=== PATIENT | male | born 1945 | race Caucasian/White ===

== ENCOUNTER 2016-11-20 18:37 | Observation (INO) | payer MEDICARE ==
[2016-11-20 20:06] LABS: Basophils % (A) 1 %; CH 29.6; CHCM 34.7; Eosinophils # (A) 0.1 k/uL (0-0.7); Eosinophils % (A) 1 %; HCT 47.7 % (39.0-53.0); HDW 2.73; HGB 15.9 gm/dL (13.0-17.5); Luc # (Auto) 0.11; Luc % (Auto) 2; Lymphocytes % (A) 22 %; MCH 28.5 pg (25.0-35.0); MCHC 33.3 g/dL (31.0-37.0); MCV 85.7 fL (80.0-100.0); Mean Platelet Volume 8.5; Monocytes # (A) 0.4 k/uL (0-1.0); Monocytes % (A) 9 %; Neutrophils # (A) 2.9 k/uL (1.3-7.7); Neutrophils % (A) 65 %; RBC 5.57 m/uL (4.30-5.90); RDW 14.9 % (11.5-15.5); WBC 4.5 k/uL (3.8-10.6)
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
[2016-11-20 20:34] LABS: Anion Gap 9 mmol/L; Blood Urea Nitrogen 27 mg/dL (9-20); Calcium 9.7 mg/dL (8.4-10.2); Carbon Dioxide 20 mmol/L (22-30); Chloride 110 mmol/L (98-107); Glucose 144 mg/dL (74-99); Non-African American GFR(MDRD) 55 (>60 ml/min/1.73 sqM); Sodium 139 mmol/L (137-145)
[2016-11-20 20:49] LABS: INR 1.6 (<1.2); Partial Thromboplastin Time 25.4 sec (22.0-30.0); Prothrombin Time 15.9 sec (9.0-12.0)
[2016-11-20 20:58] LABS: Creatine Kinase 68 U/L (55-170)
[2016-11-20 21:09] LABS: Creatine Kinase MB 0.9 ng/mL (0.0-2.4); Troponin I <0.012 ng/mL (0.000-0.034)
[2016-11-20 21:51] LABS: Appearance,Urine Clear (Clear); Bilirubin,Urine Negative (Negative); Glucose,Urine (UA) 2+ (Negative); Ketones,Urine Negative (Negative); Leukocyte Esterase,Urine Negative (Negative); Nitrite,Urine Negative (Negative); PH, Urine 5.5 (5.0-8.0); Protein,Urine Trace (Negative); Specific Gravity,Urine 1.018 (1.001-1.035); UA Billing (MACRO vs. MICRO) CHEM
[2016-11-20] MEDS ORDERED: NALOXONE 0.4 MG/ML 1 ML VIAL IV PRN (22:53)
--- NOTE | 2016-11-20 23:31 | XR ---
EXAM: XR Chest, 2 Views CLINICAL HISTORY: Reason: Pain TECHNIQUE: Frontal and lateral views of the chest. COMPARISON: Chest x-ray 09/07/14 FINDINGS: Lungs: Unremarkable. No consolidation. Pleural space: No pleural effusion. No pneumothorax. Heart: Stable mild cardiomegaly. Mediastinum: Unremarkable. Bones/joints: Median sternotomy wires. Vasculature: Atherosclerotic calcifications of the aortic arch. Tubes, lines and devices: Left chest wall cardiac pacer with right ventricular lead. IMPRESSION: Stable mild cardiomegaly. No consolidation or pulmonary edema.
[2016-11-21 03:16] VITALS: BMI 39.6
[2016-11-21] MEDS ORDERED: PANTOPRAZOLE 40 MG TABLET PO SCH (07:30)
[2016-11-21 07:57] LABS: Hemoglobin A1C 7.5 % (4.2-6.1)
[2016-11-21 08:50] LABS: Basophils % (A) 1 %; CH 28.3; CHCM 32.8; Eosinophils # (A) 0.1 k/uL (0-0.7); Eosinophils % (A) 2 %; HCT 47.5 % (39.0-53.0); HDW 2.71; HGB 15.6 gm/dL (13.0-17.5); Luc # (Auto) 0.16; Luc % (Auto) 4; Lymphocytes # (A) 1.1 k/uL (1.0-4.8); Lymphocytes % (A) 29 %; MCH 28.5 pg (25.0-35.0); MCHC 32.9 g/dL (31.0-37.0); MCV 86.7 fL (80.0-100.0); Mean Platelet Volume 7.8; Monocytes # (A) 0.4 k/uL (0-1.0); Monocytes % (A) 9 %; Neutrophils # (A) 2.2 k/uL (1.3-7.7); Neutrophils % (A) 56 %; RBC 5.47 m/uL (4.30-5.90); RDW 13.6 % (11.5-15.5); WBC 3.9 k/uL (3.8-10.6); WBC (Perox) 3.96
[2016-11-21] MEDS ORDERED: ARIPiprazole 5 MG TAB PO SCH (09:00)
[2016-11-21] MEDS ORDERED: AMIODARONE 200 MG TAB PO SCH (09:00)
[2016-11-21] MEDS ORDERED: FUROSEMIDE 20 MG TAB PO SCH (09:00)
[2016-11-21 09:01] LABS: ALT 79 U/L (21-72); AST 56 U/L (17-59); Alkaline Phosphatase 96 U/L (38-126); Anion Gap 9 mmol/L; Blood Urea Nitrogen 24 mg/dL (9-20); Calcium 9.5 mg/dL (8.4-10.2); Carbon Dioxide 24 mmol/L (22-30); Chloride 107 mmol/L (98-107); Glucose 125 mg/dL (74-99); Non-African American GFR(MDRD) >60 (>60 ml/min/1.73 sqM); Potassium 4.7 mmol/L (3.5-5.1); Sodium 140 mmol/L (137-145); Total Protein 6.5 g/dL (6.3-8.2)
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
[2016-11-21] MEDS ORDERED: VERAPAMIL SR 120 MG TABLET.ER PO SCH (11:15)
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
[2016-11-21 11:41] VITALS: BP 121/71; PULSE 81; RESP 16; TEMP 97.4
[2016-11-21 11:54] LABS: INR 1.5 (<1.2); Prothrombin Time 14.6 sec (9.0-12.0)
[2016-11-21 12:22] LABS: Glucose,Whole Blood 122 mg/dL (75-99)
[2016-11-21] MEDS ORDERED: INSULIN LISPRO (humaLOG) 300 UNIT/3 ML VIAL SQ SCH (12:30)
[2016-11-21] MEDS ORDERED: HEPARIN SODIUM,PORCINE 5,000 UNIT/ML 1 ML VIAL SQ SCH (13:00)
[2016-11-21 13:10] LABS: Hemoglobin A1C 7.5 % (4.2-6.1)
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
[2016-11-21 17:26] LABS: Glucose,Whole Blood 146 mg/dL (75-99)
[2016-11-21] MEDS ORDERED: WARFARIN 2 MG TAB PO SCH (18:00)
[2016-11-21] MEDS ORDERED: WARFARIN 5 MG TAB PO SCH (18:00)
[2016-11-21] MEDS ORDERED: ATORVASTATIN 20 MG TAB PO SCH (21:00)
--- NOTE | 2016-11-21 21:47 | ECHOF ---
Referral Reason:chest pain MEASUREMENTS -------- HEIGHT: 154.9 cm WEIGHT: 95.3 kg BP: 102/60 RVIDd: 3.3 cm (< 3.3) IVSd: 1.2 cm (0.6 - 1.1) LVIDd: 4.1 cm (3.9 - 5.3) LVPWd: 1.2 cm (0.6 - 1.1) IVSs: 1.6 cm LVIDs: 3.1 cm LVPWs: 1.5 cm LA Diam: 3.5 cm (2.7 - 3.8) LAESV Index (A-L): 29.42 ml/m Ao Diam: 3.4 cm (2.0 - 3.7) AV Cusp: 2.1 cm (1.5 - 2.6) MV EXCURSION: 12.364 mm (> 18.000) MV EF SLOPE: 80 mm/s (70 - 150) EPSS: 1.0 cm RAP: 5.00 mmHg RVSP: 24.33 mmHg FINDINGS -------- Atrial fibrillation. This was a technically good study. The left ventricular size is normal. There is borderline concentric left ventricular hypertrophy. Overall left ventricular systolic function is mildly impaired with, an EF between 45 - 50 %. The right ventricle is mildly enlarged. LA is midly dilated 29-33ml/m2. The right atrium is normal in size. Aortic valve is trileaflet and is mildly thickened. Mild mitral annular calcification present. There is trace to mild mitral regurgitation. Mild tricuspid regurgitation present. Right ventricular systolic pressure is normal at < 35 mmHg. Trace/mild (physiologic) pulmonic regurgitation. The aortic root size is normal. IVC Not well visulized. There is no pericardial effusion. CONCLUSIONS -------- 1. Atrial fibrillation. 2. Mild mitral annular calcification present. 3. There is trace to mild mitral regurgitation. 4. Mild tricuspid regurgitation present. 5. Right ventricular systolic pressure is normal at < 35 mmHg. 6. Trace/mild (physiologic) pulmonic regurgitation. 7. The aortic root size is normal. 8. IVC Not well visulized. 9. There is no pericardial effusion. 10. This was a technically good study. 11. The left ventricular size is normal. 12. There is borderline concentric left ventricular hypertrophy. 13. Overall left ventricular systolic function is mildly impaired with, an EF between 45 - 50 %. 14. The right ventricle is mildly enlarged. 15. LA is midly dilated 29-33ml/m2. 16. The right atrium is normal in size. 17. Aortic valve is trileaflet and is mildly thickened. UPHOLSTERER INSIDE: Denia Hatch RDCS
== END 2016-11-21 18:39 ==
LOC: EC 18:37 → 3OBS 11-21 02:19
PROVIDERS: ADMIT Internal Medicine; ATTEND Internal Medicine
DX: R45.851 Suicidal ideations (principal); R45.850 Homicidal ideations; I48.2 Chronic atrial fibrillation; I48.92 Unspecified atrial flutter; F32.9 Major depressive disorder, single episode, unspecified; N17.9 Acute kidney failure, unspecified; E86.0 Dehydration; E05.90 Thyrotoxicosis, unspecified without thyrotoxic crisis or storm; E03.9 Hypothyroidism, unspecified; I25.2 Old myocardial infarction; I25.10 Atherosclerotic heart disease of native coronary artery without angina pectoris; E11.9 Type 2 diabetes mellitus without complications; F41.9 Anxiety disorder, unspecified; G47.33 Obstructive sleep apnea (adult) (pediatric); H54.8 Legal blindness, as defined in USA; I10 Essential (primary) hypertension; K21.9 Gastro-esophageal reflux disease without esophagitis; Z79.01 Long term (current) use of anticoagulants; Z79.899 Other long term (current) drug therapy; Z86.718 Personal history of other venous thrombosis and embolism; Z95.0 Presence of cardiac pacemaker; Z95.5 Presence of coronary angioplasty implant and graft; R44.3 Hallucinations, unspecified; R07.89 Other chest pain; R06.02 Shortness of breath; Z88.5 Allergy status to narcotic agent; Z88.2 Allergy status to sulfonamides; Z88.8 Allergy status to other drugs, medicaments and biological substances; Z87.820 Personal history of traumatic brain injury; Z86.14 Personal history of Methicillin resistant Staphylococcus aureus infection; Z95.828 Presence of other vascular implants and grafts; Z63.0 Problems in relationship with spouse or partner; R74.8 Abnormal levels of other serum enzymes; E66.9 Obesity, unspecified; Z68.39 Body mass index [BMI] 39.0-39.9, adult; R79.89 Other specified abnormal findings of blood chemistry; Z91.14 Patient's other noncompliance with medication regimen
CPT/HCPCS: 36415; 71020; 80048; 80053; 80306; 81003; 82075; 82550; 82553; 83036; 84439; 84443; 84484; 85025; 85610; 85730; 93005; 93306; 96372; 99285

== ENCOUNTER 2016-11-21 16:57 | Inpatient (IN) | payer MEDICAID, MEDICARE ==
[2016-11-21] MEDS ORDERED: MAGNESIUM HYDROXIDE 2,400 MG/10 ML CUP PO PRN (18:24)
[2016-11-21] MEDS ORDERED: ACETAMINOPHEN TAB 325 MG TAB PO PRN (18:24)
[2016-11-21] MEDS ORDERED: MAG HYDROX/AL HYDROX/SIMETH 30 ML CUP PO PRN (18:24)
[2016-11-21] MEDS: ATORVASTATIN 20 MG TAB PO SCH (20:36)
[2016-11-21] MEDS: INSULIN LISPRO (humaLOG) 300 UNIT/3 ML VIAL SQ SCH (20:37)
[2016-11-21 20:38] LABS: Glucose,Whole Blood 180 mg/dL (75-99)
[2016-11-22] MEDS ORDERED: LEVOTHYROXINE 112 MCG TAB PO SCH (06:30)
[2016-11-22 06:45] LABS: Glucose,Whole Blood 163 mg/dL (75-99)
[2016-11-22] MEDS: INSULIN LISPRO (humaLOG) 300 UNIT/3 ML VIAL SQ SCH ×4 (08:27→20:47)
[2016-11-22] MEDS: glipiZIDE 5 MG TAB PO SCH ×2 (08:28→17:57)
[2016-11-22] MEDS: VERAPAMIL SR 120 MG TABLET.ER PO SCH (08:49)
[2016-11-22] MEDS: ARIPiprazole 5 MG TAB PO SCH (08:49)
[2016-11-22] MEDS: FUROSEMIDE 20 MG TAB PO SCH (08:49)
[2016-11-22] MEDS: PANTOPRAZOLE 40 MG TABLET PO SCH (08:50)
[2016-11-22 09:48] LABS: Basophils % (A) 0 %; CH 29.3; CHCM 33.7; Eosinophils # (A) 0.1 k/uL (0-0.7); Eosinophils % (A) 2 %; HCT 49.9 % (39.0-53.0); HDW 2.64; HGB 16.1 gm/dL (13.0-17.5); Luc # (Auto) 0.13; Luc % (Auto) 3; Lymphocytes # (A) 1.4 k/uL (1.0-4.8); Lymphocytes % (A) 28 %; MCH 28.1 pg (25.0-35.0); MCHC 32.2 g/dL (31.0-37.0); MCV 87.3 fL (80.0-100.0); Mean Platelet Volume 8.2; Monocytes # (A) 0.4 k/uL (0-1.0); Monocytes % (A) 7 %; Neutrophils % (A) 60 %; RBC 5.71 m/uL (4.30-5.90); RDW 14.7 % (11.5-15.5)
[2016-11-22 10:26] LABS: ALT 84 U/L (21-72); AST 54 U/L (17-59); Alkaline Phosphatase 101 U/L (38-126); Anion Gap 11 mmol/L; Blood Urea Nitrogen 25 mg/dL (9-20); Calcium 9.6 mg/dL (8.4-10.2); Carbon Dioxide 22 mmol/L (22-30); Chloride 104 mmol/L (98-107); Glucose 222 mg/dL (74-99); Non-African American GFR(MDRD) 56 (>60 ml/min/1.73 sqM); Potassium 4.7 mmol/L (3.5-5.1); Sodium 137 mmol/L (137-145); Total Bilirubin 0.8 mg/dL (0.2-1.3)
[2016-11-22 11:23] LABS: Hemoglobin A1C 7.5 % (4.2-6.1)
[2016-11-22 12:30] LABS: Glucose,Whole Blood 167 mg/dL (75-99)
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
[2016-11-22 15:40] LABS: INR 1.3 (<1.2); Prothrombin Time 13.1 sec (9.0-12.0)
[2016-11-22] MEDS: CEPHALEXIN 500 MG CAP PO SCH ×2 (16:18→21:13)
[2016-11-22 17:38] LABS: Glucose,Whole Blood 88 mg/dL (75-99)
[2016-11-22] MEDS ORDERED: WARFARIN 7.5 MG TAB PO ONE (18:00)
[2016-11-22] MEDS ORDERED: WARFARIN 5 MG TAB PO SCH (18:00)
[2016-11-22 20:15] LABS: Glucose,Whole Blood 162 mg/dL (75-99)
[2016-11-22] MEDS: ATORVASTATIN 20 MG TAB PO SCH (20:46)
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
[2016-11-23] MEDS: LEVOTHYROXINE 100 MCG TAB PO SCH (06:16)
[2016-11-23 06:21] LABS: Glucose,Whole Blood 106 mg/dL (75-99)
[2016-11-23] MEDS: INSULIN LISPRO (humaLOG) 300 UNIT/3 ML VIAL SQ SCH ×4 (07:54→20:47)
[2016-11-23] MEDS: CEPHALEXIN 500 MG CAP PO SCH ×3 (08:52→21:21)
[2016-11-23] MEDS: VERAPAMIL SR 120 MG TABLET.ER PO SCH (08:52)
[2016-11-23] MEDS: glipiZIDE 5 MG TAB PO SCH ×2 (08:53→17:51)
[2016-11-23] MEDS: FUROSEMIDE 20 MG TAB PO SCH (08:53)
[2016-11-23] MEDS: PANTOPRAZOLE 40 MG TABLET PO SCH (08:55)
[2016-11-23] MEDS: ARIPiprazole 5 MG TAB PO SCH (08:55)
[2016-11-23 10:22] LABS: INR 1.4 (<1.2); Prothrombin Time 13.9 sec (9.0-12.0)
[2016-11-23 12:51] LABS: Glucose,Whole Blood 176 mg/dL (75-99)
[2016-11-23 17:28] LABS: Glucose,Whole Blood 143 mg/dL (75-99)
[2016-11-23] MEDS ORDERED: WARFARIN 5 MG TAB PO SCH (18:00)
[2016-11-23] MEDS ORDERED: WARFARIN 7.5 MG TAB PO ONE (18:00)
[2016-11-23 20:11] LABS: Glucose,Whole Blood 176 mg/dL (75-99)
[2016-11-23] MEDS: ATORVASTATIN 20 MG TAB PO SCH (20:47)
--- NOTE | 2016-11-24 00:44 | P.PN ---
Progress Note - Text Vital Signs Temp 98.1 F 11/23/16 06:43 Pulse 93 11/23/16 08:57 Resp 18 11/23/16 08:57 BP 127/92 11/23/16 08:57 Pulse Ox Intake & Output 11/23/16 11/23/16 11/24/16 06:59 18:59 06:59 Weight 95 kg Patient interviewed privately. He reports adjusting well his first day on the unit . Tolerating Wellbutrin XL with no adverse or side effects.. He has been attending most groups, and had a good visit with family over the weekend. Plan: -continue hospitalization -continue current regimen -patient could likely discharge tomorrow or the next day
[2016-11-24] MEDS: LEVOTHYROXINE 100 MCG TAB PO SCH (06:08)
[2016-11-24 06:17] LABS: Glucose,Whole Blood 87 mg/dL (75-99)
[2016-11-24] MEDS: FUROSEMIDE 20 MG TAB PO SCH (08:44)
[2016-11-24] MEDS: INSULIN LISPRO (humaLOG) 300 UNIT/3 ML VIAL SQ SCH ×4 (08:44→20:14)
[2016-11-24] MEDS: glipiZIDE 5 MG TAB PO SCH ×2 (08:44→16:28)
[2016-11-24] MEDS: ARIPiprazole 5 MG TAB PO SCH (08:45)
[2016-11-24] MEDS: PANTOPRAZOLE 40 MG TABLET PO SCH (08:45)
[2016-11-24] MEDS: VERAPAMIL SR 120 MG TABLET.ER PO SCH (08:45)
[2016-11-24] MEDS: CEPHALEXIN 500 MG CAP PO SCH ×3 (08:45→20:14)
[2016-11-24 10:23] LABS: INR 2.3 (<1.2); Prothrombin Time 21.8 sec (9.0-12.0)
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
[2016-11-24 12:38] LABS: Glucose,Whole Blood 114 mg/dL (75-99)
[2016-11-24 17:46] LABS: Glucose,Whole Blood 151 mg/dL (75-99)
[2016-11-24] MEDS: WARFARIN 2 MG TAB PO SCH (17:52)
[2016-11-24 20:06] LABS: Glucose,Whole Blood 153 mg/dL (75-99)
[2016-11-24] MEDS: ATORVASTATIN 20 MG TAB PO SCH (20:14)
[2016-11-25] MEDS: LEVOTHYROXINE 100 MCG TAB PO SCH (06:14)
[2016-11-25 06:22] LABS: Glucose,Whole Blood 97 mg/dL (75-99)
[2016-11-25] MEDS: INSULIN LISPRO (humaLOG) 300 UNIT/3 ML VIAL SQ SCH ×4 (08:09→19:59)
[2016-11-25] MEDS: FUROSEMIDE 20 MG TAB PO SCH (08:35)
[2016-11-25] MEDS: glipiZIDE 5 MG TAB PO SCH ×2 (08:35→17:46)
[2016-11-25] MEDS: CEPHALEXIN 500 MG CAP PO SCH ×3 (08:36→19:59)
[2016-11-25] MEDS: VERAPAMIL SR 120 MG TABLET.ER PO SCH (08:36)
[2016-11-25] MEDS: ARIPiprazole 5 MG TAB PO SCH (08:36)
[2016-11-25] MEDS: PANTOPRAZOLE 40 MG TABLET PO SCH (08:36)
[2016-11-25] MEDS ORDERED: FLUoxetine HCL 10 MG CAP PO STA (10:25)
[2016-11-25 11:01] LABS: INR 3.1 (<1.2); Prothrombin Time 30.1 sec (9.0-12.0)
[2016-11-25 12:52] LABS: Glucose,Whole Blood 87 mg/dL (75-99)
--- NOTE | 2016-11-25 15:02 | P.PN ---
Progress Note - Text Interval History: Patient is a 70-year-old male who was seen today and states that he slept okay and is eating okay. Patient states that the family meeting went fairly well yesterday. I discussed with the patient that his and brought up that he was doing well on Prozac and then it was changed to a medication that he could not afford and the patient agreed that this was so and the Abilify is the medication that he could not afford. Patient states that he is much less irritable than when he was on admission and states that he is not having any suicidal thoughts. Patient did complain that he has lower legs were itchy where he has stasis ulcers. Mental Status: Appearance/Attitude: Patient is appropriately dressed, makes good eye contact, and is cooperative. Patient is not wearing hearing aids and I need to speak in a loud voice of that he can hear. Patient is also legally blind. Behavior: Patient does not display any psychomotor agitation or retardation. Speech/Language: Patient's speech is spontaneous and of normal volume and rhythm and he is coherent. Thought Process: Patient is goal-directed there is no evidence of loose associations or flight of ideas. Thought Content: Patient denies any auditory or visual hallucinations, no paranoid or delusional ideation is elicited. Patient states that he is feeling less irritable and at the family meeting with his went well yesterday. He states that they are going to continue in marriage counseling after his discharge. Patient states he is sleeping and eating well. Suicidal/Homicidal Ideation: Patient denies any current suicidal or homicidal ideation. Sensorium/Cognition: Patient is alert and oriented to person, place, time and his memory is grossly intact. Mood/Affect: Patient's mood is pleasant and his affect is appropriate. Insight/Judgement: Patient's insight and judgment are fair. Assessment: Patient and I discussed his response to Prozac and he did confirm that he been on it for 18 years at 20 mg a day and was doing well and cannot tell me why it was changed to Abilify. He was unable to tell me that the Abilify is the medication that he could not afford. Patient had not been started on Wellbutrin. Patient complained that his stasis ulcers or itching. Patient reported that the family meeting went well and he is feeling much less irritable area Plan: Will discontinue the patient's Abilify as the patient is not able to afford it. Patient was never started on Wellbutrin and so I will change him to Prozac 10 mg today and Prozac 20 mg tomorrow. Should patient have no difficulty tolerating the medication and consider discharge later this week. Patient states that he and his are going to continue in marriage counseling once he is discharged. Will also reconsult medicine to evaluate patient's stasis ulcers and the need for any further treatment.
[2016-11-25 16:59] LABS: Glucose,Whole Blood 197 mg/dL (75-99)
[2016-11-25] MEDS: WARFARIN 2 MG TAB PO SCH (17:46)
[2016-11-25] MEDS: NEOMYCIN-BACITRACIN-POLY OINT 14 GM TUBE TOPICAL SCH (18:51)
[2016-11-25 19:51] LABS: Glucose,Whole Blood 98 mg/dL (75-99)
[2016-11-25] MEDS: ATORVASTATIN 20 MG TAB PO SCH (19:59)
[2016-11-26] MEDS: LEVOTHYROXINE 100 MCG TAB PO SCH (05:58)
[2016-11-26 06:03] LABS: Glucose,Whole Blood 87 mg/dL (75-99)
[2016-11-26 06:38] VITALS: TEMP 97.5
[2016-11-26] MEDS: INSULIN LISPRO (humaLOG) 300 UNIT/3 ML VIAL SQ SCH ×2 (08:01→12:27)
[2016-11-26] MEDS: glipiZIDE 5 MG TAB PO SCH (08:02)
[2016-11-26] MEDS: CEPHALEXIN 500 MG CAP PO SCH (08:02)
[2016-11-26] MEDS: PANTOPRAZOLE 40 MG TABLET PO SCH (08:03)
[2016-11-26] MEDS: VERAPAMIL SR 120 MG TABLET.ER PO SCH (08:03)
[2016-11-26] MEDS: FUROSEMIDE 20 MG TAB PO SCH (08:03)
[2016-11-26] MEDS: NEOMYCIN-BACITRACIN-POLY OINT 14 GM TUBE TOPICAL SCH (08:04)
[2016-11-26 08:07] VITALS: BP 130/59; PULSE 80; RESP 18
[2016-11-26] MEDS ORDERED: FLUoxetine HCL 20 MG CAP PO SCH (09:00)
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
[2016-11-26 11:54] LABS: INR 3.7 (<1.2); Prothrombin Time 35.7 sec (9.0-12.0)
[2016-11-26 12:49] LABS: Glucose,Whole Blood 113 mg/dL (75-99)
== END 2016-11-26 13:49 | disposition home or self-care (01) | DRG 885 ==
LOC: 3MHU 18:40
PROVIDERS: ADMIT Psychiatry & Neurology Psychiatry; ATTEND Psychiatry & Neurology Psychiatry
DX: F33.1 Major depressive disorder, recurrent, moderate (principal); I48.91 Unspecified atrial fibrillation; L03.115 Cellulitis of right lower limb; L03.116 Cellulitis of left lower limb; R45.850 Homicidal ideations; R45.851 Suicidal ideations; E11.9 Type 2 diabetes mellitus without complications; E03.9 Hypothyroidism, unspecified; F41.9 Anxiety disorder, unspecified; G47.33 Obstructive sleep apnea (adult) (pediatric); H54.8 Legal blindness, as defined in USA; I25.10 Atherosclerotic heart disease of native coronary artery without angina pectoris; I25.2 Old myocardial infarction; K21.9 Gastro-esophageal reflux disease without esophagitis; Z63.0 Problems in relationship with spouse or partner; Z79.01 Long term (current) use of anticoagulants; Z79.84 Long term (current) use of oral hypoglycemic drugs; Z79.899 Other long term (current) drug therapy; Z86.718 Personal history of other venous thrombosis and embolism; Z88.2 Allergy status to sulfonamides; Z96.653 Presence of artificial knee joint, bilateral; Z86.14 Personal history of Methicillin resistant Staphylococcus aureus infection; Z88.5 Allergy status to narcotic agent; Z88.8 Allergy status to other drugs, medicaments and biological substances; Z95.5 Presence of coronary angioplasty implant and graft
CPT/HCPCS: 80053; 83036; 84443; 85025; 85610

== ENCOUNTER 2017-08-22 18:34 | Emergency (ER) | payer MEDICARE ==
[2017-08-22 19:06] VITALS: BP 144/64; PULSE 81; RESP 16; TEMP 98.1
--- NOTE | 2017-08-22 20:19 | XR ---
EXAMINATION TYPE: XR finger RT DATE OF EXAM: 08/22/2017 COMPARISON: NONE HISTORY: 71-year-old male with pain, laceration from table saw TECHNIQUE: 3 views coned down second digit FINDINGS: There is a saw blade injury oriented sagittally involving the tip of the index finger. Fracture runs vertically along the ulnar margin of the tuft and distal shaft. No additional acute fracture or dislocation. IMPRESSION: Penetrating table saw injury involving the soft tissues of the distal index finger with vertically or iented fracture running along the ulnar margin of the tuft and distal shaft of the distal phalanx.
[2017-08-22] MEDS ORDERED: ceFAZolin 1,000 MG VIAL IM STA (20:36)
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
== END 2017-08-22 21:23 | disposition home or self-care (01) ==
LOC: EC 18:34
DX: S62.630B Displaced fracture of distal phalanx of right index finger, initial encounter for open fracture (principal); S61.210A Laceration without foreign body of right index finger without damage to nail, initial encounter; K21.9 Gastro-esophageal reflux disease without esophagitis; I10 Essential (primary) hypertension; G47.30 Sleep apnea, unspecified; H54.8 Legal blindness, as defined in USA; Z86.14 Personal history of Methicillin resistant Staphylococcus aureus infection; Z99.89 Dependence on other enabling machines and devices; Z86.718 Personal history of other venous thrombosis and embolism; Z98.890 Other specified postprocedural states; Z96.653 Presence of artificial knee joint, bilateral; Z79.899 Other long term (current) drug therapy; Z88.2 Allergy status to sulfonamides; Z88.5 Allergy status to narcotic agent; Z88.8 Allergy status to other drugs, medicaments and biological substances; W31.2XXA Contact with powered woodworking and forming machines, initial encounter; Y92.009 Unspecified place in unspecified non-institutional (private) residence as the place of occurrence of the external cause; Y93.89 Activity, other specified
CPT/HCPCS: 73140; 99283; 12001; 96372; J0690

== ENCOUNTER → 2018-07-12 | Outpatient (CLI) | payer MEDICARE ==
[2018-07-12 12:24] LABS: HCT 45.9 % (39.0-53.0); HGB 14.9 gm/dL (13.0-17.5); MCHC 32.5 g/dL (31.0-37.0); MCV 86.1 fL (80.0-100.0); Platelet Count 164 k/uL (150-450); RBC 5.33 m/uL (4.30-5.90); RDW 13.9 % (11.5-15.5)
== END | disposition home or self-care (01) ==
LOC: LABPAT 11:29
PROVIDERS: ATTEND Internal Medicine Cardiovascular Disease
DX: Z01.812 Encounter for preprocedural laboratory examination (principal); I48.2 Chronic atrial fibrillation
CPT/HCPCS: 36415; 80051; 82565; 84520; 85027

== ENCOUNTER 2018-07-15 06:30 | Day surgery (SDC) | payer MEDICARE ==
[~2018-07-15 06:30] MED LIST: ALPRAZolam 0.25 MG TAB PO PRN; ALPRAZolam 0.5 MG TAB PO PRN; NITROGLYCERIN SL TABS 0.4 MG TAB SUBLINGUAL PRN; SODIUM CHLORIDE 0.9% 1,000 ML in EMPTY BAG 1 BAG IV ONE
[2018-07-15] MEDS ORDERED: ASPIRIN 81 MG ONE (06:47)
[2018-07-15] MEDS ORDERED: ATENOLOL 25 MG TAB PO STA (06:59)
[2018-07-15] MEDS ORDERED: ASPIRIN 325 MG TAB PO ONE (07:00)
[2018-07-15] MEDS ORDERED: ATORVASTATIN 80 MG TAB PO ONE (07:00)
[2018-07-15 07:05] LABS: Glucose,Whole Blood 145 mg/dL (75-99)
[2018-07-15 07:16] LABS: INR 1.5 (<1.2)
[2018-07-15] MEDS ORDERED: VERAPAMIL 2.5 MG/ML 2 ML AMP ONE (07:17)
[2018-07-15] MEDS ORDERED: HEPARIN SODIUM 1,000 UN/ML (10ML VL) ONE (07:17)
[2018-07-15] MEDS ORDERED: LIDOCAINE 1% INJ 10MG/ML (20 ML MDV) ONE (07:21)
[2018-07-15] MEDS ORDERED: MIDAZOLAM (PF) 2 MG/2 ML VIAL IV ONE (07:45)
[2018-07-15] MEDS ORDERED: LIDOCAINE 1% INJ 10MG/ML (20 ML MDV) SQ ONE (07:50)
[2018-07-15] MEDS ORDERED: VERAPAMIL SYRINGE (5 MG/10 ML) INTRAARTER ONE (07:54)
[2018-07-15] MEDS ORDERED: IOPAMIDOL-370 125ML BTL INJ ONE (08:26)
[2018-07-15] MEDS ORDERED: RX INFO: IV CONTRAST WAS GIVEN 1 EACH MISC MISCELLANE PRN (08:34)
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
[2018-07-15] MEDS ORDERED: ISOSORBIDE MONONITRATE ER 30 MG TAB.ER.24H PO SCH (09:09)
[2018-07-15 09:17] VITALS: BMI 40.3
[2018-07-15] MEDS: ATENOLOL 25 MG TAB PO SCH ×2 (09:47→20:52)
[2018-07-15] MEDS: SODIUM CHLORIDE 0.9% 1,000 ML IV SCH ×2 (09:48→22:41)
[2018-07-15] MEDS: ASPIRIN 81 MG PO SCH (09:49)
[2018-07-15] MEDS: LINAGLIPTIN 5 MG TABLET PO SCH (09:50)
[2018-07-15] MEDS: LOSARTAN 50 MG TAB PO SCH (09:51)
[2018-07-15] MEDS: FLUoxetine HCL 20 MG CAP PO SCH (09:53)
[2018-07-15] MEDS: FUROSEMIDE 20 MG TAB PO SCH (09:53)
[2018-07-15] MEDS: CHOLECALCIFEROL 1,000 UNIT TAB PO SCH (09:53)
[2018-07-15] MEDS: LEVOTHYROXINE 100 MCG TAB PO SCH (09:54)
[2018-07-15 11:18] LABS: Glucose,Whole Blood 146 mg/dL (75-99)
[2018-07-15] MEDS ORDERED: HEPARIN SODIUM,PORCINE 5,000 UNIT/ML 1 ML VIAL IV PRN (12:00)
[2018-07-15] MEDS: HEPARIN SOD,PORK IN 0.45% NACL 25,000 UNIT in 0.45% NACL 1 250ML.BAG IV SCH (12:39)
[2018-07-15 12:43] LABS: Basophils # (A) 0.1 k/uL (0-0.2); Basophils % (A) 1 %; Eosinophils # (A) 0.1 k/uL (0-0.7); Eosinophils % (A) 2 %; HCT 42.7 % (39.0-53.0); HGB 14.1 gm/dL (13.0-17.5); Lymphocytes # (A) 1.5 k/uL (1.0-4.8); Lymphocytes % (A) 26 %; MCH 28.4 pg (25.0-35.0); MCHC 33.2 g/dL (31.0-37.0); MCV 85.7 fL (80.0-100.0); Mean Platelet Volume 7.5; Monocytes # (A) 0.4 k/uL (0-1.0); Monocytes % (A) 7 %; Neutrophils # (A) 3.5 k/uL (1.3-7.7); Neutrophils % (A) 62 %; Platelet Count 126 k/uL (150-450); RBC 4.98 m/uL (4.30-5.90); RDW 14.6 % (11.5-15.5); WBC 5.6 k/uL (3.8-10.6)
[2018-07-15 13:01] LABS: Albumin 3.7 g/dL (3.5-5.0); Calcium 9.2 mg/dL (8.4-10.2); Magnesium 1.9 mg/dL (1.6-2.3); Potassium 4.5 mmol/L (3.5-5.1); Total Bilirubin 0.8 mg/dL (0.2-1.3); Total Protein 6.5 g/dL (6.3-8.2)
--- NOTE | 2018-07-15 13:25 | US ---
EXAMINATION TYPE: US carotid duplex BILAT DATE OF EXAM: 07/15/2018 COMPARISON: NONE CLINICAL HISTORY: 72-year-old male Pre-Op Cardiac Surgery. TECHNIQUE: Carotid duplex ultrasound examination. Indirect Doppler criteria is utilized. FINDINGS: EXAM MEASUREMENTS: RIGHT: Peak Systolic Velocity (PSV) cm/sec ----- Right CCA: 70.6 ----- Right ICA: 95.6 ----- Right ECA: 80.1 ICA/CCA ratio: 1.4 RIGHT: End Diastole cm/sec ----- Right CCA: 22.6 ----- Right ICA: 42.6 ----- Right ECA: 0.0 LEFT: Peak Systolic Velocity (PSV) cm/sec ----- Left CCA: 67.1 ----- Left ICA: 71.3 ----- Left ECA: 122.6 ICA/CCA ratio: 1.1 LEFT: End Diastole cm/sec ----- Left CCA: 14.7 ----- Left ICA: 19.7 ----- Left ECA: 0.0 VERTEBRALS (direction of flow): Right Vertebral: Antegrade Left Vertebral: Antegrade Rhythm: Arrhythmia No significant stenosis seen IMPRESSION: No hemodynamically significant stenosis appreciated in either internal carotid artery. Criteria for Assigning % of Stenosis / Diameter reduction (Estimation based on the indirect measurements of the internal carotid artery velocities (ICA PSV). 1. Normal (no stenosis)=ICA PSV < 125 cm/s: ratio < 2.0: ICA EDV<40 cm/s. 2. Less than 50% stenosis=ICA PSV < 125 cm/s: ratio < 2.0: ICA EDV<40 cm/s. 3. 50 to 69% stenosis=ICA PSV of 125 to 230 cm/s: ration 2.0 ? 4.0: ICA EDV 40-100 cm/s. 4. Greater than 70% stenosis to near occlusion= ICA PSV > 230 cm/s: ratio > 4.0: ICA EDV > 100 cm/s. 5. Near occlusion= ICA PSV velocities may be low or undetectable: variable ratio and ICA EDV. 6. Total occlusion=unable to detect flow.
[2018-07-15 15:20] LABS: Appearance,Urine Clear (Clear); Bilirubin,Urine Negative (Negative); Blood,Urine Negative (Negative); Color,Urine Light Yellow; Glucose,Urine (UA) Negative (Negative); Ketones,Urine Negative (Negative); Leukocyte Esterase,Urine Negative (Negative); Nitrite,Urine Negative (Negative); PH, Urine 5.5 (5.0-8.0); Protein,Urine Negative (Negative); Specific Gravity,Urine 1.035 (1.001-1.035); Urobilinogen,Urine <2.0 mg/dL (<2.0)
--- NOTE | 2018-07-15 15:53 | XR ---
EXAMINATION TYPE: XR chest 2V DATE OF EXAM: 07/15/2018 COMPARISON: Prior chest x-ray 11/20/2016 HISTORY: Preop TECHNIQUE: Frontal and lateral views of the chest are obtained. FINDINGS: Patient is post median sternotomy. Pacemaker generator is present in the left pectoral reg ion, there is a lead in the right ventricle. Heart is enlarged and stable. No evident airspace diseas e, pneumothorax, or pleural effusion. Osseous structures are stable. Aorta is dense. IMPRESSION: Stable cardiomegaly. Postop changes.
[2018-07-15 16:26] LABS: Glucose,Whole Blood 144 mg/dL (75-99)
[2018-07-15] MEDS ORDERED: WARFARIN 2 MG TAB PO SCH (18:00)
[2018-07-15 19:12] LABS: Hemoglobin A1C 8.5 % (4.0-6.0)
[2018-07-15 19:35] LABS: Hepatitis A Antibody IgM Non-Reactive (Non-Reactive); Hepatitis B Core IgM Non-Reactive (Non-Reactive)
[2018-07-15 20:40] LABS: Glucose,Whole Blood 135 mg/dL (75-99)
[2018-07-15] MEDS: PANTOPRAZOLE 40 MG TABLET PO SCH (20:51)
[2018-07-15] MEDS ORDERED: ATORVASTATIN 20 MG TAB PO SCH (21:00)
[2018-07-15 21:54] LABS: Glucose,Whole Blood 166 mg/dL (75-99)
[2018-07-15] MEDS: INSULIN ASPART (NovoLOG) 100 UNIT/ML VIAL SQ SCH (22:07)
[2018-07-15] MEDS: MUPIROCIN 2% OINT 22 GM TUBE NASAL SCH (22:07)
[2018-07-16 06:01] LABS: Glucose,Whole Blood 131 mg/dL (75-99)
[2018-07-16] MEDS: LEVOTHYROXINE 100 MCG TAB PO SCH (06:29)
[2018-07-16] MEDS: INSULIN ASPART (NovoLOG) 100 UNIT/ML VIAL SQ SCH ×4 (06:30→23:32)
[2018-07-16 08:27] LABS: Basophils % (A) 1 %; Eosinophils # (A) 0.1 k/uL (0-0.7); Eosinophils % (A) 2 %; HCT 42.9 % (39.0-53.0); HGB 13.9 gm/dL (13.0-17.5); Lymphocytes # (A) 1.7 k/uL (1.0-4.8); Lymphocytes % (A) 32 %; MCH 27.6 pg (25.0-35.0); MCHC 32.4 g/dL (31.0-37.0); MCV 84.9 fL (80.0-100.0); Mean Platelet Volume 7.7; Monocytes # (A) 0.4 k/uL (0-1.0); Monocytes % (A) 7 %; Neutrophils # (A) 2.9 k/uL (1.3-7.7); Neutrophils % (A) 55 %; Platelet Count 124 k/uL (150-450); RBC 5.05 m/uL (4.30-5.90); RDW 14.1 % (11.5-15.5); WBC 5.3 k/uL (3.8-10.6)
[2018-07-16] MEDS: ASPIRIN 81 MG PO SCH (09:01)
[2018-07-16] MEDS: SODIUM CHLORIDE 0.9% 1,000 ML IV SCH ×2 (09:01→23:33)
[2018-07-16] MEDS: ATENOLOL 25 MG TAB PO SCH ×2 (09:01→23:32)
[2018-07-16] MEDS: CHOLECALCIFEROL 1,000 UNIT TAB PO SCH (09:01)
[2018-07-16] MEDS: LOSARTAN 50 MG TAB PO SCH (09:02)
[2018-07-16] MEDS: ISOSORBIDE MONONITRATE ER 60 MG TAB.ER.24H PO SCH (09:02)
[2018-07-16] MEDS: FUROSEMIDE 20 MG TAB PO SCH (09:02)
[2018-07-16] MEDS: LINAGLIPTIN 5 MG TABLET PO SCH (09:02)
[2018-07-16] MEDS: MUPIROCIN 2% OINT 22 GM TUBE NASAL SCH ×2 (09:04→23:32)
[2018-07-16] MEDS: FLUoxetine HCL 20 MG CAP PO SCH (09:08)
[2018-07-16 09:15] LABS: Calcium 9.2 mg/dL (8.4-10.2)
--- NOTE | 2018-07-16 09:23 | PN ---
PROGRESS NOTE Mr. Linares is a 72-year-old male who has been followed by Dr. Corado, underwent cardiac catheterization yesterday and was found to have significant disease involving the left circumflex, mid LAD as well as progression of disease in the left main. He has been evaluated for possible surgical intervention. He had minimal discomfort in the chest yesterday. He is pain free this morning. His breathing has been stable. He denies any dizziness or palpitation. He denies any nausea. He continues to be at this point on IV heparin, atenolol 25 mg twice a day, aspirin 81 mg daily, Lipitor 20 mg daily, furosemide 20 mg daily, isosorbide mononitrate 30 mg daily, Cozaar 50 mg daily, Protonix, Tradjenta. PHYSICAL EXAMINATION: Blood pressure running in the one teens to 120s. Heart rate in the 70s. LUNGS: Clear. HEART: Regular rate and rhythm. S1, S2. No S3 with a systolic murmur. No diastolic murmur. ABDOMEN: Soft, nontender. Positive bowel sounds. No organomegaly. Right radial pulse intact. EXTREMITIES: No edema. LAB DATA: Lab data revealed a hemoglobin of 13.9, platelet count of 124. IMPRESSION: 1. Multivessel coronary artery disease with angina pectoris. 2. Hypertension. 3. Hyperlipidemia. 4. Diabetes mellitus. RECOMMENDATION: I will continue present therapy. Adjust his medical regimen. We will await the input of the surgeon for surgical intervention. In view of his multivessel disease, the left main disease as well as his diabetes, surgical intervention may be a better option. MMODL / IJN: [id number] /
--- NOTE | 2018-07-16 11:35 | ECHOF ---
Referral Reason:Assess LV function preoperative cardiac surgery MEASUREMENTS -------- HEIGHT: 152.4 cm WEIGHT: 95.7 kg BP: 147/70 RVIDd: 3.9 cm (< 3.3) IVSd: 1.0 cm (0.6 - 1.1) LVIDd: 5.4 cm (3.9 - 5.3) LVPWd: 1.3 cm (0.6 - 1.1) IVSs: 1.0 cm LVIDs: 4.3 cm LVPWs: 1.5 cm LAESV Index (A-L): 27.05 ml/m Ao Diam: 3.0 cm (2.0 - 3.7) AV Cusp: 1.8 cm (1.5 - 2.6) LA Diam: 5.4 cm (2.7 - 3.8) MV EXCURSION: 15.857 mm (> 18.000) MV EF SLOPE: 126 mm/s (70 - 150) EPSS: 1.3 cm MV E Jorden: 1.17 m/s MV DecT: 234 ms MV A Jorden: 0.32 m/s MV E/A Ratio: 3.61 RAP: 5.00 mmHg RVSP: 39.01 mmHg FINDINGS -------- Sinus rhythm with extra systolic beats. This was a technically adequate study. The left ventricular size is normal. There is mild concentric left ventricular hypertrophy. Overa ll left ventricular systolic function is mildly impaired with, an EF between 45 - 50 %. The right ventricle is mildly enlarged. The left atrium is mildly dilated. The right atrium is normal in size. Interatrial and interventricular septum intact. Aortic valve is trileaflet and is mildly thickened. The mitral valve leaflets are mildly thickened. Mild mitral annular calcification present. Mild-t o-moderate mitral regurgitation is present. Mild tricuspid regurgitation present. There is mild pulmonary hypertension. The right ventricular systolic pressure, as measured by Doppler, is 39.01mmHg. Trace/mild (physiologic) pulmonic regurgitation. The aortic root size is normal. IVC Not well visulized. There is no pericardial effusion. CONCLUSIONS -------- 1. Sinus rhythm with extra systolic beats. 2. This was a technically adequate study. 3. The left ventricular size is normal. 4. There is mild concentric left ventricular hypertrophy. 5. Overall left ventricular systolic function is mildly impaired with, an EF between 45 - 50 %. 6. The right ventricle is mildly enlarged. 7. The left atrium is mildly dilated. 8. The right atrium is normal in size. 9. Interatrial and interventricular septum intact. 10. Aortic valve is trileaflet and is mildly thickened. 11. The mitral valve leaflets are mildly thickened. 12. Mild mitral annular calcification present. 13. Agpx-ro-eojmfhlq mitral regurgitation is present. 14. Mild tricuspid regurgitation present. 15. The right ventricular systolic pressure, as measured by Doppler, is 39.01mmHg. 16. Trace/mild (physiologic) pulmonic regurgitation. 17. The aortic root size is normal. 18. IVC Not well visulized. 19. There is no pericardial effusion. PROGRAM DIRECTOR SUBSTANCE ABUSE: Jess Novak RDCS
[2018-07-16 11:41] LABS: Glucose,Whole Blood 144 mg/dL (75-99)
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
[2018-07-16] MEDS: HEPARIN SOD,PORK IN 0.45% NACL 25,000 UNIT in 0.45% NACL 1 250ML.BAG IV SCH (13:07)
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
--- NOTE | 2018-07-16 15:28 | CT ---
EXAMINATION TYPE: CT neck chest without con DATE OF EXAM: 07/16/2018 COMPARISON: Prior ultrasound dated 07/15/2018 HISTORY: Shortness of breath, history of tracheal stenosis. Preop cardiac surgery. CT DLP: 1109.3 mGycm Automated exposure control for dose reduction was used. TECHNIQUE: Standard unenhanced CT of the neck and chest were performed without contrast. FINDINGS: There is subglottic narrowing of the trachea with caliber change of approximately 50% focally at the level of the sternal notch in a short segment with elongated anterior posterior dimension. No filling defect is seen in the trachea or major acute bronchial tree. There are punctate nodules at the lung bases measuring 2 mm on image 45 on the left and 2 mm on image 55 on the right. No suspicious pulmonary mass, focal consolidation, pleural effusion. Dual lead left -sided cardiac device is present. There is moderate to severe bilateral slightly asymmetric gynecomas tia is retroareolar, right greater than left. Post CABG changes of the chest are noted. Focal fat her niation is seen near the suprahepatic inferior vena cava. Gallbladder surgically absent. Nonobstructi ng right renal calculi measure 3 mm and 2 mm. Right hemidiaphragm elevation is noted. Moderate multil evel degenerative change of the spine are seen. Thyroid gland is unremarkable. No pathologic adenopathy in the neck. Atherosclerosis the carotid bulb s is seen however degree of stenosis is limited without contrast. Probable bilateral intraparotid lym ph nodes are seen with parotid gland symmetric atrophy, likely age related. Punctate hyperdense foci are seen within the left globe. Correlation with ophthalmologic exam. Cerebral atrophy is noted in th e visualized portions of the brain. Airway appears patent. Diana bullosa are incidentally seen. Visu alized paranasal sinuses and mastoid air cells are well aerated. Peripherally calcified hepatic lesio n is seen on coronal image 44, likely benign. IMPRESSION: 1. 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 2. PUNCTATE BILATERAL PULMONARY NODULES MEASURE ONLY 2 MM AND ARE LIKELY BENIGN. SELECTIVE FOLLOW-UP CHEST CT IN 12 MONTHS COULD BE PERFORMED TO ESTABLISH DEBILITY. 3. ATHEROSCLEROSIS OF THE CAROTID VASCULATURE IS SUBOPTIMALLY GRADED SECONDARY TO LACK OF CONTRAST. R ECENT CAROTID ULTRASOUND DEMONSTRATES NO HEMODYNAMICALLY SIGNIFICANT STENOSIS ON 07/15/2018.
[2018-07-16 16:38] LABS: Glucose,Whole Blood 161 mg/dL (75-99)
[2018-07-16] MEDS ORDERED: WARFARIN 2 MG TAB PO SCH (18:00)
[2018-07-16 20:42] LABS: Glucose,Whole Blood 158 mg/dL (75-99)
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
[2018-07-16] MEDS: PANTOPRAZOLE 40 MG TABLET PO SCH (23:32)
[2018-07-16] MEDS: ATORVASTATIN 40 MG TAB PO SCH (23:32)
[2018-07-17 05:56] LABS: Glucose,Whole Blood 137 mg/dL (75-99)
[2018-07-17 06:29] LABS: Basophils % (A) 1 %; Eosinophils # (A) 0.1 k/uL (0-0.7); Eosinophils % (A) 3 %; HCT 43.2 % (39.0-53.0); HGB 14.1 gm/dL (13.0-17.5); Lymphocytes # (A) 1.3 k/uL (1.0-4.8); Lymphocytes % (A) 28 %; MCH 28.1 pg (25.0-35.0); MCHC 32.8 g/dL (31.0-37.0); MCV 85.9 fL (80.0-100.0); Monocytes # (A) 0.4 k/uL (0-1.0); Monocytes % (A) 8 %; Neutrophils # (A) 2.8 k/uL (1.3-7.7); Neutrophils % (A) 58 %; Platelet Count 131 k/uL (150-450); RBC 5.03 m/uL (4.30-5.90); RDW 13.9 % (11.5-15.5); WBC 4.7 k/uL (3.8-10.6)
[2018-07-17 06:49] LABS: Albumin 3.5 g/dL (3.5-5.0); Calcium 9.5 mg/dL (8.4-10.2); Potassium 4.7 mmol/L (3.5-5.1); Total Bilirubin 0.8 mg/dL (0.2-1.3); Total Protein 6.5 g/dL (6.3-8.2)
[2018-07-17] MEDS: LEVOTHYROXINE 100 MCG TAB PO SCH (06:54)
[2018-07-17] MEDS: INSULIN ASPART (NovoLOG) 100 UNIT/ML VIAL SQ SCH ×4 (06:54→23:51)
[2018-07-17] MEDS: FLUoxetine HCL 20 MG CAP PO SCH (08:41)
[2018-07-17] MEDS: ATENOLOL 25 MG TAB PO SCH ×2 (08:41→23:51)
[2018-07-17] MEDS: FUROSEMIDE 20 MG TAB PO SCH (08:41)
[2018-07-17] MEDS: CHOLECALCIFEROL 1,000 UNIT TAB PO SCH (08:41)
[2018-07-17] MEDS: ISOSORBIDE MONONITRATE ER 60 MG TAB.ER.24H PO SCH (08:41)
[2018-07-17] MEDS: ASPIRIN 81 MG PO SCH (08:41)
[2018-07-17] MEDS: LOSARTAN 50 MG TAB PO SCH (08:41)
[2018-07-17] MEDS: LINAGLIPTIN 5 MG TABLET PO SCH (08:41)
[2018-07-17] MEDS: MUPIROCIN 2% OINT 22 GM TUBE NASAL SCH ×2 (08:44→23:51)
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
[2018-07-17] MEDS: HEPARIN SOD,PORK IN 0.45% NACL 25,000 UNIT in 0.45% NACL 1 250ML.BAG IV SCH (11:02)
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
[2018-07-17 11:50] LABS: Glucose,Whole Blood 143 mg/dL (75-99)
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
[2018-07-17 17:11] LABS: Glucose,Whole Blood 161 mg/dL (75-99)
[2018-07-17] MEDS: SODIUM CHLORIDE 0.9% 1,000 ML IV SCH (17:18)
[2018-07-17 20:48] LABS: Glucose,Whole Blood 165 mg/dL (75-99)
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
[2018-07-17] MEDS: ATORVASTATIN 40 MG TAB PO SCH (23:51)
[2018-07-17] MEDS: PANTOPRAZOLE 40 MG TABLET PO SCH (23:52)
[2018-07-18 06:08] LABS: Glucose,Whole Blood 141 mg/dL (75-99)
[2018-07-18] MEDS: LEVOTHYROXINE 100 MCG TAB PO SCH (06:28)
[2018-07-18] MEDS: INSULIN ASPART (NovoLOG) 100 UNIT/ML VIAL SQ SCH ×4 (06:28→21:02)
[2018-07-18 07:13] LABS: Basophils % (A) 1 %; Eosinophils # (A) 0.1 k/uL (0-0.7); Eosinophils % (A) 3 %; HGB 14.1 gm/dL (13.0-17.5); Lymphocytes # (A) 1.6 k/uL (1.0-4.8); Lymphocytes % (A) 29 %; MCH 28.3 pg (25.0-35.0); MCHC 32.7 g/dL (31.0-37.0); MCV 86.5 fL (80.0-100.0); Mean Platelet Volume 6.9; Monocytes # (A) 0.4 k/uL (0-1.0); Monocytes % (A) 7 %; Neutrophils # (A) 3.3 k/uL (1.3-7.7); Neutrophils % (A) 59 %; Platelet Count 118 k/uL (150-450); RBC 4.98 m/uL (4.30-5.90); RDW 14.2 % (11.5-15.5); WBC 5.6 k/uL (3.8-10.6)
[2018-07-18 07:24] LABS: Albumin 3.5 g/dL (3.5-5.0); Calcium 9.3 mg/dL (8.4-10.2); Potassium 4.6 mmol/L (3.5-5.1); Total Bilirubin 0.8 mg/dL (0.2-1.3); Total Protein 6.3 g/dL (6.3-8.2)
[2018-07-18] MEDS: LINAGLIPTIN 5 MG TABLET PO SCH (08:39)
[2018-07-18] MEDS: FLUoxetine HCL 20 MG CAP PO SCH (08:39)
[2018-07-18] MEDS: ATENOLOL 25 MG TAB PO SCH ×2 (08:39→21:01)
[2018-07-18] MEDS: LOSARTAN 50 MG TAB PO SCH (08:39)
[2018-07-18] MEDS: ISOSORBIDE MONONITRATE ER 60 MG TAB.ER.24H PO SCH (08:39)
[2018-07-18] MEDS: ASPIRIN 81 MG PO SCH (08:39)
[2018-07-18] MEDS: CHOLECALCIFEROL 1,000 UNIT TAB PO SCH (08:39)
[2018-07-18] MEDS: FUROSEMIDE 20 MG TAB PO SCH (08:39)
[2018-07-18] MEDS: MUPIROCIN 2% OINT 22 GM TUBE NASAL SCH ×2 (08:39→21:06)
[2018-07-18] MEDS: SODIUM CHLORIDE 0.9% 1,000 ML IV SCH ×2 (08:40→17:33)
[2018-07-18] MEDS: HEPARIN SOD,PORK IN 0.45% NACL 25,000 UNIT in 0.45% NACL 1 250ML.BAG IV SCH (08:40)
--- NOTE | 2018-07-18 11:29 | PN ---
PROGRESS NOTE Mr. Linares is a 72-year-old male with known history of coronary disease who presented with symptoms of unstable angina and underwent cardiac catheterization, was found to have significant disease in the left main, LAD and the left circumflex. He has a history of chronic persistent atrial fibrillation. He is feeling well today. He has not had any further symptoms of chest pain. He denies any dizziness or palpitation. He denies any nausea. He denies any cough. He has continued to be on IV heparin, aspirin 81 mg daily, atenolol 25 mg twice a day, Lipitor 20 mg a day, isosorbide mononitrate 60 mg daily, Tradjenta, losartan 50 mg daily and Protonix. PHYSICAL EXAMINATION: Blood pressure 122/58 with a heart rate in the 80s. LUNGS: Clear. HEART: Irregularly irregular, S1, S2. No S3. No rub. ABDOMEN: Soft, nontender. EXTREMITIES: With dressing in place. Patient had a prior history of ulcerations that are healing. LAB DATA: Lab data revealed BUN and creatinine 24 and 1.25, potassium 4.6, hemoglobin 14.1. IMPRESSION: 1. Unstable angina with severe coronary disease with severely calcified vessel and severe disease in the left main, LAD and the left circumflex felt to be high surgical risk by Dr. Billy. 2. History of atrial fibrillation. 3. Hypertension. 4. Hyperlipidemia. 5. Diabetes mellitus. 6. Prior history of chest trauma. RECOMMENDATIONS: From the cardiac standpoint, we will continue present therapy. I will obtain a second opinion from the surgical team at [facility] to see if he is a candidate for surgical intervention versus high risk percutaneous revascularization understanding that in view of his history of diabetes and the location of his lesions, coronary artery bypass grafting will be if doable. MMODL / IJN: [id number] /
[2018-07-18 11:56] LABS: Glucose,Whole Blood 151 mg/dL (75-99)
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
[2018-07-18 17:10] LABS: Glucose,Whole Blood 154 mg/dL (75-99)
[2018-07-18 20:32] LABS: Glucose,Whole Blood 146 mg/dL (75-99)
[2018-07-18] MEDS: ATORVASTATIN 40 MG TAB PO SCH (21:01)
[2018-07-18] MEDS: PANTOPRAZOLE 40 MG TABLET PO SCH (21:02)
[2018-07-19 06:00] LABS: Glucose,Whole Blood 129 mg/dL (75-99)
[2018-07-19] MEDS: INSULIN ASPART (NovoLOG) 100 UNIT/ML VIAL SQ SCH (06:35)
[2018-07-19 06:36] LABS: Basophils # (A) 0.1 k/uL (0-0.2); Basophils % (A) 1 %; Eosinophils # (A) 0.2 k/uL (0-0.7); Eosinophils % (A) 2 %; HCT 45.6 % (39.0-53.0); HGB 14.7 gm/dL (13.0-17.5); Lymphocytes # (A) 1.7 k/uL (1.0-4.8); Lymphocytes % (A) 27 %; MCH 27.8 pg (25.0-35.0); MCHC 32.2 g/dL (31.0-37.0); MCV 86.5 fL (80.0-100.0); Monocytes # (A) 0.4 k/uL (0-1.0); Monocytes % (A) 7 %; Neutrophils # (A) 3.8 k/uL (1.3-7.7); Neutrophils % (A) 61 %; Platelet Count 131 k/uL (150-450); RBC 5.27 m/uL (4.30-5.90); RDW 14.2 % (11.5-15.5); WBC 6.2 k/uL (3.8-10.6)
[2018-07-19] MEDS: LEVOTHYROXINE 100 MCG TAB PO SCH (06:45)
[2018-07-19 07:25] LABS: Albumin 3.7 g/dL (3.5-5.0); Calcium 9.7 mg/dL (8.4-10.2); Potassium 4.9 mmol/L (3.5-5.1); Total Bilirubin 0.8 mg/dL (0.2-1.3); Total Protein 6.7 g/dL (6.3-8.2)
[2018-07-19] MEDS ORDERED: LOSARTAN 50 MG TAB PO SCH (09:00)
[2018-07-19] MEDS ORDERED: LINAGLIPTIN 5 MG TABLET PO SCH (09:00)
[2018-07-19] MEDS ORDERED: ASPIRIN 81 MG PO SCH (09:00)
[2018-07-19] MEDS ORDERED: FLUoxetine HCL 20 MG CAP PO SCH (09:00)
[2018-07-19] MEDS ORDERED: ISOSORBIDE MONONITRATE ER 60 MG TAB.ER.24H PO SCH (09:00)
[2018-07-19] MEDS ORDERED: FUROSEMIDE 20 MG TAB PO SCH (09:00)
[2018-07-19] MEDS ORDERED: ATENOLOL 25 MG TAB PO SCH (09:00)
[2018-07-19] MEDS ORDERED: CHOLECALCIFEROL 1,000 UNIT TAB PO SCH (09:00)
[2018-07-19 09:09] VITALS: BP 121/71; PULSE 74; RESP 16; TEMP 97.4
[2018-07-19] MEDS ORDERED: ALPRAZolam 0.25 MG TAB PO PRN ×2 (09:11→09:13)
[2018-07-19] MEDS ORDERED: HEPARIN SODIUM,PORCINE 5,000 UNIT/ML 1 ML VIAL IV PRN (09:17)
[2018-07-19] MEDS ORDERED: NITROGLYCERIN SL TABS 0.4 MG TAB SUBLINGUAL PRN (09:19)
[2018-07-19] MEDS ORDERED: HEPARIN SOD,PORK IN 0.45% NACL 25,000 UNIT in 0.45% NACL 1 250ML.BAG IV SCH (09:30)
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
[2018-07-19] MEDS ORDERED: INSULIN ASPART (NovoLOG) 100 UNIT/ML VIAL SQ SCH (12:30)
[2018-07-19] MEDS ORDERED: PANTOPRAZOLE 40 MG TABLET PO SCH (21:00)
[2018-07-19] MEDS ORDERED: ATORVASTATIN 40 MG TAB PO SCH (21:00)
[2018-07-20] MEDS ORDERED: LEVOTHYROXINE 100 MCG TAB PO SCH (06:30)
--- NOTE | 2018-07-21 14:02 | P.VSCSTY ---
Greater Saphenous Vein Mapping This is bilateral lower extremity greater saphenous vein mapping. Date of service 07/15/2018 Vein quality and ultrasound appearance no endoluminal thrombus or wall changes are seen. Vein size groin right 4.5 x 4.4 groin left to 10.5 x 9.4 High thigh right 5.5 x 5.1 high thigh left 5.5 x 6.2 Mid thigh right 4.2 x 4.8 mid thigh left 7.0 x 7.4 Above-knee right 2.9 x 2.8 above- knee left 6.2 x 5.9 Below knee right 3.6 x 4.4 below-knee left 5.1 x 5.4 Mid calf right 3.9 x 4.0 mid calf left 4.9 x 5.4 Ankle right 3.7 x 4.6 ankle left 4.1 x 4.2 Impression usable bilateral greater saphenous vein. Right leg more consistent in the left in size..
--- NOTE | 2018-07-21 14:04 | P.ARTDOP ---
Arterial Doppler LOWER EXTREMITY ARTERIAL DOPPLER: DATE OF SERVICE: 07/15/2018 Reason for study: Preop CABG Doppler waveforms: Multiphasic bilaterally throughout. Pulse volume recording: []. Pressure gradients: None. Ankle-brachial indices: Cannot be occluded. Toe pressures: 91 on the right, 114 on the left Impression: Normal flow pattern. Non-occludeable ankles may mean calcific wall disease that is not hemodynamically significant..
== END 2018-07-19 11:46 | disposition other institution (70) ==
LOC: CATHCVL 06:30 → 3SCARD 08:24 → CATHCVL 07-19 11:46
PROVIDERS: ATTEND Internal Medicine Cardiovascular Disease
DX: I25.110 Atherosclerotic heart disease of native coronary artery with unstable angina pectoris (principal); I25.84 Coronary atherosclerosis due to calcified coronary lesion; I10 Essential (primary) hypertension; I08.1 Rheumatic disorders of both mitral and tricuspid valves; E66.01 Morbid (severe) obesity due to excess calories; Z68.39 Body mass index [BMI] 39.0-39.9, adult; I25.2 Old myocardial infarction; E78.5 Hyperlipidemia, unspecified; I48.2 Chronic atrial fibrillation; Z79.01 Long term (current) use of anticoagulants; I87.8 Other specified disorders of veins; Z95.0 Presence of cardiac pacemaker; I49.5 Sick sinus syndrome; Z86.718 Personal history of other venous thrombosis and embolism; Z88.2 Allergy status to sulfonamides; Z95.828 Presence of other vascular implants and grafts; E11.51 Type 2 diabetes mellitus with diabetic peripheral angiopathy without gangrene; Z95.5 Presence of coronary angioplasty implant and graft; Z86.79 Personal history of other diseases of the circulatory system; Z87.81 Personal history of (healed) traumatic fracture; M19.90 Unspecified osteoarthritis, unspecified site; H35.30 Unspecified macular degeneration; H54.8 Legal blindness, as defined in USA; K21.9 Gastro-esophageal reflux disease without esophagitis; N42.9 Disorder of prostate, unspecified; G47.30 Sleep apnea, unspecified; E07.9 Disorder of thyroid, unspecified; L03.116 Cellulitis of left lower limb; L03.115 Cellulitis of right lower limb; Z88.8 Allergy status to other drugs, medicaments and biological substances; Z87.820 Personal history of traumatic brain injury; Z90.49 Acquired absence of other specified parts of digestive tract; Z86.14 Personal history of Methicillin resistant Staphylococcus aureus infection; Z79.84 Long term (current) use of oral hypoglycemic drugs; Z79.82 Long term (current) use of aspirin; Z79.890 Hormone replacement therapy; Z79.899 Other long term (current) drug therapy; Z88.5 Allergy status to narcotic agent
CPT/HCPCS: 94760; 94150; 94762; 93306; 93458; 80061; 80053 ×4; 80048; 80074; 84443; 83735; 85025 ×5; 85610; 85730 ×5; 81003; 87070; 87086; 83036; 71046; 93970; 93922; 93880; 70490; 71250; C1769 ×4; C1894 ×2; J2001; J1644 ×6; Q9967; J2250

== ENCOUNTER 2018-08-09 19:35 | Emergency (ER) | payer MEDICARE ==
[2018-08-09 19:51] VITALS: BP 123/65; PULSE 66; RESP 17; TEMP 97.8
[2018-08-09] MEDS ORDERED: TOPICAL SKIN ADHESIVE 1 EACH AMP TOPICAL ONE (22:01)
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
--- NOTE | 2018-08-11 04:46 | CDI ---
Documentation Clarification OP Dear Mally Smith, DO Please do addendum to ED report which provides length of laceration repair done. Thank you, [employer] Agent If you have any questions, please contact Unit Controller at [phone] [facility]
== END 2018-08-09 22:25 | disposition home or self-care (01) ==
LOC: EC 19:35
DX: S61.217A Laceration without foreign body of left little finger without damage to nail, initial encounter (principal); I48.1 Persistent atrial fibrillation; I25.10 Atherosclerotic heart disease of native coronary artery without angina pectoris; K21.9 Gastro-esophageal reflux disease without esophagitis; E78.5 Hyperlipidemia, unspecified; I10 Essential (primary) hypertension; I25.2 Old myocardial infarction; E11.9 Type 2 diabetes mellitus without complications; E07.9 Disorder of thyroid, unspecified; M19.90 Unspecified osteoarthritis, unspecified site; G47.30 Sleep apnea, unspecified; Z86.14 Personal history of Methicillin resistant Staphylococcus aureus infection; Z93.0 Tracheostomy status; Z95.0 Presence of cardiac pacemaker; Z95.5 Presence of coronary angioplasty implant and graft; Z96.653 Presence of artificial knee joint, bilateral; Z86.718 Personal history of other venous thrombosis and embolism; Z79.82 Long term (current) use of aspirin; Z79.890 Hormone replacement therapy; Z79.84 Long term (current) use of oral hypoglycemic drugs; Z79.01 Long term (current) use of anticoagulants; Z79.899 Other long term (current) drug therapy; Z88.8 Allergy status to other drugs, medicaments and biological substances; Z88.6 Allergy status to analgesic agent; Z88.2 Allergy status to sulfonamides; Z88.5 Allergy status to narcotic agent; W27.2XXA Contact with scissors, initial encounter; Y93.H2 Activity, gardening and landscaping
CPT/HCPCS: 12001; 99282

== ENCOUNTER 2020-08-17 11:26 | Inpatient (IN) | payer MEDICARE ==
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
[2020-08-17 12:18] LABS: Albumin 3.8 g/dL (3.5-5.0); Calcium 9.7 mg/dL (8.4-10.2); Magnesium 1.6 mg/dL (1.6-2.3); Potassium 4.8 mmol/L (3.5-5.1); Total Bilirubin 0.7 mg/dL (0.2-1.3); Total Protein 6.5 g/dL (6.3-8.2)
--- NOTE | 2020-08-17 12:18 | XR ---
EXAMINATION TYPE: XR chest 2V DATE OF EXAM: 08/17/2020 COMPARISON: 07/15/2018 TECHNIQUE: PA and lateral views submitted. HISTORY: Chest pain FINDINGS: The lungs are clear and there is no pneumothorax, pleural effusion, or focal pneumonia. Heart size mildly prominent with postoperative change and cardiac device. No overt failure. Limited inspiration. Arthropathy of the shoulders. Hypertrophic and degenerative change spine. Surgical clips and IVC andreea ter seen in the abdomen. IMPRESSION: 1. No acute process.
[2020-08-17 12:22] LABS: INR 2.3 (<1.2); Partial Thromboplastin Time 30.5 sec (22.0-30.0); Prothrombin Time 22.4 sec (9.0-12.0)
[2020-08-17 12:49] LABS: Basophils % (A) 1 %; Eosinophils # (A) 0.1 k/uL (0-0.7); Eosinophils % (A) 2 %; HCT 43.5 % (39.0-53.0); HGB 14.7 gm/dL (13.0-17.5); Lymphocytes # (A) 1.2 k/uL (1.0-4.8); Lymphocytes % (A) 17 %; MCH 29.2 pg (25.0-35.0); MCHC 33.7 g/dL (31.0-37.0); MCV 86.6 fL (80.0-100.0); Monocytes # (A) 0.4 k/uL (0-1.0); Monocytes % (A) 7 %; Neutrophils % (A) 73 %; Platelet Count 143 k/uL (150-450); RBC 5.02 m/uL (4.30-5.90); RDW 14.1 % (11.5-15.5); WBC 6.9 k/uL (3.8-10.6)
[2020-08-17] MEDS ORDERED: NALOXONE 0.4 MG/ML 1 ML VIAL IV PRN (13:43)
[2020-08-17] MEDS ORDERED: ACETAMINOPHEN TAB 325 MG TAB PO PRN (13:43)
[2020-08-17] MEDS ORDERED: NITROGLYCERIN SL TABS 0.4 MG TAB SUBLINGUAL PRN (13:44)
[2020-08-17] MEDS ORDERED: ASPIRIN 325 MG TAB PO STA (13:48)
[2020-08-17] MEDS: atenoloL 25 MG TAB PO SCH ×2 (16:29→20:17)
[2020-08-17 17:02] LABS: Glucose,Whole Blood 75 mg/dL (75-99)
--- NOTE | 2020-08-17 17:49 | ECHOF ---
Referral Reason:NSTEMI MEASUREMENTS -------- HEIGHT: 154.9 cm WEIGHT: 104.3 kg BP: RVIDd: 2.4 cm (< 3.3) IVSd: 1.2 cm (0.6 - 1.1) LVIDd: 5.6 cm (3.9 - 5.3) LVPWd: 1.3 cm (0.6 - 1.1) IVSs: 1.3 cm LVIDs: 5.1 cm LVPWs: 1.1 cm LAESV Index (A-L): 26.83 ml/m IVSd: 1.2 cm (0.6 - 1.1) LVIDd: 5.0 cm (3.9 - 5.3) LVPWd: 1.1 cm (0.6 - 1.1) IVSs: 1.2 cm LVIDs: 3.5 cm LVPWs: 1.1 cm EDV(Teich): 116 ml ESV(Teich): 50 ml EF(Teich): 57 % %FS: 30 % SV(Teich): 66 ml Ao Diam: 3.3 cm (2.0 - 3.7) AV Cusp: 2.0 cm (1.5 - 2.6) LA Diam: 4.3 cm (2.7 - 3.8) MV EXCURSION: 13.189 mm (> 18.000) MV EF SLOPE: 71 mm/s (70 - 150) EPSS: 1.6 cm AR PHT: 731 ms RAP: 5.00 mmHg RVSP: 25.85 mmHg FINDINGS -------- Pacerwire seen in RV and RA. This was a technically difficult study with suboptimal views. The left ventricular size is normal. Left ventricular wall thickness is normal. Overall left vent ricular systolic function is mildly impaired with, an EF between 45 - 50 %. The right ventricle is normal in size. Normal LA size by volume 22+/-6 ml/m2. The right atrial size is normal. Lumason used There is mild aortic valve sclerosis. The mitral valve leaflets are mildly thickened. Moderate mitral regurgitation is present. The tricuspid valve appears structurally normal. Mild tricuspid regurgitation present. Right vent ricular systolic pressure is normal at < 35 mmHg. There is no pulmonic regurgitation present. The aortic root size is normal. Normal inferior vena cava with normal inspiratory collapse consistent with estimated right atrial pre ssure of 5 mmHg. There is no pericardial effusion. CONCLUSIONS -------- 1. This was a technically difficult study with suboptimal views. 2. Left ventricular wall thickness is normal. 3. Overall left ventricular systolic function is mildly impaired with, an EF between 45 - 50 %. 4. Normal LA size by volume 22+/-6 ml/m2. 5. There is mild aortic valve sclerosis. 6. Moderate mitral regurgitation is present. 7. Mild tricuspid regurgitation present. 8. There is no pericardial effusion. CASHIER AND WAITER/WAITRESS: Fang Rowell RDCS
[2020-08-17 20:11] LABS: Glucose,Whole Blood 121 mg/dL (75-99)
[2020-08-17] MEDS: CLOPIDOGREL 75 MG TAB PO SCH (20:16)
[2020-08-17] MEDS: lamoTRIgine 25 MG TAB PO SCH (20:16)
[2020-08-17] MEDS: ATORVASTATIN 40 MG TAB PO SCH (20:17)
[2020-08-17] MEDS ORDERED: FAMOTIDINE 20 MG TAB PO SCH (21:15)
[2020-08-17] MEDS ORDERED: WARFARIN 2 MG TAB PO SCH (21:30)
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
[2020-08-18 06:00] LABS: Glucose,Whole Blood 124 mg/dL (75-99)
[2020-08-18] MEDS: INSULIN ASPART (NovoLOG) 100 UNIT/ML VIAL SQ SCH ×4 (06:00→20:58)
[2020-08-18] MEDS: LEVOTHYROXINE 75 MCG TAB PO SCH (06:12)
[2020-08-18] MEDS: DILTIAZEM CD 240 MG CAP.ER.24H PO SCH (08:10)
[2020-08-18] MEDS: FUROSEMIDE 20 MG TAB PO SCH (08:10)
[2020-08-18] MEDS: atenoloL 25 MG TAB PO SCH ×3 (08:10→20:58)
[2020-08-18 08:32] LABS: Basophils % (A) 1 %; Eosinophils # (A) 0.2 k/uL (0-0.7); Eosinophils % (A) 3 %; HCT 40.7 % (39.0-53.0); HGB 14.1 gm/dL (13.0-17.5); Lymphocytes # (A) 1.4 k/uL (1.0-4.8); Lymphocytes % (A) 29 %; MCH 29.9 pg (25.0-35.0); MCHC 34.7 g/dL (31.0-37.0); MCV 86.2 fL (80.0-100.0); Mean Platelet Volume 7.4; Monocytes # (A) 0.4 k/uL (0-1.0); Monocytes % (A) 8 %; Neutrophils # (A) 2.8 k/uL (1.3-7.7); Neutrophils % (A) 57 %; Platelet Count 138 k/uL (150-450); RBC 4.72 m/uL (4.30-5.90); RDW 13.9 % (11.5-15.5); WBC 4.9 k/uL (3.8-10.6)
[2020-08-18 08:40] LABS: Calcium 9.1 mg/dL (8.4-10.2); Potassium 4.9 mmol/L (3.5-5.1)
[2020-08-18 08:41] LABS: INR 3.1 (<1.2); Prothrombin Time 29.9 sec (9.0-12.0)
[2020-08-18] MEDS: VALSARTAN 160 MG TAB PO SCH (09:34)
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
[2020-08-18 12:03] LABS: Glucose,Whole Blood 195 mg/dL (75-99)
[2020-08-18 17:00] LABS: Glucose,Whole Blood 167 mg/dL (75-99)
[2020-08-18] MEDS ORDERED: WARFARIN 2 MG TAB PO SCH (18:00)
[2020-08-18 19:59] LABS: Glucose,Whole Blood 170 mg/dL (75-99)
[2020-08-18] MEDS: PANTOPRAZOLE 40 MG TABLET PO SCH ×2 (20:57)
[2020-08-18] MEDS: lamoTRIgine 25 MG TAB PO SCH (20:57)
[2020-08-18] MEDS: ATORVASTATIN 40 MG TAB PO SCH (20:57)
[2020-08-18] MEDS: CLOPIDOGREL 75 MG TAB PO SCH (20:58)
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
[2020-08-19 06:01] LABS: Glucose,Whole Blood 164 mg/dL (75-99)
[2020-08-19] MEDS: INSULIN ASPART (NovoLOG) 100 UNIT/ML VIAL SQ SCH ×4 (06:32→20:40)
[2020-08-19] MEDS: LEVOTHYROXINE 75 MCG TAB PO SCH (06:32)
[2020-08-19] MEDS: ASPIRIN 81 MG PO SCH (07:49)
[2020-08-19] MEDS: FUROSEMIDE 20 MG TAB PO SCH (07:50)
[2020-08-19] MEDS: atenoloL 25 MG TAB PO SCH ×3 (07:50→20:40)
[2020-08-19] MEDS: VALSARTAN 160 MG TAB PO SCH (07:50)
[2020-08-19] MEDS: DILTIAZEM CD 240 MG CAP.ER.24H PO SCH (07:50)
[2020-08-19 08:38] LABS: Basophils # (A) 0.1 k/uL (0-0.2); Basophils % (A) 1 %; Eosinophils # (A) 0.2 k/uL (0-0.7); Eosinophils % (A) 3 %; HCT 42.4 % (39.0-53.0); HGB 14.5 gm/dL (13.0-17.5); Lymphocytes # (A) 1.5 k/uL (1.0-4.8); Lymphocytes % (A) 28 %; MCH 29.5 pg (25.0-35.0); MCHC 34.2 g/dL (31.0-37.0); MCV 86.5 fL (80.0-100.0); Mean Platelet Volume 7.7; Monocytes # (A) 0.4 k/uL (0-1.0); Monocytes % (A) 7 %; Neutrophils # (A) 3.2 k/uL (1.3-7.7); Neutrophils % (A) 59 %; Platelet Count 149 k/uL (150-450); RDW 13.6 % (11.5-15.5); WBC 5.4 k/uL (3.8-10.6)
[2020-08-19 08:53] LABS: Calcium 9.1 mg/dL (8.4-10.2)
[2020-08-19 09:22] LABS: INR 2.7 (<1.2); Prothrombin Time 25.8 sec (9.0-12.0)
[2020-08-19] MEDS ORDERED: PHYTONADIONE 5 MG in SODIUM CHLORIDE 0.9% 50 ML IVPB STA (10:50)
[2020-08-19 12:06] LABS: Glucose,Whole Blood 173 mg/dL (75-99)
[2020-08-19] MEDS ORDERED: ALPRAZolam 0.25 MG TAB PO PRN (13:41)
[2020-08-19] MEDS ORDERED: NITROGLYCERIN SL TABS 0.4 MG TAB SUBLINGUAL PRN (13:41)
[2020-08-19] MEDS ORDERED: ALPRAZolam 0.5 MG TAB PO PRN (13:41)
--- NOTE | 2020-08-19 13:47 | P.PN ---
Subjective Progress Note Date: 08/19/20 HISTORY OF PRESENT ILLNESS: This is a pleasant 74-year-old gentleman who follows regularly with Dr. Corado in the office. He has a known history of coronary artery d isease with prior stenting of the LAD, persistent atrial fibrillation, hypertension, diabetes, hyperlipidemia, prior pacemaker implantation. Patient underwent a cardiac catheterization by Dr. Corado in June 2018 which revealed severe triple-vessel disease involving the left main, mid LAD, proximal circumflex and the ostium of the RCA. He was recommended for revascularization, was seen by cardiothoracic surgery at that time and recommended to optimize medications. 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 Patient was then transferred to [facility] where he underwent stent placement 4. Patient presents to the hospital on this occasion with symptoms of progressively worsening chest discomfort. Patient states the symptoms have been occurring since even before April however over the past one to 2 weeks, he is requiring to take nitroglycerin frequently and over the past couple of days and nitroglycerin does not seem to have even made a difference. Chest discomfort as a midsternal chest heaviness and pressure. Blood pressure 104/60 with a heart rate in the 60s, 97% on room air. EKG shows atrial fibrillation with T wave inversion noted in the anterior lateral leads. Upon review of previous EKGs, it does appear that the patient had these similar changes previously as well. Chest x-ray does not reveal any acute process. Return data was reviewed, white blood cell count 4.9, hemoglobin 14.1, platelet count 138. INR is 3.1 sodium 137, potassium 4.9, BUN 26, creatinine 1.2. Troponins 0.06, 0.115, 0.14. At the time of my examination this morning, patient is currently chest pain-free, he does state that when he walks up to the bathroom he gets mild pressure in the chest. 08/19/2020 Patient examined this morning at the bedside. Patient denies chest pain or pressure. He currently denies shortness of breath. Vital signs are stable. INR 2.7 today. Echocardiogram completed revealed ejection fraction 45-50%, moderate mitral regurgitation, mild tricuspid regurgitation PHYSICAL EXAM: VITAL SIGNS: Reviewed. GENERAL: Well-developed in no acute distress. NECK: Supple. No JVD or thyromegaly LUNGS: Respirations even and unlabored. Lungs essentially clear to auscultation bilaterally. HEART: Irregular rate and rhythm. S1 and S2 heard. Systolic murmur noted. EXTREMITIES: Normal range of motion. No clubbing or cyanosis. Peripheral pulses intact. No lower extremity edema ASSESSMENT: Symptoms of progressively worsening chest discomfort with abnormal troponins, possible acute coronary syndrome Coronary artery disease with previous multivessel stenting Chronic persistent atrial fibrillation on Coumadin Hypertension Hyperlipidemia Diabetes mellitus PLAN: Continue current cardiac medications Hold Coumadin Give 5 mg vitamin K Recheck INR in the morning Nothing by mouth at midnight Possible cardiac catheterization tomorrow. Dr Corado to speak with Dr. Grigsby to see if he is able to perform cath tomorrow. Further recommendations pending patient's course Nurse practitioner note has been reviewed by physician. Signing provider agrees with the documented findings, assessment, and plan of care. Objective - Vital Signs Vital signs: Vital Signs Temp 97.5 F L 08/19/20 07:44 Pulse 69 08/19/20 13:41 Resp 16 08/19/20 13:41 BP 106/71 08/19/20 11:42 Pulse Ox 97 08/19/20 11:42 Intake & Output 08/18/20 08/19/20 08/19/20 18:59 06:59 18:59 Intake Total 560 340 Output Total 250 Balance 310 340 Weight 106.4 kg Intake: Oral 560 340 Output: Urine 250 Other: Voiding Method Toilet Toilet Toilet Urinal Urinal Urinal # Voids 2 1 2 # Bowel Movements 1 - Labs CBC & Chem 7: 08/19/20 07:58 08/19/20 07:58 Labs: Abnormal Lab Results - Last 24 Hours (Table) 08/18/20 08/18/20 08/19/20 Range/Units 16:59 19:58 05:59 Plt Count (150-450) k/uL PT (9.0-12.0) sec INR (<1.2) BUN (9-20) mg/dL Creatinine (0.66-1.25) mg/dL Glucose (74-99) mg/dL POC Glucose (mg/dL) 167 H 170 H 164 H (75-99) mg/dL 08/19/20 08/19/20 08/19/20 Range/Units 07:58 07:58 07:58 Plt Count 149 L (150-450) k/uL PT 25.8 H (9.0-12.0) sec INR 2.7 H (<1.2) BUN 29 H (9-20) mg/dL Creatinine 1.32 H (0.66-1.25) mg/dL Glucose 202 H (74-99) mg/dL POC Glucose (mg/dL) (75-99) mg/dL 08/19/20 Range/Units 12:04 Plt Count (150-450) k/uL PT (9.0-12.0) sec INR (<1.2) BUN (9-20) mg/dL Creatinine (0.66-1.25) mg/dL Glucose (74-99) mg/dL POC Glucose (mg/dL) 173 H (75-99) mg/dL
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
[2020-08-19 16:58] LABS: Glucose,Whole Blood 174 mg/dL (75-99)
[2020-08-19] MEDS ORDERED: WARFARIN 2 MG TAB PO ONE (18:00)
[2020-08-19 20:34] LABS: Glucose,Whole Blood 171 mg/dL (75-99)
[2020-08-19] MEDS: ATORVASTATIN 40 MG TAB PO SCH (20:40)
[2020-08-19] MEDS: CLOPIDOGREL 75 MG TAB PO SCH (20:40)
[2020-08-19] MEDS: lamoTRIgine 25 MG TAB PO SCH (20:40)
[2020-08-19] MEDS: PANTOPRAZOLE 40 MG TABLET PO SCH (20:41)
[2020-08-19] MEDS ORDERED: SODIUM CHLORIDE 0.9% 1,000 ML in EMPTY BAG 1 BAG IV ONE (23:00)
[2020-08-20] MEDS: DILTIAZEM CD 240 MG CAP.ER.24H PO SCH (06:09)
[2020-08-20] MEDS: VALSARTAN 160 MG TAB PO SCH (06:09)
[2020-08-20] MEDS: atenoloL 25 MG TAB PO SCH ×3 (06:09→20:13)
[2020-08-20] MEDS: ASPIRIN 81 MG PO SCH (06:10)
[2020-08-20 06:19] LABS: Glucose,Whole Blood 167 mg/dL (75-99)
[2020-08-20] MEDS: LEVOTHYROXINE 75 MCG TAB PO SCH (06:43)
[2020-08-20] MEDS: INSULIN ASPART (NovoLOG) 100 UNIT/ML VIAL SQ SCH ×4 (06:43→20:16)
[2020-08-20] MEDS: FUROSEMIDE 20 MG TAB PO SCH (06:59)
[2020-08-20] MEDS ORDERED: HEPARIN SODIUM,PORCINE 10,000 UNIT in SODIUM CHLORIDE 0.9% 1,000 ML IRRIGATION PRN (07:00)
[2020-08-20] MEDS ORDERED: ATORVASTATIN 80 MG TAB PO ONE (07:00)
[2020-08-20] MEDS ORDERED: ASPIRIN 325 MG TAB PO ONE (07:00)
[2020-08-20] MEDS ORDERED: HEPARIN SODIUM,PORCINE 2,500 UNIT in SODIUM CHLORIDE 0.9% 250 ML IRRIGATION PRN (07:00)
[2020-08-20] MEDS ORDERED: IV FLUID CONTINUATION 1,000 ML IV ONE (07:23)
[2020-08-20] MEDS ORDERED: MIDAZOLAM 2 MG/2 ML VIAL IVP ONE (08:12)
[2020-08-20] MEDS ORDERED: LIDOCAINE 1% INJ 10MG/ML (20 ML MDV) SQ ONE (08:12)
[2020-08-20] MEDS ORDERED: VERAPAMIL SYRINGE (5 MG/10 ML) INTRAARTER ONE (08:14)
[2020-08-20] MEDS ORDERED: HEPARIN SODIUM 1,000 UN/ML (10ML VL) IV ONE (08:22)
[2020-08-20] MEDS ORDERED: MIDAZOLAM 2 MG/2 ML VIAL IV ONE (08:35)
[2020-08-20] MEDS ORDERED: CLOPIDOGREL 75 MG TAB PO ONE (08:48)
[2020-08-20] MEDS ORDERED: IOPAMIDOL-370 125ML BTL INJ ONE (08:48)
[2020-08-20] MEDS ORDERED: ZOLPIDEM 5 MG TAB PO PRN (09:08)
[2020-08-20] MEDS ORDERED: NITROGLYCERIN SL TABS 0.4 MG TAB SUBLINGUAL PRN (09:08)
[2020-08-20] MEDS ORDERED: RX INFO: IV CONTRAST WAS GIVEN 1 EACH MISC MISCELLANE PRN (09:08)
[2020-08-20] MEDS ORDERED: ATROPINE SULFATE 0.1 MG/ML 10ML SYRINGE IV PRN (09:08)
[2020-08-20] MEDS ORDERED: MAG HYDROX/AL HYDROX/SIMETH 30 ML CUP PO PRN (09:08)
[2020-08-20] MEDS ORDERED: SODIUM CHLORIDE 0.9% 1,000 ML IV SCH (09:15)
[2020-08-20 09:29] LABS: Prothrombin Time 19.5 sec (9.0-12.0)
[2020-08-20 09:49] LABS: Calcium 8.8 mg/dL (8.4-10.2)
[2020-08-20 11:41] LABS: Glucose,Whole Blood 158 mg/dL (75-99)
--- NOTE | 2020-08-20 12:35 | P.PN ---
Subjective This is a pleasant 74-year-old gentleman who follows regularly with Dr. Corado in the office. He has a known history of coronary artery disease with prior stenting of the LAD, persistent atrial fibrillation, hypertension, diabetes, hyperlipidemia, prior pacemaker implantation. Patient underwent a cardiac catheterization by Dr. Corado in June 2018 which revealed severe triple-vessel disease involving the left main, mid LAD, proximal circumflex and the ostium of the RCA. He was recommended for revascularization, was seen by cardiothoracic surgery at that time and recommended to optimize medications. 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 Patient was then transferred to [facility] where he underwent stent placement 4. Patient presents to the hospit al on this occasion with symptoms of progressively worsening chest discomfort.Troponins 0.06, 0.115, 0.14. 08/20/2020: Patient going for cardiac catheterization today with Dr. Grigsby. Patient denies chest pain or pressure. He currently denies shortness of breath. Vital signs are stable. INR 2.0 today. Echocardiogram completed revealed ejection fraction 45-50%, moderate mitral regurgitation, mild tricuspid regurgitation. Patient currently being maintained on aspirin 81 mg daily, atorvastatin 40 mg daily, Plavix 75 mg daily, Cardizem 240 mg daily, Lasix 20 mg daily, Valsartan 160mg daily. Patient currently in atrial fibrillation with ventricular rates controlled. PHYSICAL EXAM: VITAL SIGNS: Reviewed. GENERAL: Well-developed in no acute distress. NECK: Supple. No JVD or thyromegaly LUNGS: Respirations even and unlabored. Lungs essentially clear to auscultation bilaterally. HEART: Irregular rate and rhythm. S1 and S2 heard. Systolic murmur noted. EXTREMITIES: Normal range of motion. No clubbing or cyanosis. Peripheral pulses intact. No lower extremity edema ASSESSMENT: Symptoms of progressively worsening chest discomfort with abnormal troponins, possible acute coronary syndrome Coronary artery disease with previous multivessel stenting Chronic persistent atrial fibrillation on Coumadin Hypertension Hyperlipidemia Diabetes mellitus PLAN: Patient underwent cardiac catheterization today with Dr. Grigsby, with PCI to circumflex Will continue dual antiplatelet therapy Continue home cardiac medications Further recommendations pending patient's course Nurse practitioner note has been reviewed by physician. Signing provider agrees with the documented findings, assessment, and plan of care. Objective - Vital Signs Vital signs: Vital Signs Temp 97.6 F 06/21/21 04:18 Pulse 65 08/20/20 04:18 Resp 18 08/20/20 04:18 BP 145/79 08/20/20 04:18 Pulse Ox 94 L 08/20/20 04:18 Intake & Output 08/19/20 08/20/20 08/20/20 18:59 06:59 18:59 Intake Total 870 200 Output Total 500 Balance 870 -500 200 Weight 80.6 kg Intake: IV 200 Intake, IV Titration 50 Amount Phytonadione 5 mg In 50 Sodium Chloride 0.9% 50 ml @ 100 mls/hr IVPB ONCE STA Rx#:[id number] Oral 820 Output: Urine 500 Other: Voiding Method Toilet Toilet Urinal Urinal # Voids 4 - Labs CBC & Chem 7: 08/19/20 07:58 08/20/20 07:40 Labs: Abnormal Lab Results - Last 24 Hours (Table) 08/19/20 08/19/20 08/20/20 Range/Units 16:56 20:19 06:00 PT (9.0-12.0) sec INR (<1.2) Chloride (98-107) mmol/L Carbon Dioxide (22-30) mmol/L BUN (9-20) mg/dL Glucose (74-99) mg/dL POC Glucose (mg/dL) 174 H 171 H 167 H (75-99) mg/dL 08/20/20 08/20/20 08/20/20 Range/Units 07:40 07:40 11:39 PT 19.5 H (9.0-12.0) sec INR 2.0 H (<1.2) Chloride 108 H (98-107) mmol/L Carbon Dioxide 20 L (22-30) mmol/L BUN 26 H (9-20) mg/dL Glucose 145 H (74-99) mg/dL POC Glucose (mg/dL) 158 H (75-99) mg/dL
[2020-08-20 13:19] VITALS: BMI 33.5
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
--- NOTE | 2020-08-20 14:12 | CC ---
CARDIAC CATHETERIZATION REPORT DATE OF SERVICE: August 20, 2020. PERFORMING PHYSICIAN: Santos Grigsby MD. PROCEDURE PERFORMED: 1. Selective left coronary angiogram. 2. Non selective right coronary angiogram. 3. Successful stenting of the first obtuse marginal branch of left circumflex using 2.0 x 12 mm Kevin drug-eluting stent with an excellent angiographic results and reduction of stenosis from 99% to 0%. INDICATION: This is a 74-year-old gentleman who is known to have coronary artery disease where he underwent stenting of the coronaries in [facility] with unknown details who presented to the hospital with chest discomfort and was ruled in for acute zhl-JD-brljyixuv myocardial infarction. Because of that, a heart catheterization was advised by Dr. Corado who was out of the town. APPROACH: Right radial artery. COMPLICATION: None. LEVEL OF SEDATION: Moderate with sedation length of 35 minutes. PROCEDURE DESCRIPTION: After obtaining informed consent, the patient was brought to the cardiac medical laboratory technicians. The right radial artery was cannulated using micropuncture technique and a micropuncture wire passed easily then I placed a 6-[place] sheath in the right radial artery. I did selective left coronary angiogram and non selective right coronary angiogram using JL 3.5 and JR4 catheters. Left heart catheterization was performed using the JR4 catheter which crossed the aortic valve. Then I did pullback across the valve. After that, I did intervene on the left circumflex. Please see a separate paragraph for that. SELECTIVE CORONARY ANGIOGRAM: 1. The left main is stented with mild in-stent restenosis. It bifurcates into LCX and LAD. 2. The LCX is a large caliber vessel. It is a nondominant vessel. The LCX in the proximal segment is stented. The stent is patent. It gives rise into a large OM branch which has a critical lesion in the mid to distal portion. The circumflex continues after that in the AV groove as a moderate caliber vessel. 3. The LAD: The proximal to mid LAD is stented with mild in-stent restenosis. The mid to distal and distal LAD appeared to have mild disease only. 4. The RCA was not well opacified, but it is known from before to be a small caliber vessel and nondominant vessel with critical ostial lesion. HEMODYNAMICS: The LVEDP was 10 to 12 mmHg without significant gradient across aortic valve. PCI OF THE LCX: Anticoagulation was achieved using heparin only with continuous ACT monitoring throughout the procedure. After that, I did engage the left main using JL3.5 guiding catheter. I did wire the left circumflex using 2 wires. A whisper wire and a run-through wire. After that I did PTCA ballooning of the lesion in the first obtuse marginal branch using 2.0 x 12 mm balloon before I deployed 2.0 x 12 mm [place] drug-eluting stent where the stent was positioned under fluoroscopy guidance and deployed. After that, I did the stenting of the first obtuse marginal branch using 2.0 x 12 mm Kevin drug-eluting stent where the stent was positioned under fluoroscopy guidance and deployed under 18 atmospheres for 20 seconds. The following angiogram showed excellent angiographic results and the procedure was completed without any complication. CONCLUSION: 1. Acute djt-SJ-ntqlzvico myocardial infarction in this 74-year-old gentleman who is known to have coronary artery disease with prior stenting of the left main and LCX and LAD. 2. Critical disease involving the first obtuse marginal branch of the left circumflex with de Pancho lesion. 3. Successful stenting of the first obtuse marginal branch of the left circumflex using 2.0 x 12 mm kevin with an excellent angiographic results and reduction of stenosis from 99% to 0%. 4. Patent stent in the left main coronary artery. 5. Patent stent in the proximal and mid left anterior descending artery. 6. Normal LVEDP. POSTPROCEDURE MANAGEMENT: 1. Maximize medical treatment. 2. Aggressive cholesterol control. 3. Risk factor modifications. 4. Dual anti-platelet therapy. 5. Follow up with the patient. MMODL / IJN: [id number] /
[2020-08-20 16:48] LABS: Glucose,Whole Blood 227 mg/dL (75-99)
[2020-08-20] MEDS ORDERED: WARFARIN 2 MG TAB PO ONE (18:00)
[2020-08-20 20:03] LABS: Glucose,Whole Blood 200 mg/dL (75-99)
[2020-08-20] MEDS: lamoTRIgine 25 MG TAB PO SCH (20:12)
[2020-08-20] MEDS: ATORVASTATIN 40 MG TAB PO SCH (20:12)
[2020-08-20] MEDS: CLOPIDOGREL 75 MG TAB PO SCH (20:12)
[2020-08-20] MEDS: PANTOPRAZOLE 40 MG TABLET PO SCH (20:13)
[2020-08-21 06:14] LABS: Glucose,Whole Blood 193 mg/dL (75-99)
[2020-08-21] MEDS: INSULIN ASPART (NovoLOG) 100 UNIT/ML VIAL SQ SCH (06:17)
[2020-08-21] MEDS: LEVOTHYROXINE 75 MCG TAB PO SCH (06:17)
[2020-08-21 07:39] LABS: INR 1.5 (<1.2); Prothrombin Time 15.4 sec (9.0-12.0)
[2020-08-21 07:42] LABS: Calcium 8.9 mg/dL (8.4-10.2); Potassium 4.9 mmol/L (3.5-5.1)
[2020-08-21 09:59] VITALS: RESP 18
[2020-08-21] MEDS: atenoloL 25 MG TAB PO SCH (10:02)
[2020-08-21] MEDS: ASPIRIN 81 MG PO SCH (10:02)
[2020-08-21] MEDS: DILTIAZEM CD 240 MG CAP.ER.24H PO SCH (10:03)
[2020-08-21] MEDS: FUROSEMIDE 20 MG TAB PO SCH (10:03)
[2020-08-21] MEDS: VALSARTAN 160 MG TAB PO SCH (10:03)
[2020-08-21 11:27] VITALS: BP 139/71; PULSE 76; TEMP 97.4
[2020-08-21] MEDS: CLOPIDOGREL 75 MG TAB PO SCH (11:46)
--- NOTE | 2020-08-21 13:58 | P.PN ---
Subjective This is a pleasant 74-year-old gentleman who follows regularly with Dr. Corado in the office. He has a known history of coronary artery disease with prior stenting of the LAD, persistent atrial fibrillation, hypertension, diabetes, hyperlipidemia, prior pacemaker implantation. Patient underwent a cardiac catheterization by Dr. Corado in June 2018 which revealed severe triple-vessel disease involving the left main, mid LAD, proximal circumflex and the ostium of the RCA. He was recommended for revascularization, was seen by cardiothoracic surgery at that time and recommended to optimize medications. 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 Patient was then transferred to [facility] where he underwent stent placement 4. Patient presents to the hospit al on this occasion with symptoms of progressively worsening chest discomfort.Troponins 0.06, 0.115, 0.14. 08/21/2020: Patient underwent cardiac catheterization with PCI to the first OM branch of the left circumflex with Dr. Grigsby on 08/20/2020. Patient's examined at bedside, no acute distress. Ambulating in the room without difficulty. Patient denies chest pain or pressure. He currently denies shortness of breath. Vital signs are stable. INR 1.5 today. Echocardiogram completed revealed ejection fraction 45- 50%, moderate mitral regurgitation, mild tricuspid regurgitation. Patient currently being maintained on aspirin 81 mg daily, atorvastatin 40 mg daily, Plavix 75 mg daily, Cardizem 240 mg daily, Lasix 20 mg daily, Valsartan 160mg daily. Patient currently in atrial fibrillation with ventricular rates controlled HR in the 60s. PHYSICAL EXAM: VITAL SIGNS: Reviewed. GENERAL: Well-developed in no acute distress. NECK: Supple. No JVD or thyromegaly LUNGS: Respirations even and unlabored. Lungs essentially clear to auscultation bilaterally. HEART: Irregular rate and rhythm. S1 and S2 heard. Systolic murmur noted. EXTREMITIES: Normal range of motion. No clubbing or cyanosis. Peripheral pulses intact. No lower extremity edema Right radial cath site clean dry intact, no hematoma 2+ pulses ASSESSMENT: Symptoms of progressively worsening chest discomfort with abnormal troponins, possible acute coronary syndrome Coronary artery disease with previous multivessel stenting, s/p PCI to first OM branch of the left circumflex with Dr. Grigsby on 08/20/2020 Chronic persistent atrial fibrillation on Coumadin Hypertension Hyperlipidemia Diabetes mellitus PLAN: Will continue dual antiplatelet therapy with aspirin and plavix. Patient states he does not have plavix at home, prescription sent to his pharmacy. Continue home cardiac medications Follow up with Dr. Corado, patient states he has an appointment on 08/22 Nurse practitioner note has been reviewed by physician. Signing provider agrees with the documented findings, assessment, and plan of care. Objective - Vital Signs Vital signs: Vital Signs Temp 97.5 F L 08/21/20 08:00 Pulse 68 08/21/20 08:00 Resp 18 08/21/20 08:00 BP 137/79 08/21/20 08:00 Pulse Ox 97 08/21/20 08:00 Intake & Output 08/20/20 08/21/20 08/21/20 18:59 06:59 18:59 Intake Total 680 240 Output Total 950 900 Balance -270 -900 240 Weight 80.6 kg 106.9 kg Intake: IV 200 Oral 480 240 Output: Urine 950 900 Other: Voiding Method Toilet Toilet Urinal Urinal # Bowel Movements 1 - Labs CBC & Chem 7: 08/19/20 07:58 08/21/20 06:42 Labs: Abnormal Lab Results - Last 24 Hours (Table) 08/20/20 08/20/20 08/20/20 Range/Units 11:39 16:47 20:02 PT (9.0-12.0) sec INR (<1.2) BUN (9-20) mg/dL Glucose (74-99) mg/dL POC Glucose (mg/dL) 158 H 227 H 200 H (75-99) mg/dL 08/21/20 08/21/20 08/21/20 Range/Units 06:12 06:42 06:42 PT 15.4 H (9.0-12.0) sec INR 1.5 H (<1.2) BUN 21 H (9-20) mg/dL Glucose 176 H (74-99) mg/dL POC Glucose (mg/dL) 193 H (75-99) mg/dL
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
[2020-08-21] MEDS ORDERED: WARFARIN 2 MG TAB PO ONE (18:00)
== END 2020-08-21 11:59 | disposition home or self-care (01) | DRG 246 ==
LOC: EC 11:26 → 3SCARD 13:45 → INTOOBSV 13:45 → 3SCARD 15:08 → OBSVTOIN 08-18 16:41
PROVIDERS: ADMIT Family Medicine; ATTEND Family Medicine
PROC: 027034Z Dilation of Coronary Artery, One Artery with Drug-eluting Intraluminal Device, Percutaneous Approach (ICD-10-PCS; principal; 2020-08-20 07:30)
PROC: B2111ZZ Fluoroscopy of Multiple Coronary Arteries using Low Osmolar Contrast (ICD-10-PCS; principal; 2020-08-20 07:30)
PROC: B2151ZZ Fluoroscopy of Left Heart using Low Osmolar Contrast (ICD-10-PCS; principal; 2020-08-20 07:30)
DX: T82.855A Stenosis of coronary artery stent, initial encounter (principal); I21.4 Non-ST elevation (NSTEMI) myocardial infarction; I48.19 Other persistent atrial fibrillation; N17.9 Acute kidney failure, unspecified; D69.6 Thrombocytopenia, unspecified; I49.5 Sick sinus syndrome; J39.8 Other specified diseases of upper respiratory tract; E11.9 Type 2 diabetes mellitus without complications; Z20.822 Contact with and (suspected) exposure to COVID-19; I25.10 Atherosclerotic heart disease of native coronary artery without angina pectoris; I10 Essential (primary) hypertension; H35.30 Unspecified macular degeneration; H54.8 Legal blindness, as defined in USA; G47.33 Obstructive sleep apnea (adult) (pediatric); E03.9 Hypothyroidism, unspecified; E78.5 Hyperlipidemia, unspecified; K44.9 Diaphragmatic hernia without obstruction or gangrene; I08.1 Rheumatic disorders of both mitral and tricuspid valves; K21.9 Gastro-esophageal reflux disease without esophagitis; N40.0 Benign prostatic hyperplasia without lower urinary tract symptoms; I25.2 Old myocardial infarction; M19.90 Unspecified osteoarthritis, unspecified site; Z79.02 Long term (current) use of antithrombotics/antiplatelets; Z79.890 Hormone replacement therapy; Z79.01 Long term (current) use of anticoagulants; Z79.84 Long term (current) use of oral hypoglycemic drugs; Z79.899 Other long term (current) drug therapy; Z86.718 Personal history of other venous thrombosis and embolism; Z95.0 Presence of cardiac pacemaker; Z87.820 Personal history of traumatic brain injury; Z90.49 Acquired absence of other specified parts of digestive tract; Z87.19 Personal history of other diseases of the digestive system; Z86.14 Personal history of Methicillin resistant Staphylococcus aureus infection; Z96.653 Presence of artificial knee joint, bilateral; Z98.890 Other specified postprocedural states; Z98.42 Cataract extraction status, left eye; Z98.41 Cataract extraction status, right eye; Z95.828 Presence of other vascular implants and grafts; Y83.1 Surgical operation with implant of artificial internal device as the cause of abnormal reaction of the patient, or of later complication, without mention of misadventure at the time of the procedure; Z88.2 Allergy status to sulfonamides; Z88.8 Allergy status to other drugs, medicaments and biological substances
CPT/HCPCS: 36415; 71046; 80048; 80053; 83735; 84484; 85025; 85610; 85730; 87635; 93005; 93306; 93458; 99285

== ENCOUNTER 2021-02-01 22:12 | Inpatient (IN) | payer MEDICARE ==
[2021-02-01] MEDS ORDERED: SODIUM CHLORIDE 0.9% 1,000 ML IV STA (22:46)
[2021-02-01] MEDS ORDERED: NITROGLYCERIN OINT 1 INCH/GM PACKET TOPICAL STA (22:46)
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
[2021-02-01 23:49] LABS: Basophils # (A) 0.1 k/uL (0-0.2); Basophils % (A) 1 %; Eosinophils # (A) 0.1 k/uL (0-0.7); Eosinophils % (A) 2 %; HCT 36.2 % (39.0-53.0); HGB 12.6 gm/dL (13.0-17.5); Lymphocytes # (A) 1.9 k/uL (1.0-4.8); Lymphocytes % (A) 26 %; MCH 29.5 pg (25.0-35.0); MCHC 34.9 g/dL (31.0-37.0); MCV 84.5 fL (80.0-100.0); Monocytes # (A) 0.6 k/uL (0-1.0); Monocytes % (A) 8 %; Neutrophils # (A) 4.5 k/uL (1.3-7.7); Neutrophils % (A) 61 %; Platelet Count 145 k/uL (150-450); RBC 4.28 m/uL (4.30-5.90); RDW 13.8 % (11.5-15.5); WBC 7.3 k/uL (3.8-10.6)
[2021-02-02 00:01] LABS: Albumin 3.8 g/dL (3.5-5.0); Calcium 9.4 mg/dL (8.4-10.2); Magnesium 2.1 mg/dL (1.6-2.3); Potassium 4.4 mmol/L (3.5-5.1); Total Bilirubin 0.5 mg/dL (0.2-1.3); Total Protein 6.7 g/dL (6.3-8.2)
--- NOTE | 2021-02-02 00:05 | XR ---
EXAMINATION TYPE: XR chest 1V portable DATE OF EXAM: 02/01/2021 COMPARISON: 08/17/2020 HISTORY: Chest pain TECHNIQUE: FINDINGS: Heart and mediastinum are normal. Lungs are clear. Diaphragm is normal. Thoracic aorta is a theromatous. There are sternal wires. There is left axillary pacemaker. There are chest leads. Costop hrenic angles are clear. IMPRESSION: No active cardiopulmonary disease. No change.
[2021-02-02 00:09] LABS: INR 2.7 (<1.2); Partial Thromboplastin Time 33.1 sec (22.0-30.0); Prothrombin Time 26.1 sec (9.0-12.0)
[2021-02-02] MEDS ORDERED: MORPHINE SULFATE 4 MG/ML SYRINGE IV PRN (00:42)
[2021-02-02] MEDS ORDERED: ASPIRIN 81 MG PO STA (00:42)
[2021-02-02] MEDS ORDERED: NITROGLYCERIN SL TABS 0.4 MG TAB SUBLINGUAL PRN ×2 (00:42→12:43)
[2021-02-02 13:41] LABS: INR 2.4 (<1.2); Prothrombin Time 23.4 sec (9.0-12.0)
--- NOTE | 2021-02-02 15:00 | CONS ---
CONSULTATION CHIEF COMPLAINT: Chest pain. Alexsander is a 75-year-old gentleman with history of coronary artery disease, on medical therapy, prior angioplasty of [place] circumflex coronary artery, hypertension, diabetes, dyslipidemia and permanent atrial fibrillation who presented to hospital complaining of chest pain. He describes it as intermittent episodes of precordial chest pressure. He was having chest discomfort when he saw his flake miller helper Dr. Corado in the office, who started him on nitrates. His chest discomfort has been getting progressively worse. He came to hospital. It is mild to moderate intensity, pericardial, suggestive of angina. His EKG shows atrial fibrillation with ST-T wave changes suggestive of ischemia. His INR is therapeutic at 2.7, creatinine is 1.7. Troponin is mildly elevated at 0.08. Coronavirus test is negative. Patient's clinical presentation is consistent with acute mxd-QL-gtggxmg-elevation NM. He underwent cardiac catheterization in the past and had severe triple-vessel coronary artery disease and was seen by a cardiothoracic surgeon, who felt that he was not a surgical candidate and was advised optimal medical therapy. He subsequently was admitted to hospital with myk-KJ-ndzplmi-elevation NM in July of this year and underwent cardiac catheterization by my associate, Dr. Grigsby, and went on to have stenting of the first OM branch with excellent results. Patient also had angioplasty at [facility], details of which I do not have. Patient had stent of the left main at [facility] and also had a stent in the mid LAD. PAST MEDICAL HISTORY: Significant for multivessel coronary artery disease, status post multivessel angioplasty, permanent atrial fibrillation, oas-qxjrllr-siwnttsay diabetes, hypertension, dyslipidemia. CURRENT MEDICATIONS: Current medications include Coumadin 4 mg daily, Glucophage, valsartan, Prilosec, Lamictal, Cardizem, Tradjenta, Synthroid, Imdur, Lasix, Plavix, Lipitor, . ALLERGIES: HALDOL, TORADOL, CODEINE, TRAMADOL. FAMILY HISTORY: Negative for premature coronary artery disease. SOCIAL HISTORY: Negative for current smoking, EtOH abuse or drug abuse. REVIEW OF SYSTEMS: HEENT is unremarkable. CARDIAC: As described above. RESPIRATORY: As described above. GI: Negative. GENITOURINARY: Negative. ALLERGY/IMMUNOLOGY: Negative. SKIN: Negative. MUSCULOSKELETAL: Significant for arthritis. PSYCHOSOCIAL: Negative. ENDOCRINE: Negative. DERMATOLOGY: Negative. CONSTITUTIONAL: Negative. ONCOLOGICAL: Negative. CAKE WRAPPER: Negative. Rest of the system review is not relevant. PHYSICAL EXAMINATION: Patient is comfortable at rest. Vital signs are stable. There is no jugular venous distention. Carotid upstroke is normal. There is no bruit. Chest exam reveals good air entry bilaterally. Heart exam reveals first and second heart sounds. No gallop. Irregular rhythm and a systolic murmur at the apex. Abdomen is soft. Examination of extremities did not reveal any edema. Peripheral pulses are felt. LABS: Creatinine is elevated at 1.7. BUN is 43. INR is 2.7, hemoglobin is 12.6, platelet count is 145. Troponin is mildly elevated. ASSESSMENT: 1. Acute kbn-JQ-cdcgqyb-elevation myocardial infarction in a patient with known multivessel coronary artery disease, status post prior angioplasty of LAD, circumflex, left main. 2. Permanent atrial fibrillation. 3. Hypertension. 4. Dyslipidemia. 5. diabetes. PLAN: Will treat the patient with optimal medical therapy, including nitro paste, aspirin and beta blockers. I am going to hold the Coumadin and see how he does. If he continues to have recurrent episodes of chest pain, he will need cardiac catheterization and may have to be referred out for angioplasty. MMODL / IJN: [id number] /
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
[2021-02-02] MEDS ORDERED: WARFARIN 2 MG TAB PO SCH (21:00)
[2021-02-02 21:01] LABS: Glucose,Whole Blood 192 mg/dL (75-99)
[2021-02-02] MEDS: lamoTRIgine 25 MG TAB PO SCH (21:01)
[2021-02-02] MEDS: REPAGLINIDE 1 MG TAB PO SCH (21:01)
[2021-02-02] MEDS: ATORVASTATIN 40 MG TAB PO SCH (21:01)
[2021-02-03 06:11] LABS: Glucose,Whole Blood 112 mg/dL (75-99)
[2021-02-03] MEDS: LEVOTHYROXINE 75 MCG TAB PO SCH (06:50)
[2021-02-03] MEDS: REPAGLINIDE 1 MG TAB PO SCH ×2 (06:50→16:37)
[2021-02-03] MEDS: PANTOPRAZOLE 40 MG TABLET PO SCH (06:50)
[2021-02-03] MEDS: ISOSORBIDE MONONITRATE ER 30 MG TAB.ER.24H PO SCH (08:31)
[2021-02-03] MEDS: LINAGLIPTIN 5 MG TABLET PO SCH (08:31)
[2021-02-03] MEDS: ASPIRIN 325 MG TAB PO SCH (08:31)
[2021-02-03] MEDS: CLOPIDOGREL 75 MG TAB PO SCH (08:31)
[2021-02-03] MEDS: DILTIAZEM CD 240 MG CAP.ER.24H PO SCH (08:31)
[2021-02-03 08:39] LABS: Prothrombin Time 19.2 sec (9.0-12.0)
[2021-02-03 08:40] LABS: Potassium 4.3 mmol/L (3.5-5.1)
[2021-02-03 08:41] LABS: African American GFR (CKD) 53 (>60 ml/min/1.73 sqM); Anion Gap 9 mmol/L; Blood Urea Nitrogen 28 mg/dL (9-20); Calcium 9.4 mg/dL (8.4-10.2); Carbon Dioxide 24 mmol/L (22-30); Chloride 102 mmol/L (98-107); Glucose 153 mg/dL (74-99); Non-African American GFR(CKD) 46 (>60 ml/min/1.73 sqM); Sodium 135 mmol/L (137-145)
[2021-02-03 11:55] LABS: Glucose,Whole Blood 131 mg/dL (75-99)
[2021-02-03 12:29] LABS: Chol/HDL Ratio 4.28 Ratio; LDL Cholesterol,Calculated 84.8 mg/dL (0.0-131.0)
--- NOTE | 2021-02-03 13:19 | P.PN ---
Subjective Patient is an 5-year-old male with known history of coronary artery disease and can start failure EF of around 45% came in with intermittent episodes of precordial chest pressure like sensation nonradiating. Patient the chest pain is progressively worse mild to moderate in severity EKG showed atrial fibrillation and some ST-T wave changes suggestive of ischemia. Patient has history of atrial fibrillation A. For which patient is on Coumadin therapy, INR. Patient does have elevated troponins patient had severe triple-vessel disease that was seen in her with his previous corrected physicians. Patient was advised maximal and optimal medical therapy patient had stenting of obtuse marginal in the past and LAD stent at [facility]. Patient denied any shortness of breath orthopnea paroxysmal nocturnal dyspnea. 02/03/2021 Patient doesn't have any chest and patient is clinically doing well patient probably will need to be monitored 1 more day possibility of discharge tomorrow on medical therapy. Constitutional: Denied any fatigue denied any fever. Cardio vascular: denied any chest pain, palpitations Gastrointestinal denied any nausea vomiting Pulmonary: Denied any shortness of breath cough Neurologic denied any new focal deficits All inpatient medications were reviewed and appropriate changes in these medications as dictated in the interval history and assessment and plan. PHYSICAL EXAMINATION: GENERAL: The patient is alert and oriented x3, not in any acute distress. Well developed, well nourished. HEENT: Pupils are round and equally reacting to light. EOMI. No scleral icterus. No conjunctival pallor. Normocephalic, atraumatic. No pharyngeal erythema. No thyromegaly. CARDIOVASCULAR: S1 and S2 present. No murmurs, rubs, or gallops. PULMONARY: Chest is clear to auscultation, no wheezing or crackles. ABDOMEN: Soft, nontender, nondistended, normoactive bowel sounds. No palpable organomegaly. MUSCULOSKELETAL: No joint swelling or deformity. EXTREMITIES: No cyanosis, clubbing, or pedal edema. NEUROLOGICAL: Gross neurological examination did not reveal any focal deficits. SKIN: No rashes. Assessment and plan - chest pain, angina possibly of non-ST elevation myocardial infarction, cardiology evaluated the patient the recommending a optimal medical therapy with Nitropaste and increase the dose of beta blockers patient to rest of his cardiac medications are being continued -Acute renal failure 6 secondary to excessive diuresis diuresis is being held temporally we'll repeat the basic metabolic profile tomorrow -Congestive heart failure chronic systolic dysfunction without any acute exacerbation -Permanent atrial fibrillation presently rate controlled continue with anticoagulation repeat INR tomorrow -Hypervolemic hyponatremia secondary to diuresis which is being held as mentioned above -Hyperlipidemia -Hypertension -Type 2 diabetes mellitus: Hold off on antidepressants because of his heart disease history hold off on metformin as well because of renal failure -Benign prostatic hypertrophy -Sleep apnea -Hypothyroidism DVT prophylaxis: Patient is therapeutic on Coumadin Objective - Vital Signs Vital signs: Vital Signs Temp 97.6 F 02/03/21 08:00 Pulse 93 02/03/21 08:00 Resp 16 02/03/21 08:00 BP 144/76 02/03/21 08:00 Pulse Ox 98 02/03/21 08:00 Intake & Output 02/02/21 02/03/21 02/03/21 18:59 06:59 18:59 Intake Total 10 180 Balance 10 180 Weight 102 kg Intake: IV 10 Invasive Line 1 10 Oral 180 Other: Voiding Method Urinal # Voids 1 - Labs CBC & Chem 7: 02/01/21 23:17 02/03/21 08:14 Labs: Abnormal Lab Results - Last 24 Hours (Table) 02/02/21 02/02/21 02/03/21 Range/Units 13:12 21:00 06:00 PT 23.4 H (9.0-12.0) sec INR 2.4 H (<1.2) Sodium (137-145) mmol/L BUN (9-20) mg/dL Creatinine (0.66-1.25) mg/dL Glucose (74-99) mg/dL POC Glucose (mg/dL) 192 H 112 H (75-99) mg/dL Triglycerides (0.00-149.00) mg/dL VLDL Cholesterol, Calc (5.00-40.00) mg/dL HDL Cholesterol (40.00-60.00) mg/dL 02/03/21 02/03/21 02/03/21 Range/Units 08:14 08:14 11:54 PT 19.2 H (9.0-12.0) sec INR 2.0 H (<1.2) Sodium 135 L (137-145) mmol/L BUN 28 H (9-20) mg/dL Creatinine 1.48 H (0.66-1.25) mg/dL Glucose 153 H (74-99) mg/dL POC Glucose (mg/dL) 131 H (75-99) mg/dL Triglycerides 216.00 H (0.00-149.00) mg/dL VLDL Cholesterol, Calc 43.20 H (5.00-40.00) mg/dL HDL Cholesterol 39.00 L (40.00-60.00) mg/dL
--- NOTE | 2021-02-03 13:47 | ECHOF ---
Referral Reason:Nstemi, chest pain MEASUREMENTS -------- HEIGHT: 154.9 cm WEIGHT: 101.6 kg BP: 144/76 RVIDd: 3.4 cm (< 3.3) IVSd: 1.2 cm (0.6 - 1.1) LVIDd: 3.2 cm (3.9 - 5.3) LVPWd: 1.2 cm (0.6 - 1.1) IVSs: 1.4 cm LVIDs: 2.5 cm LVPWs: 1.4 cm LAESV Index (A-L): 33.86 ml/m Ao Diam: 3.3 cm (2.0 - 3.7) AV Cusp: 1.8 cm (1.5 - 2.6) LA Diam: 4.1 cm (2.7 - 3.8) MV EXCURSION: 17.586 mm (> 18.000) MV EF SLOPE: 108 mm/s (70 - 150) EPSS: 1.0 cm RAP: 5.00 mmHg RVSP: 23.36 mmHg FINDINGS -------- This was a technically adequate study. The left ventricular size is normal. There is mild concentric left ventricular hypertrophy. Overa ll left ventricular systolic function is mildly impaired with, an EF between 45 - 50 %. Septal wall motion is delayed and consistent with prior cardiac surgery. The right ventricle is mildly enlarged. LA is midly dilated 29-33ml/m2. The right atrial size is normal. Interatrial and interventricular septum intact. There is no evidence of aortic regurgitation. There is no evidence of aortic stenosis. [id number]-um-wddyhtpt mitral regurgitation is present. Mild tricuspid regurgitation present. There is no evidence of pulmonary hypertension. The right v entricular systolic pressure, as measured by Doppler, is 23.36mmHg. There is no pulmonic regurgitation present. The aortic root size is normal. IVC Not well visulized. There is no pericardial effusion. CONCLUSIONS -------- 1. The left ventricular size is normal. 2. There is mild concentric left ventricular hypertrophy. 3. Overall left ventricular systolic function is mildly impaired with, an EF between 45 - 50 %. 4. The right ventricle is mildly enlarged. 5. LA is midly dilated 29-33ml/m2. 6. Pgxh-ao-hzhgqnxv mitral regurgitation is present. 7. Mild tricuspid regurgitation present. [employer] SUPERVISOR: Jess Novak RDCS
[2021-02-03] MEDS: METOPROLOL SUCCINATE (ER) 25 MG TAB.ER.24H PO SCH (15:00)
[2021-02-03 16:32] LABS: Glucose,Whole Blood 151 mg/dL (75-99)
--- NOTE | 2021-02-03 17:11 | PN ---
PROGRESS NOTE FOLLOW-UP NOTE: Alexsander is a 75-year-old gentleman who is admitted to hospital with [id number]-ZA-[id number]- elevation NE. He has had multiple prior angioplasties, including left main, LAD and circumflex coronary artery. He is on Coumadin. INR is 2 today. He states that he got up and walked around and chest pressure. He is on optimal medical therapy. An echocardiogram showed an ejection fraction of 45%. On exam, comfortable at rest. Vital signs are stable. There is no jugular venous distention. Chest exam reveals good air entry bilaterally. Heart exam reveals first and second heart sounds. No gallop. Has a systolic murmur at the apex. Abdomen is soft. Examination of extremities did not reveal any edema. Peripheral pulses are felt. Labs show that INR is 2, creatinine is 1.4. LDL is 84. ASSESSMENT: 1. Acute ncf-BH-teztins-elevation myocardial infarction. 2. Persistent atrial fibrillation. PLAN: I will hold the Coumadin and I will talk to Dr. Corado about doing a cardiac catheterization to consider revascularization. He has a left main LAD and circumflex coronary artery stenting and will definitely benefit from cardiac catheterization. Hopefully this will be done in next two days as the INR comes down. MMODL / IJN: [id number] /
[2021-02-03 20:35] LABS: Glucose,Whole Blood 212 mg/dL (75-99)
[2021-02-03] MEDS ORDERED: WARFARIN 5 MG TAB PO SCH (21:00)
[2021-02-03] MEDS: lamoTRIgine 25 MG TAB PO SCH (21:09)
[2021-02-03] MEDS: ATORVASTATIN 40 MG TAB PO SCH (21:09)
[2021-02-03] MEDS: INSULIN ASPART (NovoLOG) 100 UNIT/ML VIAL SQ SCH (21:29)
[2021-02-04] MEDS: INSULIN ASPART (NovoLOG) 100 UNIT/ML VIAL SQ SCH ×4 (06:01→20:59)
[2021-02-04] MEDS: LEVOTHYROXINE 75 MCG TAB PO SCH (06:22)
[2021-02-04] MEDS: PANTOPRAZOLE 40 MG TABLET PO SCH ×2 (06:22→07:01)
[2021-02-04 06:24] LABS: Glucose,Whole Blood 109 mg/dL (75-99)
[2021-02-04] MEDS: DILTIAZEM CD 240 MG CAP.ER.24H PO SCH (08:27)
[2021-02-04] MEDS: ISOSORBIDE MONONITRATE ER 30 MG TAB.ER.24H PO SCH (08:27)
[2021-02-04] MEDS: CLOPIDOGREL 75 MG TAB PO SCH (08:27)
[2021-02-04] MEDS: ASPIRIN 325 MG TAB PO SCH (08:27)
[2021-02-04] MEDS: METOPROLOL SUCCINATE (ER) 25 MG TAB.ER.24H PO SCH (08:27)
[2021-02-04] MEDS: REPAGLINIDE 1 MG TAB PO SCH ×2 (10:22→17:05)
[2021-02-04 10:24] LABS: Calcium 9.1 mg/dL (8.4-10.2); Potassium 3.8 mmol/L (3.5-5.1)
[2021-02-04 10:44] LABS: INR 1.7 (<1.2); Prothrombin Time 16.7 sec (9.0-12.0)
[2021-02-04] MEDS ORDERED: NITROGLYCERIN SL TABS 0.4 MG TAB SUBLINGUAL PRN (11:22)
[2021-02-04] MEDS ORDERED: ALPRAZolam 0.25 MG TAB PO PRN (11:22)
[2021-02-04] MEDS ORDERED: ALPRAZolam 0.5 MG TAB PO PRN (11:22)
[2021-02-04 11:34] LABS: Glucose,Whole Blood 162 mg/dL (75-99)
--- NOTE | 2021-02-04 12:00 | P.PN ---
Subjective Progress Note Date: 02/04/21 HISTORY OF PRESENT ILLNESS: This is a 75-year-old male who follows in the office with Dr. Corado. Patient presented to the hospital with chest pain. He was diagnosed with a Non-S MOI. He remains on IV heparin. Patient currently denies shortness of breath. He reports occasional chest discomfort. INR 1.7. BUN 31. Creatinine 1.56. Echocardiogram completed revealing ejection fraction 45-50%, mild to moderate mitral regurgitation, and mild tricuspid regurgitation. PHYSICAL EXAM: VITAL SIGNS: Reviewed. GENERAL: Well-developed in no acute distress. NECK: Supple. No JVD or thyromegaly LUNGS: Respirations even and unlabored. Lungs essentially clear to auscultation bilaterally. HEART: Irregular rate and rhythm. S1 and S2 heard. Systolic murmur. EXTREMITIES: Normal range of motion. No clubbing or cyanosis. Peripheral pulses intact. No lower extremity edema ASSESSMENT: Non-STEMI History of coronary artery disease with previous PCI Chronic persistent atrial fibrillation, on Coumadin Acute kidney injury Hypertension PLAN: Continue current cardiac medications Monitor INR. Recheck in AM. Monitor kidney function. Recheck in AM. Will begin gentle IV hydration tonight Plan is for tentative heart cath tomorrow with Dr. Grigsby pending labs NPO at midnight Further recommendations pending patient course Nurse practitioner note has been reviewed by physician. Signing provider agrees with the documented findings, assessment, and plan of care. Objective - Vital Signs Vital signs: Vital Signs Temp 97.6 F 02/04/21 08:00 Pulse 82 02/04/21 08:00 Resp 18 02/04/21 08:00 BP 136/71 02/04/21 08:00 Pulse Ox 97 02/04/21 08:00 Intake & Output 02/03/21 02/04/21 02/04/21 18:59 06:59 18:59 Intake Total 420 Balance 420 Weight 102.4 kg Intake: Oral 420 Other: Voiding Method Urinal # Voids 2 1 # Bowel Movements 0 - Labs CBC & Chem 7: 02/01/21 23:17 02/04/21 08:50 Labs: Abnormal Lab Results - Last 24 Hours (Table) 02/03/21 02/03/21 02/03/21 Range/Units 08:14 11:54 16:30 PT (9.0-12.0) sec INR (<1.2) Sodium (137-145) mmol/L BUN (9-20) mg/dL Creatinine (0.66-1.25) mg/dL Glucose (74-99) mg/dL POC Glucose (mg/dL) 131 H 151 H (75-99) mg/dL Triglycerides 216.00 H (0.00-149.00) mg/dL VLDL Cholesterol, Calc 43.20 H (5.00-40.00) mg/dL HDL Cholesterol 39.00 L (40.00-60.00) mg/dL 02/03/21 02/04/21 02/04/21 Range/Units 20:15 05:47 08:50 PT (9.0-12.0) sec INR (<1.2) Sodium 133 L (137-145) mmol/L BUN 31 H (9-20) mg/dL Creatinine 1.56 H (0.66-1.25) mg/dL Glucose 126 H (74-99) mg/dL POC Glucose (mg/dL) 212 H 109 H (75-99) mg/dL Triglycerides (0.00-149.00) mg/dL VLDL Cholesterol, Calc (5.00-40.00) mg/dL HDL Cholesterol (40.00-60.00) mg/dL 02/04/21 Range/Units 09:32 PT 16.7 H (9.0-12.0) sec INR 1.7 H (<1.2) Sodium (137-145) mmol/L BUN (9-20) mg/dL Creatinine (0.66-1.25) mg/dL Glucose (74-99) mg/dL POC Glucose (mg/dL) (75-99) mg/dL Triglycerides (0.00-149.00) mg/dL VLDL Cholesterol, Calc (5.00-40.00) mg/dL HDL Cholesterol (40.00-60.00) mg/dL
[2021-02-04] MEDS: LINAGLIPTIN 5 MG TABLET PO SCH (12:19)
--- NOTE | 2021-02-04 15:21 | P.PN ---
Subjective Progress Note Date: 02/04/21 This 75-year-old gentleman admitted with NSTEMI, persistent atrial fibrillation with elevated INRs, currently down to 1.7, acute renal failure and multiple other medical issues. Creatinine increased up to 1.56, sodium 133. Coumadin on hold, INR down to 1.7. BUN 31, creatinine 1.56. Currently denies chest pain, palpitations. Complains of exertional shortness of breath with ambulation. Objective - Vital Signs Vital signs: Vital Signs Temp 97.6 F 02/04/21 08:00 Pulse 76 02/04/21 12:00 Resp 18 02/04/21 12:00 BP 126/69 02/04/21 12:00 Pulse Ox 96 02/04/21 12:00 Intake & Output 02/03/21 02/04/21 02/04/21 18:59 06:59 18:59 Intake Total 420 125 Balance 420 125 Weight 102.4 kg Intake: Oral 420 125 Other: Voiding Method Urinal # Voids 2 1 # Bowel Movements 0 - Exam PHYSICAL EXAM: VITAL SIGNS: As above GENERAL: Sitting up in bed, no acute distress HEENT: Conjunctivae normal. eyes normal. NECK: No JVD. No thyroid enlargement. No LNs CARDIOVASCULAR: S1, S2,irregular. Systolic murmur. RESPIRATION: Breath sounds diminished in the bases. No rhonchi or crackles. ABDOMEN: Soft, nontender . No guarding. no masses palpable. Positive Bowel sounds heard. LEGS: No edema. no swelling PSYCHIATRY: Alert and oriented X3, mood and affect normal. NERVOUS SYSTEM: Cranial N 2-12 grossly normal. Moves all 4 limbs. Diffuse weakness No focal deficits. Strength and sensation grossly intact. Skin: no rash, warm and dry - Labs CBC & Chem 7: 02/01/21 23:17 02/04/21 08:50 Labs: Abnormal Lab Results - Last 24 Hours (Table) 02/03/21 02/03/21 02/04/21 Range/Units 16:30 20:15 05:47 PT (9.0-12.0) sec INR (<1.2) Sodium (137-145) mmol/L BUN (9-20) mg/dL Creatinine (0.66-1.25) mg/dL Glucose (74-99) mg/dL POC Glucose (mg/dL) 151 H 212 H 109 H (75-99) mg/dL 02/04/21 02/04/21 02/04/21 Range/Units 08:50 09:32 11:29 PT 16.7 H (9.0-12.0) sec INR 1.7 H (<1.2) Sodium 133 L (137-145) mmol/L BUN 31 H (9-20) mg/dL Creatinine 1.56 H (0.66-1.25) mg/dL Glucose 126 H (74-99) mg/dL POC Glucose (mg/dL) 162 H (75-99) mg/dL Assessment and Plan Assessment: Acute NSTEMI Acute renal failure Chronic persistent atrial fibrillation Chronic CHF, systolic dysfunction Hyponatremia Hyperlipidemia Hypertension Diabetes mellitus type 2 BPH Obstructive Sleep apnea Hypothyroidism Morbid obesity, BMI 42.7 Plan: Continue on current medication regime ,monitoring and symptomatic treatment. Cardiology discussing potential cardiac cath. tomorrow morning. Coumadin on hold. The impression and plan of care has been dictated as directed. : I performed a history and examination of this patient, discussed the same with the dictator. I agree with the dictator's note ,documented as a scribe. Any additional findings or plans will be noted.
[2021-02-04 16:47] LABS: Glucose,Whole Blood 210 mg/dL (75-99)
[2021-02-04] MEDS ORDERED: INSULIN ASPART (NovoLOG) 100 UNIT/ML VIAL SQ SCH (17:30)
[2021-02-04 20:08] LABS: Glucose,Whole Blood 151 mg/dL (75-99)
[2021-02-04] MEDS: ATORVASTATIN 40 MG TAB PO SCH (20:59)
[2021-02-04] MEDS: lamoTRIgine 25 MG TAB PO SCH (20:59)
[2021-02-04] MEDS: SODIUM CHLORIDE 0.9% 1,000 ML in EMPTY BAG 1 BAG IV SCH (23:13)
[2021-02-05] MEDS: ASPIRIN 81 MG PO SCH (06:04)
[2021-02-05] MEDS: REPAGLINIDE 1 MG TAB PO SCH ×2 (06:04→18:03)
[2021-02-05] MEDS: LINAGLIPTIN 5 MG TABLET PO SCH (06:04)
[2021-02-05 06:16] LABS: Glucose,Whole Blood 122 mg/dL (75-99)
[2021-02-05] MEDS: INSULIN ASPART (NovoLOG) 100 UNIT/ML VIAL SQ SCH ×4 (06:20→20:31)
[2021-02-05] MEDS: ISOSORBIDE MONONITRATE ER 30 MG TAB.ER.24H PO SCH (06:24)
[2021-02-05] MEDS: PANTOPRAZOLE 40 MG TABLET PO SCH (06:24)
[2021-02-05] MEDS: DILTIAZEM CD 240 MG CAP.ER.24H PO SCH (06:24)
[2021-02-05] MEDS: CLOPIDOGREL 75 MG TAB PO SCH (06:24)
[2021-02-05] MEDS: METOPROLOL SUCCINATE (ER) 25 MG TAB.ER.24H PO SCH (06:24)
[2021-02-05] MEDS: LEVOTHYROXINE 75 MCG TAB PO SCH (06:24)
[2021-02-05 06:53] LABS: Calcium 8.8 mg/dL (8.4-10.2); Potassium 3.8 mmol/L (3.5-5.1)
[2021-02-05 06:56] LABS: INR 1.4 (<1.2); Prothrombin Time 14.1 sec (9.0-12.0)
[2021-02-05] MEDS ORDERED: HEPARIN SODIUM,PORCINE 10,000 UNIT in SODIUM CHLORIDE 0.9% 1,000 ML IRRIGATION PRN (07:00)
[2021-02-05] MEDS ORDERED: HEPARIN SODIUM,PORCINE 2,500 UNIT in SODIUM CHLORIDE 0.9% 250 ML IRRIGATION PRN (07:00)
[2021-02-05] MEDS ORDERED: ATORVASTATIN 80 MG TAB PO ONE (07:00)
[2021-02-05] MEDS ORDERED: ASPIRIN 325 MG TAB PO ONE (07:00)
[2021-02-05 12:12] LABS: Glucose,Whole Blood 123 mg/dL (75-99)
--- NOTE | 2021-02-05 12:27 | P.PN ---
Subjective Progress Note Date: 02/05/21 This 75-year-old gentleman admitted with NSTEMI, persistent atrial fibrillation with elevated INRs, currently down to 1.7, acute renal failure and multiple other medical issues. Creatinine increased up to 1.56, sodium 133. Coumadin on hold, INR down to 1.7. BUN 31, creatinine 1.56. Currently denies chest pain, palpitations. Complains of exertional shortness of breath with ambulation. 02/05/2021 NPO, maintained on gentle IV fluid hydration. INR 1.4, creatinine down to 1.4. Scheduled for cardiac catheterization today. Denies chest pain, palpitations or shortness of breath. Afebrile. Objective - Vital Signs Vital signs: Vital Signs Temp 97.7 F 02/05/21 08:00 Pulse 82 02/05/21 08:00 Resp 18 02/05/21 08:00 BP 117/59 02/05/21 08:00 Pulse Ox 95 02/05/21 08:00 Intake & Output 02/04/21 02/05/21 02/05/21 18:59 06:59 18:59 Intake Total 365 240 Balance 365 240 Weight 100.7 kg Intake: Oral 365 240 Other: Voiding Method Toilet Urinal # Voids 2 1 - Exam PHYSICAL EXAM: VITAL SIGNS: As above GENERAL: Alert and oriented 3 ,Sitting up in bed, no acute distress HEENT: Conjunctivae normal. eyes normal. NECK: Supple, No JVD. CARDIOVASCULAR: S1, S2,irregular. Systolic murmur. RESPIRATION: Breath sounds diminished in the bases. No rhonchi or crackles. ABDOMEN: Soft, nontender . No guarding. no masses palpable. Positive Bowel sounds heard. LEGS: No edema. no swelling NERVOUS SYSTEM: Cranial N 2-12 grossly normal.No focal deficits. Strength and sensation grossly intact. Skin: no rash, warm and dry - Labs CBC & Chem 7: 02/01/21 23:17 02/05/21 05:58 Labs: Abnormal Lab Results - Last 24 Hours (Table) 02/04/21 02/04/21 02/05/21 Range/Units 16:33 20:07 05:58 PT 14.1 H (9.0-12.0) sec INR 1.4 H (<1.2) Sodium (137-145) mmol/L BUN (9-20) mg/dL Creatinine (0.66-1.25) mg/dL Glucose (74-99) mg/dL POC Glucose (mg/dL) 210 H 151 H (75-99) mg/dL 02/05/21 02/05/21 02/05/21 Range/Units 05:58 06:14 11:48 PT (9.0-12.0) sec INR (<1.2) Sodium 136 L (137-145) mmol/L BUN 31 H (9-20) mg/dL Creatinine 1.40 H (0.66-1.25) mg/dL Glucose 125 H (74-99) mg/dL POC Glucose (mg/dL) 122 H 123 H (75-99) mg/dL Assessment and Plan Assessment: Acute NSTEMI Acute renal failure Chronic persistent atrial fibrillation Chronic CHF, systolic dysfunction Hyponatremia Hyperlipidemia Hypertension Diabetes mellitus type 2 BPH Obstructive Sleep apnea Hypothyroidism Morbid obesity, BMI 42.7 Plan: Continue on current medication regime ,monitoring and symptomatic treatment. Cardiac cath. Pending. Close monitoring of renal function with repeat labs ordered for a.m. discharge planning in progress for potentially later today or tomorrow pending catheterization results. The impression and plan of care has been dictated as directed. : I performed a history and examination of this patient, discussed the same with the dictator. I agree with the dictator's note ,documented as a scribe. Any additional findings or plans will be noted.
[2021-02-05] MEDS ORDERED: VERAPAMIL 2.5 MG/ML 2 ML AMP ONE (14:25)
[2021-02-05] MEDS ORDERED: LIDOCAINE 1% INJ 10MG/ML (20 ML MDV) ONE (14:26)
[2021-02-05] MEDS ORDERED: IV FLUID CONTINUATION 1,000 ML IV ONE (14:35)
[2021-02-05] MEDS ORDERED: HEPARIN SODIUM 1,000 UN/ML (10ML VL) ONE (14:43)
[2021-02-05] MEDS: MIDAZOLAM 2 MG/2 ML VIAL IVP ONE ×2 (14:48→15:02)
[2021-02-05] MEDS ORDERED: LIDOCAINE 1% INJ 10MG/ML (20 ML MDV) SQ ONE (14:50)
[2021-02-05] MEDS ORDERED: HEPARIN SODIUM 1,000 UN/ML (10ML VL) IV ONE (14:56)
[2021-02-05] MEDS ORDERED: CLOPIDOGREL 75 MG TAB ONE (15:08)
[2021-02-05] MEDS ORDERED: IOPAMIDOL-370 125ML BTL INJ ONE (15:11)
[2021-02-05] MEDS ORDERED: CLOPIDOGREL 75 MG TAB PO ONE (15:11)
[2021-02-05] MEDS ORDERED: MAG HYDROX/AL HYDROX/SIMETH 30 ML CUP PO PRN (15:20)
[2021-02-05] MEDS ORDERED: ATROPINE SULFATE 0.1 MG/ML 10ML SYRINGE IV PRN (15:20)
[2021-02-05] MEDS ORDERED: ZOLPIDEM 5 MG TAB PO PRN (15:20)
[2021-02-05] MEDS ORDERED: RX INFO: IV CONTRAST WAS GIVEN 1 EACH MISC MISCELLANE PRN (15:20)
[2021-02-05] MEDS: SODIUM CHLORIDE 0.9% 1,000 ML IV SCH ×2 (15:33→20:38)
--- NOTE | 2021-02-05 18:29 | CC ---
CARDIAC CATHETERIZATION REPORT DATE OF SERVICE: 02/05/2021 PERFORMING PHYSICIAN: Santos Grigsby M.D. PROCEDURES PERFORMED: 1. Selective left coronary angiogram. 2. Successful stenting of the first obtuse marginal branch of the left circumflex using a 2.0 x 15 mm Shae drug-eluting stent with an excellent angiographic result and reduction of stenosis from 100% to 0%. 3. Selective right common femoral artery angiogram. INDICATION: This is a 75-year-old gentleman with coronary artery disease and prior stenting of the left main as well as LAD who was admitted to the hospital with chest discomfort concerning for angina. APPROACH: Right common femoral artery. COMPLICATIONS: None. LEVEL OF SEDATION: Moderate, with sedation length of 20 minutes. PROCEDURE DESCRIPTION: After obtaining informed consent, the patient was brought to the cardiac labor economics professor. The right common femoral artery was cannulated using micropuncture technique. The micropuncture wire passed easily. Then I placed a 6-Tajik sheath at the right common femoral artery. I did selective left coronary angiogram using JL4 guiding catheter. After that I did intervene on the first obtuse marginal branch of the left circumflex. Please see separate paragraph for that. The right coronary angiogram was not performed because the RCA is known to be a small nondominant vessel. SELECTIVE CORONARY ANGIOGRAM: 1. The left main appeared to be stented with mild disease only. It bifurcates into LCX and LAD. 2. The LCX is a large-caliber vessel. It is a codominant vessel. The LCX proximally appeared to have mild disease only. It gives rise to first obtuse marginal branch which has a critical lesion in the mid to distal portion. The circumflex continues after that in the mid portion with intermediate disease only and distally bifurcates into PDA and PLV branches; both appeared to have mild disease only. 3. The LAD is a large-caliber vessel. The LAD has mild to moderate disease in the mid portion. PERCUTANEOUS CORONARY INTERVENTION OF THE LEFT CIRCUMFLEX: Anticoagulation was initiated using heparin with continuous ACT monitoring throughout the procedure. Subsequently I did wire the left circumflex using a run-through wire. After that, balloon angioplasty was performed using a 2.0 x 12 mm balloon before I deployed a 2.0 x 15 mm shae drug-eluting stent where the stent was positioned under fluoroscopic guidance and deployed under 14 atmospheres for 20 seconds. The following angiogram showed excellent angiographic results and the procedure was completed without any complication. CONCLUSION: 1. Chest discomfort with exertion concerning for angina. 2. Critical disease involving the first obtuse marginal branch of the left circumflex. I performed successful stenting of OM1 with an excellent angiographic result. 3. Patent stent in the left anterior descending artery. 4. The RCA was not opacified because it is known to be a small nondominant vessel. POST-PROCEDURE MANAGEMENT: 1. Medical treatment. 2. Follow up with the patient. MMODL / IJN: [id number] /
[2021-02-05] MEDS: atenoloL 50 MG TAB PO SCH ×2 (18:35→20:36)
[2021-02-05] MEDS: SODIUM CHLORIDE 0.9% 1,000 ML in EMPTY BAG 1 BAG IV SCH ×2 (20:19→20:38)
[2021-02-05] MEDS: CHLORTHALIDONE 25 MG TAB PO SCH ×2 (20:19→20:36)
[2021-02-05 20:23] LABS: Glucose,Whole Blood 92 mg/dL (75-99)
[2021-02-05 20:32] LABS: Glucose,Whole Blood 94 mg/dL (75-99)
[2021-02-05] MEDS: lamoTRIgine 25 MG TAB PO SCH (20:36)
[2021-02-05] MEDS: ATORVASTATIN 40 MG TAB PO SCH (20:36)
[2021-02-06 03:58] VITALS: RESP 16
[2021-02-06 06:05] LABS: Glucose,Whole Blood 93 mg/dL (75-99)
[2021-02-06] MEDS: INSULIN ASPART (NovoLOG) 100 UNIT/ML VIAL SQ SCH ×2 (06:07→12:16)
[2021-02-06] MEDS: REPAGLINIDE 1 MG TAB PO SCH (06:56)
[2021-02-06] MEDS: LEVOTHYROXINE 75 MCG TAB PO SCH (06:56)
[2021-02-06] MEDS: PANTOPRAZOLE 40 MG TABLET PO SCH (06:56)
[2021-02-06 07:53] LABS: Basophils % (A) 1 %; Eosinophils # (A) 0.2 k/uL (0-0.7); Eosinophils % (A) 3 %; HCT 36.7 % (39.0-53.0); HGB 12.5 gm/dL (13.0-17.5); Lymphocytes % (A) 19 %; MCH 30.1 pg (25.0-35.0); MCV 88.5 fL (80.0-100.0); Mean Platelet Volume 7.7; Monocytes # (A) 0.4 k/uL (0-1.0); Monocytes % (A) 7 %; Neutrophils # (A) 3.8 k/uL (1.3-7.7); Neutrophils % (A) 69 %; Platelet Count 140 k/uL (150-450); RBC 4.15 m/uL (4.30-5.90); RDW 13.7 % (11.5-15.5); WBC 5.5 k/uL (3.8-10.6)
[2021-02-06 08:01] LABS: Calcium 8.4 mg/dL (8.4-10.2); Potassium 4.2 mmol/L (3.5-5.1)
[2021-02-06] MEDS: ASPIRIN 81 MG PO SCH (08:23)
[2021-02-06] MEDS: atenoloL 50 MG TAB PO SCH (08:23)
[2021-02-06] MEDS: METOPROLOL SUCCINATE (ER) 25 MG TAB.ER.24H PO SCH (08:24)
[2021-02-06] MEDS: ISOSORBIDE MONONITRATE ER 30 MG TAB.ER.24H PO SCH (08:24)
[2021-02-06] MEDS: CLOPIDOGREL 75 MG TAB PO SCH (08:24)
[2021-02-06] MEDS: DILTIAZEM CD 240 MG CAP.ER.24H PO SCH (08:24)
[2021-02-06] MEDS: CHLORTHALIDONE 25 MG TAB PO SCH (08:24)
[2021-02-06] MEDS: LINAGLIPTIN 5 MG TABLET PO SCH (08:24)
[2021-02-06] MEDS ORDERED: VALSARTAN 160 MG TAB PO SCH (09:00)
[2021-02-06 11:38] VITALS: BP 104/60; PULSE 64; TEMP 97.5
[2021-02-06 11:45] LABS: Glucose,Whole Blood 205 mg/dL (75-99)
[2021-02-06 13:47] VITALS: BMI 41.5
--- NOTE | 2021-02-06 13:54 | P.PN ---
Subjective Progress Note Date: 02/06/21 HISTORY OF PRESENT ILLNESS: This is a 75-year-old male who follows in the office with Dr. Corado. Patient presented to the hospital with chest pain. He was diagnosed with a Non-S MOI. He remains on IV heparin. Patient currently denies shortness of breath. He reports occasional chest discomfort. INR 1.7. BUN 31. Creatinine 1.56. Echocardiogram completed revealing ejection fraction 45-50%, mild to moderate mitral regurgitation, and mild tricuspid regurgitation. 02/06/2021 Patient examined this morning at the bedside. He is status post cardiac catheterization yesterday with stent to OM1. Patient denies any further episodes of chest pain or pressure. Denies shortness of breath. Vital signs are stable. Patient is hoping to be discharged home today. PHYSICAL EXAM: VITAL SIGNS: Reviewed. GENERAL: Well-developed in no acute distress. NECK: Supple. No JVD or thyromegaly LUNGS: Respirations even and unlabored. Lungs essentially clear to auscultation bilaterally. HEART: Irregular rate and rhythm. S1 and S2 heard. Systolic murmur. EXTREMITIES: Normal range of motion. No clubbing or cyanosis. Peripheral pulses intact. No lower extremity edema. Right groin soft with no hematoma. ASSESSMENT: Non-STEMI History of coronary artery disease with previous PCI Chronic persistent atrial fibrillation, on Coumadin Acute kidney injury Hypertension PLAN: Continue dual antiplatelet therapy with aspirin and Plavix Resume Coumadin Continue additional cardiac medications Patient is stable for discharge home today Nurse practitioner note has been reviewed by physician. Signing provider agrees with the documented findings, assessment, and plan of care. Objective - Vital Signs Vital signs: Vital Signs Temp 97.5 F L 02/06/21 11:25 Pulse 64 02/06/21 11:25 Resp 16 02/06/21 11:25 BP 104/60 02/06/21 11:25 Pulse Ox 95 02/06/21 11:25 Intake & Output 02/05/21 02/06/21 02/06/21 18:59 06:59 18:59 Intake Total 550 240 236 Output Total 200 625 200 Balance 350 -385 36 Weight 99.9 kg 99.9 kg Intake: IV 550 Intake, IV Titration 0 Amount Sodium Chloride 0.9% 1, 0 000 ml @ 75 mls/hr IV . [id number] [facility] Rx#:[id number] Oral 240 236 Output: Urine 200 625 200 Other: Voiding Method Toilet Toilet Urinal Urinal # Voids 2 1 # Bowel Movements 1 - Labs CBC & Chem 7: 02/06/21 06:59 02/06/21 06:59 Labs: Abnormal Lab Results - Last 24 Hours (Table) 02/06/21 02/06/21 02/06/21 Range/Units 06:59 06:59 11:44 RBC 4.15 L (4.30-5.90) m/uL Hgb 12.5 L (13.0-17.5) gm/dL Hct 36.7 L (39.0-53.0) % Plt Count 140 L (150-450) k/uL Sodium 136 L (137-145) mmol/L BUN 23 H (9-20) mg/dL Creatinine 1.35 H (0.66-1.25) mg/dL Glucose 101 H (74-99) mg/dL POC Glucose (mg/dL) 205 H (75-99) mg/dL
--- NOTE | 2021-02-06 14:13 | P.DS ---
Providers Date of admission: 02/04/21 09:30 Expected date of discharge: 02/06/21 Attending physician: Bret Floyd MD Consults: 02/02/21 00:42 Consult Physician Urgent Consulting Provider: Catalina Blankenship Consult Reason/Comments: cp Do you want consulting provider notified?: Yes 02/05/21 15:21 Consult Physician Routine Consulting Provider: [facility] Consult Reason/Comments: Post Interventional patient Do you want consulting provider notified?: Already Contacted Primary care physician: Alaina Floyd Hospital Course: Final Diagnoses: Acute NSTEMI,Status post cardiac cath with stenting of the OM1 . Acute renal failure, improved ,near baseline Chronic persistent atrial fibrillation Chronic CHF, systolic dysfunction Hyponatremia, nearly resolved Hyperlipidemia Hypertension Diabetes mellitus type 2 BPH Obstructive Sleep apnea Hypothyroidism Morbid obesity, BMI 42.7 Hospital course:This 75-year-old gentleman admitted with NSTEMI, persistent atrial fibrillation with elevated INRs, currently down to 1.7, acute renal failure and multiple other medical issues. Creatinine increased up to 1.56, sodium 133. Coumadin on hold, INR down to 1.7. BUN 31, creatinine 1.56. Currently denies chest pain, palpitations. Complains of exertional shortness of breath with ambulation. 02/05/2021 NPO, maintained on gentle IV fluid hydration. INR 1.4, creatinine down to 1.4. Scheduled for cardiac catheterization today. Denies chest pain, palpitations or shortness of breath. Afebrile. Status post cardiac cath with stenting of the OM1 . Tolerated procedure well. Denies chest pain, palpitations . Denies lightheadedness, dizziness or focal deficits. Significant clinical improvement. Cleared by cardiology for discharge. Patient will be discharged home today in a stable condition with guarded prognosis. The impression and plan of care has been dictated as directed. : I performed a history and examination of this patient, discussed the same with the dictator. I agree with the dictator's note ,documented as a scribe. Any additional findings or plans will be noted. Patient Condition at Discharge: Stable Plan - Discharge Summary Discharge Rx Participant: No New Discharge Prescriptions: New Aspirin 81 mg PO DAILY #90 tab Continue Omeprazole [PriLOSEC] 20 mg PO DAILY Furosemide [Lasix] 20 mg PO DAILY Linagliptin [Tradjenta] 5 mg PO DAILY metFORMIN HCL [Glucophage] 500 mg PO TID Repaglinide [Prandin] 1 mg PO AC-BID dilTIAZem HCL [dilTIAZem HCL 24Hr ER (Xr)] 240 mg PO DAILY Valsartan 160 mg PO DAILY Atenolol/Chlorthalidone [Atenolol/Chlorthalidone 50-25] 1 tab PO TID lamoTRIgine [LaMICtal] 25 mg PO HS Atorvastatin [Lipitor] 40 mg PO HS Levothyroxine Sodium [Synthroid] 75 mcg PO DAILY Nitroglycerin Sl Tabs [Nitrostat] 0.4 mg SUBLINGUAL Q5M PRN #100 tab PRN Reason: Chest Pain Warfarin Sodium 4 mg PO HS Isosorbide Mononitrate ER [Imdur] 30 mg PO DAILY Clopidogrel [Plavix] 75 mg PO DAILY Semaglutide [Ozempic] 0.5 mg SQ FR Discharge Medication List Furosemide [Lasix] 20 mg PO DAILY 08/30/14 [History] Omeprazole [PriLOSEC] 20 mg PO DAILY 08/30/14 [History] Linagliptin [Tradjenta] 5 mg PO DAILY 07/12/18 [History] Atorvastatin [Lipitor] 40 mg PO HS 08/17/20 [History] Levothyroxine Sodium [Synthroid] 75 mcg PO DAILY 08/17/20 [History] Repaglinide [Prandin] 1 mg PO AC-BID 08/17/20 [History] Valsartan 160 mg PO DAILY 08/17/20 [History] dilTIAZem HCL [dilTIAZem HCL 24Hr ER (Xr)] 240 mg PO DAILY 08/17/20 [History] lamoTRIgine [LaMICtal] 25 mg PO HS 08/17/20 [History] metFORMIN HCL [Glucophage] 500 mg PO TID 08/17/20 [History] Nitroglycerin Sl Tabs [Nitrostat] 0.4 mg SUBLINGUAL Q5M PRN #100 tab 08/21/20 [Rx] Atenolol/Chlorthalidone [Atenolol/Chlorthalidone 50-25] 1 tab PO TID 02/02/21 [History] Clopidogrel [Plavix] 75 mg PO DAILY 02/02/21 [History] Isosorbide Mononitrate ER [Imdur] 30 mg PO DAILY 02/02/21 [History] Semaglutide [Ozempic] 0.5 mg SQ FR 02/02/21 [History] Warfarin Sodium 4 mg PO HS 02/02/21 [History] Aspirin 81 mg PO DAILY #90 tab 02/06/21 [Rx] Follow up Appointment(s)/Referral(s): Alaina Floyd DO [Primary Care Provider] - 02/08/21 2:00 pm ([facility] ) Cody Corado MD [STAFF PHYSICIAN] - 02/14/21 11:15 am Patient Instructions/Handouts: *[facility] - After Heart Catheterization - Continuous Improvement Black Belt Instructions, Chest Pain (ED), Heart Catheterization (DC)
[2021-02-08] MEDS ORDERED: NON FORMULARY DRUG (Semaglutide [Ozempic] 0.25 MG/0.2 ML Each) SQ SCH (09:00)
== END 2021-02-06 14:44 | disposition home or self-care (01) | DRG 247 ==
LOC: EC 22:12 → 6NMEDSUR 02-02 00:42 → 3SCARD 02-02 07:54 → OBSVTOIN 02-04 09:30
PROVIDERS: ADMIT Family Medicine; ATTEND Family Medicine
PROC: 027034Z Dilation of Coronary Artery, One Artery with Drug-eluting Intraluminal Device, Percutaneous Approach (ICD-10-PCS; principal; 2021-02-05 14:00)
PROC: B2101ZZ Fluoroscopy of Single Coronary Artery using Low Osmolar Contrast (ICD-10-PCS; 2021-02-05 14:00)
DX: I21.4 Non-ST elevation (NSTEMI) myocardial infarction (principal); Z68.41 Body mass index [BMI] 40.0-44.9, adult; E87.1 Hypo-osmolality and hyponatremia; I48.21 Permanent atrial fibrillation; I50.22 Chronic systolic (congestive) heart failure; E03.9 Hypothyroidism, unspecified; E11.9 Type 2 diabetes mellitus without complications; E66.01 Morbid (severe) obesity due to excess calories; E78.00 Pure hypercholesterolemia, unspecified; G47.33 Obstructive sleep apnea (adult) (pediatric); H54.8 Legal blindness, as defined in USA; I25.110 Atherosclerotic heart disease of native coronary artery with unstable angina pectoris; I25.2 Old myocardial infarction; I11.0 Hypertensive heart disease with heart failure; J44.9 Chronic obstructive pulmonary disease, unspecified; N40.0 Benign prostatic hyperplasia without lower urinary tract symptoms; T50.2X5A Adverse effect of carbonic-anhydrase inhibitors, benzothiadiazides and other diuretics, initial encounter; Z20.822 Contact with and (suspected) exposure to COVID-19; N17.9 Acute kidney failure, unspecified; Z79.01 Long term (current) use of anticoagulants; Z79.02 Long term (current) use of antithrombotics/antiplatelets; Z79.82 Long term (current) use of aspirin; Z79.84 Long term (current) use of oral hypoglycemic drugs; Z79.890 Hormone replacement therapy; Z79.899 Other long term (current) drug therapy; Z86.718 Personal history of other venous thrombosis and embolism; Z95.0 Presence of cardiac pacemaker; Z98.61 Coronary angioplasty status; Z88.2 Allergy status to sulfonamides; Z88.8 Allergy status to other drugs, medicaments and biological substances
CPT/HCPCS: 36415; 71045; 80048; 80053; 80061; 83690; 83735; 83880; 84484; 85025; 85610; 85730; 87635; 93005; 93306; 93454; 94760; 99291

== ENCOUNTER 2021-08-06 09:51 | Day surgery (SDC) | payer MEDICARE ==
[~2021-08-06 09:51] MED LIST changes: -SODIUM CHLORIDE 0.9% 1,000 ML in EMPTY BAG 1 BAG IV ONE; +SODIUM CHLORIDE 0.9% 1,000 ML in EMPTY BAG 1 BAG IV SCH
[2021-08-06 10:52] LABS: Glucose,Whole Blood 106 mg/dL (75-99)
[2021-08-06 11:18] LABS: Basophils # (A) 0.1 k/uL (0-0.2); Basophils % (A) 1 %; Eosinophils # (A) 0.1 k/uL (0-0.7); Eosinophils % (A) 2 %; HCT 40.8 % (39.0-53.0); HGB 13.7 gm/dL (13.0-17.5); Lymphocytes # (A) 1.5 k/uL (1.0-4.8); Lymphocytes % (A) 20 %; MCH 29.7 pg (25.0-35.0); MCHC 33.5 g/dL (31.0-37.0); MCV 88.4 fL (80.0-100.0); Mean Platelet Volume 7.6; Monocytes # (A) 0.5 k/uL (0-1.0); Monocytes % (A) 6 %; Neutrophils % (A) 68 %; Platelet Count 181 k/uL (150-450); RBC 4.62 m/uL (4.30-5.90); RDW 14.1 % (11.5-15.5); WBC 7.3 k/uL (3.8-10.6)
[2021-08-06 11:24] LABS: INR 1.1 (<1.2)
[2021-08-06 11:28] LABS: Calcium 9.4 mg/dL (8.4-10.2); Potassium 4.3 mmol/L (3.5-5.1)
[2021-08-06] MEDS ORDERED: MIDAZOLAM 2 MG/2 ML VIAL IV ONE (12:46)
[2021-08-06] MEDS ORDERED: LIDOCAINE 1% INJ 10MG/ML (5 ML VIAL-PF) SQ ONE (12:49)
[2021-08-06] MEDS ORDERED: VERAPAMIL SYRINGE (5 MG/10 ML) INTRAARTER ONE (12:50)
[2021-08-06] MEDS ORDERED: HEPARIN SODIUM 1,000 UN/ML (10ML VL) ONE (12:52)
[2021-08-06] MEDS: HEPARIN SODIUM 1,000 UN/ML (10ML VL) IV ONE ×2 (12:57→13:02)
[2021-08-06] MEDS ORDERED: niCARdipine 25 MG/10 ML VIAL ONE (13:09)
[2021-08-06] MEDS ORDERED: CLOPIDOGREL 75 MG TAB ONE (13:16)
[2021-08-06] MEDS ORDERED: IOPAMIDOL-370 125ML BTL INJ ONE (13:17)
[2021-08-06] MEDS ORDERED: CLOPIDOGREL 75 MG TAB PO ONE (13:17)
[2021-08-06] MEDS ORDERED: NITROGLYCERIN SL TABS 0.4 MG TAB SUBLINGUAL PRN (13:22)
[2021-08-06] MEDS ORDERED: ATROPINE SULFATE 0.1 MG/ML 10ML SYRINGE IV PRN (13:24)
[2021-08-06] MEDS ORDERED: ZOLPIDEM 5 MG TAB PO PRN (13:24)
[2021-08-06] MEDS ORDERED: MAG HYDROX/AL HYDROX/SIMETH 30 ML CUP PO PRN (13:24)
[2021-08-06] MEDS ORDERED: RX INFO: IV CONTRAST WAS GIVEN 1 EACH MISC MISCELLANE PRN (13:24)
--- NOTE | 2021-08-06 13:28 | P.PCN ---
Date of Procedure: 08/06/21 Operative Findings: CARDIAC CATHETERIZATION AND PERCUTANEOUS CORONARY INTERVENTION PERFORMING PHYSICIAN: Santos Grigsby MD, [facility] PROCEDURE PERFORMED: 1. Selective right and left coronary angiogram 2. Successful stenting of OM1 using 2.5 x 15 mm Xience EVELIN which with an excellent angiographic results INDICATION: Unstable COMPLICATION: None APPROACH: Right radial artery LEVEL OF SEDATION: Moderate with the sedation time off 30 minutes PROCEDURE DESCRIPTION: After obtaining an informed consent the patient was brought to the cardiac shop laborer. The right radial artery was cannulated using micropuncture technique, the micropuncture wire passed easily then I placed a 6-Chinese sheath. I gave the patient 2 mg of verapamil IA and a total of 6000 use of heparin IV Selective right and left coronary angiogram was performed. Unfortunately for the right coronary artery not selective angiogram. Apparently the RCA is occluded. Selective left coronary angiogram was performed using JL 3.5 catheter. After that I did intervene on the OM. The procedure was completed without any complication SELECTIVE CORONARY ANGIOGRAM: The right coronary artery: Was not opacified. Left main: Is a stented with mild in-stent restenosis The left circumflex: A large caliber vessel and a codominant vessel. The proximal left circumflex is a stented with mild in-stent restenosis. Gives rises into an OM1 which has subtotally occluded segment which appeared to be in the stent. The circumflex continue after that in the AV groove as a large caliber vessel. It has mild disease only The left anterior descending artery: Is a large caliber vessel. The proximal LAD stented and the mid LAD stented as well. The LAD overall appeared to have mild disease only PCI OF THE OM: Anticoagulation was initiated using heparin. Subsequently I did engage the left main using JL 3.5 guide. I did wire the OM using a whisper wire. Balloon angioplasty was performed using 20 by 12 mm balloon before I deployed 2.5 x 15 mm stent where the stent was positioned under fluoroscopy guidance and deployed under its nominal pressure. The following angiogram showed good angiographic results CONCLUSION: #1 critical in-stent restenosis of OM1. I performed successful stenting #2 mild in-stent restenosis of the left main #3 mild in-stent restenosis of the LAD #4 chronic total occlusion of the RCA POSTPROCEDURE MANAGEMENT: #1 dual antiplatelet therapy #2 aggressive cholesterol control #3 follow-up with the patient
[2021-08-06 16:51] LABS: Glucose,Whole Blood 183 mg/dL (75-99)
[2021-08-06] MEDS ORDERED: WARFARIN 2 MG TAB PO ONE (18:00)
[2021-08-06] MEDS: REPAGLINIDE 1 MG TAB PO SCH (18:02)
[2021-08-06 20:41] LABS: Glucose,Whole Blood 94 mg/dL (75-99)
[2021-08-06] MEDS ORDERED: ATORVASTATIN 40 MG TAB PO SCH (21:00)
[2021-08-06] MEDS ORDERED: lamoTRIgine 25 MG TAB PO SCH (21:00)
[2021-08-06] MEDS: atenoloL 50 MG TAB PO SCH (21:03)
[2021-08-06] MEDS: CHLORTHALIDONE 25 MG TAB PO SCH (21:03)
[2021-08-07 01:13] LABS: Glucose,Whole Blood 101 mg/dL (75-99)
[2021-08-07 03:13] VITALS: RESP 18
[2021-08-07] MEDS ORDERED: LEVOTHYROXINE 75 MCG TAB PO SCH (07:30)
[2021-08-07] MEDS ORDERED: PANTOPRAZOLE 40 MG TABLET PO SCH (07:30)
[2021-08-07 07:40] LABS: Glucose,Whole Blood 105 mg/dL (75-99)
--- NOTE | 2021-08-07 07:50 | P.DS ---
Providers Attending physician: Santos Grigsby Consults: 08/06/21 13:25 Consult Physician Routine Consulting Provider: [facility] Consult Reason/Comments: Post Interventional patient Do you want consulting provider notified?: Already Contacted Primary care physician: Alaina Floyd Assessment: The patient is a 75-year-old gentleman who underwent yesterday successful stenting of the first obtuse marginal branch of the left circumflex with a good angiographic results without any complication from right radial approach. The patient is going to be discharged today on dual antiplatelet therapy as a matter of fact he will be discharged on triple therapy. I'll follow-up with the patient in a week in the office Plan - Discharge Summary Discharge Rx Participant: No New Discharge Prescriptions: Continue Omeprazole [PriLOSEC] 20 mg PO DAILY Furosemide [Lasix] 20 mg PO DAILY Linagliptin [Tradjenta] 5 mg PO DAILY Repaglinide [Prandin] 1 mg PO AC-BID dilTIAZem HCL [dilTIAZem HCL 24Hr ER (Xr)] 240 mg PO DAILY Valsartan 160 mg PO DAILY Atenolol/Chlorthalidone [Atenolol/Chlorthalidone 50-25] 1 tab PO BID Aspirin 81 mg PO DAILY #90 tab lamoTRIgine [LaMICtal] 25 mg PO HS Atorvastatin [Lipitor] 40 mg PO HS Levothyroxine Sodium [Synthroid] 75 mcg PO DAILY Nitroglycerin Sl Tabs [Nitrostat] 0.4 mg SUBLINGUAL Q5M PRN #100 tab PRN Reason: Chest Pain Warfarin Sodium 4 mg PO HS Isosorbide Mononitrate ER [Imdur] 30 mg PO DAILY Clopidogrel [Plavix] 75 mg PO DAILY Semaglutide [Ozempic] 0.5 mg SQ FR Discontinued metFORMIN HCL [Glucophage] 500 mg PO TID Discharge Medication List Furosemide [Lasix] 20 mg PO DAILY 08/30/14 [History] Omeprazole [PriLOSEC] 20 mg PO DAILY 08/30/14 [History] Linagliptin [Tradjenta] 5 mg PO DAILY 07/12/18 [History] Atorvastatin [Lipitor] 40 mg PO HS 08/17/20 [History] Levothyroxine Sodium [Synthroid] 75 mcg PO DAILY 08/17/20 [History] Repaglinide [Prandin] 1 mg PO AC-BID 08/17/20 [History] Valsartan 160 mg PO DAILY 08/17/20 [History] dilTIAZem HCL [dilTIAZem HCL 24Hr ER (Xr)] 240 mg PO DAILY 08/17/20 [History] lamoTRIgine [LaMICtal] 25 mg PO HS 08/17/20 [History] Nitroglycerin Sl Tabs [Nitrostat] 0.4 mg SUBLINGUAL Q5M PRN #100 tab 08/21/20 [Rx] Atenolol/Chlorthalidone [Atenolol/Chlorthalidone 50-25] 1 tab PO BID 02/02/21 [History] Clopidogrel [Plavix] 75 mg PO DAILY 02/02/21 [History] Isosorbide Mononitrate ER [Imdur] 30 mg PO DAILY 02/02/21 [History] Semaglutide [Ozempic] 0.5 mg SQ FR 02/02/21 [History] Warfarin Sodium 4 mg PO HS 02/02/21 [History] Aspirin 81 mg PO DAILY #90 tab 02/06/21 [Rx] Follow up Appointment(s)/Referral(s): Santos Grigsby MD [STAFF PHYSICIAN] - 1 Week
[2021-08-07 07:52] LABS: INR 1.1 (<1.2); Prothrombin Time 11.7 sec (9.0-12.0)
[2021-08-07 08:26] VITALS: BP 132/81; PULSE 79; TEMP 97.7
[2021-08-07] MEDS: CHLORTHALIDONE 25 MG TAB PO SCH (08:58)
[2021-08-07] MEDS: REPAGLINIDE 1 MG TAB PO SCH (08:58)
[2021-08-07] MEDS: atenoloL 50 MG TAB PO SCH (08:58)
[2021-08-07] MEDS ORDERED: DILTIAZEM CD 240 MG CAP.ER.24H PO SCH (09:00)
[2021-08-07] MEDS ORDERED: CLOPIDOGREL 75 MG TAB PO SCH (09:00)
[2021-08-07] MEDS ORDERED: ISOSORBIDE MONONITRATE ER 30 MG TAB.ER.24H PO SCH (09:00)
[2021-08-07] MEDS ORDERED: LINAGLIPTIN 5 MG TABLET PO SCH (09:00)
[2021-08-07] MEDS ORDERED: VALSARTAN 160 MG TAB PO SCH (09:00)
[2021-08-07] MEDS ORDERED: ASPIRIN 81 MG PO SCH (09:00)
[2021-08-07] MEDS ORDERED: FUROSEMIDE 20 MG TAB PO SCH (09:00)
[2021-08-07] MEDS ORDERED: NON FORMULARY DRUG (Warfarin Sodium [Warfarin Sodium] 4 MG Tablet) PO SCH (21:00)
[2021-08-09] MEDS ORDERED: NON FORMULARY DRUG (Semaglutide [Ozempic] 0.25 MG/0.2 ML Each) SQ SCH (09:00)
== END 2021-08-07 10:22 | disposition home or self-care (01) ==
LOC: CATHCVL 09:51 → 6NMEDSUR 13:17 → CATHCVL 08-07 10:22
PROVIDERS: ATTEND Internal Medicine Interventional Cardiology
DX: I25.119 Atherosclerotic heart disease of native coronary artery with unspecified angina pectoris (principal); T82.855A Stenosis of coronary artery stent, initial encounter; I25.82 Chronic total occlusion of coronary artery; I48.21 Permanent atrial fibrillation; E03.9 Hypothyroidism, unspecified; Z95.0 Presence of cardiac pacemaker; I11.0 Hypertensive heart disease with heart failure; I50.32 Chronic diastolic (congestive) heart failure; I25.2 Old myocardial infarction; E78.5 Hyperlipidemia, unspecified; E11.9 Type 2 diabetes mellitus without complications; Z79.899 Other long term (current) drug therapy; Z79.01 Long term (current) use of anticoagulants; Z79.02 Long term (current) use of antithrombotics/antiplatelets; Z79.84 Long term (current) use of oral hypoglycemic drugs; Z79.82 Long term (current) use of aspirin; Z88.5 Allergy status to narcotic agent; Z88.2 Allergy status to sulfonamides; Z88.8 Allergy status to other drugs, medicaments and biological substances; Z20.822 Contact with and (suspected) exposure to COVID-19
CPT/HCPCS: 93454; 80048; 85025; 85610 ×2; 87635; C1769 ×2; C9600; C1887; C1894; C1725; C1874; J2250; J2001; J1644; Q9967

== ENCOUNTER → 2021-08-26 | Outpatient (CLI) | payer MEDICARE | END | disposition home or self-care (01) | LOC: LABWHC1 09:35 | PROVIDERS: ATTEND Orthopaedic Surgery | DX: Z96.651 Presence of right artificial knee joint (principal); T84.84XA Pain due to internal orthopedic prosthetic devices, implants and grafts, initial encounter; Y82.9 Unspecified medical devices associated with adverse incidents | CPT/HCPCS: 36415; 85379; 85652; 86140 ==

== ENCOUNTER 2021-09-14 16:25 | Emergency (ER) | payer MEDICARE ==
[2021-09-14 16:33] VITALS: BP 109/65; PULSE 68; RESP 18; TEMP 97
--- NOTE | 2021-09-14 17:36 | CT ---
EXAMINATION TYPE: CT brain ede moran con DATE OF EXAM: 09/14/2021 COMPARISON: None HISTORY: fall, hematoma on top of head, on blood thinners CT DLP: 1658 mGycm Automated exposure control for dose reduction was used. Images of the brain and cervical spine obtained with no contrast. There is cerebral cortical atrophy. There is no mass effect nor midline shift. No sign of intracrania l hemorrhage. The calvarium is intact. There is some straightening of the cervical spine. There is disc space narrowing at C5-6 and C6-7 wit h spurring of the endplates. Facet joints are intact. Prevertebral soft tissues are intact. There is multilevel hypertrophic cervical facet arthropathy. IMPRESSION: Spondylotic changes in the cervical spine. No fracture. Cerebral atrophy. No acute intracranial abnormality. Minimal occipital scalp hematoma noted.
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
[2021-09-14] MEDS ORDERED: BACITRACIN OINT 1 EACH PACKET TOPICAL ONE (18:07)
== END 2021-09-14 18:14 | disposition home or self-care (01) ==
LOC: EC 16:25
DX: S00.03XA Contusion of scalp, initial encounter (principal); S00.01XA Abrasion of scalp, initial encounter; I25.2 Old myocardial infarction; E11.9 Type 2 diabetes mellitus without complications; E78.5 Hyperlipidemia, unspecified; I10 Essential (primary) hypertension; Z88.2 Allergy status to sulfonamides; Z88.8 Allergy status to other drugs, medicaments and biological substances; Z88.6 Allergy status to analgesic agent; W10.8XXA Fall (on) (from) other stairs and steps, initial encounter
CPT/HCPCS: 70450; 72125; 99284

== ENCOUNTER 2022-01-15 13:41 | Observation (INO) | payer MEDICARE ==
[2022-01-15] MEDS ORDERED: SODIUM CHLORIDE 0.9% 500 ML 500 ML IV STA (13:50)
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
--- NOTE | 2022-01-15 14:15 | XR ---
EXAMINATION TYPE: XR chest 2V DATE OF EXAM: 01/15/2022 COMPARISON: 02/01/2021 TECHNIQUE: PA and lateral views submitted. HISTORY: Shortness of breath FINDINGS: The lungs are clear and there is no pneumothorax, pleural effusion, or focal pneumonia. Postoperati ve changes cardiac device. IVC filter incidentally noted in the abdomen. Diffuse osteopenia of the AC joint arthropathy. Hypertrophic degenerative change of the spine. Coronary artery stenting suggested . IMPRESSION: 1. No acute process. Correlate for COPD.
[2022-01-15 14:58] LABS: Basophils % (A) 0 %; Eosinophils # (A) 0.1 k/uL (0-0.7); Eosinophils % (A) 1 %; HCT 40.7 % (39.0-53.0); HGB 13.8 gm/dL (13.0-17.5); Lymphocytes % (A) 13 %; MCH 29.7 pg (25.0-35.0); MCHC 33.9 g/dL (31.0-37.0); MCV 87.8 fL (80.0-100.0); Mean Platelet Volume 8.3; Monocytes # (A) 0.6 k/uL (0-1.0); Monocytes % (A) 7 %; Neutrophils # (A) 6.4 k/uL (1.3-7.7); Neutrophils % (A) 78 %; Platelet Count 135 k/uL (150-450); RBC 4.63 m/uL (4.30-5.90); RDW 13.2 % (11.5-15.5); WBC 8.2 k/uL (3.8-10.6)
[2022-01-15 15:15] LABS: Albumin 3.7 g/dL (3.5-5.0); Calcium 8.7 mg/dL (8.4-10.2); Magnesium 2.4 mg/dL (1.6-2.3); Potassium 4.7 mmol/L (3.5-5.1); Total Bilirubin 0.8 mg/dL (0.2-1.3); Total Protein 6.4 g/dL (6.3-8.2)
[2022-01-15 15:16] LABS: INR 3.3 (<1.2)
[2022-01-15 15:17] LABS: Partial Thromboplastin Time 34.8 sec (22.0-30.0); Prothrombin Time 32.9 sec (9.0-12.0)
[2022-01-15] MEDS: SODIUM CHLORIDE 0.9% 1,000 ML IV SCH (15:53)
[2022-01-15] MEDS ORDERED: NALOXONE 0.4 MG/ML 1 ML VIAL IV PRN (16:11)
[2022-01-15] MEDS ORDERED: ONDANSETRON 4 MG TAB PO PRN (16:40)
[2022-01-15] MEDS ORDERED: WARFARIN 0.5 MG TAB PO ONE (18:00)
[2022-01-15 20:47] LABS: Glucose,Whole Blood 200 mg/dL (70-110)
[2022-01-15] MEDS: atenoloL 50 MG TAB PO SCH (20:56)
[2022-01-15] MEDS: ATORVASTATIN 40 MG TAB PO SCH (20:57)
[2022-01-15] MEDS: lamoTRIgine 25 MG TAB PO SCH (20:57)
[2022-01-15] MEDS: REPAGLINIDE 1 MG TAB PO SCH (20:58)
[2022-01-15] MEDS ORDERED: metFORMIN 500 MG TAB PO SCH (21:00)
[2022-01-15] MEDS ORDERED: NON FORMULARY DRUG (Warfarin Sodium [Warfarin Sodium] 4 MG Tablet) PO SCH (21:00)
[2022-01-15] MEDS ORDERED: CHLORTHALIDONE 25 MG TAB PO SCH (22:00)
[2022-01-15] MEDS ORDERED: NON FORMULARY DRUG (Atenolol/Chlorthalidone [Atenolol/Chlorthalidone 50-25] 1 EACH Tablet) PO SCH (22:00)
[2022-01-16] MEDS: SODIUM CHLORIDE 0.9% 1,000 ML IV SCH ×2 (06:32→20:41)
[2022-01-16] MEDS: LEVOTHYROXINE 75 MCG TAB PO SCH (06:32)
[2022-01-16 06:42] LABS: Prothrombin Time 30.2 sec (9.0-12.0)
[2022-01-16 07:39] LABS: Glucose,Whole Blood 105 mg/dL (70-110)
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
[2022-01-16] MEDS ORDERED: SODIUM CHLORIDE 0.9% 1,000 ML IV SCH (08:15)
[2022-01-16 08:58] LABS: Glucose,Whole Blood 99 mg/dL (70-110)
[2022-01-16] MEDS ORDERED: VALSARTAN 160 MG TAB PO SCH (09:00)
[2022-01-16] MEDS ORDERED: ASPIRIN 81 MG PO SCH (09:00)
[2022-01-16] MEDS ORDERED: metFORMIN 500 MG TAB PO SCH (09:00)
[2022-01-16] MEDS: LINAGLIPTIN 5 MG TABLET PO SCH (09:06)
[2022-01-16] MEDS: REPAGLINIDE 1 MG TAB PO SCH ×3 (09:06→17:41)
[2022-01-16] MEDS: DILTIAZEM CD 240 MG CAP.ER.24H PO SCH (09:06)
[2022-01-16] MEDS: atenoloL 50 MG TAB PO SCH ×3 (09:06→20:41)
[2022-01-16] MEDS: CLOPIDOGREL 75 MG TAB PO SCH (09:06)
[2022-01-16] MEDS: PANTOPRAZOLE 40 MG TABLET PO SCH (09:06)
[2022-01-16 09:34] LABS: African American GFR (CKD) 36 (>60 ml/min/1.73 sqM); Anion Gap 7 mmol/L; Blood Urea Nitrogen 51 mg/dL (9-20); Calcium 8.1 mg/dL (8.4-10.2); Carbon Dioxide 19 mmol/L (22-30); Chloride 110 mmol/L (98-107); Glucose 107 mg/dL (74-99); Non-African American GFR(CKD) 31 (>60 ml/min/1.73 sqM); Potassium 3.9 mmol/L (3.5-5.1); Sodium 136 mmol/L (137-145)
[2022-01-16 12:33] LABS: Glucose,Whole Blood 193 mg/dL (70-110)
--- NOTE | 2022-01-16 12:53 | CA ---
Transthoracic Echo Report Name: Alexsander Linares Age: 76 Gender: M : 1945 Exam Date: 01/16/2022 10:02 Exam Location: [facility] Ht (in): 60 Wt (lb): 200 Ordering Physician: Bret Floyd MD Attending/Referring Phys: Risk Control Consultant Ellie Hubbard RDCS Procedure CPT: Indications: Syncope Cardiac Hx: Technical Quality: Fair Contrast 1: N/A Total Dose (mL): Contrast 2: Total Dose (mL): MEASUREMENTS (Male / Female) Normal Values 2D ECHO LV Diastolic Diameter PLAX 4.5 cm 4.2 - 5.9 / 3.9 - 5.3 cm LV Systolic Diameter PLAX 4.0 cm IVS Diastolic Thickness 1.3 cm 0.6 - 1.0 / 0.6 - 0.9 cm LVPW Diastolic Thickness 2.0 cm 0.6 - 1.0 / 0.6 - 0.9 cm LV Relative Wall Thickness 0.7 RV Internal Dim ED PLAX 3.4 cm LA Systolic Diameter LX 4.3 cm 3.0 - 4.0 / 2.7 - 3.8 cm LA Volume 68.7 cm??? 18 - 58 / 22 - 52 cm??? M-MODE Aortic Root Diameter MM 2.9 cm LA Systolic Diameter MM 5.2 cm LA Ao Ratio MM 1.8 MV E Point Septal Separation 0.7 cm AV Cusp Separation MM 1.7 cm DOPPLER MR Peak Velocity 378.1 cm/s MR Peak Gradient 57.2 mmHg MV E' Velocity 8.2 cm/s TR Peak Velocity 260.4 cm/s TR Peak Gradient 27.1 mmHg Right Ventricular Systolic Press 32.1 mmHg FINDINGS Left Ventricle Mildly increased septal wall thickness. Left ventricular ejection fraction is estimated at 55-60%.left ventricular cavity size normal. Right Ventricle Normal right ventricular size and function. Right ventricular systolic pressure within normal limits. Right Atrium Normal right atrial size. Left Atrium Mildly increased left atrial diameter. Mildly increased left atrial volume. Mitral Valve Mitral annular calcification. Mild mitral regurgitation. Aortic Valve Trileaflet aortic valve. Aortic valve sclerosis. Tricuspid Valve Structurally normal tricuspid valve. Mild tricuspid regurgitation. Pulmonic Valve Structurally normal pulmonic valve. Pericardium Normal pericardium. Aorta Normal size aortic root and proximal ascending aorta. CONCLUSIONS 1. Normal size and systolic function 2. Mild mitral and tricuspid regurgitation. Previewed by: Dr. Catalina Blankenship MD (Electronically Signed) Final Date: 16 January 2022 12:52
[2022-01-16 17:28] LABS: Glucose,Whole Blood 142 mg/dL (70-110)
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
[2022-01-16] MEDS ORDERED: DEXTROSE 50% SYRINGE 50 ML IVP PRN ×2 (17:42)
[2022-01-16] MEDS ORDERED: WARFARIN 2 MG TAB PO ONE (18:00)
[2022-01-16] MEDS: ATORVASTATIN 40 MG TAB PO SCH (20:41)
[2022-01-16] MEDS: lamoTRIgine 25 MG TAB PO SCH (20:41)
[2022-01-16 20:49] LABS: Glucose,Whole Blood 166 mg/dL (70-110)
[2022-01-16] MEDS: INSULIN ASPART (NovoLOG) 100 UNIT/ML VIAL SQ SCH (20:59)
[2022-01-17 06:34] LABS: Glucose,Whole Blood 112 mg/dL (70-110)
[2022-01-17] MEDS: INSULIN ASPART (NovoLOG) 100 UNIT/ML VIAL SQ SCH (06:35)
[2022-01-17] MEDS: LEVOTHYROXINE 75 MCG TAB PO SCH (06:35)
[2022-01-17] MEDS: SODIUM CHLORIDE 0.9% 1,000 ML IV SCH (06:36)
[2022-01-17 06:38] LABS: African American GFR (CKD) 44 (>60 ml/min/1.73 sqM); Anion Gap 5 mmol/L; Blood Urea Nitrogen 32 mg/dL (9-20); Calcium 8.1 mg/dL (8.4-10.2); Carbon Dioxide 23 mmol/L (22-30); Chloride 112 mmol/L (98-107); Glucose 99 mg/dL (74-99); INR 2.7 (<1.2); Non-African American GFR(CKD) 38 (>60 ml/min/1.73 sqM); Potassium 4.2 mmol/L (3.5-5.1); Prothrombin Time 26.4 sec (9.0-12.0); Sodium 140 mmol/L (137-145)
--- NOTE | 2022-01-17 08:22 | P.PN ---
Subjective Progress Note Date: 01/17/22 PROGRESS NOTE The patient is a 76-year-old male with a history of CAD who presented with syncope associated with nausea, vomiting and diarrhea in addition to worsening renal function. He is feeling better today. He denies any chest discomfort, dizziness or palpitation today. He continues to be in sinus mechanism. He tested positive today for Coronavirus. His blood pressures under good control. His echocardiogram showed a normal systolic function. Medications: Tenormin 50 mg 3 times a day, Lipitor 40 mg daily, Plavix, diltiazem 240 mg daily, levothyroxine, Tradjenta, Coumadin, Prandin PHYSICAL EXAMINATION: Blood pressure 110/70 heart rate 60 LUNGS: Clear to auscultation HEART: Irregular rate and rhythm, S1, S2. No S3. systolic ejection murmur ABDOMEN: Soft, nontender, no organomegaly EXTREMETIES: No edema, dressing on both legs LAB: INR 2.7, BUN 32, creatinine 1.72 IMPRESSION: 1. Syncope secondary to dehydration and orthostatic hypotension 2. Nausea, vomiting and diarrhea, coronavirus infection 3. History of CAD, stable 4. Diabetes 5. History of atrial fibrillation with permanent pacemaker 6. Hyperlipidemia PLAN: 1. Continue to hold valsartan and diuretics 2. Continue other medications 3. Increase physical activity 4. Discharged home when stable per primary care physician 5. Follow-up with Dr. Grigsby postdischarge to readjust medication Objective - Vital Signs Vital signs: Vital Signs Temp 97.6 F 01/17/22 02:19 Pulse 59 L 01/17/22 02:19 Resp 17 01/17/22 02:19 BP 110/76 01/17/22 02:19 Pulse Ox 99 01/17/22 02:19 FiO2 Intake & Output 01/16/22 01/17/22 01/17/22 18:59 06:59 18:59 Intake Total 118 Output Total 720 1400 Balance -602 -1400 Intake: Oral 118 Output: Urine 720 1400 Other: Voiding Method Urinal Urinal # Voids 1 - Labs CBC & Chem 7: 01/15/22 14:48 01/17/22 06:11 Labs: Abnormal Lab Results - Last 24 Hours (Table) 01/16/22 01/16/22 01/16/22 Range/Units 08:59 11:04 12:32 PT (9.0-12.0) sec INR (<1.2) Sodium 136 L (137-145) mmol/L Chloride 110 H (98-107) mmol/L Carbon Dioxide 19 L (22-30) mmol/L BUN 51 H (9-20) mg/dL Creatinine 2.04 H (0.66-1.25) mg/dL Glucose 107 H (74-99) mg/dL POC Glucose (mg/dL) 193 H (70-110) mg/dL Calcium 8.1 L (8.4-10.2) mg/dL Coronavirus (PCR) (Not Detectd) SARS-CoV-2 Ab,Total Positive A (Negative) 01/16/22 01/16/22 01/16/22 Range/Units 17:27 20:48 21:43 PT (9.0-12.0) sec INR (<1.2) Sodium (137-145) mmol/L Chloride (98-107) mmol/L Carbon Dioxide (22-30) mmol/L BUN (9-20) mg/dL Creatinine (0.66-1.25) mg/dL Glucose (74-99) mg/dL POC Glucose (mg/dL) 142 H 166 H (70-110) mg/dL Calcium (8.4-10.2) mg/dL Coronavirus (PCR) Detected A (Not Detectd) SARS-CoV-2 Ab,Total (Negative) 01/17/22 01/17/22 01/17/22 Range/Units 06:11 06:11 06:33 PT 26.4 H (9.0-12.0) sec INR 2.7 H (<1.2) Sodium (137-145) mmol/L Chloride 112 H (98-107) mmol/L Carbon Dioxide (22-30) mmol/L BUN 32 H (9-20) mg/dL Creatinine 1.72 H (0.66-1.25) mg/dL Glucose (74-99) mg/dL POC Glucose (mg/dL) 112 H (70-110) mg/dL Calcium 8.1 L (8.4-10.2) mg/dL Coronavirus (PCR) (Not Detectd) SARS-CoV-2 Ab,Total (Negative)
[2022-01-17 08:52] VITALS: BP 127/74; PULSE 66; RESP 18; TEMP 97.4
[2022-01-17] MEDS ORDERED: metFORMIN 500 MG TAB PO SCH ×2 (09:00→21:00)
[2022-01-17] MEDS ORDERED: PATIENT'S OWN (Semaglutide [Ozempic] 0.25 MG/0.2 ML Each) SQ SCH (09:00)
[2022-01-17] MEDS: REPAGLINIDE 1 MG TAB PO SCH (09:40)
[2022-01-17] MEDS: PANTOPRAZOLE 40 MG TABLET PO SCH (09:41)
[2022-01-17] MEDS: atenoloL 50 MG TAB PO SCH (09:41)
[2022-01-17] MEDS: CLOPIDOGREL 75 MG TAB PO SCH (09:41)
[2022-01-17] MEDS: DILTIAZEM CD 240 MG CAP.ER.24H PO SCH (09:41)
[2022-01-17] MEDS: LINAGLIPTIN 5 MG TABLET PO SCH (09:41)
[2022-01-17] MEDS ORDERED: WARFARIN 2 MG TAB PO ONE (18:00)
[2022-01-18] MEDS ORDERED: metFORMIN 500 MG TAB PO SCH (09:00)
== END 2022-01-17 10:15 | disposition home or self-care (01) ==
LOC: EC 13:41 → 6NMEDSUR 16:47
PROVIDERS: ADMIT Family Medicine; ATTEND Family Medicine
DX: E86.0 Dehydration (principal); R06.02 Shortness of breath; R55 Syncope and collapse; I08.1 Rheumatic disorders of both mitral and tricuspid valves; R03.1 Nonspecific low blood-pressure reading; I25.10 Atherosclerotic heart disease of native coronary artery without angina pectoris; I10 Essential (primary) hypertension; I48.19 Other persistent atrial fibrillation; U07.1 COVID-19; J39.8 Other specified diseases of upper respiratory tract; E11.9 Type 2 diabetes mellitus without complications; E78.5 Hyperlipidemia, unspecified; Z95.0 Presence of cardiac pacemaker; N40.0 Benign prostatic hyperplasia without lower urinary tract symptoms; G47.33 Obstructive sleep apnea (adult) (pediatric); E87.20 Acidosis, unspecified; I25.2 Old myocardial infarction; Z86.718 Personal history of other venous thrombosis and embolism; H91.90 Unspecified hearing loss, unspecified ear; M19.90 Unspecified osteoarthritis, unspecified site; E07.9 Disorder of thyroid, unspecified; H54.8 Legal blindness, as defined in USA; Z79.01 Long term (current) use of anticoagulants; Z79.84 Long term (current) use of oral hypoglycemic drugs; Z79.02 Long term (current) use of antithrombotics/antiplatelets; Z79.890 Hormone replacement therapy; Z79.899 Other long term (current) drug therapy
CPT/HCPCS: 96360; 96361 ×2; 99285; 36415; 94760; 93005; 93306; 80053; 80048 ×2; 83605; 83735; 84484; 85025; 85610 ×3; 85730; 83036; 87635; 86769; 71046; G0378 ×3

== ENCOUNTER 2022-01-31 12:03 | Inpatient (IN) | payer MEDICARE ==
[2022-01-31 13:10] LABS: Basophils % (A) 0 %; Eosinophils # (A) 0.1 k/uL (0-0.7); Eosinophils % (A) 1 %; HCT 35.2 % (39.0-53.0); HGB 12.6 gm/dL (13.0-17.5); Lymphocytes # (A) 1.3 k/uL (1.0-4.8); Lymphocytes % (A) 15 %; MCHC 35.7 g/dL (31.0-37.0); MCV 86.8 fL (80.0-100.0); Mean Platelet Volume 8.5; Monocytes # (A) 0.5 k/uL (0-1.0); Monocytes % (A) 6 %; Neutrophils # (A) 6.7 k/uL (1.3-7.7); Neutrophils % (A) 76 %; Platelet Count 146 k/uL (150-450); RBC 4.06 m/uL (4.30-5.90); RDW 13.8 % (11.5-15.5); WBC 8.8 k/uL (3.8-10.6)
[2022-01-31 13:22] LABS: INR 2.7 (<1.2); Partial Thromboplastin Time 33.3 sec (22.0-30.0)
[2022-01-31 13:33] LABS: Albumin 3.7 g/dL (3.5-5.0); Potassium 4.3 mmol/L (3.5-5.1); Total Bilirubin 0.6 mg/dL (0.2-1.3)
[2022-01-31] MEDS ORDERED: SODIUM CHLORIDE 0.9% 500 ML 500 ML IV STA (18:06)
--- NOTE | 2022-01-31 18:27 | XR ---
EXAMINATION TYPE: XR chest 2V DATE OF EXAM: 01/31/2022 COMPARISON: 01/15/2022 HISTORY: Short of breath TECHNIQUE: 2 views FINDINGS: Heart is normal. Lungs are clear of infiltrate. No heart failure. There is left axillary pa cemaker. There are sternal wires. Thoracic aorta is atheromatous. IMPRESSION: No active cardiopulmonary disease. Normal heart. No change.
[2022-01-31 18:54] LABS: Glucose,Whole Blood 45 mg/dL (70-110)
[2022-01-31 18:54] LABS: Glucose,Whole Blood 61 mg/dL (70-110)
[2022-01-31 19:38] LABS: Glucose,Whole Blood 88 mg/dL (70-110)
[2022-01-31] MEDS ORDERED: NALOXONE 0.4 MG/ML 1 ML VIAL IV PRN (19:42)
[2022-01-31] MEDS ORDERED: ACETAMINOPHEN TAB 325 MG TAB PO PRN (19:42)
[2022-01-31] MEDS ORDERED: ALBUTEROL NEBULIZED 2.5 MG/3 ML INHALATION PRN (19:44)
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
[2022-01-31] MEDS ORDERED: metFORMIN 500 MG TAB PO SCH (21:00)
[2022-01-31] MEDS: atenoloL 50 MG TAB PO SCH (21:15)
[2022-01-31] MEDS: ATORVASTATIN 40 MG TAB PO SCH (21:16)
[2022-01-31] MEDS: lamoTRIgine 25 MG TAB PO SCH (21:16)
[2022-01-31] MEDS: CHLORTHALIDONE 25 MG TAB PO SCH (21:16)
[2022-01-31] MEDS: WARFARIN 2 MG TAB PO SCH (21:17)
[2022-01-31 21:43] LABS: Appearance,Urine Clear (Clear); Bilirubin,Urine Negative (Negative); Blood,Urine Negative (Negative); Color,Urine Yellow; Glucose,Urine (UA) Negative (Negative); Ketones,Urine Negative (Negative); Leukocyte Esterase,Urine Negative (Negative); Nitrite,Urine Negative (Negative); Protein,Urine Trace (Negative); Urobilinogen,Urine <2.0 mg/dL (<2.0)
[2022-01-31 23:36] LABS: Glucose,Whole Blood 153 mg/dL (70-110)
[2022-02-01 06:16] LABS: Glucose,Whole Blood 105 mg/dL (70-110)
[2022-02-01] MEDS: LEVOTHYROXINE 75 MCG TAB PO SCH (07:49)
[2022-02-01] MEDS: LINAGLIPTIN 5 MG TABLET PO SCH (08:34)
[2022-02-01] MEDS: REPAGLINIDE 1 MG TAB PO SCH ×3 (08:34→18:01)
[2022-02-01] MEDS: CLOPIDOGREL 75 MG TAB PO SCH (08:34)
[2022-02-01] MEDS: atenoloL 50 MG TAB PO SCH ×3 (08:34→22:25)
[2022-02-01] MEDS: DILTIAZEM CD 240 MG CAP.ER.24H PO SCH (08:34)
[2022-02-01] MEDS: ASPIRIN 81 MG PO SCH (08:34)
[2022-02-01] MEDS: CHLORTHALIDONE 25 MG TAB PO SCH (08:34)
[2022-02-01] MEDS ORDERED: VALSARTAN 160 MG TAB PO SCH (09:00)
[2022-02-01] MEDS ORDERED: metFORMIN 500 MG TAB PO SCH (09:00)
[2022-02-01 11:16] LABS: Basophils # (A) 0.01 X 10*3/uL (0.00-0.10); Basophils % (A) 0.2 %; Eosinophils # (A) 0.04 X 10*3/uL (0.04-0.35); Eosinophils % (A) 0.7 %; HCT 33.9 % (39.6-50.0); HGB 11.3 g/dL (13.0-17.0); Immature Grans, Automated 1.2 %; Lymphocytes # (A) 1.21 X 10*3/uL (0.90-5.00); Lymphocytes % (A) 20.3 %; MCH 29.6 pg (27.0-32.0); MCHC 33.3 g/dL (32.0-37.0); MCV 88.7 fL (80.0-97.0); Mean Platelet Volume 10.2 fL (9.5-12.2); Monocytes # (A) 0.51 X 10*3/uL (0.20-1.00); Monocytes % (A) 8.5 %; NRBC Per 100 WBC 0 /100 WBCS (0.0-0.0); Neutrophils # (A) 4.13 X 10*3/uL (1.80-7.70); Neutrophils % (A) 69.1 %; Platelet Count 117 X 10*3/uL (140-440); RBC 3.82 X 10*6/uL (4.40-5.60); WBC 5.97 X 10*3/uL (4.50-10.00)
[2022-02-01 11:25] LABS: African American GFR (CKD) 40.9 (60.0-200.0); Anion Gap 11.4 mmol/L (10.00-18.00); BUN/Creat Ratio 25.79 Ratio (12.00-20.00); Blood Urea Nitrogen 47.2 mg/dL (9.0-27.0); Calcium 8.7 mg/dL (8.7-10.3); Carbon Dioxide 21.6 mmol/L (20.0-27.5); Non-African American GFR(CKD) 35.3 (60.0-200.0); Potassium 4.3 mmol/L (3.5-5.5)
[2022-02-01 11:37] LABS: Glucose,Whole Blood 296 mg/dL (70-110)
[2022-02-01 12:09] LABS: INR 2.32 (0.90-1.11); Prothrombin Time 25.4 sec (9.9-11.9)
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
[2022-02-01 16:35] LABS: Glucose,Whole Blood 137 mg/dL (70-110)
[2022-02-01] MEDS: SODIUM CHLORIDE 0.9% 1,000 ML IV SCH (18:01)
[2022-02-01 20:47] LABS: Glucose,Whole Blood 137 mg/dL (70-110)
[2022-02-01] MEDS: lamoTRIgine 25 MG TAB PO SCH (22:27)
[2022-02-01] MEDS: ATORVASTATIN 40 MG TAB PO SCH (22:27)
[2022-02-01] MEDS: WARFARIN 2 MG TAB PO SCH (22:27)
[2022-02-01 23:58] LABS: Glucose,Whole Blood 133 mg/dL (70-110)
[2022-02-02 06:18] LABS: Glucose,Whole Blood 101 mg/dL (70-110)
[2022-02-02] MEDS: LEVOTHYROXINE 75 MCG TAB PO SCH (06:41)
[2022-02-02] MEDS: SODIUM CHLORIDE 0.9% 1,000 ML IV SCH (09:00)
[2022-02-02] MEDS: DILTIAZEM CD 240 MG CAP.ER.24H PO SCH (09:00)
[2022-02-02] MEDS: LINAGLIPTIN 5 MG TABLET PO SCH (09:00)
[2022-02-02] MEDS: atenoloL 50 MG TAB PO SCH ×3 (09:00→21:47)
[2022-02-02] MEDS: CLOPIDOGREL 75 MG TAB PO SCH (09:00)
[2022-02-02] MEDS: REPAGLINIDE 1 MG TAB PO SCH ×3 (09:00→18:23)
[2022-02-02] MEDS: ASPIRIN 81 MG PO SCH (09:00)
[2022-02-02 10:32] LABS: HCT 34.1 % (39.6-50.0); HGB 11.2 g/dL (13.0-17.0); MCH 28.8 pg (27.0-32.0); MCHC 32.8 g/dL (32.0-37.0); MCV 87.7 fL (80.0-97.0); NRBC Per 100 WBC 0 /100 WBCS (0.0-0.0); Platelet Count 119 X 10*3/uL (140-440); RBC 3.89 X 10*6/uL (4.40-5.60); RDW 13.9 % (11.5-14.5)
[2022-02-02 11:07] LABS: African American GFR (CKD) 53.8 (60.0-200.0); Albumin 3.4 g/dL (3.8-4.9); Albumin/Globulin Ratio 1.79 (1.60-3.17); Anion Gap 9.9 mmol/L (10.00-18.00); BUN/Creat Ratio 22.19 Ratio (12.00-20.00); Blood Urea Nitrogen 32.4 mg/dL (9.0-27.0); Calcium 8.9 mg/dL (8.7-10.3); Carbon Dioxide 23.1 mmol/L (20.0-27.5); Globulin 1.9 g/dL (1.6-3.3); Non-African American GFR(CKD) 46.4 (60.0-200.0); Potassium 5.1 mmol/L (3.5-5.5); Total Bilirubin 0.4 mg/dL (0.30-1.20); Total Protein 5.4 g/dL (6.2-8.2)
[2022-02-02 11:29] LABS: Glucose,Whole Blood 133 mg/dL (70-110)
[2022-02-02 11:46] LABS: INR 2.85 (0.90-1.11); Prothrombin Time 30.9 sec (9.9-11.9)
[2022-02-02] MEDS ORDERED: DEXTROSE 50% SYRINGE 50 ML IVP PRN ×2 (12:20)
--- NOTE | 2022-02-02 12:21 | P.PN ---
Subjective Progress Note Date: 02/02/22 patient is a 76-year-old gentleman with past medical significant for atrial fibrillation on Coumadin, [id number] diabetes mellitus, hypothyroidism, hypertension who presented to the ER for increasing weakness. Patient denies any complaint of lightheadedness or dizziness. Patient denies any chest pain or shortness of breath. Patient denies any complaints of nausea, vomiting or abdominal pain. Patient was on diuretics at home, was seen by his mechanic's assistant yesterday who noticed patient's creatinine was increasing, suggested to stop Lasix and come to the ER.Initial lab work in the ER, showed white count of 5.97, hemoglobin 11.3, patient count of 117, sodium 137, potassium 4.3, BUNs 47, creatinine 2.36. UA was negative for UTI. Patient was admitted for further evaluation and treatment 02/02. Patient seen and examined. Vital signs stable. All labs reviewed. Case discussed with nursing staff. REVIEW OF SYSTEMS: CONSTITUTIONAL: No fever, no malaise,. CARDIOVASCULAR: No chest pain, no palpitations, no syncope. PULMONARY: No shortness of breath, no cough, GASTROINTESTINAL: No diarrhea, no nausea, no vomiting, no abdominal pain. NEUROLOGICAL: No headaches, no weakness, PHYSICAL EXAMINATION: GENERAL: The patient is alert and oriented x3, not in any acute distress. Well developed, well nourished. HEENT: Pupils are round and equally reacting to light. EOMI. No scleral icterus. No conjunctival pallor. Normocephalic, atraumatic. No pharyngeal erythema. No thyromegaly. CARDIOVASCULAR: S1 and S2 present. No murmurs, rubs, or gallops. PULMONARY: Chest is clear to auscultation, no wheezing or crackles. ABDOMEN: Soft, nontender, nondistended, normoactive bowel sounds. No palpable organomegaly. MUSCULOSKELETAL: No joint swelling or deformity. EXTREMITIES: No cyanosis, clubbing, or pedal edema. NEUROLOGICAL: Gross neurological examination did not reveal any focal deficits. SKIN: No rashes. Assessment and plan Acute kidney injury History of atrial fibrillation Coronary artery disease Hypertension diabetes mellitus Plan; Monitor electrolytes. Monitor renal function Strict I's and O's. Avoid nephrotoxic agents. Continue IV fluids Monitor blood sugar levels, continue sliding scale insulin Hold valsartan and metformin for now Follow-up in nephrology recommendations Follow-up on PT and OT recommendations DVT prophylaxis: Objective - Vital Signs Vital signs: Vital Signs Temp 97.8 F 02/02/22 07:15 Pulse 80 02/02/22 07:15 Resp 18 02/02/22 07:15 BP 103/61 02/02/22 07:15 Pulse Ox 98 02/02/22 07:15 FiO2 Intake & Output 02/01/22 02/02/22 02/02/22 18:59 06:59 18:59 Output Total 800 Balance -800 Output: Urine 800 Other: Voiding Method Urinal Toilet Toilet Urinal Urinal # Voids 4 # Bowel Movements 1 - Labs CBC & Chem 7: 02/02/22 07:03 02/02/22 07:03 Labs: Abnormal Lab Results - Last 24 Hours (Table) 02/01/22 02/01/22 02/01/22 Range/Units 16:33 20:46 23:58 RBC (4.40-5.60) X 10*6/uL Hgb (13.0-17.0) g/dL Hct (39.6-50.0) % Plt Count (140-440) X 10*3/uL PT (9.9-11.9) sec INR (0.90-1.11) Anion Gap (10.00-18.00) mmol/L BUN (9.0-27.0) mg/dL Est GFR (CKD-EPI)AfAm (60.0-200.0) Est GFR (CKD-EPI)NonAf (60.0-200.0) BUN/Creatinine Ratio (12.00-20.00) Ratio Glucose (70-110) mg/dL POC Glucose (mg/dL) 137 H 137 H 133 H (70-110) mg/dL Total Protein (6.2-8.2) g/dL Albumin (3.8-4.9) g/dL 02/02/22 02/02/22 02/02/22 Range/Units 07:03 07:03 07:03 RBC 3.89 L (4.40-5.60) X 10*6/uL Hgb 11.2 L (13.0-17.0) g/dL Hct 34.1 L (39.6-50.0) % Plt Count 119 L (140-440) X 10*3/uL PT 30.9 H (9.9-11.9) sec INR 2.85 H (0.90-1.11) Anion Gap 9.90 L (10.00-18.00) mmol/L BUN 32.4 H (9.0-27.0) mg/dL Est GFR (CKD-EPI)AfAm 53.8 L (60.0-200.0) Est GFR (CKD-EPI)NonAf 46.4 L (60.0-200.0) BUN/Creatinine Ratio 22.19 H (12.00-20.00) Ratio Glucose 125 H (70-110) mg/dL POC Glucose (mg/dL) (70-110) mg/dL Total Protein 5.4 L (6.2-8.2) g/dL Albumin 3.4 L (3.8-4.9) g/dL 02/02/22 Range/Units 11:28 RBC (4.40-5.60) X 10*6/uL Hgb (13.0-17.0) g/dL Hct (39.6-50.0) % Plt Count (140-440) X 10*3/uL PT (9.9-11.9) sec INR (0.90-1.11) Anion Gap (10.00-18.00) mmol/L BUN (9.0-27.0) mg/dL Est GFR (CKD-EPI)AfAm (60.0-200.0) Est GFR (CKD-EPI)NonAf (60.0-200.0) BUN/Creatinine Ratio (12.00-20.00) Ratio Glucose (70-110) mg/dL POC Glucose (mg/dL) 133 H (70-110) mg/dL Total Protein (6.2-8.2) g/dL Albumin (3.8-4.9) g/dL
[2022-02-02] MEDS: INSULIN ASPART (NovoLOG) 100 UNIT/ML VIAL SQ SCH ×3 (12:34→21:44)
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
[2022-02-02 16:43] LABS: Glucose,Whole Blood 177 mg/dL (70-110)
--- NOTE | 2022-02-02 18:12 | US ---
EXAMINATION TYPE: US kidneys/renal and bladder DATE OF EXAM: 02/02/2022 COMPARISON: NONE CLINICAL HISTORY: mary lou. EXAM MEASUREMENTS: Right Kidney: 9.8 x 4.6 x 4.4 cm Left Kidney: 10.6 x 4.7 x 5.2 cm Right Kidney: Lower pole cyst 3.2 x 2.9 x 2.6cm. Lower pole echogenic foci 0.7 x 0.4 x 0.7cm Left Kidney: Upper pole cyst 1.5 x 1.7 x 1.8cm Bladder: wnl Bilateral Jets seen: Yes IMPRESSION: Bilateral renal cortical cysts. Nonobstructing calculus lower pole right kidney. No evidence of solid renal mass. No renal obstruction.
[2022-02-02 21:33] LABS: Glucose,Whole Blood 130 mg/dL (70-110)
[2022-02-02] MEDS: ATORVASTATIN 40 MG TAB PO SCH (21:47)
[2022-02-02] MEDS: lamoTRIgine 25 MG TAB PO SCH (21:47)
[2022-02-02] MEDS: WARFARIN 2 MG TAB PO SCH (21:48)
[2022-02-03 06:32] LABS: Glucose,Whole Blood 118 mg/dL (70-110)
[2022-02-03] MEDS: SODIUM CHLORIDE 0.9% 1,000 ML IV SCH ×2 (06:38→07:56)
[2022-02-03] MEDS: INSULIN ASPART (NovoLOG) 100 UNIT/ML VIAL SQ SCH ×4 (06:39→21:34)
[2022-02-03] MEDS: LEVOTHYROXINE 75 MCG TAB PO SCH (06:41)
[2022-02-03] MEDS: REPAGLINIDE 1 MG TAB PO SCH ×3 (07:47→17:03)
[2022-02-03] MEDS: CLOPIDOGREL 75 MG TAB PO SCH (07:48)
[2022-02-03] MEDS: LINAGLIPTIN 5 MG TABLET PO SCH (07:48)
[2022-02-03] MEDS: ASPIRIN 81 MG PO SCH (07:48)
[2022-02-03] MEDS: atenoloL 50 MG TAB PO SCH ×3 (07:48→21:32)
[2022-02-03] MEDS: DILTIAZEM CD 240 MG CAP.ER.24H PO SCH (07:49)
[2022-02-03 09:59] LABS: HCT 33.9 % (39.0-53.0); HGB 11.5 gm/dL (13.0-17.5); MCH 29.7 pg (25.0-35.0); MCHC 33.8 g/dL (31.0-37.0); MCV 87.8 fL (80.0-100.0); Mean Platelet Volume 8.4; Platelet Count 118 k/uL (150-450); RBC 3.87 m/uL (4.30-5.90); RDW 13.8 % (11.5-15.5); WBC 5.5 k/uL (3.8-10.6)
[2022-02-03 10:07] LABS: ALT 26 U/L (4-49); AST 21 U/L (17-59); African American GFR (CKD) 73 (>60 ml/min/1.73 sqM); Albumin/Globulin Ratio 1.3; Alkaline Phosphatase 48 U/L (38-126); Anion Gap 4 mmol/L; Blood Urea Nitrogen 25 mg/dL (9-20); Calcium 8.2 mg/dL (8.4-10.2); Carbon Dioxide 25 mmol/L (22-30); Chloride 106 mmol/L (98-107); Globulin 2.3 g/dL; Glucose 167 mg/dL (74-99); Non-African American GFR(CKD) 64 (>60 ml/min/1.73 sqM); Potassium 4.4 mmol/L (3.5-5.1); Sodium 135 mmol/L (137-145); Total Bilirubin 0.6 mg/dL (0.2-1.3); Total Protein 5.3 g/dL (6.3-8.2)
[2022-02-03 10:10] LABS: INR 2.7 (<1.2); Prothrombin Time 25.9 sec (9.0-12.0)
--- NOTE | 2022-02-03 11:09 | P.PN ---
Subjective Patient is seen in follow-up for acute kidney injury and chronic any disease. Renal function better. Blood pressure stable. Has been voiding. No vomiting or diarrhea. Denies chest pain or shortness of breath. Vital signs are stable. General: Awake. No acute distress. HEENT: Head exam is unremarkable. LUNGS: Breath sounds decreased. HEART: Rate and Rhythm are regular. ABDOMEN: Soft, no distention. EXTREMITITES: Lower extremities wrapped. No edema. Objective - Vital Signs Vital signs: Vital Signs Temp 97.5 F L 02/03/22 07:56 Pulse 71 02/03/22 07:56 Resp 16 02/03/22 07:56 BP 114/73 02/03/22 07:56 Pulse Ox 97 02/03/22 07:56 FiO2 Intake & Output 02/02/22 02/03/22 02/03/22 18:59 06:59 18:59 Output Total 1450 300 Balance -1450 -300 Output: Urine 1450 300 Other: Voiding Method Toilet Toilet Toilet Urinal Urinal Urinal # Voids 3 - Labs CBC & Chem 7: 02/03/22 08:42 02/03/22 08:42 Labs: Abnormal Lab Results - Last 24 Hours (Table) 02/02/22 02/02/22 02/02/22 Range/Units 07:03 07:03 07:03 RBC (4.30-5.90) m/uL Hgb (13.0-17.5) gm/dL Hct (39.0-53.0) % Plt Count (150-450) k/uL PT 30.9 H (9.9-11.9) sec INR 2.85 H (0.90-1.11) Sodium (137-145) mmol/L Anion Gap 9.90 L (10.00-18.00) mmol/L BUN 32.4 H (9.0-27.0) mg/dL Est GFR (CKD-EPI)AfAm 53.8 L (60.0-200.0) Est GFR (CKD-EPI)NonAf 46.4 L (60.0-200.0) BUN/Creatinine Ratio 22.19 H (12.00-20.00) Ratio Glucose 125 H (70-110) mg/dL POC Glucose (mg/dL) (70-110) mg/dL Hemoglobin A1c 8.4 H (0.0-6.0) % Calcium (8.4-10.2) mg/dL Total Protein 5.4 L (6.2-8.2) g/dL Albumin 3.4 L (3.8-4.9) g/dL 02/02/22 02/02/22 02/02/22 Range/Units 11:28 16:41 21:32 RBC (4.30-5.90) m/uL Hgb (13.0-17.5) gm/dL Hct (39.0-53.0) % Plt Count (150-450) k/uL PT (9.9-11.9) sec INR (0.90-1.11) Sodium (137-145) mmol/L Anion Gap (10.00-18.00) mmol/L BUN (9.0-27.0) mg/dL Est GFR (CKD-EPI)AfAm (60.0-200.0) Est GFR (CKD-EPI)NonAf (60.0-200.0) BUN/Creatinine Ratio (12.00-20.00) Ratio Glucose (70-110) mg/dL POC Glucose (mg/dL) 133 H 177 H 130 H (70-110) mg/dL Hemoglobin A1c (0.0-6.0) % Calcium (8.4-10.2) mg/dL Total Protein (6.2-8.2) g/dL Albumin (3.8-4.9) g/dL 02/03/22 02/03/22 02/03/22 Range/Units 06:30 08:42 08:42 RBC 3.87 L (4.30-5.90) m/uL Hgb 11.5 L (13.0-17.5) gm/dL Hct 33.9 L (39.0-53.0) % Plt Count 118 L (150-450) k/uL PT 25.9 H (9.9-11.9) sec INR 2.7 H (0.90-1.11) Sodium (137-145) mmol/L Anion Gap (10.00-18.00) mmol/L BUN (9.0-27.0) mg/dL Est GFR (CKD-EPI)AfAm (60.0-200.0) Est GFR (CKD-EPI)NonAf (60.0-200.0) BUN/Creatinine Ratio (12.00-20.00) Ratio Glucose (70-110) mg/dL POC Glucose (mg/dL) 118 H (70-110) mg/dL Hemoglobin A1c (0.0-6.0) % Calcium (8.4-10.2) mg/dL Total Protein (6.2-8.2) g/dL Albumin (3.8-4.9) g/dL 02/03/22 Range/Units 08:42 RBC (4.30-5.90) m/uL Hgb (13.0-17.5) gm/dL Hct (39.0-53.0) % Plt Count (150-450) k/uL PT (9.9-11.9) sec INR (0.90-1.11) Sodium 135 L (137-145) mmol/L Anion Gap (10.00-18.00) mmol/L BUN 25 H (9.0-27.0) mg/dL Est GFR (CKD-EPI)AfAm (60.0-200.0) Est GFR (CKD-EPI)NonAf (60.0-200.0) BUN/Creatinine Ratio (12.00-20.00) Ratio Glucose 167 H (70-110) mg/dL POC Glucose (mg/dL) (70-110) mg/dL Hemoglobin A1c (0.0-6.0) % Calcium 8.2 L (8.4-10.2) mg/dL Total Protein 5.3 L (6.2-8.2) g/dL Albumin 3.0 L (3.8-4.9) g/dL Assessment and Plan Plan: Assessment: 1. Acute kidney injury mostly prerenal secondary to hypotension. Improved. Creatinine 1.13 today. UA fairly benign. No hydronephrosis noted on kidney ultrasound. Bilateral renal cysts noted. 2. Chronic kidney disease stage IIIa with baseline creatinine near 1.3-1.4 in January 2021. Etiology is nephrosclerosis. 3. Diabetes mellitus. 4. History of hypertension with low blood pressure this admission. Currently stable. Blood pressure 114/73 this morning. Plan: Maintain gentle IV hydration. Encourage oral intake. Avoid nephrotoxins. Continue to monitor renal function and urine output.
[2022-02-03 11:26] LABS: Glucose,Whole Blood 164 mg/dL (70-110)
[2022-02-03] MEDS: ALBUTEROL HFA INHALER INHALATION PRN (12:35)
[2022-02-03 16:45] LABS: Glucose,Whole Blood 174 mg/dL (70-110)
[2022-02-03 20:48] LABS: Glucose,Whole Blood 183 mg/dL (70-110)
[2022-02-03 21:05] VITALS: RESP 18
[2022-02-03] MEDS: WARFARIN 2 MG TAB PO SCH (21:32)
[2022-02-03] MEDS: ATORVASTATIN 40 MG TAB PO SCH (21:32)
[2022-02-03] MEDS: lamoTRIgine 25 MG TAB PO SCH (21:32)
[2022-02-04] MEDS: SODIUM CHLORIDE 0.9% 1,000 ML IV SCH (03:31)
[2022-02-04 06:03] LABS: Glucose,Whole Blood 100 mg/dL (70-110)
[2022-02-04] MEDS: INSULIN ASPART (NovoLOG) 100 UNIT/ML VIAL SQ SCH ×2 (07:05→11:52)
[2022-02-04 07:07] LABS: INR 2.7 (<1.2); Prothrombin Time 26.2 sec (9.0-12.0)
[2022-02-04] MEDS: LEVOTHYROXINE 75 MCG TAB PO SCH (07:12)
[2022-02-04] MEDS: REPAGLINIDE 1 MG TAB PO SCH ×2 (07:12→12:15)
[2022-02-04 07:57] VITALS: BP 122/75; PULSE 79; TEMP 97.7
[2022-02-04] MEDS: ALBUTEROL HFA INHALER INHALATION PRN (08:09)
--- NOTE | 2022-02-04 08:25 | P.PN ---
Subjective Progress Note Date: 02/03/22 His renal function is normalized today, he denies chest pain, shortness of breath, vertigo, malaise. BP has been stable. ARB held Objective - Vital Signs Vital signs: Vital Signs Temp 97.7 F 02/04/22 07:57 Pulse 79 02/04/22 07:57 Resp 18 02/04/22 07:57 BP 122/75 02/04/22 07:57 Pulse Ox 98 02/04/22 07:57 FiO2 Intake & Output 02/03/22 02/04/22 02/04/22 18:59 06:59 18:59 Intake Total 1080 600 Output Total 950 1650 Balance 130 -1050 Intake: Intake, IV Titration 600 Amount Sodium Chloride 0.9% 1, 600 000 ml @ 50 mls/hr IV . Q20H [facility] Rx#:[id number] Oral 1080 Output: Urine 950 1650 Other: Voiding Method Toilet Urinal - Exam Gen: well developed, well nourished, NAD CV: RRR, no murmur Lungs: CTAB - Labs CBC & Chem 7: 02/03/22 08:42 02/03/22 08:42 Labs: Abnormal Lab Results - Last 24 Hours (Table) 02/03/22 02/03/22 02/03/22 Range/Units 08:42 08:42 08:42 RBC 3.87 L (4.30-5.90) m/uL Hgb 11.5 L (13.0-17.5) gm/dL Hct 33.9 L (39.0-53.0) % Plt Count 118 L (150-450) k/uL PT 25.9 H (9.0-12.0) sec INR 2.7 H (<1.2) Sodium 135 L (137-145) mmol/L BUN 25 H (9-20) mg/dL Glucose 167 H (74-99) mg/dL POC Glucose (mg/dL) (70-110) mg/dL Calcium 8.2 L (8.4-10.2) mg/dL Total Protein 5.3 L (6.3-8.2) g/dL Albumin 3.0 L (3.5-5.0) g/dL 02/03/22 02/03/22 02/03/22 Range/Units 11:24 16:43 20:44 RBC (4.30-5.90) m/uL Hgb (13.0-17.5) gm/dL Hct (39.0-53.0) % Plt Count (150-450) k/uL PT (9.0-12.0) sec INR (<1.2) Sodium (137-145) mmol/L BUN (9-20) mg/dL Glucose (74-99) mg/dL POC Glucose (mg/dL) 164 H 174 H 183 H (70-110) mg/dL Calcium (8.4-10.2) mg/dL Total Protein (6.3-8.2) g/dL Albumin (3.5-5.0) g/dL 02/04/22 Range/Units 06:35 RBC (4.30-5.90) m/uL Hgb (13.0-17.5) gm/dL Hct (39.0-53.0) % Plt Count (150-450) k/uL PT 26.2 H (9.0-12.0) sec INR 2.7 H (<1.2) Sodium (137-145) mmol/L BUN (9-20) mg/dL Glucose (74-99) mg/dL POC Glucose (mg/dL) (70-110) mg/dL Calcium (8.4-10.2) mg/dL Total Protein (6.3-8.2) g/dL Albumin (3.5-5.0) g/dL Assessment and Plan Plan: Continue to hold valsartan, continue with IV fluids. Nephrology following
[2022-02-04] MEDS: atenoloL 50 MG TAB PO SCH (08:31)
[2022-02-04] MEDS: ASPIRIN 81 MG PO SCH (08:31)
[2022-02-04] MEDS: LINAGLIPTIN 5 MG TABLET PO SCH (08:32)
[2022-02-04] MEDS: DILTIAZEM CD 240 MG CAP.ER.24H PO SCH (08:32)
[2022-02-04] MEDS: CLOPIDOGREL 75 MG TAB PO SCH (08:32)
--- NOTE | 2022-02-04 11:13 | P.PN ---
Subjective Patient is seen in follow-up for acute kidney injury and chronic any disease. Renal function better. Blood pressure stable. Has been voiding. Nonoliguric. No vomiting or diarrhea. Denies chest pain or shortness of breath. Vital signs are stable. General: Awake. No acute distress. HEENT: Head exam is unremarkable. LUNGS: Breath sounds decreased. HEART: Rate and Rhythm are regular. ABDOMEN: Soft, no distention. EXTREMITITES: Lower extremities wrapped. No edema. Objective - Vital Signs Vital signs: Vital Signs Temp 97.7 F 02/04/22 07:57 Pulse 79 02/04/22 07:57 Resp 18 02/04/22 07:57 BP 122/75 02/04/22 07:57 Pulse Ox 98 02/04/22 07:57 FiO2 Intake & Output 02/03/22 02/04/22 02/04/22 18:59 06:59 18:59 Intake Total 1080 600 Output Total 950 1650 Balance 130 -1050 Intake: Intake, IV Titration 600 Amount Sodium Chloride 0.9% 1, 600 000 ml @ 50 mls/hr IV . Q20H [facility] Rx#:[id number] Oral 1080 Output: Urine 950 1650 Other: Voiding Method Toilet Urinal - Labs CBC & Chem 7: 02/03/22 08:42 02/03/22 08:42 Labs: Abnormal Lab Results - Last 24 Hours (Table) 02/03/22 02/03/22 02/03/22 Range/Units 11:24 16:43 20:44 PT (9.0-12.0) sec INR (<1.2) POC Glucose (mg/dL) 164 H 174 H 183 H (70-110) mg/dL 02/04/22 Range/Units 06:35 PT 26.2 H (9.0-12.0) sec INR 2.7 H (<1.2) POC Glucose (mg/dL) (70-110) mg/dL Assessment and Plan Plan: Assessment: 1. Acute kidney injury mostly prerenal secondary to hypotension. Improved. Creatinine 1.13 yesterday. UA fairly benign. No hydronephrosis noted on kidney ultrasound. Bilateral renal cysts noted. 2. Chronic kidney disease stage IIIa with baseline creatinine near 1.3-1.4 in January 2021. Etiology is nephrosclerosis. 3. Diabetes mellitus. 4. History of hypertension with low blood pressure this admission. Currently stable. Blood pressure 122/75 this morning. Plan: Hep-Lock IV fluids. Encourage oral intake. Avoid nephrotoxins. Continue to monitor renal function and urine output.
[2022-02-04 11:56] LABS: Glucose,Whole Blood 128 mg/dL (70-110)
--- NOTE | 2022-02-06 11:02 | P.DS ---
Providers Date of admission: 01/31/22 19:42 Expected date of discharge: 02/04/22 Attending physician: Bret Floyd MD Consults: 02/01/22 08:46 Consult Physician Routine Consulting Provider: Bebeto Rose Consult Reason/Comments: mary lou Do you want consulting provider notified?: Yes Primary care physician: Alaina [facility] Course: Acute renal failure, prerenal, secondary to hypotension, improved Bilateral renal cysts, No hydronephrosis reported per kidney ultrasound. ARB/diuretics on hold as per nephrology. Reevaluate outpatient in clinic Chronic kidney disease stage IIIa with baseline creatinine near 1.3-1.4 in January 2021. Etiology is nephrosclerosis. Recent Covid infection last month. CAT history of NSTEMI, stenting of the OM1 Chronic persistent atrial fibrillation Chronic CHF, systolic dysfunction Hyperlipidemia Hypertension, history of. Diabetes mellitus type 2 BPH Obstructive Sleep apnea Hypothyroidism Morbid obesity, BMI 42.7 Hospital course: This a 76-year-old gentleman admitted with acute renal failure, hypotension, and multiple other medical issues. ER reported Lasix had been discontinued outpatient in clinic by a cardiology within worsening creatinine noticed, just prior to admission. ARB, diuretics remain on hold. Significant clinical improvement, blood pressure stable, renal function improving. Denies nausea vomiting or diarrhea. Denies abdominal pain. Denies chest pain, palpitations or shortness of breath. Denies lightheadedness or focal deficits. Patient has been cleared by nephrology for discharge. Patient will be dis charged home today in a stable condition with guarded prognosis. Diuretics/antihypertensives to be further addressed outpatient at follow-up in clinic with PCP. The impression and plan of care has been dictated as directed. : I performed a history and examination of this patient, discussed the same with the dictator. I agree with the dictator's note ,documented as a scribe. Any additional findings or plans will be noted. Patient Condition at Discharge: Stable Plan - Discharge Summary Discharge Rx Participant: Yes New Discharge Prescriptions: New atenoloL [Tenormin] 50 mg PO TID #30 tab Continue Omeprazole [PriLOSEC] 20 mg PO DAILY Linagliptin [Tradjenta] 5 mg PO DAILY Repaglinide [Prandin] 1 mg PO TID-W/MEALS dilTIAZem HCL [dilTIAZem HCL 24Hr ER (Xr)] 240 mg PO DAILY Aspirin 81 mg PO DAILY #90 tab metFORMIN HCL [Glucophage] 1,000 mg PO DAILY Cholecalciferol [Vitamin D3 (125 Mcg = 5000 Iu)] 125 mcg PO DAILY Albuterol Inhaler [Ventolin Hfa Inhaler] 1 - 2 puff INHALATION RT-Q6H PRN PRN Reason: Shortness Of Breath ondansetron HCL [Zofran] 8 mg PO TID PRN PRN Reason: Nausea lamoTRIgine [LaMICtal] 25 mg PO HS Atorvastatin [Lipitor] 40 mg PO HS Levothyroxine Sodium [Synthroid] 75 mcg PO DAILY Warfarin Sodium 4 mg PO HS Clopidogrel [Plavix] 75 mg PO DAILY Semaglutide [Ozempic] 0.5 mg SQ FR metFORMIN HCL [Glucophage] 500 mg PO HS Nitroglycerin Sl Tabs [Nitrostat] 0.4 mg SL Q5M PRN PRN Reason: Chest Pain Discontinued Valsartan 160 mg PO DAILY Atenolol/Chlorthalidone [Atenolol/Chlorthalidone 50-25] 1 tab PO TID Discharge Medication List Omeprazole [PriLOSEC] 20 mg PO DAILY 08/30/14 [History] Linagliptin [Tradjenta] 5 mg PO DAILY 07/12/18 [History] Atorvastatin [Lipitor] 40 mg PO HS 08/17/20 [History] Levothyroxine Sodium [Synthroid] 75 mcg PO DAILY 08/17/20 [History] Repaglinide [Prandin] 1 mg PO TID-W/MEALS 08/17/20 [History] dilTIAZem HCL [dilTIAZem HCL 24Hr ER (Xr)] 240 mg PO DAILY 08/17/20 [History] lamoTRIgine [LaMICtal] 25 mg PO HS 08/17/20 [History] Clopidogrel [Plavix] 75 mg PO DAILY 02/02/21 [History] Semaglutide [Ozempic] 0.5 mg SQ FR 02/02/21 [History] Warfarin Sodium 4 mg PO HS 02/02/21 [History] Aspirin 81 mg PO DAILY #90 tab 02/06/21 [Rx] Albuterol Inhaler [Ventolin Hfa Inhaler] 1 - 2 puff INHALATION RT-Q6H PRN 01/15/22 [History] Cholecalciferol [Vitamin D3 (125 Mcg = 5000 Iu)] 125 mcg PO DAILY 01/15/22 [History] metFORMIN HCL [Glucophage] 1,000 mg PO DAILY 01/15/22 [History] metFORMIN HCL [Glucophage] 500 mg PO HS 01/15/22 [History] ondansetron HCL [Zofran] 8 mg PO TID PRN 01/15/22 [History] Nitroglycerin Sl Tabs [Nitrostat] 0.4 mg SL Q5M PRN 01/31/22 [History] atenoloL [Tenormin] 50 mg PO TID #30 tab 02/04/22 [Rx] Follow up Appointment(s)/Referral(s): Alaina Floyd DO [Primary Care Provider] - 02/07/22 9:30 am (At the [place] office) Ambulatory/Diagnostic Orders: Prothrombin Time INR [LAB.AMB] Time Frame: 02/07/22, Location: None Selected Patient Instructions/Handouts: Acute Kidney Injury (DC) Activity/Diet/Wound Care/Special Instructions: ARB/Diuretics on hold as per nephrology-reevaluate at follow-up in clinic with PCP Discharge Disposition: HOME SELF-CARE
[2022-02-07] MEDS ORDERED: NON FORMULARY DRUG (Semaglutide [Ozempic] 0.25 MG/0.2 ML Each) SQ SCH (09:00)
--- NOTE | 2022-02-07 12:53 | CDI ---
Documentation Clarification Form Date: 02/07/22 From: Jade Garces Admit Date: 01/31/2022 07:42:00 PM Patient Name: Alexsander Linares Visit Number: [id number] Discharge Date: 02/04/2022 01:37:00 PM ATTENTION: The Clinical Documentation Specialists (CDI) and [facility] Coding Staff appreciate your assistance in clarifying documentation. Please respond to the clarification below the line at the bottom and electronically sign. The CDI & [facility] Coding staff will review the response and follow-up if needed. Please note: Queries are made part of the Legal Health Record. If you have any questions, please contact the author of this message via ITS. Dr. Bret Floyd, Conflicting documentation has been found in the medical record. As attending physician, please provide clarification. Per Dr Patricio consult "history of diastolic CHF". Per your DS "Chronic CHF, systolic dysfunction ". History/Risk Factors: Acute kidney injury, History of atrial fibrillation, Coronary artery disease, Hypertension, diabetes mellitus Clinical Indicators: 01/16 Echo: Mildly increased septal wall thickness. Left ventricular ejection fraction is estimated at 55-60% left ventricular cavity size normal. Normal right ventricular size and function. Right ventricular systolic pressure within normal limits. Treatment: Diovan, Chlortalidone Please clarify which diagnosis is most appropriate: [ ] Chronic diastolic CHF [ ] Chronic systolic CHF [ ] Chronic diastolic & systolic CHF [ ] Other (please specify) [ ] Unable to determine Chronic diastolic CHF MTDD
== END 2022-02-04 13:37 | disposition home or self-care (01) | DRG 683 ==
LOC: EC 12:03 → 4SSUR 19:42
PROVIDERS: ADMIT Family Medicine; ATTEND Family Medicine
DX: N17.9 Acute kidney failure, unspecified (principal); I13.0 Hypertensive heart and chronic kidney disease with heart failure and stage 1 through stage 4 chronic kidney disease, or unspecified chronic kidney disease; I48.19 Other persistent atrial fibrillation; I50.32 Chronic diastolic (congestive) heart failure; Z68.41 Body mass index [BMI] 40.0-44.9, adult; I49.5 Sick sinus syndrome; I95.9 Hypotension, unspecified; E11.22 Type 2 diabetes mellitus with diabetic chronic kidney disease; E66.01 Morbid (severe) obesity due to excess calories; N18.31 Chronic kidney disease, stage 3a; E11.65 Type 2 diabetes mellitus with hyperglycemia; E03.9 Hypothyroidism, unspecified; E78.5 Hyperlipidemia, unspecified; E86.0 Dehydration; I25.10 Atherosclerotic heart disease of native coronary artery without angina pectoris; G47.33 Obstructive sleep apnea (adult) (pediatric); H35.30 Unspecified macular degeneration; N28.1 Cyst of kidney, acquired; N40.0 Benign prostatic hyperplasia without lower urinary tract symptoms; K44.9 Diaphragmatic hernia without obstruction or gangrene; I25.2 Old myocardial infarction; H54.8 Legal blindness, as defined in USA; H91.90 Unspecified hearing loss, unspecified ear; K21.9 Gastro-esophageal reflux disease without esophagitis; M19.90 Unspecified osteoarthritis, unspecified site; Z79.82 Long term (current) use of aspirin; Z79.02 Long term (current) use of antithrombotics/antiplatelets; Z79.01 Long term (current) use of anticoagulants; Z79.85 Long-term (current) use of injectable non-insulin antidiabetic drugs; Z79.890 Hormone replacement therapy; Z79.84 Long term (current) use of oral hypoglycemic drugs; Z79.899 Other long term (current) drug therapy; Z86.718 Personal history of other venous thrombosis and embolism; Z86.16 Personal history of COVID-19; Z86.14 Personal history of Methicillin resistant Staphylococcus aureus infection; Z95.0 Presence of cardiac pacemaker; Z87.820 Personal history of traumatic brain injury; Z95.5 Presence of coronary angioplasty implant and graft; Z96.653 Presence of artificial knee joint, bilateral; Z95.828 Presence of other vascular implants and grafts; Z88.6 Allergy status to analgesic agent; Z88.5 Allergy status to narcotic agent; Z88.2 Allergy status to sulfonamides; Z88.8 Allergy status to other drugs, medicaments and biological substances
CPT/HCPCS: 36415; 71046; 76770; 80048; 80053; 81003; 83036; 83880; 84484; 85025; 85027; 85610; 85730; 87502; 87635; 93005; 94640; 96360; 99285

== ENCOUNTER → 2022-03-19 | Outpatient (CLI) | payer MEDICARE ==
[2022-03-19 15:36] LABS: HCT 38.9 % (39.6-50.0); HGB 12.5 g/dL (13.0-17.0); MCH 29.1 pg (27.0-32.0); MCHC 32.1 g/dL (32.0-37.0); MCV 90.5 fL (80.0-97.0); Mean Platelet Volume 11.2 fL (9.5-12.2); NRBC Per 100 WBC 0 /100 WBCS (0.0-0.0); Platelet Count 174 X 10*3/uL (140-440); RDW 14.5 % (11.5-14.5); WBC 7.99 X 10*3/uL (4.50-10.00)
[2022-03-20 03:55] LABS: African American GFR (CKD) 43.2 (60.0-200.0); Anion Gap 12.9 mmol/L (10.00-18.00); Blood Urea Nitrogen 36.6 mg/dL (9.0-27.0); Carbon Dioxide 21.4 mmol/L (20.0-27.5); Non-African American GFR(CKD) 37.3 (60.0-200.0); Potassium 4.4 mmol/L (3.5-5.5)
== END | disposition home or self-care (01) ==
LOC: LABPAT 10:27
PROVIDERS: ATTEND Internal Medicine Interventional Cardiology
DX: Z01.812 Encounter for preprocedural laboratory examination (principal); R07.9 Chest pain, unspecified
CPT/HCPCS: 80051; 82565; 84520; 85027

== ENCOUNTER 2022-03-25 09:58 | Day surgery (SDC) | payer MEDICARE ==
[2022-03-20 14:58] VITALS: BMI 41.5
[~2022-03-25 09:58] MED LIST changes: +SODIUM CHLORIDE 0.9% 1,000 ML in EMPTY BAG 1 BAG IV ONE; -SODIUM CHLORIDE 0.9% 1,000 ML in EMPTY BAG 1 BAG IV SCH
[2022-03-25] MEDS ORDERED: SODIUM CHLORIDE 0.9% 1,000 ML IV ONE (10:25)
[2022-03-25 10:53] VITALS: TEMP 97.6
[2022-03-25 10:54] LABS: Glucose,Whole Blood 117 mg/dL (70-110)
[2022-03-25 11:08] LABS: Prothrombin Time 19.5 sec (9.0-12.0)
[2022-03-25] MEDS ORDERED: VERAPAMIL 2.5 MG/ML 2 ML AMP ONE (12:03)
[2022-03-25] MEDS ORDERED: HEPARIN SODIUM 1,000 UN/ML (10ML VL) ONE (12:04)
[2022-03-25] MEDS ORDERED: MIDAZOLAM 2 MG/2 ML VIAL IV ONE (12:48)
[2022-03-25] MEDS ORDERED: LIDOCAINE 1% INJ 10MG/ML (5 ML VIAL-PF) SQ ONE (12:51)
[2022-03-25] MEDS ORDERED: VERAPAMIL SYRINGE (5 MG/10 ML) INTRAARTER ONE (12:52)
[2022-03-25] MEDS ORDERED: IOPAMIDOL-370 125ML BTL INJ ONE (13:10)
[2022-03-25] MEDS ORDERED: RX INFO: IV CONTRAST WAS GIVEN 1 EACH MISC MISCELLANE PRN (13:17)
--- NOTE | 2022-03-25 13:21 | P.PCN ---
Date of Procedure: 03/25/22 Operative Findings: CARDIAC CATHETERIZATION PERFORMING PHYSICIAN: Santos Grigsby MD, RPVI PROCEDURE PERFORMED: 1. Selective left coronary angiogram 2. Left heart catheterization 3. Ultrasound-guided access of the right radial artery INDICATION: This is a 76-year-old gentleman with CAD and prior stenting of the LAD and LCx and known chronic total occlusion of the RCA was seen in the office for symptoms of chest discomfort concerning for unstable angina. COMPLICATION: None APPROACH: Right radial artery LEVEL OF SEDATION: Moderate with a sedation length of 20 minutes PROCEDURE DESCRIPTION: After obtaining an informed consent, the patient was brought to cardiac cardiac cath technician. Local anesthesia was performed using lidocaine subcutaneously. The right radial artery was cannulated using Seldinger technique, the guidewire passed easily, following that we advanced a 5-Bel[place]ian sheath dilator assembly, the wire and dilator were removed and sheath was flushed. Selective left coronary angiogram using a 6-[place]ian JR4 and JL 3.5 catheters. Following that we did left heart catheterization using 6-[place]ian pigtail catheter. The procedure was completed there was no complication. SELECTIVE CORONARY ANGIOGRAM: The right coronary artery: Was not opacified. Is known to be chronically occluded before. Left main: Has mild disease only. Bifurcates into an LCx and LAD The left circumflex: Large caliber vessel nondominant vessel. The LCx proximally appears to have intermediate lesion involving the ostial. Then gives rises into an OM1 which has an intermediate lesion appears to be in the range of 60% just before a stented segment. There is [id number] in-stent restenosis. The circumflex continue after that as a moderate caliber vessel was mild disease only. The left anterior descending artery: The proximal LAD appeared to be stented was intermediate in-stent restenosis. The mid and distal LAD appears to have mild disease only. HEMODYNAMICS: The LVEDP was 6 mmHg was no significant gradient across aortic valve CONCLUSION: 1. Intermediate disease involving the ostial LCx. Intermediate disease involving OM1 of the LCx. 2. Intermediate disease involving the proximal LAD. POSTPROCEDURE MANAGEMENT: Medical treatment at this point. If she remains symptomatic in spite of maximize medical treatment we will consider doing an FFR
[2022-03-25] MEDS ORDERED: SODIUM CHLORIDE 0.9% 1,000 ML IV SCH (13:30)
[2022-03-25 14:09] VITALS: RESP 16
[2022-03-25 17:07] VITALS: BP 121/63; PULSE 71
== END 2022-03-25 17:03 | disposition home or self-care (01) ==
LOC: CATHCVL 09:58
PROVIDERS: ATTEND Internal Medicine Interventional Cardiology
DX: T82.855A Stenosis of coronary artery stent, initial encounter (principal); I25.10 Atherosclerotic heart disease of native coronary artery without angina pectoris; I25.82 Chronic total occlusion of coronary artery; Y83.1 Surgical operation with implant of artificial internal device as the cause of abnormal reaction of the patient, or of later complication, without mention of misadventure at the time of the procedure; Z95.5 Presence of coronary angioplasty implant and graft; I10 Essential (primary) hypertension; E78.5 Hyperlipidemia, unspecified; I48.21 Permanent atrial fibrillation; E11.9 Type 2 diabetes mellitus without complications; Z95.0 Presence of cardiac pacemaker; I08.0 Rheumatic disorders of both mitral and aortic valves; I49.5 Sick sinus syndrome; Z79.4 Long term (current) use of insulin; Z79.02 Long term (current) use of antithrombotics/antiplatelets; Z79.01 Long term (current) use of anticoagulants; Z79.82 Long term (current) use of aspirin; Z79.891 Long term (current) use of opiate analgesic; Z79.899 Other long term (current) drug therapy; Z79.810 Long term (current) use of selective estrogen receptor modulators (SERMs); Z88.5 Allergy status to narcotic agent; Z88.2 Allergy status to sulfonamides; Z88.8 Allergy status to other drugs, medicaments and biological substances; Z88.6 Allergy status to analgesic agent
CPT/HCPCS: 93458; 85610; J2250; J2001; Q9967; 76937

== ENCOUNTER 2022-06-26 17:39 | Observation (INO) | payer MEDICARE ==
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
[2022-06-26 19:39] LABS: Basophils % (A) 0 %; Eosinophils # (A) 0.1 k/uL (0-0.7); Eosinophils % (A) 1 %; HCT 41.3 % (39.0-53.0); HGB 13.9 gm/dL (13.0-17.5); Lymphocytes # (A) 1.5 k/uL (1.0-4.8); Lymphocytes % (A) 16 %; MCH 27.8 pg (25.0-35.0); MCHC 33.7 g/dL (31.0-37.0); MCV 82.3 fL (80.0-100.0); Mean Platelet Volume 7.9; Monocytes # (A) 0.7 k/uL (0-1.0); Monocytes % (A) 7 %; Neutrophils # (A) 6.8 k/uL (1.3-7.7); Neutrophils % (A) 73 %; Platelet Count 177 k/uL (150-450); RBC 5.02 m/uL (4.30-5.90); RDW 14.2 % (11.5-15.5); WBC 9.3 k/uL (3.8-10.6)
[2022-06-26 19:58] LABS: INR 2.4 (<1.2); Prothrombin Time 23.1 sec (9.0-12.0)
[2022-06-26 20:07] LABS: Calcium 9.4 mg/dL (8.4-10.2); Magnesium 2.3 mg/dL (1.6-2.3); Potassium 3.5 mmol/L (3.5-5.1); Total Bilirubin 0.9 mg/dL (0.2-1.3); Total Protein 6.8 g/dL (6.3-8.2)
--- NOTE | 2022-06-26 20:30 | XR ---
EXAMINATION: XR chest 2V: 06/26/2022 7:39 PM CLINICAL INDICATION: Dyspnea TECHNIQUE: Departmental protocol COMPARISON: 01/31/2022 FINDINGS: The overlying soft tissues are prominent. Lungs appear to be clear. The pleural spaces are negative. Sternal sutures and mediastinal clips and cardiac pacemaker and EKG leads noted. The cardiac silhouet te is not enlarged. The remainder of the mediastinal silhouette is unremarkable. The skeletal structures and soft tissues are negative for acute findings. IMPRESSION: No acute process.
[2022-06-26] MEDS ORDERED: SODIUM CHLORIDE 0.9% 1,000 ML IV STA (20:32)
[2022-06-26] MEDS ORDERED: NALOXONE 0.4 MG/ML 1 ML VIAL IV PRN (21:34)
[2022-06-26] MEDS ORDERED: ONDANSETRON 4 MG/2 ML VIAL IVP PRN (21:34)
[2022-06-26] MEDS: SODIUM CHLORIDE 0.9% 1,000 ML IV SCH (21:38)
[2022-06-27 06:49] VITALS: RESP 16
[2022-06-27 07:55] LABS: Glucose,Whole Blood 91 mg/dL (70-110)
[2022-06-27] MEDS ORDERED: DEXTROSE 50% SYRINGE 50 ML IVP PRN ×2 (08:10)
[2022-06-27] MEDS ORDERED: PANTOPRAZOLE 40 MG/10 ML VIAL IVP SCH (09:00)
[2022-06-27] MEDS ORDERED: IPRATROPIUM-ALBUTEROL 3 ML NEB INHALATION PRN (09:34)
[2022-06-27] MEDS ORDERED: ONDANSETRON 4 MG/2 ML VIAL IVP PRN (09:52)
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
[2022-06-27 11:06] LABS: INR 2.1 (<1.2); Prothrombin Time 20.7 sec (9.0-12.0)
[2022-06-27] MEDS: atenoloL 25 MG TAB PO SCH ×3 (11:47→21:26)
[2022-06-27] MEDS: CLOPIDOGREL 75 MG TAB PO SCH (11:47)
[2022-06-27] MEDS: LEVOTHYROXINE 75 MCG TAB PO SCH (11:47)
[2022-06-27] MEDS: ASPIRIN 81 MG PO SCH (11:47)
[2022-06-27] MEDS: SODIUM CHLORIDE 0.9% 1,000 ML IV SCH ×2 (11:48→18:04)
[2022-06-27 11:59] LABS: Glucose,Whole Blood 161 mg/dL (70-110)
[2022-06-27] MEDS: IPRATROPIUM-ALBUTEROL 3 ML NEB INHALATION SCH ×3 (12:29→20:01)
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
[2022-06-27] MEDS: INSULIN ASPART (NovoLOG) 100 UNIT/ML VIAL SQ SCH ×3 (12:56→21:26)
[2022-06-27 17:17] LABS: Glucose,Whole Blood 214 mg/dL (70-110)
[2022-06-27] MEDS ORDERED: WARFARIN 2 MG TAB PO SCH (18:00)
[2022-06-27 20:57] LABS: Glucose,Whole Blood 151 mg/dL (70-110)
[2022-06-27] MEDS: ATORVASTATIN 40 MG TAB PO SCH (21:26)
[2022-06-28 06:25] LABS: Glucose,Whole Blood 94 mg/dL (70-110)
[2022-06-28] MEDS: LEVOTHYROXINE 75 MCG TAB PO SCH (06:42)
[2022-06-28] MEDS: INSULIN ASPART (NovoLOG) 100 UNIT/ML VIAL SQ SCH ×4 (06:42→22:10)
[2022-06-28] MEDS: PANTOPRAZOLE 40 MG TABLET PO SCH (06:42)
[2022-06-28] MEDS: ASPIRIN 81 MG PO SCH (08:05)
[2022-06-28] MEDS: atenoloL 25 MG TAB PO SCH ×3 (08:05→21:02)
[2022-06-28] MEDS: CLOPIDOGREL 75 MG TAB PO SCH (08:05)
[2022-06-28] MEDS: IPRATROPIUM-ALBUTEROL 3 ML NEB INHALATION SCH ×4 (09:00→20:05)
[2022-06-28 09:30] LABS: Basophils % (A) 0 %; Eosinophils # (A) 0.1 k/uL (0-0.7); Eosinophils % (A) 2 %; HCT 39.7 % (39.0-53.0); HGB 12.9 gm/dL (13.0-17.5); Lymphocytes # (A) 1.2 k/uL (1.0-4.8); Lymphocytes % (A) 18 %; MCH 27.2 pg (25.0-35.0); MCHC 32.5 g/dL (31.0-37.0); MCV 83.7 fL (80.0-100.0); Mean Platelet Volume 7.6; Monocytes # (A) 0.5 k/uL (0-1.0); Monocytes % (A) 7 %; Neutrophils # (A) 4.9 k/uL (1.3-7.7); Neutrophils % (A) 71 %; Platelet Count 152 k/uL (150-450); RBC 4.74 m/uL (4.30-5.90); RDW 14.5 % (11.5-15.5)
[2022-06-28 09:41] LABS: African American GFR (CKD) 53 (>60 ml/min/1.73 sqM); Anion Gap 9 mmol/L; Blood Urea Nitrogen 29 mg/dL (9-20); Calcium 8.8 mg/dL (8.4-10.2); Carbon Dioxide 24 mmol/L (22-30); Chloride 104 mmol/L (98-107); Glucose 134 mg/dL (74-99); Non-African American GFR(CKD) 45 (>60 ml/min/1.73 sqM); Potassium 3.6 mmol/L (3.5-5.1); Sodium 137 mmol/L (137-145)
[2022-06-28 09:56] LABS: INR 1.8 (<1.2); Prothrombin Time 17.5 sec (9.0-12.0)
--- NOTE | 2022-06-28 10:42 | P.PN ---
Subjective Progress Note Date: 06/28/22 Principal diagnosis: This is a 76-year-old male seen in consultation because of acute kidney injury from nausea vomiting diarrhea. HAS chronic kidney disease. His also known with atrial fibrillation coronary artery disease diabetes mellitus Currently he is feeling much better he wears chronically Braeden wraps on his lower legs because of the swelling. He is able to walk he is eating well is no nausea vomiting diarrhea. Vital signs are stable urine output is 1900 mL, creatinine 1.49 improved, was 2.05 Objective - Vital Signs Vital signs: Vital Signs Temp 97.7 F 06/28/22 07:15 Pulse 83 06/28/22 09:12 Resp 16 06/28/22 08:00 BP 119/68 06/28/22 07:15 Pulse Ox 95 06/28/22 07:15 FiO2 98 06/27/22 11:55 Intake & Output 06/27/22 06/28/22 06/28/22 18:59 06:59 18:59 Intake Total 236 725 240 Output Total 1000 900 640 Balance -764 -175 -400 Weight 95.254 kg Intake: Intake, IV Titration 225 Amount Sodium Chloride 0.9% 1, 225 000 ml @ 75 mls/hr IV . [id number] [facility] Rx#:[id number] Oral 236 500 240 Output: Urine 1000 900 640 Other: Voiding Method Urinal Urinal # Voids 2 Awake alert oriented comfortable on room air No JVP neck is supple no facial asymmetry Lungs clear to auscultation good air entry Heart sounds unremarkable Abdomen soft nontender Extreme exam was bilateral Braeden wraps on his legs below his knee. Neurologically awake alert oriented - Labs CBC & Chem 7: 06/28/22 08:51 06/28/22 08:51 Labs: Abnormal Lab Results - Last 24 Hours (Table) 06/27/22 06/27/22 06/27/22 Range/Units 09:58 11:58 17:16 Hgb (13.0-17.5) gm/dL PT 20.7 H (9.0-12.0) sec INR 2.1 H (<1.2) BUN (9-20) mg/dL Creatinine (0.66-1.25) mg/dL Glucose (74-99) mg/dL POC Glucose (mg/dL) 161 H 214 H (70-110) mg/dL 06/27/22 06/28/22 06/28/22 Range/Units 20:56 08:51 08:51 Hgb 12.9 L (13.0-17.5) gm/dL PT 17.5 H (9.0-12.0) sec INR 1.8 H (<1.2) BUN (9-20) mg/dL Creatinine (0.66-1.25) mg/dL Glucose (74-99) mg/dL POC Glucose (mg/dL) 151 H (70-110) mg/dL 06/28/22 Range/Units 08:51 Hgb (13.0-17.5) gm/dL PT (9.0-12.0) sec INR (<1.2) BUN 29 H (9-20) mg/dL Creatinine 1.49 H (0.66-1.25) mg/dL Glucose 134 H (74-99) mg/dL POC Glucose (mg/dL) (70-110) mg/dL Assessment and Plan Assessment: Impression 1. Acute kidney injury secondary to volume depletion from nausea vomiting diarrhea resolving. Creatinine is back to 1.49 from a peak of 2.05. Baseline creatinine is 1.1-1.5 in January 2022 2. Chronic kidney disease stage III, nephrosclerosis with trace proteinuria possibly early diabetic nephropathy 3. Gastroenteritis resolved. Recommendation Patient name be resumed on ARB and in few days farxiga as well Patient can be discharged from a nephrological perspective
[2022-06-28 13:20] LABS: Glucose,Whole Blood 186 mg/dL (70-110)
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
[2022-06-28] MEDS: SODIUM CHLORIDE 0.9% 1,000 ML IV SCH (17:08)
[2022-06-28] MEDS ORDERED: WARFARIN 5 MG TAB PO ONE (18:00)
[2022-06-28 18:06] LABS: Glucose,Whole Blood 179 mg/dL (70-110)
[2022-06-28] MEDS: ATORVASTATIN 40 MG TAB PO SCH (21:03)
[2022-06-28 22:10] LABS: Glucose,Whole Blood 156 mg/dL (70-110)
[2022-06-29 06:20] LABS: Glucose,Whole Blood 103 mg/dL (70-110)
[2022-06-29] MEDS: LEVOTHYROXINE 75 MCG TAB PO SCH (06:22)
[2022-06-29] MEDS: PANTOPRAZOLE 40 MG TABLET PO SCH (06:22)
[2022-06-29] MEDS: INSULIN ASPART (NovoLOG) 100 UNIT/ML VIAL SQ SCH ×2 (06:22→12:51)
[2022-06-29] MEDS: SODIUM CHLORIDE 0.9% 1,000 ML IV SCH (06:22)
[2022-06-29] MEDS: ASPIRIN 81 MG PO SCH (07:48)
[2022-06-29] MEDS: atenoloL 25 MG TAB PO SCH (07:48)
[2022-06-29] MEDS: CLOPIDOGREL 75 MG TAB PO SCH (07:48)
[2022-06-29 07:54] VITALS: BP 123/79; TEMP 97.7
--- NOTE | 2022-06-29 08:28 | P.PN ---
Subjective Progress Note Date: 06/29/22 Principal diagnosis: This is a 76-year-old male seen in consultation because of acute kidney injury from nausea vomiting diarrhea. HAS chronic kidney disease. His also known with atrial fibrillation coronary artery disease diabetes mellitus Currently he is feeling much better he wears chronically Braeden wraps on his lower legs because of the swelling. He is able to walk he is eating well is no nausea vomiting diarrhea. Vital signs are stable urine output is 3515, creatinine 1.49 on 06/28/2022 yesterday, improved, was 2.05 Objective - Vital Signs Vital signs: Vital Signs Temp 97.7 F 06/29/22 07:00 Pulse 93 06/29/22 07:00 Resp 16 06/29/22 07:00 BP 123/79 06/29/22 07:00 Pulse Ox 97 06/29/22 07:00 FiO2 98 06/27/22 11:55 Intake & Output 06/28/22 06/29/22 06/29/22 18:59 06:59 18:59 Intake Total 598 Output Total 1340 2175 400 Balance -582 -3784 -119 Intake: Oral 598 Output: Urine 1340 2175 400 Other: Voiding Method Urinal Urinal # Voids 225 Awake alert oriented comfortable on room air No JVP neck is supple no facial asymmetry Lungs clear to auscultation good air entry Heart sounds unremarkable Abdomen soft nontender Extreme exam was bilateral Braeden wraps on his legs below his knee. Neurologically awake alert oriented - Labs CBC & Chem 7: 06/28/22 08:51 06/28/22 08:51 Labs: Abnormal Lab Results - Last 24 Hours (Table) 06/28/22 06/28/22 06/28/22 Range/Units 08:51 08:51 08:51 Hgb 12.9 L (13.0-17.5) gm/dL PT 17.5 H (9.0-12.0) sec INR 1.8 H (<1.2) BUN (9-20) mg/dL Creatinine (0.66-1.25) mg/dL Glucose (74-99) mg/dL POC Glucose (mg/dL) (70-110) mg/dL Hemoglobin A1c 6.8 H (0.0-6.0) % 06/28/22 06/28/22 06/28/22 Range/Units 08:51 13:18 18:04 Hgb (13.0-17.5) gm/dL PT (9.0-12.0) sec INR (<1.2) BUN 29 H (9-20) mg/dL Creatinine 1.49 H (0.66-1.25) mg/dL Glucose 134 H (74-99) mg/dL POC Glucose (mg/dL) 186 H 179 H (70-110) mg/dL Hemoglobin A1c (0.0-6.0) % 06/28/22 Range/Units 22:10 Hgb (13.0-17.5) gm/dL PT (9.0-12.0) sec INR (<1.2) BUN (9-20) mg/dL Creatinine (0.66-1.25) mg/dL Glucose (74-99) mg/dL POC Glucose (mg/dL) 156 H (70-110) mg/dL Hemoglobin A1c (0.0-6.0) % Assessment and Plan Assessment: Impression 1. Acute kidney injury secondary to volume depletion from nausea vomiting diarrhea [id number]. Creatinine is back to 1.49 from a peak of 2.05. Baseline creatinine is 1.1-1.5 in January 2022 2. Chronic kidney disease stage III, nephrosclerosis with trace proteinuria possibly early diabetic nephropathy 3. Gastroenteritis resolved. Recommendation We will resume losartan 25 mg his home medication and see how he responds. Once stability of her renal function is confirmed, may resume Farxiga as well Patient can be discharged from a nephrological perspective
[2022-06-29 08:35] LABS: Basophils % (A) 0 %; Eosinophils # (A) 0.2 k/uL (0-0.7); Eosinophils % (A) 3 %; HCT 39.4 % (39.0-53.0); HGB 13.1 gm/dL (13.0-17.5); Lymphocytes # (A) 1.2 k/uL (1.0-4.8); Lymphocytes % (A) 20 %; MCH 27.7 pg (25.0-35.0); MCHC 33.3 g/dL (31.0-37.0); Mean Platelet Volume 7.7; Monocytes # (A) 0.5 k/uL (0-1.0); Monocytes % (A) 7 %; Neutrophils % (A) 66 %; Platelet Count 138 k/uL (150-450); RBC 4.74 m/uL (4.30-5.90); RDW 14.6 % (11.5-15.5); WBC 6.1 k/uL (3.8-10.6)
[2022-06-29 08:51] LABS: Potassium 3.8 mmol/L (3.5-5.1)
[2022-06-29 08:52] LABS: ALT 20 U/L (4-49); AST 25 U/L (17-59); African American GFR (CKD) 54 (>60 ml/min/1.73 sqM); Albumin 3.3 g/dL (3.5-5.0); Albumin/Globulin Ratio 1.3; Alkaline Phosphatase 67 U/L (38-126); Anion Gap 9 mmol/L; Blood Urea Nitrogen 21 mg/dL (9-20); Calcium 8.9 mg/dL (8.4-10.2); Carbon Dioxide 23 mmol/L (22-30); Chloride 106 mmol/L (98-107); Globulin 2.6 g/dL; Glucose 106 mg/dL (74-99); Non-African American GFR(CKD) 47 (>60 ml/min/1.73 sqM); Sodium 138 mmol/L (137-145); Total Bilirubin 0.7 mg/dL (0.2-1.3); Total Protein 5.9 g/dL (6.3-8.2)
[2022-06-29] MEDS ORDERED: LOSARTAN 25 MG TAB PO SCH (09:00)
[2022-06-29] MEDS: IPRATROPIUM-ALBUTEROL 3 ML NEB INHALATION SCH ×2 (09:02→12:28)
[2022-06-29 09:04] LABS: INR 1.6 (<1.2); Prothrombin Time 16.3 sec (9.0-12.0)
[2022-06-29 12:28] LABS: Glucose,Whole Blood 134 mg/dL (70-110)
[2022-06-29 12:41] VITALS: PULSE 100
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
[2022-06-29] MEDS ORDERED: WARFARIN 5 MG TAB PO ONE (18:00)
[2022-06-30] MEDS ORDERED: WARFARIN 2 MG TAB PO SCH (18:00)
== END 2022-06-29 15:16 | disposition home or self-care (01) ==
LOC: EC 17:39 → 6NMEDSUR 21:35
PROVIDERS: ADMIT Family Medicine; ATTEND Family Medicine
DX: N17.9 Acute kidney failure, unspecified (principal); I95.1 Orthostatic hypotension; E86.0 Dehydration; E86.9 Volume depletion, unspecified; K52.9 Noninfective gastroenteritis and colitis, unspecified; I48.19 Other persistent atrial fibrillation; I13.0 Hypertensive heart and chronic kidney disease with heart failure and stage 1 through stage 4 chronic kidney disease, or unspecified chronic kidney disease; I50.22 Chronic systolic (congestive) heart failure; N18.32 Chronic kidney disease, stage 3b; E11.22 Type 2 diabetes mellitus with diabetic chronic kidney disease; I49.5 Sick sinus syndrome; I25.10 Atherosclerotic heart disease of native coronary artery without angina pectoris; I89.0 Lymphedema, not elsewhere classified; E03.9 Hypothyroidism, unspecified; H35.30 Unspecified macular degeneration; K21.9 Gastro-esophageal reflux disease without esophagitis; N40.0 Benign prostatic hyperplasia without lower urinary tract symptoms; G47.33 Obstructive sleep apnea (adult) (pediatric); F41.9 Anxiety disorder, unspecified; F32.A Depression, unspecified; I25.2 Old myocardial infarction; H54.8 Legal blindness, as defined in USA; L03.116 Cellulitis of left lower limb; L03.115 Cellulitis of right lower limb; E78.5 Hyperlipidemia, unspecified; E66.01 Morbid (severe) obesity due to excess calories; Z68.39 Body mass index [BMI] 39.0-39.9, adult; Z20.822 Contact with and (suspected) exposure to COVID-19; Z79.01 Long term (current) use of anticoagulants; Z79.84 Long term (current) use of oral hypoglycemic drugs; Z79.890 Hormone replacement therapy; Z79.02 Long term (current) use of antithrombotics/antiplatelets; Z79.85 Long-term (current) use of injectable non-insulin antidiabetic drugs; Z79.82 Long term (current) use of aspirin; Z79.899 Other long term (current) drug therapy; Z88.5 Allergy status to narcotic agent; Z88.2 Allergy status to sulfonamides; Z88.8 Allergy status to other drugs, medicaments and biological substances; Z95.5 Presence of coronary angioplasty implant and graft; Z95.0 Presence of cardiac pacemaker; Z86.16 Personal history of COVID-19; Z86.718 Personal history of other venous thrombosis and embolism; Z86.14 Personal history of Methicillin resistant Staphylococcus aureus infection; Z90.49 Acquired absence of other specified parts of digestive tract; M19.90 Unspecified osteoarthritis, unspecified site; Z87.820 Personal history of traumatic brain injury; K44.9 Diaphragmatic hernia without obstruction or gangrene; Z96.653 Presence of artificial knee joint, bilateral; Z95.828 Presence of other vascular implants and grafts; Z98.42 Cataract extraction status, left eye; Z98.41 Cataract extraction status, right eye; Z87.81 Personal history of (healed) traumatic fracture
CPT/HCPCS: 96361; 96374; 99285; 36415; 94640 ×5; 93005; 80053 ×2; 80048; 82150; 83690; 83735; 84484; 85025 ×3; 85610 ×4; 83036; 87636; 71046; G0378 ×4; C9113

== ENCOUNTER 2022-07-22 15:51 | Emergency (ER) | payer MEDICARE ==
[2022-07-22] MEDS ORDERED: FAMOTIDINE 20 MG/2 ML VIAL IV STA (16:31)
[2022-07-22] MEDS ORDERED: SODIUM CHLORIDE 0.9% 1,000 ML IV STA (16:31)
[2022-07-22] MEDS ORDERED: SODIUM CHLORIDE 0.9% 500 ML 500 ML IV STA (16:31)
[2022-07-22] MEDS ORDERED: DICYCLOMINE 10 MG/ML 2 ML AMP IM STA (16:31)
[2022-07-22] MEDS ORDERED: ONDANSETRON 4 MG/2 ML VIAL IVP STA (16:31)
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
[2022-07-22 17:25] VITALS: BP 133/85
--- NOTE | 2022-07-22 17:44 | XR ---
EXAMINATION TYPE: XR chest 1V portable DATE OF EXAM: 07/22/2022 COMPARISON: 06/26/2022 INDICATION: Abdomen pain nausea TECHNIQUE: Single frontal view of the chest is obtained. FINDINGS: The heart size is normal. The pulmonary vasculature is normal. The lungs are clear. There is chronic elevation of the right diaphragm. Pacemaker overlies left chest. Sternotomy wires ar e in the midline. IMPRESSION: 1. No acute pulmonary process.
[2022-07-22 17:59] LABS: Basophils % (A) 0 %; Eosinophils % (A) 0 %; HCT 42.6 % (39.0-53.0); HGB 14.6 gm/dL (13.0-17.5); Lymphocytes # (A) 0.6 k/uL (1.0-4.8); Lymphocytes % (A) 10 %; MCHC 34.1 g/dL (31.0-37.0); MCV 82.2 fL (80.0-100.0); Mean Platelet Volume 8.1; Monocytes # (A) 0.7 k/uL (0-1.0); Monocytes % (A) 12 %; Neutrophils # (A) 4.5 k/uL (1.3-7.7); Neutrophils % (A) 74 %; Platelet Count 146 k/uL (150-450); RBC 5.19 m/uL (4.30-5.90); RDW 15.3 % (11.5-15.5)
[2022-07-22 18:00] LABS: Albumin 4.1 g/dL (3.5-5.0); Calcium 9.1 mg/dL (8.4-10.2); Potassium 3.8 mmol/L (3.5-5.1); Total Bilirubin 1.4 mg/dL (0.2-1.3); Total Protein 7.1 g/dL (6.3-8.2)
[2022-07-22 18:02] LABS: INR 1.7 (<1.2); Partial Thromboplastin Time 31.1 sec (22.0-30.0); Prothrombin Time 16.4 sec (9.0-12.0)
--- NOTE | 2022-07-22 18:05 | CT ---
EXAMINATION TYPE: CT brain wo con DATE OF EXAM: 07/22/2022 COMPARISON: 09/14/2021 INDICATION: syncope DLP: 1182.6 mGycm, Automated exposure control for dose reduction was used. CONTRAST: None CT of the brain is performed utilizing 3 mm thick sections through the posterior fossa and 3 mm thick sections through the remaining calvarium. Study is performed within 24 hours of arrival to the hosp [place]. No abnormal hyperdensity is present to suggest an acute intracranial hemorrhage. There is a stable appearing nodule within the superior posterior left lateral ventricle. No acute infarcts are evident. Mild periventricular white matter hypodensity may be present, likely o n the basis of chronic white matter ischemic changes. Ventricles and sulci are appropriate for the patient age. Paranasal sinuses and mastoid air cells within the [id number] are clear. IMPRESSIONS: 1. Mild chronic appearing periventricular white matter ischemic changes. 2. Stable appearing left ventricular nodule.
[2022-07-22 19:39] VITALS: PULSE 97; RESP 14; TEMP 97.5
== END 2022-07-22 19:37 | disposition home or self-care (01) ==
LOC: EC 15:51 → SUPCPDRO 15:51 → EC 19:37
DX: R11.10 Vomiting, unspecified (principal); R19.7 Diarrhea, unspecified; R55 Syncope and collapse; I10 Essential (primary) hypertension; I25.10 Atherosclerotic heart disease of native coronary artery without angina pectoris; I25.2 Old myocardial infarction; I48.19 Other persistent atrial fibrillation; K21.9 Gastro-esophageal reflux disease without esophagitis; M19.90 Unspecified osteoarthritis, unspecified site; F41.9 Anxiety disorder, unspecified; F32.A Depression, unspecified; G47.30 Sleep apnea, unspecified; E78.5 Hyperlipidemia, unspecified; Z79.84 Long term (current) use of oral hypoglycemic drugs; Z79.899 Other long term (current) drug therapy; Z88.1 Allergy status to other antibiotic agents; Z88.2 Allergy status to sulfonamides; Z88.5 Allergy status to narcotic agent; Z88.8 Allergy status to other drugs, medicaments and biological substances
CPT/HCPCS: 36415; 93005; 80053; 82150; 83690; 84484; 85025; 85610; 85730; 71045; 70450; 99284; 96372; 96374; 96375; 96361; J0500; J2405

== ENCOUNTER 2022-07-23 11:26 | Inpatient (IN) | payer MEDICARE ==
[2022-07-23] MEDS ORDERED: SODIUM CHLORIDE 0.9% 1,000 ML IV STA (12:54)
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
[2022-07-23 13:00] LABS: HCT 42.3 % (39.0-53.0); HGB 14.3 gm/dL (13.0-17.5); MCH 27.6 pg (25.0-35.0); MCHC 33.8 g/dL (31.0-37.0); MCV 81.8 fL (80.0-100.0); Mean Platelet Volume 8.1; Platelet Count 125 k/uL (150-450); RBC 5.17 m/uL (4.30-5.90); RDW 15.3 % (11.5-15.5)
[2022-07-23 13:01] LABS: Albumin 3.8 g/dL (3.5-5.0); Calcium 8.6 mg/dL (8.4-10.2); Potassium 3.3 mmol/L (3.5-5.1); Total Bilirubin 1.2 mg/dL (0.2-1.3); Total Protein 6.6 g/dL (6.3-8.2)
[2022-07-23] MEDS ORDERED: POTASSIUM CHLORIDE ER 20 MEQ TAB.ER PO STA (13:02)
[2022-07-23 13:03] LABS: Appearance,Urine Clear (Clear); Bilirubin,Urine Negative (Negative); Blood,Urine Negative (Negative); Color,Urine Yellow; Glucose,Urine (UA) 4+ (Negative); Ketones,Urine Negative (Negative); Leukocyte Esterase,Urine Negative (Negative); Nitrite,Urine Negative (Negative); PH, Urine 5.5 (5.0-8.0); Protein,Urine Negative (Negative); Specific Gravity,Urine 1.013 (1.001-1.035); Urobilinogen,Urine <2.0 mg/dL (<2.0)
[2022-07-23 13:09] LABS: INR 1.6 (<1.2); Prothrombin Time 15.6 sec (9.0-12.0)
[2022-07-23] MEDS ORDERED: HEPARIN SODIUM 1,000 UN/ML (10ML VL) IV PRN (13:34)
[2022-07-23] MEDS ORDERED: HEPARIN SODIUM 1,000 UN/ML (10ML VL) IV ONE (13:34)
[2022-07-23] MEDS: HEPARIN SOD,PORK IN 0.45% NACL 25,000 UNIT in 0.45% NACL 1 250ML.BAG IV SCH ×2 (13:56→21:02)
[2022-07-23] MEDS ORDERED: ONDANSETRON 4 MG/2 ML VIAL IVP PRN (14:04)
[2022-07-23] MEDS ORDERED: NALOXONE 0.4 MG/ML 1 ML VIAL IV PRN (14:04)
[2022-07-23] MEDS ORDERED: DEXTROSE 50% SYRINGE 50 ML IVP PRN (14:06)
[2022-07-23 14:21] LABS: Eosinophils # (M) 0.05 k/uL (0-0.7); Lymphocytes # (M) 0.95 k/uL (1.0-4.8); Monocytes # (M) 0.85 k/uL (0-1.0); Neutrophils # (M) 3.15 k/uL (1.3-7.7); Neutrophils % (M) 63 %; Nucleated Red Blood Cells 0 /100 WBC (0-0); Total Cells Counted 100
[2022-07-23 14:27] LABS: RBC Morphology Normal
--- NOTE | 2022-07-23 14:46 | XR ---
EXAMINATION TYPE: XR chest 1V portable DATE OF EXAM: 07/23/2022 2:40 PM COMPARISON: Chest radiographs from 07/23/2019 TECHNIQUE: XR chest 1V portable Frontal view of the chest. CLINICAL INDICATION:Male, 76 years old with history of NSTEMI; FINDINGS: Lungs/Pleura: Low lung volumes are present. There is no evidence of pleural effusion, focal consolida tion, or pneumothorax. Pulmonary vascularity: Unremarkable. Heart/mediastinum: Cardiomediastinal silhouette is enlarged and stable. Atherosclerosis of the aorta. Conduction device with one lead in appropriate position. Musculoskeletal: No acute osseous pathology. There is lower spine fixation hardware is present. IMPRESSION: No acute cardiopulmonary disease/process.
[2022-07-23 15:30] LABS: Glucose,Whole Blood 55 mg/dL (70-110)
[2022-07-23 15:52] LABS: Glucose,Whole Blood 69 mg/dL (70-110)
[2022-07-23] MEDS: DEXTROSE 50% SYRINGE 50 ML IVP PRN ×2 (15:57→22:39)
[2022-07-23] MEDS: SODIUM CHLORIDE 0.9% 1,000 ML IV SCH (16:29)
[2022-07-23 17:19] LABS: HCT 39.5 % (39.0-53.0); HGB 12.8 gm/dL (13.0-17.5); MCH 27.2 pg (25.0-35.0); MCHC 32.4 g/dL (31.0-37.0); MCV 84.1 fL (80.0-100.0); Mean Platelet Volume 8.2; Platelet Count 138 k/uL (150-450); RDW 15.5 % (11.5-15.5); WBC 4.7 k/uL (3.8-10.6)
[2022-07-23 18:49] LABS: Lymphocytes # (M) 1.27 k/uL (1.0-4.8); Monocytes # (M) 0.61 k/uL (0-1.0); Neutrophils # (M) 2.82 k/uL (1.3-7.7); Neutrophils % (M) 60 %; Nucleated Red Blood Cells 0 /100 WBC (0-0); Total Cells Counted 100
[2022-07-23 18:50] LABS: Ovalocytes Present; Tear Drop Cells Present
[2022-07-23 22:34] LABS: Glucose,Whole Blood 69 mg/dL (70-110)
[2022-07-23 23:01] LABS: Glucose,Whole Blood 135 mg/dL (70-110)
[2022-07-24 01:56] LABS: Glucose,Whole Blood 66 mg/dL (70-110)
[2022-07-24] MEDS: DEXTROSE 50% SYRINGE 50 ML IVP PRN (02:00)
[2022-07-24 02:14] LABS: Glucose,Whole Blood 133 mg/dL (70-110)
[2022-07-24] MEDS: SODIUM CHLORIDE 0.9% 1,000 ML IV SCH ×3 (03:35→19:57)
[2022-07-24 05:52] LABS: Glucose,Whole Blood 77 mg/dL (70-110)
[2022-07-24] MEDS: PANTOPRAZOLE 40 MG TABLET PO SCH (07:02)
[2022-07-24] MEDS: LEVOTHYROXINE 75 MCG TAB PO SCH (07:02)
[2022-07-24] MEDS ORDERED: PANTOPRAZOLE SODIUM 40 MG GRANULE PKT PO SCH (07:30)
[2022-07-24 07:42] LABS: Basophils % (A) 1 %; Eosinophils # (A) 0.1 k/uL (0-0.7); Eosinophils % (A) 2 %; HCT 41.5 % (39.0-53.0); HGB 13.5 gm/dL (13.0-17.5); Lymphocytes # (A) 0.8 k/uL (1.0-4.8); Lymphocytes % (A) 22 %; MCH 27.8 pg (25.0-35.0); MCHC 32.6 g/dL (31.0-37.0); MCV 85.3 fL (80.0-100.0); Mean Platelet Volume 8.4; Monocytes # (A) 0.5 k/uL (0-1.0); Monocytes % (A) 12 %; Neutrophils # (A) 2.2 k/uL (1.3-7.7); Neutrophils % (A) 59 %; Platelet Count 126 k/uL (150-450); RBC 4.87 m/uL (4.30-5.90); RDW 15.2 % (11.5-15.5); WBC 3.7 k/uL (3.8-10.6)
[2022-07-24 08:12] LABS: INR 1.6 (<1.2); Prothrombin Time 16.2 sec (9.0-12.0)
[2022-07-24] MEDS ORDERED: FUROSEMIDE 20 MG TAB PO SCH (09:00)
[2022-07-24] MEDS: RANOLAZINE 500 MG TAB.ER.12H PO SCH ×2 (09:42→19:53)
[2022-07-24] MEDS: ISOSORBIDE MONONITRATE ER 30 MG TAB.ER.24H PO SCH (09:42)
[2022-07-24] MEDS: METOPROLOL SUCCINATE (ER) 50 MG TAB.ER.24H PO SCH (09:42)
[2022-07-24 10:08] LABS: Calcium 8.2 mg/dL (8.4-10.2); Potassium 3.6 mmol/L (3.5-5.1)
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
[2022-07-24 11:42] LABS: Glucose,Whole Blood 92 mg/dL (70-110)
[2022-07-24] MEDS: LACTOBACILLUS ACIDOPH & BULGAR 1 EACH PACKET PO SCH (11:51)
[2022-07-24] MEDS ORDERED: POTASSIUM CHLORIDE ER 20 MEQ TAB.ER PO SCH (12:00)
[2022-07-24 16:51] LABS: Glucose,Whole Blood 141 mg/dL (70-110)
[2022-07-24 18:06] LABS: Glucose,Whole Blood 127 mg/dL (70-110)
[2022-07-24] MEDS: LOSARTAN 25 MG TAB PO SCH (19:53)
[2022-07-24] MEDS: lamoTRIgine 25 MG TAB PO SCH (19:53)
[2022-07-24] MEDS ORDERED: ATORVASTATIN 40 MG TAB PO SCH (21:00)
[2022-07-24] MEDS: HEPARIN SOD,PORK IN 0.45% NACL 25,000 UNIT in 0.45% NACL 1 250ML.BAG IV SCH (21:49)
[2022-07-25 00:03] LABS: Glucose,Whole Blood 172 mg/dL (70-110)
[2022-07-25 06:11] LABS: Glucose,Whole Blood 101 mg/dL (70-110)
[2022-07-25] MEDS: PANTOPRAZOLE 40 MG TABLET PO SCH (06:27)
[2022-07-25] MEDS: LEVOTHYROXINE 75 MCG TAB PO SCH (06:27)
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
[2022-07-25] MEDS: METOPROLOL SUCCINATE (ER) 50 MG TAB.ER.24H PO SCH (08:34)
[2022-07-25] MEDS: ISOSORBIDE MONONITRATE ER 30 MG TAB.ER.24H PO SCH (08:34)
[2022-07-25] MEDS: RANOLAZINE 500 MG TAB.ER.12H PO SCH ×2 (08:34→20:24)
[2022-07-25] MEDS: ASPIRIN 81 MG PO SCH (08:37)
[2022-07-25 11:28] LABS: Glucose,Whole Blood 145 mg/dL (70-110)
--- NOTE | 2022-07-25 11:43 | CA ---
Transthoracic Echo Report Name: Alexsander Linares Age: 76 Gender: M : 1945 Exam Date: 07/25/2022 09:21 Exam Location: [facility] Ht (in): 61 Wt (lb): 210 Ordering Physician: Cassandra Wu Attending/Referring Phys: [id number], Jazmin [employer] Supervisor Denia Hatch RDCS Procedure CPT: Indications: LVF Cardiac Hx: 9 stents, pacemaker Technical Quality: Fair Contrast 1: Total Dose (mL): Contrast 2: Total Dose (mL): MEASUREMENTS (Male / Female) Normal Values 2D ECHO LV Diastolic Diameter PLAX 5.0 cm 4.2 - 5.9 / 3.9 - 5.3 cm LV Systolic Diameter PLAX 4.2 cm IVS Diastolic Thickness 1.2 cm 0.6 - 1.0 / 0.6 - 0.9 cm LVPW Diastolic Thickness 1.2 cm 0.6 - 1.0 / 0.6 - 0.9 cm LV Relative Wall Thickness 0.5 RV Internal Dim ED PLAX 3.4 cm LA Systolic Diameter LX 4.4 cm 3.0 - 4.0 / 2.7 - 3.8 cm LV Diastolic Volume MOD 4C 73.7 cm??? LV Systolic Volume MOD 4C 36.6 cm??? LV Ejection Fraction MOD 4C 50.3 % LV Diastolic Length 4C 7.9 cm LV Systolic Length 4C 7.0 cm LV Diastolic Volume MOD 2C 62.1 cm??? LV Systolic Volume MOD 2C 37.3 cm??? LV Ejection Fraction MOD 2C 39.8 % LV Diastolic Length 2C 7.5 cm LV Systolic Length 2C 6.4 cm LA Volume 61.8 cm??? 18 - 58 / 22 - 52 cm??? M-MODE Aortic Root Diameter MM 3.4 cm MV E Point Septal Separation 1.1 cm AV Cusp Separation MM 1.8 cm DOPPLER AV Peak Velocity 135.0 cm/s AV Peak Gradient 7.3 mmHg MV Area PHT 3.7 cm??? MV Deceleration Time 167.1 ms TR Peak Velocity 263.7 cm/s TR Peak Gradient 27.8 mmHg Right Ventricular Systolic Press 32.7 mmHg FINDINGS Left Ventricle Left ventricular ejection fraction is estimated at 40-45 %. Left ventricular cavity size normal. Mildly increased septal wall thickness. Right Ventricle Mild right ventricular dilatation. Right ventricular systolic pressure within normal limits. Right Atrium Normal right atrial size. Left Atrium Mildly increased left atrial diameter. Mildly increased left atrial volume. Mildly increased left atrial area. Mitral Valve Structurally normal mitral valve. No evidence for mitral valve prolapse. No mitral stenosis. [id number]-[id number] mitral regurgitation. Aortic Valve Trileaflet aortic valve. Aortic valve sclerosis. Tricuspid Valve Structurally normal tricuspid valve. Mild tricuspid regurgitation. Pulmonic Valve Structurally normal pulmonic valve. No pulmonic regurgitation. Pericardium No pericardial effusion. Normal pericardium. Aorta Normal size aortic root and proximal ascending aorta. CONCLUSIONS Mildly reduced LV systolic function Inferior wall hypokinesis Previewed by: Dr. Nakul Fisher MD (Electronically Signed) Final Date: 25 Jul 2022 11:42
[2022-07-25] MEDS: LACTOBACILLUS ACIDOPH & BULGAR 1 EACH PACKET PO SCH (11:56)
--- NOTE | 2022-07-25 13:58 | P.PN ---
Subjective Progress Note Date: 07/25/22 History of Present Illness: The patient is a 76-year-old male patient of Dr. Grigsby with a known history of CAD, chronic persistent atrial fibrillation, permanent pacemaker implantation, coronary artery disease with known chronic total occlusion of the right coronary artery and stenting of the left circumflex and intermediate disease involving the LAD, dyslipidemia, valvular heart disease. Most recently, patient underwent stenting of the distal LCx on 04/28. We have been asked to evaluate the patient for chest pain. Patient states that he has had ongoing problems with nausea vomiting and diarrhea since he had Covid in November 2021. He was recently hospitalized in May for acute kidney injury, orthostatic hypotension and dehydration secondary to nausea vomiting and diarrhea. Patient presented to the emergency center on 07/22 after syncopal episode and nausea vomiting diarrhea and lightheadedness. He was discharged home after a liter of IV fluid. Patient states that he continued to have nausea vomiting diarrhea and also lightheadedness and dizziness return to the emergency center yesterday and was subsequently admitted to the cardiac stepdown unit. He denies having any chest pain. He states that Dr. Grigsby has taken him off Lasix recently. His PCP also took him off metformin and made diabetic medication adjustments due to the kidney injury. Patient has been started on a heparin drip. EKG: Atrial fibrillation with controlled ventricular rate Chest x-ray: No acute findings Troponin 0.846, 0.816, 0.645. BUN 33 and creatinine 2.01. INR 1.6. Home cardiac medications include aspirin 81 mg daily, atenolol/chlorthalidone 5025 milligrams 3 times daily, Lipitor 40 mg at bedtime, Plavix 75 mg at bedtime, Farxiga milligrams daily, Cardizem CD 240 mild grams daily, Imdur 30 mg daily, losartan 25 mg at bedtime, Nitrostat as needed, Ranexa 500 mg twice daily, Coumadin 4 mg at bedtime,Ozempic and thyroxine 75 g daily 100 mg 2 times daily, Cardizem 240 mg daily, Imdur 30 mg daily, Lipitor 40 mg daily, losartan 25 mg daily, nitro sublingual as needed, warfarin dosing is managed by Dr. Floyd. Pacemaker interrogation 07/07/2022 functioning normally with multiple episodes of tachycardia appeared to be atrial fibrillation with RVR. Echocardiogram 10/2021: Normal EF, mild AR, mild to moderate MR PCI of the left circumflex 04/28/202207/25 Patient is seen today in follow-up. He is on heparin drip which will transition to Coumadin. Echocardiogram revealed EF of 40-45%, inferior wall hypokinesis Physical examination: Gen: This is a 76-year-old male. He is resting but appears to be comfortable and in no acute distress VS: reviewed HEENT: Head is atraumatic, normocephalic. Pupils equal, round. Sclerae is anicteric. NECK: Supple. No JVD. . LUNGS: Clear to auscultation. No wheezes or rhonchi. No intercostal retractions. HEART: Regular rate and rhythm. Systolic ejection murmur. ABDOMEN: Soft No tenderness. EXTREMITIES: No pedal edema. No calf tenderness. NEUROLOGICAL: Patient is awake, alert and oriented x3. Assessment: Syncopal episode on Thursday most likely due to dehydration Ongoing intermittent nausea vomiting diarrhea Elevated troponins without chest pain, possible non-ST elevated [place] History of coronary artery disease without evidence of acute coronary syndrome Chronic kidney disease stage IIIB Chronic persistent atrial fibrillation on Coumadin Hypertension Hyperlipidemia Diabetes Status post pacemaker Plan: Resume patient's home cardiac medications except for Lasix which has been discontinued by Dr. Grigsby in the outpatient setting Discontinue heparin drip Patient is cleared for discharge and may follow up with Dr. Grigsby in the office in one week. Nurse practitioner note has been reviewed, I agree with documented findings and plan of care. Patient was seen and examined. Objective - Vital Signs Vital signs: Vital Signs Temp 97.7 F 07/25/22 04:00 Pulse 84 07/25/22 04:00 Resp 18 07/25/22 04:00 BP 106/63 07/25/22 04:00 Pulse Ox 99 07/24/22 11:50 FiO2 Intake & Output 07/24/22 07/25/22 07/25/22 18:59 06:59 18:59 Intake Total 708 135.089 Output Total 875 200 Balance -167 -64.911 Intake: Intake, IV Titration 135.089 Amount Heparin Sod,Pork in 0.45% 135.089 NaCl 25,000 unit In 0.45 % NaCl 1 250ml.bag @ 10. 498 UNITS/KG/HR 10 mls/hr IV .Q24H [facility] Rx#: [id number] Oral 708 Output: Urine 875 200 Other: Voiding Method Urinal Urinal - Labs CBC & Chem 7: 07/24/22 07:22 07/24/22 07:22 Labs: Abnormal Lab Results - Last 24 Hours (Table) 07/24/22 07/24/22 07/24/22 Range/Units 07:22 07:22 07:22 WBC 3.7 L (3.8-10.6) k/uL Plt Count 126 L (150-450) k/uL Lymphocytes # 0.8 L (1.0-4.8) k/uL PT 16.2 H (9.0-12.0) sec INR 1.6 H (<1.2) APTT (22.0-30.0) sec Sodium (137-145) mmol/L BUN (9-20) mg/dL Creatinine (0.66-1.25) mg/dL POC Glucose (mg/dL) (70-110) mg/dL Hemoglobin A1c 6.4 H (0.0-6.0) % Calcium (8.4-10.2) mg/dL 07/24/22 07/24/22 07/24/22 Range/Units 07:22 07:22 16:47 WBC (3.8-10.6) k/uL Plt Count (150-450) k/uL Lymphocytes # (1.0-4.8) k/uL PT (9.0-12.0) sec INR (<1.2) APTT 65.7 H (22.0-30.0) sec Sodium 136 L (137-145) mmol/L BUN 26 H (9-20) mg/dL Creatinine 1.66 H (0.66-1.25) mg/dL POC Glucose (mg/dL) 141 H (70-110) mg/dL Hemoglobin A1c (0.0-6.0) % Calcium 8.2 L (8.4-10.2) mg/dL 07/24/22 07/25/22 Range/Units 18:04 00:02 WBC (3.8-10.6) k/uL Plt Count (150-450) k/uL Lymphocytes # (1.0-4.8) k/uL PT (9.0-12.0) sec INR (<1.2) APTT (22.0-30.0) sec Sodium (137-145) mmol/L BUN (9-20) mg/dL Creatinine (0.66-1.25) mg/dL POC Glucose (mg/dL) 127 H 172 H (70-110) mg/dL Hemoglobin A1c (0.0-6.0) % Calcium (8.4-10.2) mg/dL
[2022-07-25] MEDS ORDERED: WARFARIN 5 MG TAB PO SCH (18:00)
[2022-07-25 18:05] LABS: Glucose,Whole Blood 126 mg/dL (70-110)
[2022-07-25] MEDS: LOSARTAN 25 MG TAB PO SCH (20:24)
[2022-07-25] MEDS: lamoTRIgine 25 MG TAB PO SCH (20:24)
[2022-07-25] MEDS: CLOPIDOGREL 75 MG TAB PO SCH (20:24)
[2022-07-25] MEDS: ATORVASTATIN 40 MG TAB PO SCH (20:24)
[2022-07-25] MEDS: SODIUM CHLORIDE 0.9% 1,000 ML IV SCH (20:24)
--- NOTE | 2022-07-25 23:01 | P.PN ---
Subjective Progress Note Date: 07/25/22 He feels his diarrhea is improved with the probiotic. He denies dizziness today Objective - Vital Signs Vital signs: Vital Signs Temp 98.1 F 07/25/22 20:00 Pulse 84 07/25/22 20:00 Resp 16 07/25/22 20:00 BP 124/71 07/25/22 20:00 Pulse Ox 97 07/25/22 20:00 FiO2 Intake & Output 07/25/22 07/25/22 07/26/22 06:59 18:59 06:59 Intake Total 135.089 360 540 Output Total 200 600 Balance -64.911 -240 540 Intake: Intake, IV Titration 135.089 Amount Heparin Sod,Pork in 0.45% 135.089 NaCl 25,000 unit In 0.45 % NaCl 1 250ml.bag @ 10. 498 UNITS/KG/HR 10 mls/hr IV .Q24H [facility] Rx#: [id number] Oral 360 540 Output: Urine 200 600 Other: Voiding Method Urinal Urinal Urinal # Bowel Movements 1 - Exam Gen: elderly male in NAD CV: Irregular Lungs: clear throughout - Labs CBC & Chem 7: 07/24/22 07:22 07/24/22 07:22 Labs: Abnormal Lab Results - Last 24 Hours (Table) 07/25/22 07/25/22 07/25/22 Range/Units 00:02 08:22 11:27 APTT 55.9 H (22.0-30.0) sec POC Glucose (mg/dL) 172 H 145 H (70-110) mg/dL 07/25/22 Range/Units 18:04 APTT (22.0-30.0) sec POC Glucose (mg/dL) 126 H (70-110) mg/dL Assessment and Plan Plan: Continue with probiotic. Switch heparin back to coumadin. Discontinue lasix. Discharge planning
[2022-07-25 23:33] LABS: Glucose,Whole Blood 139 mg/dL (70-110)
[2022-07-26 06:16] LABS: Glucose,Whole Blood 99 mg/dL (70-110)
[2022-07-26] MEDS: PANTOPRAZOLE 40 MG TABLET PO SCH (06:20)
[2022-07-26] MEDS: LEVOTHYROXINE 75 MCG TAB PO SCH (06:20)
[2022-07-26 08:35] LABS: INR 1.3 (<1.2); Prothrombin Time 13.3 sec (9.0-12.0)
[2022-07-26] MEDS: LACTOBACILLUS ACIDOPH & BULGAR 1 EACH PACKET PO SCH (08:51)
[2022-07-26] MEDS: RANOLAZINE 500 MG TAB.ER.12H PO SCH ×2 (09:03→20:20)
[2022-07-26] MEDS: ISOSORBIDE MONONITRATE ER 30 MG TAB.ER.24H PO SCH (09:04)
[2022-07-26] MEDS: METOPROLOL SUCCINATE (ER) 50 MG TAB.ER.24H PO SCH (09:04)
[2022-07-26] MEDS: ASPIRIN 81 MG PO SCH (09:04)
[2022-07-26 11:47] LABS: Glucose,Whole Blood 181 mg/dL (70-110)
--- NOTE | 2022-07-26 16:55 | P.PN ---
Subjective Progress Note Date: 07/26/22 76-year-old male with PMH persistent atrial fibrillation, permanent pacemaker implantation, coronary artery disease with known chronic total occlusion of the right coronary artery and stenting of the left circumflex and intermediate disease involving the LAD, dyslipidemia, valvular heart disease who presented to the ED with chest pain. He was recently hospitalized in May for acute kidney injury, orthostatic hypotension and dehydration secondary to nausea vomiting and diarrhea. Patient presented to the emergency center on 07/22 after syncopal episode and nausea vomiting diarrhea and lightheadedness. He was discharged home after a liter of IV fluid. Patient states that he continued to have nausea vomiting diarrhea and also lightheadedness and dizziness return to the emergency center yesterday and was subsequently admitted to the cardiac stepdown unit. He denies having any chest pain. He states that Dr. Grigsby has taken him off Lasix recently. His PCP also took him off metformin and made diabetic medication adjustments due to the kidney injury. Patient has been started on a heparin dri p. Objective - Vital Signs Vital signs: Vital Signs Temp 97.9 F 07/26/22 08:00 Pulse 100 07/26/22 08:00 Resp 18 07/26/22 08:00 BP 104/74 07/26/22 08:00 Pulse Ox 98 07/26/22 08:00 FiO2 Intake & Output 07/25/22 07/26/22 07/26/22 18:59 06:59 18:59 Intake Total 360 540 150 Output Total 600 1700 Balance -240 -1160 150 Intake: Oral 360 540 150 Output: Urine 600 1700 Other: Voiding Method Urinal Urinal # Bowel Movements 1 - Exam PHYSICAL EXAMINATION: GENERAL: The patient is alert and oriented x3, not in any acute distress. Well developed, well nourished. HEENT: Pupils are round and equally reacting to light. EOMI. No scleral icterus. No conjunctival pallor. Normocephalic, atraumatic. No pharyngeal erythema. No thyromegaly. CARDIOVASCULAR: S1 and S2 present. No murmurs, rubs, or gallops. PULMONARY: Chest is clear to auscultation, no wheezing or crackles. ABDOMEN: Soft, nontender, nondistended, normoactive bowel sounds. No palpable organomegaly. MUSCULOSKELETAL: No joint swelling or deformity. EXTREMITIES: No cyanosis, clubbing, or pedal edema. NEUROLOGICAL: Gross neurological examination did not reveal any focal deficits. SKIN: No rashes. - Labs CBC & Chem 7: 07/24/22 07:22 07/24/22 07:22 Labs: Abnormal Lab Results - Last 24 Hours (Table) 07/25/22 07/25/22 07/25/22 Range/Units 11:27 18:04 23:32 PT (9.0-12.0) sec INR (<1.2) POC Glucose (mg/dL) 145 H 126 H 139 H (70-110) mg/dL 07/26/22 Range/Units 07:13 PT 13.3 H (9.0-12.0) sec INR 1.3 H (<1.2) POC Glucose (mg/dL) (70-110) mg/dL Assessment and Plan Assessment: Syncopal episode on Thursday most likely due to dehydration Ongoing intermittent nausea vomiting diarrhea Elevated troponins without chest pain, possible non-ST elevated [place] History of coronary artery disease without evidence of acute coronary syndrome Chronic kidney disease stage IIIB Chronic persistent atrial fibrillation on Coumadin Hypertension Hyperlipidemia Diabetes Status post pacemaker Plan: Resume patient's home cardiac medications except for Lasix which has been discontinued by Dr. Grigsby in the outpatient setting Patient remains on IV heparin infusion, bridged to Coumadin; pharmacy service on board for dosing Coumadin Patient is cleared for discharge and may follow up with Dr. Grigsby in the office in one week.
[2022-07-26 16:56] LABS: Glucose,Whole Blood 124 mg/dL (70-110)
[2022-07-26] MEDS ORDERED: WARFARIN 5 MG TAB PO ONE (18:00)
[2022-07-26] MEDS: LOSARTAN 25 MG TAB PO SCH (20:20)
[2022-07-26] MEDS: lamoTRIgine 25 MG TAB PO SCH (20:20)
[2022-07-26] MEDS: SODIUM CHLORIDE 0.9% 1,000 ML IV SCH ×2 (20:20→23:37)
[2022-07-26] MEDS: ATORVASTATIN 40 MG TAB PO SCH (20:20)
[2022-07-26] MEDS: CLOPIDOGREL 75 MG TAB PO SCH (20:20)
[2022-07-27 00:02] LABS: Glucose,Whole Blood 149 mg/dL (70-110)
[2022-07-27 06:00] LABS: Glucose,Whole Blood 122 mg/dL (70-110)
[2022-07-27] MEDS: PANTOPRAZOLE 40 MG TABLET PO SCH (06:25)
[2022-07-27] MEDS: LEVOTHYROXINE 75 MCG TAB PO SCH (06:25)
[2022-07-27 08:12] LABS: Basophils % (A) 1 %; Eosinophils # (A) 0.1 k/uL (0-0.7); Eosinophils % (A) 2 %; HCT 41.8 % (39.0-53.0); HGB 13.8 gm/dL (13.0-17.5); Lymphocytes # (A) 1.4 k/uL (1.0-4.8); Lymphocytes % (A) 31 %; MCH 28.2 pg (25.0-35.0); MCV 85.4 fL (80.0-100.0); Mean Platelet Volume 8.1; Monocytes # (A) 0.4 k/uL (0-1.0); Monocytes % (A) 8 %; Neutrophils # (A) 2.4 k/uL (1.3-7.7); Neutrophils % (A) 55 %; Platelet Count 115 k/uL (150-450); RDW 15.7 % (11.5-15.5); WBC 4.4 k/uL (3.8-10.6)
[2022-07-27 08:25] LABS: INR 1.3 (<1.2); Prothrombin Time 13.4 sec (9.0-12.0)
[2022-07-27 08:26] LABS: Calcium 8.9 mg/dL (8.4-10.2); Potassium 4.2 mmol/L (3.5-5.1)
[2022-07-27] MEDS: ASPIRIN 81 MG PO SCH (09:07)
[2022-07-27] MEDS: RANOLAZINE 500 MG TAB.ER.12H PO SCH ×2 (09:07→20:33)
[2022-07-27] MEDS: ISOSORBIDE MONONITRATE ER 30 MG TAB.ER.24H PO SCH (09:07)
[2022-07-27] MEDS: METOPROLOL SUCCINATE (ER) 50 MG TAB.ER.24H PO SCH (09:07)
[2022-07-27] MEDS: LACTOBACILLUS ACIDOPH & BULGAR 1 EACH PACKET PO SCH (09:07)
[2022-07-27 11:57] LABS: Glucose,Whole Blood 131 mg/dL (70-110)
--- NOTE | 2022-07-27 13:36 | XR ---
EXAMINATION TYPE: XR chest 1V DATE OF EXAM: 07/27/2022 1:18 PM COMPARISON: 07/23/2022 TECHNIQUE: XR chest 1V Frontal view of the chest. CLINICAL INDICATION:Male, 76 years old with history of cough; FINDINGS: Lungs/Pleura: Prominent interstitial lung markings are seen scattered throughout the lungs. No eviden ce of focal consolidation, pneumothorax or pleural effusion. Pulmonary vascularity: Unremarkable. Heart/mediastinum: Cardiomediastinal silhouette is unremarkable. Atherosclerotic calcifications are seen in the aorta. Single-lead cardiac conduction device overlying the left hemithorax with lead proj ecting over the right ventricle. Musculoskeletal: No acute osseous pathology. IMPRESSION: No acute cardiopulmonary disease/process. No significant change from prior.
[2022-07-27] MEDS: SODIUM CHLORIDE 0.9% 1,000 ML IV SCH (15:34)
--- NOTE | 2022-07-27 16:33 | P.PN ---
Subjective Progress Note Date: 07/27/22 76-year-old male with PMH persistent atrial fibrillation, permanent pacemaker implantation, coronary artery disease with known chronic total occlusion of the right coronary artery and stenting of the left circumflex and intermediate disease involving the LAD, dyslipidemia, valvular heart disease who presented to the ED with chest pain. He was recently hospitalized in May for acute kidney injury, orthostatic hypotension and dehydration secondary to nausea vomiting and diarrhea. Patient presented to the emergency center on 07/22 after syncopal episode and nausea vomiting diarrhea and lightheadedness. He was discharged home after a liter of IV fluid. Patient states that he continued to have nausea vomiting diarrhea and also lightheadedness and dizziness return to the emergency center yesterday and was subsequently admitted to the cardiac stepdown unit. He denies having any chest pain. He states that Dr. Grigsby has taken him off Lasix recently. His PCP also took him off metformin and made diabetic medication adjustments due to the kidney injury. Patient has been started on a heparin dri p. 24 hour interval change 07/27/2022 ---patient is seen and evaluated in room at bedside; no specific complaints reported Vital signs are reviewed, temperature of 97.4, pulse 91, respiration 18 and blood pressure 118/74, O2 saturation 98% on room air Blood work reveals WBC of 4.4, hemoglobin of 13.8 and platelet count of 1:15, INR 1.3, sodium 136, potassium 4.2, BUN/creatinine of 16/1.3 to Patient remains on IV heparin bridge to Coumadin Objective - Vital Signs Vital signs: Vital Signs Temp 97.4 F L 07/27/22 08:00 Pulse 69 07/27/22 11:49 Resp 18 07/27/22 11:49 BP 142/90 07/27/22 11:49 Pulse Ox 98 07/27/22 11:49 FiO2 Intake & Output 07/26/22 07/27/22 07/27/22 18:59 06:59 18:59 Intake Total 386 1080 350 Output Total 900 2175 Balance -514 -1095 350 Intake: Oral 386 1080 350 Output: Urine 900 2175 Other: Voiding Method Urinal # Voids 1 - Exam PHYSICAL EXAMINATION: GENERAL: The patient is alert and oriented x3, not in any acute distress. Well developed, well nourished. HEENT: Pupils are round and equally reacting to light. EOMI. No scleral icterus. No conjunctival pallor. Normocephalic, atraumatic. No pharyngeal erythema. No thyromegaly. CARDIOVASCULAR: S1 and S2 present. No murmurs, rubs, or gallops. PULMONARY: Chest is clear to auscultation, no wheezing or crackles. ABDOMEN: Soft, nontender, nondistended, normoactive bowel sounds. No palpable organomegaly. MUSCULOSKELETAL: No joint swelling or deformity. EXTREMITIES: No cyanosis, clubbing, or pedal edema. NEUROLOGICAL: Gross neurological examination did not reveal any focal deficits. SKIN: No rashes. - Labs CBC & Chem 7: 07/27/22 07:04 07/27/22 07:04 Labs: Abnormal Lab Results - Last 24 Hours (Table) 07/26/22 07/26/22 07/27/22 Range/Units 16:55 23:59 05:58 RDW (11.5-15.5) % Plt Count (150-450) k/uL PT (9.0-12.0) sec INR (<1.2) Sodium (137-145) mmol/L Creatinine (0.66-1.25) mg/dL Glucose (74-99) mg/dL POC Glucose (mg/dL) 124 H 149 H 122 H (70-110) mg/dL 07/27/22 07/27/22 07/27/22 Range/Units 07:04 07:04 07:04 RDW 15.7 H (11.5-15.5) % Plt Count 115 L (150-450) k/uL PT 13.4 H (9.0-12.0) sec INR 1.3 H (<1.2) Sodium 136 L (137-145) mmol/L Creatinine 1.32 H (0.66-1.25) mg/dL Glucose 144 H (74-99) mg/dL POC Glucose (mg/dL) (70-110) mg/dL 07/27/22 Range/Units 11:55 RDW (11.5-15.5) % Plt Count (150-450) k/uL PT (9.0-12.0) sec INR (<1.2) Sodium (137-145) mmol/L Creatinine (0.66-1.25) mg/dL Glucose (74-99) mg/dL POC Glucose (mg/dL) 131 H (70-110) mg/dL Assessment and Plan Assessment: Syncopal episode on Thursday most likely due to dehydration Ongoing intermittent nausea vomiting diarrhea Elevated troponins without chest pain, possible non-ST elevated [place] History of coronary artery disease without evidence of acute coronary syndrome Chronic kidney disease stage IIIB Chronic persistent atrial fibrillation on Coumadin Hypertension Hyperlipidemia Diabetes Status post pacemaker Plan: Resume patient's home cardiac medications except for Lasix which has been dis continued by Dr. Grigsby in the outpatient setting Patient remains on IV heparin infusion, bridged to Coumadin; pharmacy service on board for dosing Coumadin Patient is cleared for discharge and may follow up with Dr. Grigsby in the office in one week.
[2022-07-27] MEDS ORDERED: WARFARIN 3 MG TAB PO ONE (18:00)
[2022-07-27 18:02] LABS: Glucose,Whole Blood 139 mg/dL (70-110)
[2022-07-27] MEDS: lamoTRIgine 25 MG TAB PO SCH (20:33)
[2022-07-27] MEDS: ATORVASTATIN 40 MG TAB PO SCH (20:33)
[2022-07-27] MEDS: LOSARTAN 25 MG TAB PO SCH (20:33)
[2022-07-27] MEDS: CLOPIDOGREL 75 MG TAB PO SCH (20:33)
[2022-07-28 00:25] LABS: Glucose,Whole Blood 135 mg/dL (70-110)
[2022-07-28] MEDS: SODIUM CHLORIDE 0.9% 1,000 ML IV SCH ×2 (01:44→20:05)
[2022-07-28 05:44] LABS: Glucose,Whole Blood 130 mg/dL (70-110)
[2022-07-28] MEDS: LEVOTHYROXINE 75 MCG TAB PO SCH (06:00)
[2022-07-28] MEDS: PANTOPRAZOLE 40 MG TABLET PO SCH (06:00)
[2022-07-28] MEDS: LACTOBACILLUS ACIDOPH & BULGAR 1 EACH PACKET PO SCH (07:32)
[2022-07-28] MEDS: ASPIRIN 81 MG PO SCH (08:10)
[2022-07-28] MEDS: RANOLAZINE 500 MG TAB.ER.12H PO SCH ×2 (08:10→20:04)
[2022-07-28] MEDS: METOPROLOL SUCCINATE (ER) 50 MG TAB.ER.24H PO SCH (08:10)
[2022-07-28] MEDS: ISOSORBIDE MONONITRATE ER 30 MG TAB.ER.24H PO SCH (08:10)
[2022-07-28 11:29] LABS: Glucose,Whole Blood 165 mg/dL (70-110)
[2022-07-28 11:42] LABS: INR 1.6 (<1.2); Prothrombin Time 15.9 sec (9.0-12.0)
[2022-07-28 11:46] LABS: Potassium 4.6 mmol/L (3.5-5.1)
--- NOTE | 2022-07-28 14:47 | P.PN ---
Subjective Progress Note Date: 07/28/22 Principal diagnosis: Syncopal episode most likely due to dehydration Ongoing intermittent nausea vomiting diarrhea Elevated troponins without chest pain, possible non-ST elevated [place] Persistent atrial fibrillation 76-year-old male with PMH persistent atrial fibrillation, permanent pacemaker implantation, coronary artery disease with known chronic total occlusion of the right coronary artery and stenting of the left circumflex and intermediate disease involving the LAD, dyslipidemia, valvular heart disease who presented to the ED with chest pain. He was recently hospitalized in May for acute kidney injury, orthostatic hypotension and dehydration secondary to nausea vomiting and diarrhea. Patient presented to the emergency center on 07/22 after syncopal episode and nausea vomiting diarrhea and lightheadedness. He was discharged home after a liter of IV fluid. Patient states that he continued to have nausea vomiting diarrhea and also lightheadedness and dizziness return to the emergency center yesterday and was subsequently admitted to the cardiac stepdown unit. He denies having any chest pain. He states that Dr. Grigsby has taken him off Lasix recently. His PCP also took him off metformin and made diabetic medication adjustments due to the kidney injury. Patient has been started on a heparin drip. 24 hour interval change 07/27/2022 ---patient is seen and evaluated in room at bedside; no specific complaints reported Vital signs are reviewed, temperature of 97.4, pulse 91, respiration 18 and blood pressure 118/74, O2 saturation 98% on room air Blood work reveals WBC of 4.4, hemoglobin of 13.8 and platelet count of 1:15, INR 1.3, sodium 136, potassium 4.2, BUN/creatinine of 16/1.3 to Patient remains on IV heparin bridge to Coumadin 24 hour interval change 2022 Patient is seen sitting up in bed; continues to report cough but unable to produce any phlegm Vital signs are reviewed and stable with temperature of 97.5, pulse 69, respiration 18 and blood pressure 121/65 with O2 saturation of 99% on room air -- Chest x-rays reviewed and does not reveal any acute pulmonary process Blood work revealed sodium 135, potassium 4.6, BUN of 17 with creatinine 1.33, which is stable from creatinine 1.3 to yesterday; INR at 1.6 - Patient remains on IV heparin bridge to Coumadin; pharmacy on board for dosing Coumadin; plan to discharge once INR is therapeutic Objective - Vital Signs Vital signs: Vital Signs Temp 97.5 F L 07/28/22 08:00 Pulse 72 07/28/22 13:45 Resp 16 07/28/22 12:00 BP 107/60 07/28/22 12:00 Pulse Ox 98 07/28/22 12:00 FiO2 Intake & Output 07/27/22 07/28/22 07/28/22 18:59 06:59 18:59 Intake Total 1050 540 118 Output Total 1200 Balance 1050 -660 118 Intake: Oral 1050 540 118 Output: Urine 1200 Other: Voiding Method Urinal # Voids 3 - Exam PHYSICAL EXAMINATION: GENERAL: The patient is alert and oriented x3, not in any acute distress. Well developed, well nourished. HEENT: Pupils are round and equally reacting to light. EOMI. No scleral icterus. No conjunctival pallor. Normocephalic, atraumatic. No pharyngeal erythema. No thyromegaly. CARDIOVASCULAR: S1 and S2 present. No murmurs, rubs, or gallops. PULMONARY: Chest is clear to auscultation, no wheezing or crackles. ABDOMEN: Soft, nontender, nondistended, normoactive bowel sounds. No palpable organomegaly. MUSCULOSKELETAL: No joint swelling or deformity. EXTREMITIES: No cyanosis, clubbing, or pedal edema. NEUROLOGICAL: Gross neurological examination did not reveal any focal deficits. SKIN: No rashes. - Labs CBC & Chem 7: 07/27/22 07:04 07/28/22 10:52 Labs: Abnormal Lab Results - Last 24 Hours (Table) 07/27/22 07/28/22 07/28/22 Range/Units 18:01 00:24 05:43 PT (9.0-12.0) sec INR (<1.2) Sodium (137-145) mmol/L Creatinine (0.66-1.25) mg/dL Glucose (74-99) mg/dL POC Glucose (mg/dL) 139 H 135 H 130 H (70-110) mg/dL 07/28/22 07/28/22 07/28/22 Range/Units 10:52 10:52 11:27 PT 15.9 H (9.0-12.0) sec INR 1.6 H (<1.2) Sodium 135 L (137-145) mmol/L Creatinine 1.33 H (0.66-1.25) mg/dL Glucose 150 H (74-99) mg/dL POC Glucose (mg/dL) 165 H (70-110) mg/dL Assessment and Plan Assessment: Syncopal episode on Thursday most likely due to dehydration Ongoing intermittent nausea vomiting diarrhea Elevated troponins without chest pain, possible non-ST elevated [place] History of coronary artery disease without evidence of acute coronary syndrome Chronic kidney disease stage IIIB Chronic persistent atrial fibrillation on Coumadin Hypertension Hyperlipidemia Diabetes Status post pacemaker Plan: Resume patient's home cardiac medications except for Lasix which has been discontinued by Dr. Grigsby in the outpatient setting Patient remains on IV heparin infusion, bridged to Coumadin; pharmacy service on board for dosing Coumadin Patient is cleared for discharge and may follow up with Dr. Grigsby in the office in one week.
[2022-07-28] MEDS ORDERED: WARFARIN 5 MG TAB PO ONE (18:00)
[2022-07-28 18:06] LABS: Glucose,Whole Blood 167 mg/dL (70-110)
[2022-07-28] MEDS: LOSARTAN 25 MG TAB PO SCH (20:04)
[2022-07-28] MEDS: lamoTRIgine 25 MG TAB PO SCH (20:04)
[2022-07-28] MEDS: CLOPIDOGREL 75 MG TAB PO SCH (20:04)
[2022-07-28] MEDS: ATORVASTATIN 40 MG TAB PO SCH (20:04)
[2022-07-28 23:54] LABS: Glucose,Whole Blood 135 mg/dL (70-110)
[2022-07-29] MEDS: SODIUM CHLORIDE 0.9% 1,000 ML IV SCH (05:25)
[2022-07-29 06:10] LABS: Glucose,Whole Blood 120 mg/dL (70-110)
[2022-07-29] MEDS: LEVOTHYROXINE 75 MCG TAB PO SCH (06:32)
[2022-07-29 07:46] VITALS: RESP 16
[2022-07-29] MEDS: LACTOBACILLUS ACIDOPH & BULGAR 1 EACH PACKET PO SCH (09:10)
[2022-07-29 09:14] LABS: INR 1.8 (<1.2); Prothrombin Time 17.6 sec (9.0-12.0)
[2022-07-29] MEDS: ASPIRIN 81 MG PO SCH (09:15)
[2022-07-29] MEDS: PANTOPRAZOLE 40 MG TABLET PO SCH (09:15)
[2022-07-29] MEDS: METOPROLOL SUCCINATE (ER) 50 MG TAB.ER.24H PO SCH (09:15)
[2022-07-29] MEDS: ISOSORBIDE MONONITRATE ER 30 MG TAB.ER.24H PO SCH (09:15)
[2022-07-29] MEDS: RANOLAZINE 500 MG TAB.ER.12H PO SCH (09:42)
[2022-07-29 11:18] LABS: Glucose,Whole Blood 145 mg/dL (70-110)
[2022-07-29 11:21] LABS: African American GFR (CKD) 64 (>60 ml/min/1.73 sqM); Anion Gap 9 mmol/L; Blood Urea Nitrogen 19 mg/dL (9-20); Calcium 8.6 mg/dL (8.4-10.2); Carbon Dioxide 24 mmol/L (22-30); Chloride 100 mmol/L (98-107); Glucose 140 mg/dL (74-99); Non-African American GFR(CKD) 55 (>60 ml/min/1.73 sqM); Potassium 4.3 mmol/L (3.5-5.1); Sodium 133 mmol/L (137-145)
[2022-07-29 13:13] VITALS: BP 114/71; PULSE 90; TEMP 97.6
[2022-07-29] MEDS ORDERED: WARFARIN 3 MG TAB PO ONE (18:00)
--- NOTE | 2022-08-01 00:24 | P.DS ---
Providers Date of admission: 07/23/22 14:39 Attending physician: Bret Floyd MD Consults: 07/23/22 14:05 Consult Physician Stat Consulting Provider: Santos Grigsby Reason/Comments: NSTEMI Do you want consulting provider notified?: Yes Primary care physician: Alaina Floyd Hospital Course: Final Diagnosis Syncopal episode on Thursday most likely due to dehydration Ongoing intermittent nausea vomiting diarrhea Elevated troponins without chest pain, possible non-ST elevated MT History of coronary artery disease without evidence of acute coronary syndrome Chronic kidney disease stage IIIB Chronic persistent atrial fibrillation on Coumadin Hypertension Hyperlipidemia Diabetes Status post pacemaker Discharge Disposition Patient is stable for discharge recommend close follow up with Dr. Floyd and cardiology on discharge. Recommend to continue holding lasix. Blood pressure medications were adjusted as well. Patient to repeat PT/INR and BMP in 2 days. Hospital Course 76-year-old male with PMH persistent atrial fibrillation, permanent pacemaker implantation, coronary artery disease with known chronic total occlusion of the right coronary artery and stenting of the left circumflex and intermediate disease involving the LAD, dyslipidemia, valvular heart disease who presented to the ED with chest pain. He was recently hospitalized in May for acute kidney injury, orthostatic hypotension and dehydration secondary to nausea vomiting and diarrhea. Patient presented to the emergency center on 07/22 after syncopal episode and nausea vomiting diarrhea and lightheadedness. He was discharged home after a liter of IV fluid. Patient states that he continued to have nausea vomiting diarrhea and also lightheadedness and dizziness return to the emergency center yesterday and was subsequently admitted to the cardiac stepdown unit. He denies having any chest pain. He states that Dr. Grigsby has taken him off Lasix recently. His PCP also took him off metformin and made diabetic medication adjustments due to the kidney injury. Patient has been started on a heparin drip for the subtherapuetic INR. Cardiology evaluated the patient due to troponin elevation at 0.846, 0.816, 0.645. as Echocardiogram done showing mildly reduced LV systolic function and inferior wall hypokinesis. Cardiology recommending to continue holding the lasix and to follow up with Dr. Grigsby in the office in 1 week. Patient was monitored with supportive care and antiemetics and clinical improved. Currently denying chest pain, denying shortness of breath. No further episodes of nausea vomiting or diarrhea and patient is tolerating diet. Lungs are clear S1 S2 auscultated abdomen is soft and nontender. patient will be discharged home. Please see medication reconciliation for a list of current medication. Thank you for allowing us to participate in the care of this patient. The impression and plan of care has been dictated by Radha Valenzuela, Nurse Practitioner as directed. Dr. Ada MD I have performed a history and physical examination and medical decision making of this patient, discussed the same with the dictator, and agree with the dictators assessment and plan as written, documented as a scribe. Based on total visit time, I have performed more than 50% of this visit. Patient Condition at Discharge: Stable Plan - Discharge Summary Discharge Rx Participant: No New Discharge Prescriptions: New Metoprolol Succinate (ER) [Toprol XL] 50 mg PO DAILY #30 tab Continue Omeprazole [PriLOSEC] 20 mg PO DAILY Aspirin 81 mg PO DAILY #90 tab Albuterol Inhaler [Ventolin Hfa Inhaler] 1 - 2 puff INHALATION RT-Q6H PRN PRN Reason: Shortness Of Breath Dapagliflozin Propanediol [Farxiga] 10 mg PO DAILY Isosorbide Mononitrate ER [Imdur] 30 mg PO DAILY Semaglutide [Ozempic] 0.5 mg SQ FR lamoTRIgine [LaMICtal] 25 mg PO HS Atorvastatin [Lipitor] 40 mg PO HS Levothyroxine Sodium [Synthroid] 75 mcg PO DAILY Warfarin Sodium 4 mg PO HS Clopidogrel [Plavix] 75 mg PO HS Nitroglycerin Sl Tabs [Nitrostat] 0.4 mg SL Q5M PRN PRN Reason: Chest Pain Ranolazine [Ranexa] 500 mg PO BID Ondansetron Odt [Zofran ODT] 4 mg PO Q8HR PRN #10 tab PRN Reason: Nausea Discontinued Repaglinide [Prandin] 1 mg PO TID-W/MEALS dilTIAZem HCL [dilTIAZem HCL 24Hr ER (Xr)] 240 mg PO DAILY Furosemide [Lasix] 20 mg PO DAILY Losartan [Cozaar] 25 mg PO HS Atenolol/Chlorthalidone [Atenolol/Chlorthalidone 50-25] 1 tab PO TID Discharge Medication List Omeprazole [PriLOSEC] 20 mg PO DAILY 08/30/14 [History] Atorvastatin [Lipitor] 40 mg PO HS 08/17/20 [History] Levothyroxine Sodium [Synthroid] 75 mcg PO DAILY 08/17/20 [History] lamoTRIgine [LaMICtal] 25 mg PO HS 08/17/20 [History] Clopidogrel [Plavix] 75 mg PO HS 02/02/21 [History] Warfarin Sodium 4 mg PO HS 02/02/21 [History] Aspirin 81 mg PO DAILY #90 tab 02/06/21 [Rx] Albuterol Inhaler [Ventolin Hfa Inhaler] 1 - 2 puff INHALATION RT-Q6H PRN 01/15/22 [History] Nitroglycerin Sl Tabs [Nitrostat] 0.4 mg SL Q5M PRN 01/31/22 [History] Dapagliflozin Propanediol [Farxiga] 10 mg PO DAILY 04/22/22 [History] Ranolazine [Ranexa] 500 mg PO BID 06/26/22 [History] Isosorbide Mononitrate ER [Imdur] 30 mg PO DAILY 07/22/22 [History] Ondansetron Odt [Zofran ODT] 4 mg PO Q8HR PRN #10 tab 07/22/22 [Rx] Semaglutide [Ozempic] 0.5 mg SQ FR 07/23/22 [History] Metoprolol Succinate (ER) [Toprol XL] 50 mg PO DAILY #30 tab 07/29/22 [Rx] Follow up Appointment(s)/Referral(s): Bret Floyd MD [STAFF PHYSICIAN] - 08/04/22 1:30 pm (Please go to the [place] office.) Santos Grigsby MD [STAFF PHYSICIAN] - 08/06/22 3:30 pm Ambulatory/Diagnostic Orders: Basic Metabolic Panel [LAB.AMB] Time Frame: 3 Days, Location: None Selected Prothrombin Time INR [LAB.AMB] Time Frame: 3 Days, Location: None Selected Prothrombin Time INR [LAB.AMB] Location: None Selected Activity/Diet/Wound Care/Special Instructions: Continue off lasix per Dr. Grigsby recommendations and follow up in the office Repeat BMP and PT/INR in 2 to 3 days Discharge Disposition: HOME SELF-CARE
== END 2022-07-29 16:19 | disposition home or self-care (01) | DRG 281 ==
LOC: EC 11:26 → 3SCARD 14:39 → 5NMEDONC 07-28 21:21
PROVIDERS: ADMIT Family Medicine; ATTEND Family Medicine
DX: I21.4 Non-ST elevation (NSTEMI) myocardial infarction (principal); I48.19 Other persistent atrial fibrillation; E86.0 Dehydration; I25.10 Atherosclerotic heart disease of native coronary artery without angina pectoris; Z95.5 Presence of coronary angioplasty implant and graft; E03.9 Hypothyroidism, unspecified; E78.5 Hyperlipidemia, unspecified; H54.8 Legal blindness, as defined in USA; E11.22 Type 2 diabetes mellitus with diabetic chronic kidney disease; N18.32 Chronic kidney disease, stage 3b; N40.0 Benign prostatic hyperplasia without lower urinary tract symptoms; R11.2 Nausea with vomiting, unspecified; R19.7 Diarrhea, unspecified; I12.9 Hypertensive chronic kidney disease with stage 1 through stage 4 chronic kidney disease, or unspecified chronic kidney disease; Z20.822 Contact with and (suspected) exposure to COVID-19; I25.2 Old myocardial infarction; Z79.01 Long term (current) use of anticoagulants; Z79.82 Long term (current) use of aspirin; Z79.84 Long term (current) use of oral hypoglycemic drugs; Z79.890 Hormone replacement therapy; Z79.899 Other long term (current) drug therapy; Z86.16 Personal history of COVID-19; Z86.718 Personal history of other venous thrombosis and embolism; Z93.1 Gastrostomy status; Z95.0 Presence of cardiac pacemaker
CPT/HCPCS: 36415; 71045; 80048; 80053; 81003; 83036; 83605; 84484; 85025; 85610; 85730; 87636; 93005; 93306; 94760; 96361; 96365; 96366; 96375; 99285

== ENCOUNTER → 2022-07-31 | Outpatient (CLI) | payer MEDICARE ==
[2022-07-31 20:59] LABS: INR 1.4 (0.90-1.11); Prothrombin Time 15.6 sec (9.9-11.9)
[2022-08-01 02:23] LABS: African American GFR (CKD) 41.2 (60.0-200.0); Anion Gap 11.5 mmol/L (10.00-18.00); BUN/Creat Ratio 17.2 Ratio (12.00-20.00); Blood Urea Nitrogen 31.3 mg/dL (9.0-27.0); Calcium 9.9 mg/dL (8.7-10.3); Carbon Dioxide 23.4 mmol/L (20.0-27.5); Non-African American GFR(CKD) 35.5 (60.0-200.0); Potassium 5.2 mmol/L (3.5-5.5)
== END | disposition home or self-care (01) ==
LOC: LABWHC1 12:26
PROVIDERS: ATTEND Nurse Practitioner Family
DX: N17.9 Acute kidney failure, unspecified (principal); Z79.01 Long term (current) use of anticoagulants
CPT/HCPCS: 36415; 80048; 85610

== ENCOUNTER 2022-08-06 22:16 | Observation (INO) | payer MEDICARE ==
[2022-08-06 23:05] LABS: Basophils % (A) 0 %; Eosinophils # (A) 0.1 k/uL (0-0.7); Eosinophils % (A) 1 %; HCT 39.8 % (39.0-53.0); HGB 13.4 gm/dL (13.0-17.5); Lymphocytes % (A) 18 %; MCH 28.4 pg (25.0-35.0); MCHC 33.8 g/dL (31.0-37.0); MCV 84.3 fL (80.0-100.0); Monocytes # (A) 0.8 k/uL (0-1.0); Monocytes % (A) 7 %; Neutrophils # (A) 7.4 k/uL (1.3-7.7); Neutrophils % (A) 70 %; RBC 4.72 m/uL (4.30-5.90); WBC 10.6 k/uL (3.8-10.6)
[2022-08-06 23:08] LABS: Platelet Count 184 k/uL (150-450)
[2022-08-06 23:13] LABS: INR 2.5 (<1.2); Prothrombin Time 24.3 sec (9.0-12.0)
--- NOTE | 2022-08-06 23:20 | XR ---
EXAMINATION TYPE: XR chest 2V DATE OF EXAM: 08/06/2022 10:47 PM COMPARISON: Chest radiographs from 07/19/2022 TECHNIQUE: XR chest 2V Frontal and lateral views of the chest. CLINICAL INDICATION:Male, 76 years old with history of Chest Pain; FINDINGS: Lungs/Pleura: There is no evidence of pleural effusion, focal consolidation, or pneumothorax. Pulmonary vascularity: Unremarkable. Heart/mediastinum: Cardiomediastinal silhouette is enlarged and stable. Atherosclerotic calcificatio ns are seen in the aorta. Single-lead cardiac conduction device overlying the left hemithorax with le ad projecting over the right ventricle. Musculoskeletal: No acute osseous pathology. IMPRESSION: No acute cardiopulmonary disease/process.
[2022-08-06 23:22] LABS: ALT 28 U/L (4-49); AST 30 U/L (17-59); African American GFR (CKD) 34 (>60 ml/min/1.73 sqM); Albumin 3.9 g/dL (3.5-5.0); Alkaline Phosphatase 75 U/L (38-126); Anion Gap 13 mmol/L; Blood Urea Nitrogen 24 mg/dL (9-20); Calcium 9.1 mg/dL (8.4-10.2); Carbon Dioxide 26 mmol/L (22-30); Chloride 96 mmol/L (98-107); Glucose 177 mg/dL (74-99); Magnesium 2.1 mg/dL (1.6-2.3); Non-African American GFR(CKD) 30 (>60 ml/min/1.73 sqM); Potassium 3.5 mmol/L (3.5-5.1); Sodium 135 mmol/L (137-145); Total Bilirubin 0.8 mg/dL (0.2-1.3); Total Protein 6.6 g/dL (6.3-8.2)
[2022-08-07] MEDS ORDERED: ASPIRIN 81 MG PO STA (00:28)
[2022-08-07] MEDS ORDERED: NITROGLYCERIN SL TABS 0.4 MG TAB SUBLINGUAL PRN ×2 (00:28→11:47)
[2022-08-07] MEDS ORDERED: NALOXONE 0.4 MG/ML 1 ML VIAL IV PRN (01:14)
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
[2022-08-07] MEDS: NITROGLYCERIN OINT 1 INCH/GM PACKET TOPICAL SCH ×2 (03:02→08:50)
[2022-08-07] MEDS ORDERED: HEPARIN SODIUM 1,000 UN/ML (10ML VL) IV PRN (08:28)
[2022-08-07] MEDS ORDERED: ASPIRIN 81 MG PO SCH (09:00)
[2022-08-07] MEDS ORDERED: ISOSORBIDE MONONITRATE ER 30 MG TAB.ER.24H PO SCH (09:00)
[2022-08-07] MEDS ORDERED: RANOLAZINE 500 MG TAB.ER.12H PO SCH (09:00)
[2022-08-07] MEDS: HEPARIN SOD,PORK IN 0.45% NACL 25,000 UNIT in 0.45% NACL 1 250ML.BAG IV SCH (09:04)
[2022-08-07] MEDS: METOPROLOL SUCCINATE (ER) 50 MG TAB.ER.24H PO SCH (09:05)
[2022-08-07] MEDS: ISOSORBIDE MONONITRATE ER 60 MG TAB.ER.24H PO SCH (09:05)
[2022-08-07] MEDS: RANOLAZINE 500 MG TAB.ER.12H PO SCH ×2 (09:05→20:32)
[2022-08-07] MEDS: DAPAGLIFLOZIN PROPANEDIOL 10 MG TABLET PO SCH (09:05)
[2022-08-07] MEDS: SODIUM CHLORIDE 0.9% 1,000 ML IV SCH ×2 (09:06→20:35)
[2022-08-07] MEDS: LEVOTHYROXINE 75 MCG TAB PO SCH (10:20)
[2022-08-07 10:26] LABS: Anisocytosis Slight; Basophils % (A) 0 %; Eosinophils # (A) 0.1 k/uL (0-0.7); Eosinophils % (A) 2 %; HCT 39.1 % (39.0-53.0); HGB 13.1 gm/dL (13.0-17.5); Lymphocytes # (A) 1.4 k/uL (1.0-4.8); Lymphocytes % (A) 24 %; MCH 28.3 pg (25.0-35.0); MCHC 33.3 g/dL (31.0-37.0); Monocytes # (A) 0.5 k/uL (0-1.0); Monocytes % (A) 9 %; Neutrophils # (A) 3.6 k/uL (1.3-7.7); Neutrophils % (A) 62 %; Platelet Count 180 k/uL (150-450); RBC 4.61 m/uL (4.30-5.90); RDW 16.1 % (11.5-15.5); WBC 5.8 k/uL (3.8-10.6)
[2022-08-07 10:41] LABS: INR 2.4 (<1.2); Partial Thromboplastin Time 34.4 sec (22.0-30.0); Prothrombin Time 23.2 sec (9.0-12.0)
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
[2022-08-07] MEDS ORDERED: ALPRAZolam 0.5 MG TAB PO PRN (11:47)
[2022-08-07] MEDS ORDERED: ALPRAZolam 0.25 MG TAB PO PRN (11:47)
[2022-08-07 14:06] VITALS: RESP 16
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
[2022-08-07] MEDS ORDERED: lamoTRIgine 25 MG TAB PO SCH (21:00)
[2022-08-07] MEDS ORDERED: CLOPIDOGREL 75 MG TAB PO SCH (21:00)
[2022-08-07] MEDS ORDERED: ATORVASTATIN 40 MG TAB PO SCH (21:00)
[2022-08-07 21:40] LABS: INR 2.2 (<1.2); Prothrombin Time 21.4 sec (9.0-12.0)
[2022-08-07] MEDS: SODIUM CHLORIDE 0.9% 1,000 ML in EMPTY BAG 1 BAG IV SCH (23:30)
[2022-08-08] MEDS ORDERED: ASPIRIN 325 MG TAB PO ONE (05:00)
[2022-08-08] MEDS ORDERED: ATORVASTATIN 80 MG TAB PO ONE (05:00)
[2022-08-08] MEDS: LEVOTHYROXINE 75 MCG TAB PO SCH (05:48)
[2022-08-08 05:49] LABS: Glucose,Whole Blood 108 mg/dL (70-110)
[2022-08-08 06:53] LABS: Anisocytosis Slight; Basophils # (A) 0.1 k/uL (0-0.2); Basophils % (A) 1 %; Eosinophils # (A) 0.1 k/uL (0-0.7); Eosinophils % (A) 2 %; HCT 39.4 % (39.0-53.0); Lymphocytes # (A) 2.9 k/uL (1.0-4.8); Lymphocytes % (A) 39 %; MCH 28.1 pg (25.0-35.0); MCHC 32.9 g/dL (31.0-37.0); MCV 85.4 fL (80.0-100.0); Mean Platelet Volume 8.3; Monocytes # (A) 0.5 k/uL (0-1.0); Monocytes % (A) 6 %; Neutrophils # (A) 3.7 k/uL (1.3-7.7); Neutrophils % (A) 49 %; Platelet Count 183 k/uL (150-450); RBC 4.61 m/uL (4.30-5.90); RDW 16.5 % (11.5-15.5); WBC 7.6 k/uL (3.8-10.6)
[2022-08-08 06:59] LABS: INR 1.9 (<1.2); Partial Thromboplastin Time 49.6 sec (22.0-30.0); Prothrombin Time 18.6 sec (9.0-12.0)
[2022-08-08] MEDS ORDERED: HEPARIN SODIUM,PORCINE 2,500 UNIT in SODIUM CHLORIDE 0.9% 250 ML IRRIGATION PRN (07:00)
[2022-08-08] MEDS ORDERED: HEPARIN SODIUM,PORCINE 10,000 UNIT in SODIUM CHLORIDE 0.9% 1,000 ML IRRIGATION PRN (07:00)
[2022-08-08 07:03] LABS: African American GFR (CKD) 46 (>60 ml/min/1.73 sqM); Anion Gap 11 mmol/L; Blood Urea Nitrogen 19 mg/dL (9-20); Calcium 8.7 mg/dL (8.4-10.2); Carbon Dioxide 21 mmol/L (22-30); Chloride 105 mmol/L (98-107); Glucose 128 mg/dL (74-99); Non-African American GFR(CKD) 40 (>60 ml/min/1.73 sqM); Potassium 3.9 mmol/L (3.5-5.1); Sodium 137 mmol/L (137-145)
[2022-08-08] MEDS ORDERED: PHYTONADIONE 5 MG in SODIUM CHLORIDE 0.9% 50 ML IVPB STA (08:31)
[2022-08-08] MEDS: RANOLAZINE 500 MG TAB.ER.12H PO SCH (08:46)
[2022-08-08] MEDS: METOPROLOL SUCCINATE (ER) 50 MG TAB.ER.24H PO SCH (08:46)
[2022-08-08] MEDS: ISOSORBIDE MONONITRATE ER 60 MG TAB.ER.24H PO SCH (08:46)
[2022-08-08] MEDS: SODIUM CHLORIDE 0.9% 1,000 ML IV SCH (08:46)
[2022-08-08 09:56] VITALS: TEMP 97.4
[2022-08-08] MEDS: SODIUM CHLORIDE 0.9% 1,000 ML in EMPTY BAG 1 BAG IV SCH (09:58)
[2022-08-08] MEDS: HEPARIN SOD,PORK IN 0.45% NACL 25,000 UNIT in 0.45% NACL 1 250ML.BAG IV SCH (10:56)
--- NOTE | 2022-08-08 12:23 | P.DS ---
Providers Date of admission: 08/07/22 01:18 Expected date of discharge: 08/08/22 Attending physician: Bret Floyd MD Consults: 08/07/22 01:14 Consult Physician Routine Consulting Provider: [facility] Consult Reason/Comments: chest pain Do you want consulting provider notified?: Yes Primary care physician: Alaina Floyd [facility] Course: Final Diagnoses: NSTEMI in a patient with history of CAD, cardiac catheterization pending Acute renal failure, improving Chronic kidney disease stage IIIB Chronic persistent atrial fibrillation on Coumadin Hypertension Hyperlipidemia Diabetes Status post pacemaker Hospital course:This is a 76-year-old gentleman, recently discharged on 07/29/2022 with syncopal episode/dehydration, elevated troponins and multiple other medical issues in a patient with past medical history significant for persistent atrial fibrillation, permanent pacemaker implantation, coronary artery disease with known chronic total occlusion of the right coronary artery and stenting of the left circumflex and intermediate disease involving the LAD, dyslipidemia, valvular heart disease who presented to the ED with chest pain. Reports early yesterday he had seen cardiology, came home was doing yard work, weed wacking, developed substernal chest pain, nonradiating without any accompanying symptoms. Denies shortness of breath, palpitations. Denies diaphoresis. Denies lightheadedness dizziness or focal deficits. Denies nausea vomiting or diarrhea. Denies abdominal pain. Took 2 nitroglycerin sublinguals without relief and proceeded to the ER. Chest pain has currently resolved.EKG reporting atrial fibrillation with controlled ventricular rate. Troponins 0.012, 0.020, 0.058. Echo of June 2022 reporting EF 40-45%, mild to moderate m itral regurgitation, inferior wall hypokinesis .Chest x-ray reported nonacute. Afebrile, normal WBC. Hemoglobin 13.1, platelets 180, INR 2.4 electrolytes within normal limits. BUN 24 creatinine 2.12. Evaluated by cardiology and patient is scheduled for cataract catheterization tomorrow morning. Maintained on IV fluid hydration, with renal function improving, BUN 19, creatinine 1.65, bicarb 21. Maintaining O2 sats in the high 90s on 2 L. Reported minimal nonradiating chest pain this morning while showering without shortness of breath, diaphoresis or lightheadedness. Currently denies chest pain, palpitations or shortness of breath. Cardiac catheterization pending. Patient will be discharged home today, pending cardiac cath results, final DC recommendations and clearance per cardiology. Close monitoring of renal function with repeat BMP outpatient. The impression and plan of care has been dictated as directed. : I performed a history and examination of this patient, discussed the same with the dictator. I agree with the dictator's note ,documented as a scribe. Any additional findings or plans will be noted. Patient Condition at Discharge: Stable Plan - Discharge Summary New Discharge Prescriptions: Continue Omeprazole [PriLOSEC] 20 mg PO DAILY Aspirin 81 mg PO DAILY #90 tab Albuterol Inhaler [Ventolin Hfa Inhaler] 1 - 2 puff INHALATION RT-Q6H PRN PRN Reason: Shortness Of Breath Dapagliflozin Propanediol [Farxiga] 10 mg PO DAILY Isosorbide Mononitrate ER [Imdur] 30 mg PO DAILY Semaglutide [Ozempic] 0.5 mg SQ FR Metoprolol Succinate (ER) [Toprol XL] 50 mg PO DAILY #30 tab lamoTRIgine [LaMICtal] 25 mg PO HS Atorvastatin [Lipitor] 40 mg PO HS Levothyroxine Sodium [Synthroid] 75 mcg PO DAILY Warfarin Sodium 4 mg PO HS Clopidogrel [Plavix] 75 mg PO HS Nitroglycerin Sl Tabs [Nitrostat] 0.4 mg SL Q5M PRN PRN Reason: Chest Pain Ranolazine [Ranexa] 500 mg PO BID Ondansetron Odt [Zofran ODT] 4 mg PO Q8HR PRN #10 tab PRN Reason: Nausea Discharge Medication List Omeprazole [PriLOSEC] 20 mg PO DAILY 08/30/14 [History] Atorvastatin [Lipitor] 40 mg PO HS 08/17/20 [History] Levothyroxine Sodium [Synthroid] 75 mcg PO DAILY 08/17/20 [History] lamoTRIgine [LaMICtal] 25 mg PO HS 08/17/20 [History] Clopidogrel [Plavix] 75 mg PO HS 02/02/21 [History] Warfarin Sodium 4 mg PO HS 02/02/21 [History] Aspirin 81 mg PO DAILY #90 tab 02/06/21 [Rx] Albuterol Inhaler [Ventolin Hfa Inhaler] 1 - 2 puff INHALATION RT-Q6H PRN 01/15/22 [History] Nitroglycerin Sl Tabs [Nitrostat] 0.4 mg SL Q5M PRN 01/31/22 [History] Dapagliflozin Propanediol [Farxiga] 10 mg PO DAILY 04/22/22 [History] Ranolazine [Ranexa] 500 mg PO BID 06/26/22 [History] Isosorbide Mononitrate ER [Imdur] 30 mg PO DAILY 07/22/22 [History] Ondansetron Odt [Zofran ODT] 4 mg PO Q8HR PRN #10 tab 07/22/22 [Rx] Semaglutide [Ozempic] 0.5 mg SQ FR 07/23/22 [History] Metoprolol Succinate (ER) [Toprol XL] 50 mg PO DAILY #30 tab 07/29/22 [Rx] Follow up Appointment(s)/Referral(s): Bret Floyd MD [STAFF PHYSICIAN] - 1 Week
[2022-08-08] MEDS ORDERED: HEPARIN SODIUM 1,000 UN/ML (10ML VL) ONE (12:27)
[2022-08-08] MEDS ORDERED: VERAPAMIL 2.5 MG/ML 2 ML AMP ONE (12:28)
[2022-08-08] MEDS ORDERED: IV FLUID CONTINUATION 800 ML IV ONE (12:42)
[2022-08-08] MEDS ORDERED: MIDAZOLAM 2 MG/2 ML VIAL IV ONE (12:51)
[2022-08-08] MEDS ORDERED: LIDOCAINE 1% INJ 10MG/ML (5 ML VIAL-PF) SQ ONE (12:52)
[2022-08-08] MEDS ORDERED: VERAPAMIL SYRINGE (5 MG/10 ML) INTRAARTER ONE (12:55)
[2022-08-08] MEDS ORDERED: HEPARIN SODIUM 1,000 UN/ML (10ML VL) IV ONE (12:57)
[2022-08-08] MEDS ORDERED: SODIUM CHLORIDE 0.9% 1,000 ML IV SCH (13:00)
[2022-08-08] MEDS ORDERED: IOPAMIDOL-370 100ML BTL INJ ONE (13:08)
[2022-08-08] MEDS ORDERED: RX INFO: IV CONTRAST WAS GIVEN 1 EACH MISC MISCELLANE PRN (13:32)
[2022-08-08] MEDS: DAPAGLIFLOZIN PROPANEDIOL 10 MG TABLET PO SCH (13:56)
[2022-08-08 17:34] VITALS: BP 108/71; PULSE 92
--- NOTE | 2022-08-08 19:37 | P.PCN ---
Date of Procedure: 08/08/22 Operative Findings: CARDIAC CATHETERIZATION PERFORMING PHYSICIAN: Santos Grigsby MD, RPVI PROCEDURE PERFORMED: 1. Selective left coronary angiogram 2. Ultrasound-guided access of the right radial artery INDICATION: Non-ST elevation myocardial infarction COMPLICATION: None APPROACH: Right radial artery LEVEL OF SEDATION: Moderate with a sedation length of 18 minutes PROCEDURE DESCRIPTION: After obtaining an informed consent, the patient was brought to cardiac medical laboratory manager. Local anesthesia was performed using lidocaine subcutaneously. The right radial artery was cannulated using Seldinger technique, the guidewire passed easily, following that we advanced a 5-Dominican sheath dilator assembly, the wire and dilator were removed and sheath was flushed. Following that, 2 mg of verapamil along with 3000 unit heparin were given. Selective right and left coronary angiogram using a 6-Dominican JL 3.5 catheters. The procedure was completed there was no complication. SELECTIVE CORONARY ANGIOGRAM: The right coronary artery: Was not opacified. The RCA is known to be nondominant. Left main: Has mild disease only appeared to be in the range of 20-30%. Bifurcates into an LCx and LAD The left circumflex: Large-caliber vessel and a dominant vessel. The proximal LCx appeared to have mild disease only. Gives rises into a large OM branch which has attempted multiple times with in-stent occlusion. The OM fills by ipsilateral collateral. The circumflex after that has at least 60% lesion. Then distally bifurcates into PDA and PLV branches. The left anterior descending artery: The LAD appears to be calcified. The proximal LAD has mild disease only. The mid LAD has a tubular lesion appeared to be in the range of 50-60% as well. CONCLUSION: 1. In-stent occlusion of OM 1 distally. The proximal circumflex after OM1 has lesion appears to be in the range of 60% at least. 2. Intermediate disease involving the mid left anterior descending artery was a tubular lesion POSTPROCEDURE MANAGEMENT: Giving the limited amount of contrast and giving the chronic kidney disease, I would advise conservative medical approach. The dose of Ranexa has increased as well as a dose of oral nitrate If he remains symptomatic I will consider doing an FFR of the proximal LCx
[2022-08-09] MEDS ORDERED: ASPIRIN 81 MG PO SCH (09:00)
== END 2022-08-08 18:55 | disposition home or self-care (01) ==
LOC: EC 22:16 → 6NMEDSUR 08-07 01:18
PROVIDERS: ADMIT Family Medicine; ATTEND Family Medicine
DX: I21.4 Non-ST elevation (NSTEMI) myocardial infarction (principal); T82.855A Stenosis of coronary artery stent, initial encounter; Y71.1 Therapeutic (nonsurgical) and rehabilitative cardiovascular devices associated with adverse incidents; Y84.8 Other medical procedures as the cause of abnormal reaction of the patient, or of later complication, without mention of misadventure at the time of the procedure; I25.10 Atherosclerotic heart disease of native coronary artery without angina pectoris; I48.11 Longstanding persistent atrial fibrillation; I12.9 Hypertensive chronic kidney disease with stage 1 through stage 4 chronic kidney disease, or unspecified chronic kidney disease; N18.32 Chronic kidney disease, stage 3b; E11.22 Type 2 diabetes mellitus with diabetic chronic kidney disease; N17.9 Acute kidney failure, unspecified; K21.9 Gastro-esophageal reflux disease without esophagitis; E78.5 Hyperlipidemia, unspecified; I25.2 Old myocardial infarction; G47.30 Sleep apnea, unspecified; F41.9 Anxiety disorder, unspecified; F32.A Depression, unspecified; Z86.718 Personal history of other venous thrombosis and embolism; Z95.0 Presence of cardiac pacemaker; Z95.5 Presence of coronary angioplasty implant and graft; Z79.01 Long term (current) use of anticoagulants; Z79.899 Other long term (current) drug therapy; Z79.890 Hormone replacement therapy; Z79.02 Long term (current) use of antithrombotics/antiplatelets; Z79.84 Long term (current) use of oral hypoglycemic drugs; Z79.82 Long term (current) use of aspirin; Z88.2 Allergy status to sulfonamides; Z88.5 Allergy status to narcotic agent; Z88.6 Allergy status to analgesic agent
CPT/HCPCS: 96365; 96366 ×2; 96367; 99285; 36415; 93005; 80053; 80048; 83735; 84484 ×2; 85025 ×3; 85610 ×3; 85730 ×3; 82272; 71046; 93454; G0378 ×2; J2250; J3430; J2001; J1644 ×2; Q9967; 76937

== ENCOUNTER 2022-08-21 07:09 | Day surgery (SDC) | payer MEDICARE ==
[2022-08-21] MEDS ORDERED: LACTATED RINGERS 1,000 ML IV SCH (07:15)
[2022-08-21 08:08] VITALS: TEMP 97.2
[2022-08-21 08:16] LABS: Glucose,Whole Blood 82 mg/dL (70-110)
[2022-08-21] MEDS ORDERED: PROPOFOL 10 MG/ML 20 ML VIAL IV ONE (08:24)
[2022-08-21] MEDS ORDERED: LIDOCAINE 2% INJ 20 MG/ML (2 ML VIAL) ONE (08:24)
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
--- NOTE | 2022-08-21 08:38 | P.OP ---
Date of Procedure: 08/21/22 Preoperative Diagnosis: GERD Postoperative Diagnosis: Antral gastritis Small hiatal hernia Mild esophagitis Procedure(s) Performed: EGD Anesthesia: MAC Surgeon: Pool Marquez Pathology: other (Antrum, esophagus) Condition: stable Disposition: PACU Description of Procedure: The patient's placed on the endoscopy table in the lateral position. He received IV sedation. The gastroscope placed oropharynx passed in the esophagus into the stomach. Scope was then placed through the pylorus. The first and second portion of the duodenum appeared normal. Scope was then brought back the antrum and this appeared mildly inflamed. A biopsies performed. Scope was unretroflexed and remainder of the stomach. The patient had a small hiatal hernia. The GE junction was at 38 cm per the distal esophagus appeared minimally inflamed and a biopsies performed. The proximal esophagus appeared normal. Scope withdrawn for patient.
[2022-08-21 09:00] VITALS: BP 130/75; PULSE 111; RESP 14
== END 2022-08-21 09:21 | disposition home or self-care (01) ==
LOC: ORWHC2ENDO 07:09
PROVIDERS: ATTEND Surgery
DX: K29.50 Unspecified chronic gastritis without bleeding (principal); K21.00 Gastro-esophageal reflux disease with esophagitis, without bleeding; K44.9 Diaphragmatic hernia without obstruction or gangrene; I25.10 Atherosclerotic heart disease of native coronary artery without angina pectoris; I48.91 Unspecified atrial fibrillation; E11.9 Type 2 diabetes mellitus without complications; E78.5 Hyperlipidemia, unspecified; I10 Essential (primary) hypertension; M19.90 Unspecified osteoarthritis, unspecified site; G47.33 Obstructive sleep apnea (adult) (pediatric); E07.9 Disorder of thyroid, unspecified; I25.2 Old myocardial infarction; H54.8 Legal blindness, as defined in USA; I48.19 Other persistent atrial fibrillation; F41.9 Anxiety disorder, unspecified; F32.A Depression, unspecified; Z95.0 Presence of cardiac pacemaker; Z86.73 Personal history of transient ischemic attack (TIA), and cerebral infarction without residual deficits; Z90.89 Acquired absence of other organs; Z95.5 Presence of coronary angioplasty implant and graft; Z79.890 Hormone replacement therapy; Z79.82 Long term (current) use of aspirin; Z79.84 Long term (current) use of oral hypoglycemic drugs; Z88.2 Allergy status to sulfonamides; Z88.5 Allergy status to narcotic agent; Z88.8 Allergy status to other drugs, medicaments and biological substances; Z79.899 Other long term (current) drug therapy
CPT/HCPCS: 88305; 43239; J2704; J2001

== ENCOUNTER → 2022-09-18 | Outpatient (CLI) | payer MEDICARE ==
[2022-09-18 13:27] LABS: HCT 41.9 % (39.6-50.0); HGB 13.5 d/dL (12.0-15.0); MCH 27.3 pg (27.0-32.0); MCHC 32.2 d/dL (32.0-37.0); MCV 84.8 FL (80.0-97.0); Mean Platelet Volume 11.3 FL (9.5-12.2); NRBC Per 100 WBC 0 X 10*3/uL (0.00-0.01); Platelet Count 161 X 10*3/uL (140-440); RBC 4.94 X 10*6/uL (4.40-5.60); RDW 15.7 % (11.5-14.5); WBC 5.85 X 10*3/uL (4.50-10.00)
[2022-09-18 13:44] LABS: ALT 17 U/L (10-49); AST 21 U/L (14-35); Albumin 4.1 d/dL (3.8-4.9); Albumin/Globulin Ratio 1.78 Ratio (1.60-3.17); Alkaline Phosphatase 71 U/L (41-126); BUN/Creat Ratio 13.83 Ratio (12.00-20.00); Blood Urea Nitrogen 24.9 mg/dL (9.0-27.0); Calcium 9.6 mg/dL (8.7-10.3); Carbon Dioxide 23.4 mmol/L (21.6-31.8); Chloride 106 mmol/L (96-109); Chol/HDL Ratio 2.78 Ratio; Globulin 2.3 d/dL (1.6-3.3); Glucose 78 mg/dL (70-110); Potassium 4.7 mmol/L (3.5-5.5); Sodium 140 mmol/L (135-145); Total Bilirubin 0.6 mg/dL (0.3-1.2); Total Protein 6.4 d/dL (6.2-8.2)
== END | disposition home or self-care (01) ==
LOC: LABPAT 08:08
PROVIDERS: ATTEND Internal Medicine Interventional Cardiology
DX: Z01.812 Encounter for preprocedural laboratory examination (principal); E11.9 Type 2 diabetes mellitus without complications; I25.10 Atherosclerotic heart disease of native coronary artery without angina pectoris; E03.9 Hypothyroidism, unspecified
CPT/HCPCS: 80053; 80061; 83036; 84443; 85027

== ENCOUNTER 2022-09-23 06:04 | Day surgery (SDC) | payer MEDICARE ==
[~2022-09-23 06:04] MED LIST changes: +ASPIRIN 325 MG TAB PO STA; +ATORVASTATIN 80 MG TAB PO STA
[2022-09-23 06:40] LABS: Glucose,Whole Blood 80 mg/dL (70-110)
[2022-09-23] MEDS ORDERED: HEPARIN SODIUM,PORCINE 10,000 UNIT in SODIUM CHLORIDE 0.9% 1,000 ML IRRIGATION PRN (07:00)
[2022-09-23] MEDS ORDERED: HEPARIN SODIUM,PORCINE 2,500 UNIT in SODIUM CHLORIDE 0.9% 250 ML IRRIGATION PRN (07:00)
[2022-09-23 07:09] LABS: African American GFR (CKD) 46 (>60 ml/min/1.73 sqM); Anion Gap 9 mmol/L; Blood Urea Nitrogen 25 mg/dL (9-20); Calcium 9.1 mg/dL (8.4-10.2); Carbon Dioxide 20 mmol/L (22-30); Chloride 108 mmol/L (98-107); Glucose 77 mg/dL (74-99); Non-African American GFR(CKD) 40 (>60 ml/min/1.73 sqM); Potassium 4.1 mmol/L (3.5-5.1); Sodium 137 mmol/L (137-145)
[2022-09-23] MEDS ORDERED: VERAPAMIL 2.5 MG/ML 2 ML AMP ONE (07:21)
[2022-09-23] MEDS ORDERED: HEPARIN SODIUM 1,000 UN/ML (10ML VL) ONE (07:21)
[2022-09-23] MEDS ORDERED: LIDOCAINE 1% INJ 10MG/ML (5 ML VIAL-PF) SQ ONE ×2 (07:57)
[2022-09-23] MEDS ORDERED: MIDAZOLAM 2 MG/2 ML VIAL IVP ONE (07:57)
[2022-09-23] MEDS ORDERED: VERAPAMIL SYRINGE (5 MG/10 ML) INTRAARTER ONE (08:00)
[2022-09-23] MEDS: HEPARIN SODIUM 1,000 UN/ML (10ML VL) IV ONE ×2 (08:00→08:20)
[2022-09-23] MEDS ORDERED: CLOPIDOGREL 75 MG TAB ONE (08:35)
[2022-09-23] MEDS ORDERED: CLOPIDOGREL 75 MG TAB PO ONE (08:36)
[2022-09-23] MEDS ORDERED: niCARdipine 25 MG/10 ML VIAL ONE (08:40)
[2022-09-23] MEDS ORDERED: niCARdipine Syringe (1,000 mcg/10 mL) INTRACORON ONE (08:42)
[2022-09-23] MEDS ORDERED: IOPAMIDOL-370 100ML BTL INJ ONE (08:42)
[2022-09-23] MEDS ORDERED: NITROGLYCERIN 1000MCG/10ML SYRINGE INTRACORON ONE (08:42)
[2022-09-23] MEDS ORDERED: ONDANSETRON 4 MG TAB PO PRN (08:56)
[2022-09-23] MEDS ORDERED: MAG HYDROX/AL HYDROX/SIMETH 30 ML CUP PO PRN (08:57)
[2022-09-23] MEDS ORDERED: ZOLPIDEM 5 MG TAB PO PRN (08:57)
[2022-09-23] MEDS ORDERED: RX INFO: IV CONTRAST WAS GIVEN 1 EACH MISC MISCELLANE PRN (08:57)
[2022-09-23] MEDS ORDERED: NITROGLYCERIN SL TABS 0.4 MG TAB SUBLINGUAL PRN (08:57)
[2022-09-23] MEDS ORDERED: ATROPINE SULFATE 0.1 MG/ML 10ML SYRINGE IV PRN (08:57)
[2022-09-23] MEDS ORDERED: NON FORMULARY DRUG (Semaglutide [Ozempic] 2 MG/0.75 ML Pen.Injctr) SQ SCH (09:00)
[2022-09-23] MEDS ORDERED: SODIUM CHLORIDE 0.9% 1,000 ML in EMPTY BAG 1 BAG IV SCH (09:00)
--- NOTE | 2022-09-23 09:07 | P.PCN ---
Date of Procedure: 09/23/22 Operative Findings: CARDIAC CATHETERIZATION AND PERCUTANEOUS CORONARY INTERVENTION PERFORMING PHYSICIAN: Santos Grigsby MD, [facility] PROCEDURE PERFORMED: 1. Selective left coronary angiogram 2. Left heart catheterization 3. Successful stenting of mid LAD using 3.0 x 15 mm Xience EVELIN with an excellent angiographic results 4. Adjunctive use off intravascular imaging and Doppler wire 5. Ultrasound-guided access of the right radial artery INDICATION: Chest discomfort concerning for angina in this 76-year-old gentleman who is known to have CAD with a prior stenting of the LAD and LCx who is on at least 2 antianginal medications and remains symptomatic. COMPLICATION: None APPROACH: Right radial artery LEVEL OF SEDATION: Moderate with the sedation time off 59 minutes PROCEDURE DESCRIPTION: After obtaining an informed consent the patient was brought to the cardiac laborer concrete paving. The right radial artery was cannulated using micropuncture technique under ultrasound guidance and the micropuncture wire passed easily then I placed a 6-Japanese sheath. I gave the patient 2 mg of verapamil intra-arterial and 5000 units of heparin and intravenous with additional 1000 given throughout the procedure with continuous ACT monitoring. Selective left coronary angiogram was performed using JL 3.5 catheter. I did not perform right coronary angiogram because the patient is known to have chronic total occlusion of the RCA. Subsequently an FFR of the LCx and LAD was performed followed by PCI of the LAD. The procedure was completed was no complication SELECTIVE CORONARY ANGIOGRAM: The right coronary artery: Was not opacified. Is known to be chronically occluded. Left main: Calcified was mild disease only. The left circumflex: Large caliber vessel and dominant vessel. The ostial LCx has intermediate lesion. We did perform iFR and that came in to be nonischemic. The iFR was 0.92. The left circumflex gives rises into an OM which is chronically occluded with multiple layers of stents and that has not changed compared to before. The left anterior descending artery: Large caliber vessel. The proximal LAD stented with mild in-stent restenosis. The mid LAD has intermediate lesion appeared to be in the range of 60%. iFR was performed and came in to be 0.88. I did perform successful stenting of the LAD. HEMODYNAMICS: LVEDP was 6 mmHg was no significant gradient across aortic valve PCI OF THE LAD: After zeroing the Doppler wire and equalizing between the Doppler wire and guiding catheter which was JL 3.5 guiding catheter the left main was engaged. Subsequently I wire the the left anterior descending artery and I did perform iFR and that came in to be an 0.88. Then the wire was directed toward the LCx. I did also perform iFR and that came in to be at 0.94. At that point I decided to intervene on the left anterior descending artery. I did leave the Doppler wire in the left circumflex and I wire the LAD using a run-through wire. After that I did intravascular ultrasound of the LAD which showed a diameter around 3 mm. I did a predilatation using 2.5 x 12 mm balloon for a attempted advancing 3.0 x 15 mm stent to the LAD but the stent will not the liver. At that point I directed the Doppler wire from the left circumflex to the LAD as a clare wire and I was able then to advance the stent over the next 2 to the mid LAD. The stent was positioned under fluoroscopy guidance and deployed under 16 se for 20 seconds. Following angiogram showed the stent was not well expanded. I decided to post dilated using 3.5 mm balloon which was noncompliant balloon. The balloon was positioned under fluoroscopy guidance and advanced over the run- through wire. The balloon was inflated under 18 se for 20 seconds. Final angiogram was performed and showed an excellent angiographic results and the procedure was completed was no complication CONCLUSION: Intermediate disease involving the ostial dominant left circumflex. iFR was performed and came in to be nonischemic Intermediate disease involving the mid LAD. iFR was performed and came in to be ischemic. I did perform successful stenting of the mid LAD POSTPROCEDURE MANAGEMENT: 1. Dual antiplatelet therapy using aspirin and Plavix for at least 6 month 2. Aggressive cholesterol control 3. Follow-up with the patient
[2022-09-23 09:55] LABS: INR 1.4 (<1.2); Prothrombin Time 13.9 sec (9.0-12.0)
[2022-09-23] MEDS: REPAGLINIDE 1 MG TAB PO SCH (10:05)
[2022-09-23] MEDS: LINAGLIPTIN 5 MG TABLET PO SCH (10:11)
[2022-09-23] MEDS: LEVOTHYROXINE 75 MCG TAB PO SCH (10:11)
[2022-09-23] MEDS: RANOLAZINE 500 MG TAB.ER.12H PO SCH ×2 (10:11→20:43)
[2022-09-23] MEDS: CHOLECALCIFEROL 125 MCG (5000 IU) TABLET PO SCH (10:12)
[2022-09-23] MEDS: ISOSORBIDE MONONITRATE ER 60 MG TAB.ER.24H PO SCH (10:12)
[2022-09-23] MEDS: METOPROLOL SUCCINATE (ER) 50 MG TAB.ER.24H PO SCH (10:12)
[2022-09-23 11:34] LABS: Glucose,Whole Blood 76 mg/dL (70-110)
[2022-09-23] MEDS: DAPAGLIFLOZIN PROPANEDIOL 10 MG TABLET PO SCH (12:29)
[2022-09-23 13:21] VITALS: BMI 37.0
[2022-09-23 16:23] LABS: Glucose,Whole Blood 115 mg/dL (70-110)
[2022-09-23] MEDS ORDERED: WARFARIN 5 MG TAB PO ONE (18:00)
[2022-09-23 19:59] LABS: Glucose,Whole Blood 101 mg/dL (70-110)
[2022-09-23] MEDS ORDERED: lamoTRIgine 25 MG TAB PO SCH (21:00)
[2022-09-23] MEDS ORDERED: ATORVASTATIN 40 MG TAB PO SCH (21:00)
[2022-09-23] MEDS ORDERED: NON FORMULARY DRUG (Warfarin Sodium [Warfarin Sodium] 4 MG Tablet) PO SCH (21:00)
[2022-09-24 06:10] LABS: Glucose,Whole Blood 112 mg/dL (70-110)
[2022-09-24] MEDS: LEVOTHYROXINE 75 MCG TAB PO SCH (06:29)
[2022-09-24 07:23] LABS: INR 1.1 (<1.2); Prothrombin Time 11.8 sec (9.0-12.0)
[2022-09-24 07:30] LABS: African American GFR (CKD) 52 (>60 ml/min/1.73 sqM); Non-African American GFR(CKD) 45 (>60 ml/min/1.73 sqM)
[2022-09-24 08:50] VITALS: BP 108/68; PULSE 95; RESP 18; TEMP 97.7
[2022-09-24] MEDS: ISOSORBIDE MONONITRATE ER 60 MG TAB.ER.24H PO SCH (08:51)
[2022-09-24] MEDS: REPAGLINIDE 1 MG TAB PO SCH (08:51)
[2022-09-24] MEDS: DAPAGLIFLOZIN PROPANEDIOL 10 MG TABLET PO SCH (08:51)
[2022-09-24] MEDS: CHOLECALCIFEROL 125 MCG (5000 IU) TABLET PO SCH (08:51)
[2022-09-24] MEDS: RANOLAZINE 500 MG TAB.ER.12H PO SCH (08:51)
[2022-09-24] MEDS: LINAGLIPTIN 5 MG TABLET PO SCH (08:51)
[2022-09-24] MEDS: METOPROLOL SUCCINATE (ER) 50 MG TAB.ER.24H PO SCH (08:51)
[2022-09-24] MEDS ORDERED: CLOPIDOGREL 75 MG TAB PO SCH (09:00)
[2022-09-24] MEDS ORDERED: ASPIRIN 81 MG PO SCH (09:00)
--- NOTE | 2022-09-24 11:55 | P.DS ---
Providers Attending physician: Santos Grigsby Consults: 09/23/22 08:57 Consult Physician Routine Consulting Provider: [facility] Consult Reason/Comments: Post Interventional patient Do you want consulting provider notified?: Already Contacted Primary care physician: Alaina [facility] Course: The patient is a 76-year-old gentleman who underwent yesterday successful stenting of the left anterior descending artery. He was seen this morning beauties asymptomatic and hemodynamically stable. The patient is going to be discharged home on anticoagulation and antiplatelet and I will follow-up with the patient next week in the office Plan - Discharge Summary Discharge Rx Participant: No New Discharge Prescriptions: Continue Omeprazole [PriLOSEC] 20 mg PO QAM Aspirin 81 mg PO DAILY #90 tab Albuterol Inhaler [Ventolin Hfa Inhaler] 1 - 2 puff INHALATION RT-Q6H PRN PRN Reason: Shortness Of Breath Dapagliflozin Propanediol [Farxiga] 10 mg PO QAM Repaglinide [Prandin] 1 mg PO QAM Ondansetron [Zofran] 8 mg PO Q8HR PRN PRN Reason: Nausea Semaglutide [Ozempic] 2 mg SQ Q7D lamoTRIgine [LaMICtal] 25 mg PO HS Atorvastatin [Lipitor] 40 mg PO HS Levothyroxine Sodium [Synthroid] 75 mcg PO QAM Warfarin Sodium 4 mg PO HS Clopidogrel [Plavix] 75 mg PO HS Nitroglycerin Sl Tabs [Nitrostat] 0.4 mg SL Q5M PRN PRN Reason: Chest Pain Ranolazine [Ranexa] 1,000 mg PO BID #120 tab Isosorbide Mononitrate ER [Imdur] 60 mg PO QAM Metoprolol Succinate (ER) [Toprol XL] 50 mg PO QAM Cholecalciferol (Vitamin D3) [Vitamin D3 (125 MCG = 5,000 IU)] 1 cap PO DAILY Linagliptin [Tradjenta] 5 mg PO QAM Discharge Medication List Omeprazole [PriLOSEC] 20 mg PO QAM 08/30/14 [History] Atorvastatin [Lipitor] 40 mg PO HS 08/17/20 [History] Levothyroxine Sodium [Synthroid] 75 mcg PO QAM 08/17/20 [History] lamoTRIgine [LaMICtal] 25 mg PO HS 08/17/20 [History] Clopidogrel [Plavix] 75 mg PO HS 02/02/21 [History] Warfarin Sodium 4 mg PO HS 02/02/21 [History] Aspirin 81 mg PO DAILY #90 tab 02/06/21 [Rx] Albuterol Inhaler [Ventolin Hfa Inhaler] 1 - 2 puff INHALATION RT-Q6H PRN [History] Nitroglycerin Sl Tabs [Nitrostat] 0.4 mg SL Q5M PRN 01/31/22 [History] Dapagliflozin Propanediol [Farxiga] 10 mg PO QAM 04/22/22 [History] Ranolazine [Ranexa] 1,000 mg PO BID #120 tab 08/08/22 [Rx] Cholecalciferol (Vitamin D3) [Vitamin D3 (125 MCG = 5,000 IU)] 1 cap PO DAILY 08/18/22 [History] Isosorbide Mononitrate ER [Imdur] 60 mg PO QAM 08/18/22 [History] Linagliptin [Tradjenta] 5 mg PO QAM 08/18/22 [History] Metoprolol Succinate (ER) [Toprol XL] 50 mg PO QAM 08/18/22 [History] Repaglinide [Prandin] 1 mg PO QAM 08/18/22 [History] Ondansetron [Zofran] 8 mg PO Q8HR PRN 09/22/22 [History] Semaglutide [Ozempic] 2 mg SQ Q7D 09/22/22 [History] Follow up Appointment(s)/Referral(s): Santos Grigsby MD [STAFF PHYSICIAN] - 1 Week (APPOINTMENT MADE ON September @ 2:30PM ) Patient Instructions/Handouts: Moderate Sedation (ED), After Radial Heart Catheterization (GEN)
[2022-09-24 11:57] LABS: Glucose,Whole Blood 108 mg/dL (70-110)
[2022-09-24] MEDS ORDERED: WARFARIN 5 MG TAB PO ONE (18:00)
== END 2022-09-24 13:37 | disposition home or self-care (01) ==
LOC: CATHCVL 06:04 → 3SCARD 08:51 → CATHCVL 09-24 13:37
PROVIDERS: ATTEND Internal Medicine Interventional Cardiology
DX: I25.10 Atherosclerotic heart disease of native coronary artery without angina pectoris (principal); I10 Essential (primary) hypertension; E78.5 Hyperlipidemia, unspecified; E11.9 Type 2 diabetes mellitus without complications; Z88.2 Allergy status to sulfonamides; Z88.5 Allergy status to narcotic agent; Z79.899 Other long term (current) drug therapy; Z95.5 Presence of coronary angioplasty implant and graft
CPT/HCPCS: 92978; 93458; 93799; 80048; 82565; 85610 ×2; C9600; C1887 ×2; C1769 ×3; C1894; C1725 ×2; C1753; C1874; J2250; J2001; J1644; Q9967

== ENCOUNTER 2022-10-20 15:09 | Emergency (ER) | payer MEDICARE ==
[2022-10-20 16:34] VITALS: PULSE 62; TEMP 97.8
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
[2022-10-20 17:19] VITALS: BP 95/59; RESP 18
[2022-10-20 17:33] LABS: Basophils % (A) 0 %; Eosinophils # (A) 0.1 k/uL (0-0.7); Eosinophils % (A) 2 %; HCT 38.6 % (39.0-53.0); HGB 12.3 gm/dL (13.0-17.5); Hypochromasia Slight; Lymphocytes # (A) 1.2 k/uL (1.0-4.8); Lymphocytes % (A) 17 %; MCH 26.5 pg (25.0-35.0); MCHC 31.9 g/dL (31.0-37.0); MCV 82.8 fL (80.0-100.0); Mean Platelet Volume 8.4; Monocytes # (A) 0.6 k/uL (0-1.0); Monocytes % (A) 8 %; Neutrophils % (A) 70 %; Platelet Count 147 k/uL (150-450); RBC 4.66 m/uL (4.30-5.90); RDW 15.9 % (11.5-15.5); WBC 7.2 k/uL (3.8-10.6)
[2022-10-20 17:44] LABS: INR 1.8 (<1.2); Partial Thromboplastin Time 30.1 sec (22.0-30.0); Prothrombin Time 17.8 sec (9.0-12.0)
[2022-10-20 17:52] LABS: ALT 15 U/L (4-49); AST 23 U/L (17-59); African American GFR (CKD) 40 (>60 ml/min/1.73 sqM); Albumin 3.9 g/dL (3.5-5.0); Alkaline Phosphatase 70 U/L (38-126); Anion Gap 12 mmol/L; Blood Urea Nitrogen 28 mg/dL (9-20); Calcium 8.9 mg/dL (8.4-10.2); Carbon Dioxide 23 mmol/L (22-30); Chloride 102 mmol/L (98-107); Glucose 90 mg/dL (74-99); Non-African American GFR(CKD) 35 (>60 ml/min/1.73 sqM); Potassium 3.9 mmol/L (3.5-5.1); Sodium 137 mmol/L (137-145); Total Bilirubin 0.9 mg/dL (0.2-1.3); Total Protein 6.8 g/dL (6.3-8.2)
[2022-10-20] MEDS: TRANEXAMIC ACID 1,000 MG/10 ML VIAL IRRIGATION ONE ×2 (19:10→20:43)
== END 2022-10-20 20:54 | disposition home or self-care (01) ==
LOC: EC 15:09
DX: R04.0 Epistaxis (principal); I25.10 Atherosclerotic heart disease of native coronary artery without angina pectoris; I48.19 Other persistent atrial fibrillation; Z86.718 Personal history of other venous thrombosis and embolism; F41.9 Anxiety disorder, unspecified; F32.A Depression, unspecified; Z88.8 Allergy status to other drugs, medicaments and biological substances; Z88.5 Allergy status to narcotic agent; Z88.2 Allergy status to sulfonamides; Z79.02 Long term (current) use of antithrombotics/antiplatelets; Z79.84 Long term (current) use of oral hypoglycemic drugs; Z79.899 Other long term (current) drug therapy
CPT/HCPCS: 36415; 80053; 85025; 85610; 85730; 99283

== ENCOUNTER 2022-10-22 08:10 | Inpatient (IN) | payer MEDICARE ==
[2022-10-22 08:17] LABS: Glucose,Whole Blood 79 mg/dL (70-110)
[2022-10-22] MEDS ORDERED: SODIUM CHLORIDE 0.9% 1,000 ML IV ONE (08:20)
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
[2022-10-22 08:42] LABS: Anisocytosis Slight; Basophils % (A) 0 %; Eosinophils # (A) 0.1 k/uL (0-0.7); Eosinophils % (A) 1 %; HCT 38.8 % (39.0-53.0); HGB 12.7 gm/dL (13.0-17.5); Hypochromasia Slight; Lymphocytes # (A) 1.1 k/uL (1.0-4.8); Lymphocytes % (A) 14 %; MCH 26.9 pg (25.0-35.0); MCHC 32.9 g/dL (31.0-37.0); MCV 81.8 fL (80.0-100.0); Mean Platelet Volume 8.1; Monocytes # (A) 0.6 k/uL (0-1.0); Monocytes % (A) 8 %; Neutrophils # (A) 6.2 k/uL (1.3-7.7); Neutrophils % (A) 75 %; Platelet Count 146 k/uL (150-450); RBC 4.74 m/uL (4.30-5.90); WBC 8.2 k/uL (3.8-10.6)
[2022-10-22 08:52] LABS: ALT 15 U/L (4-49); AST 25 U/L (17-59); African American GFR (CKD) 40 (>60 ml/min/1.73 sqM); Albumin 3.8 g/dL (3.5-5.0); Alkaline Phosphatase 78 U/L (38-126); Anion Gap 12 mmol/L; Blood Urea Nitrogen 36 mg/dL (9-20); Calcium 9.1 mg/dL (8.4-10.2); Carbon Dioxide 23 mmol/L (22-30); Chloride 104 mmol/L (98-107); Glucose 79 mg/dL (74-99); Non-African American GFR(CKD) 34 (>60 ml/min/1.73 sqM); Potassium 4.3 mmol/L (3.5-5.1); Sodium 139 mmol/L (137-145); Total Bilirubin 1.2 mg/dL (0.2-1.3); Total Protein 6.7 g/dL (6.3-8.2)
--- NOTE | 2022-10-22 08:57 | CT ---
EXAMINATION TYPE: CT brain wo con DATE OF EXAM: 10/22/2022 COMPARISON: 07/22/2022 HISTORY: SLURRED SPEECH CT DLP: [address] of the brain was performed. The ventricles, basal cisterns and sulci overlying the cerebral convexities demonstrate mild enlargem ent. There is no evidence for intracranial hemorrhage or sulcal effacement. There is decreased attenuation about the periventricular white matter and deep white matter of both c erebral hemispheres, compatible with chronic small vessel ischemia. Differential diagnosis does inclu de demyelination. Stable left ventricular nodule. No mass effects are seen.No midline shift. Osseous calvarium is intact. If symptoms persist consider MRI. IMPRESSION: 1. Age related atrophic and chronic small vessel ischemic change without acute intracranial process s een at this time.
--- NOTE | 2022-10-22 08:58 | XR ---
EXAMINATION TYPE: XR chest 2V DATE OF EXAM: 10/22/2022 COMPARISON: 07/16/2022 HISTORY: Shortness of breath FINDINGS: Noted is pulmonary venous congestion with scattered interstitial infiltrates. There is also cardiomegaly and small effusions. IMPRESSION: Findings compatible with mild congestive failure. Infiltrates of other etiology are not excluded. Clinical correlation and progress studies are recommended.
[2022-10-22 09:01] LABS: INR 1.8 (<1.2); Partial Thromboplastin Time 28.9 sec (22.0-30.0); Prothrombin Time 17.4 sec (9.0-12.0)
[2022-10-22 14:03] LABS: Appearance,Urine Clear (Clear); Bilirubin,Urine Negative (Negative); Blood,Urine Negative (Negative); Glucose,Urine (UA) 4+ (Negative); Ketones,Urine Negative (Negative); Leukocyte Esterase,Urine Negative (Negative); Nitrite,Urine Negative (Negative); Protein,Urine Negative (Negative); Specific Gravity,Urine 1.016 (1.001-1.035)
[2022-10-22 14:15] LABS: Color,Urine Yellow
[2022-10-22] MEDS ORDERED: NON FORMULARY DRUG (Warfarin Sodium [Warfarin Sodium] 4 MG Tablet) PO SCH (21:00)
[2022-10-22] MEDS ORDERED: WARFARIN 5 MG TAB PO ONE (21:00)
[2022-10-22] MEDS: ATORVASTATIN 40 MG TAB PO SCH (21:49)
[2022-10-22] MEDS: lamoTRIgine 25 MG TAB PO SCH (21:49)
[2022-10-22] MEDS: CLOPIDOGREL 75 MG TAB PO SCH (21:49)
[2022-10-22] MEDS: RANOLAZINE 500 MG TAB.ER.12H PO SCH (21:49)
[2022-10-22 22:16] LABS: Glucose,Whole Blood 191 mg/dL (70-110)
[2022-10-22] MEDS ORDERED: DEXTROSE 50% SYRINGE 50 ML IVP PRN ×2 (22:17)
[2022-10-22] MEDS: INSULIN ASPART (NovoLOG) 100 UNIT/ML VIAL SQ SCH (22:46)
[2022-10-23 06:13] LABS: Glucose,Whole Blood 105 mg/dL (70-110)
[2022-10-23] MEDS: INSULIN ASPART (NovoLOG) 100 UNIT/ML VIAL SQ SCH ×4 (06:14→20:39)
[2022-10-23] MEDS: LEVOTHYROXINE 75 MCG TAB PO SCH (06:20)
[2022-10-23] MEDS: PANTOPRAZOLE 40 MG TABLET PO SCH (06:20)
[2022-10-23] MEDS: DILTIAZEM CD 240 MG CAP.ER.24H PO SCH (09:23)
[2022-10-23] MEDS: DAPAGLIFLOZIN PROPANEDIOL 10 MG TABLET PO SCH (09:23)
[2022-10-23] MEDS: atenoloL 50 MG TAB PO SCH (09:23)
[2022-10-23] MEDS: ISOSORBIDE MONONITRATE ER 60 MG TAB.ER.24H PO SCH (09:23)
[2022-10-23] MEDS: LOSARTAN 25 MG TAB PO SCH (09:24)
[2022-10-23] MEDS: ASPIRIN 81 MG PO SCH (09:24)
[2022-10-23] MEDS: REPAGLINIDE 1 MG TAB PO SCH (09:24)
[2022-10-23] MEDS: RANOLAZINE 500 MG TAB.ER.12H PO SCH ×2 (09:24→20:47)
[2022-10-23 12:34] LABS: Glucose,Whole Blood 136 mg/dL (70-110)
[2022-10-23 13:00] LABS: INR 1.68 sec (0.93-1.11); Prothrombin Time 18.6 sec (9.9-11.9)
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
--- NOTE | 2022-10-23 16:20 | US ---
EXAMINATION TYPE: US carotid duplex BILAT DATE OF EXAM: 10/23/2022 COMPARISON: Carotid ultrasound 07/15/2018 CLINICAL INDICATION: Male, 76 years old with history of TIA; TECHNIQUE: Carotid duplex ultrasound examination. Indirect Doppler criteria was utilized. FINDINGS: EXAM MEASUREMENTS: RIGHT: Peak Systolic Velocity (PSV) cm/sec ----- Right CCA: 68.9 ----- Right ICA: 104.0 ----- Right ECA: 62.4 ICA/CCA ratio: 1.51 RIGHT: End Diastole cm/sec ----- Right CCA: 15.6 ----- Right ICA: 28.6 ----- Right ECA: 5.35 LEFT: Peak Systolic Velocity (PSV) cm/sec ----- Left CCA: 76.0 ----- Left ICA: 85.1 ----- Left ECA: 109.0 ICA/CCA ratio: 1.12 LEFT: End Diastole cm/sec ----- Left CCA: 11.0 ----- Left ICA: 14.3 ----- Left ECA: 109.0 VERTEBRALS (direction of flow): Right Vertebral: Antegrade Left Vertebral: Antegrade CLAIMS PROCESSOR NOTES: Moderate plaque formation noted throughout the right and left carotid arteries. IMPRESSION: Moderate atherosclerotic plaque within both carotid arteries without hemodynamically significant sten osis of the bilateral internal carotid arteries. Criteria for Assigning % of Stenosis / Diameter reduction (Estimation based on the indirect measurements of the internal carotid artery velocities (ICA PSV). 1. Normal (no stenosis)=ICA PSV < 125 cm/s: ratio < 2.0: ICA EDV<40 cm/s. 2. Less than 50% stenosis=ICA PSV < 125 cm/s: ratio < 2.0: ICA EDV<40 cm/s. 3. 50 to 69% stenosis=ICA PSV of 125 to 230 cm/s: ration 2.0 ? 4.0: ICA EDV 40-100 cm/s. 4. Greater than 70% stenosis to near occlusion= ICA PSV > 230 cm/s: ratio > 4.0: ICA EDV > 100 cm/s. 5. Near occlusion= ICA PSV velocities may be low or undetectable: variable ratio and ICA EDV. 6. Total occlusion=unable to detect flow.
[2022-10-23 17:24] LABS: Glucose,Whole Blood 140 mg/dL (70-110)
[2022-10-23 20:23] LABS: Glucose,Whole Blood 133 mg/dL (70-110)
[2022-10-23] MEDS: lamoTRIgine 25 MG TAB PO SCH (20:47)
[2022-10-23] MEDS: CLOPIDOGREL 75 MG TAB PO SCH (20:47)
[2022-10-23] MEDS: ATORVASTATIN 40 MG TAB PO SCH (20:47)
[2022-10-23] MEDS ORDERED: WARFARIN 5 MG TAB PO ONE (21:00)
[2022-10-24 06:42] LABS: Glucose,Whole Blood 126 mg/dL (70-110)
[2022-10-24 06:55] LABS: INR 2.3 (<1.2); Prothrombin Time 22.8 sec (9.0-12.0)
[2022-10-24] MEDS: INSULIN ASPART (NovoLOG) 100 UNIT/ML VIAL SQ SCH ×4 (08:29→20:26)
[2022-10-24] MEDS: LEVOTHYROXINE 75 MCG TAB PO SCH (08:58)
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
[2022-10-24] MEDS: ASPIRIN 81 MG PO SCH (10:35)
[2022-10-24] MEDS: REPAGLINIDE 1 MG TAB PO SCH (10:35)
[2022-10-24] MEDS: DAPAGLIFLOZIN PROPANEDIOL 10 MG TABLET PO SCH (10:35)
[2022-10-24] MEDS: DILTIAZEM CD 240 MG CAP.ER.24H PO SCH (10:35)
[2022-10-24] MEDS: PANTOPRAZOLE 40 MG TABLET PO SCH (10:36)
[2022-10-24 11:07] LABS: Basophils # (A) 0.05 X 10*3/uL (0.00-0.10); Basophils % (A) 0.9 %; Eosinophils # (A) 0.19 X 10*3/uL (0.04-0.35); Eosinophils % (A) 3.3 %; HCT 38.6 % (39.6-50.0); HGB 12.2 d/dL (13.0-17.0); Lymphocytes # (A) 1.23 X 10*3/uL (0.90-5.00); Lymphocytes % (A) 21.5 %; MCH 25.5 pg (27.0-32.0); MCHC 31.6 d/dL (32.0-37.0); MCV 80.6 FL (80.0-97.0); Mean Platelet Volume 10.5 FL (9.5-12.2); Monocytes # (A) 0.61 X 10*3/uL (0.20-1.00); Monocytes % (A) 10.6 %; NRBC Per 100 WBC 0 X 10*3/uL (0.00-0.01); Neutrophils # (A) 3.62 X 10*3/uL (1.80-7.70); Neutrophils % (A) 63.2 %; Platelet Count 159 X 10*3/uL (140-440); RBC 4.79 X 10*6/uL (4.40-5.60); RDW 16.3 % (11.5-14.5); WBC 5.73 X 10*3/uL (4.50-10.00)
[2022-10-24 11:11] LABS: BUN/Creat Ratio 17.94 Ratio (12.00-20.00); Blood Urea Nitrogen 32.3 mg/dL (9.0-27.0); Calcium 9.1 mg/dL (8.7-10.3); Chloride 104 mmol/L (96-109); Glucose 110 mg/dL (70-110); Potassium 3.6 mmol/L (3.5-5.5); Sodium 137 mmol/L (135-145)
[2022-10-24] MEDS ORDERED: SODIUM CHLORIDE 0.9% 500 ML 500 ML IV ONE (11:15)
[2022-10-24] MEDS: ISOSORBIDE MONONITRATE ER 60 MG TAB.ER.24H PO SCH ×2 (11:15→11:26)
[2022-10-24] MEDS: LOSARTAN 25 MG TAB PO SCH (11:26)
[2022-10-24] MEDS: RANOLAZINE 500 MG TAB.ER.12H PO SCH ×2 (11:26→20:36)
[2022-10-24] MEDS: atenoloL 50 MG TAB PO SCH (11:26)
[2022-10-24 12:15] LABS: Glucose,Whole Blood 161 mg/dL (70-110)
[2022-10-24 17:26] LABS: Glucose,Whole Blood 137 mg/dL (70-110)
[2022-10-24 20:14] LABS: Glucose,Whole Blood 138 mg/dL (70-110)
[2022-10-24] MEDS: CLOPIDOGREL 75 MG TAB PO SCH (20:36)
[2022-10-24] MEDS: ATORVASTATIN 40 MG TAB PO SCH (20:36)
[2022-10-24] MEDS: lamoTRIgine 25 MG TAB PO SCH (20:36)
[2022-10-24] MEDS ORDERED: WARFARIN 2 MG TAB PO ONE (21:00)
--- NOTE | 2022-10-24 21:40 | P.PN ---
Subjective Progress Note Date: 10/24/22 He is feeling well today, back to baseline and denies dizziness, vision change shortness of breath, chest pain. Objective - Vital Signs Vital signs: Vital Signs Temp 97.5 F L 10/24/22 15:00 Pulse 72 10/24/22 15:00 Resp 16 10/24/22 15:00 BP 91/54 10/24/22 15:00 Pulse Ox 98 10/24/22 15:00 FiO2 Intake & Output 10/24/22 10/24/22 10/25/22 06:59 18:59 06:59 Intake Total 118 Output Total 250 Balance -132 Intake: Oral 118 Output: Urine 250 Other: Voiding Method Urinal Urinal Urinal # Voids 2 - Exam Gen: well developed, well nourished NAD CV: Irregular, no murmur Lungs: CTAB Skin: warm and dry - Labs CBC & Chem 7: 10/24/22 05:36 10/24/22 05:36 Labs: Abnormal Lab Results - Last 24 Hours (Table) 10/24/22 10/24/22 10/24/22 Range/Units 05:36 05:36 05:36 Hgb 12.2 L (13.0-17.0) d/dL Hct 38.6 L (39.6-50.0) % MCH 25.5 L (27.0-32.0) pg MCHC 31.6 L (32.0-37.0) d/dL RDW 16.3 H (11.5-14.5) % PT 22.8 H (9.0-12.0) sec INR 2.3 H (<1.2) Carbon Dioxide 21.0 L (21.6-31.8) mmol/L BUN 32.3 H (9.0-27.0) mg/dL Creatinine 1.8 H (0.6-1.5) mg/dL Est GFR (CKD-EPI) 39 L (>=60) POC Glucose (mg/dL) (70-110) mg/dL 10/24/22 10/24/22 10/24/22 Range/Units 06:40 12:13 17:24 Hgb (13.0-17.0) d/dL Hct (39.6-50.0) % MCH (27.0-32.0) pg MCHC (32.0-37.0) d/dL RDW (11.5-14.5) % PT (9.0-12.0) sec INR (<1.2) Carbon Dioxide (21.6-31.8) mmol/L BUN (9.0-27.0) mg/dL Creatinine (0.6-1.5) mg/dL Est GFR (CKD-EPI) (>=60) POC Glucose (mg/dL) 126 H 161 H 137 H (70-110) mg/dL 10/24/22 Range/Units 20:12 Hgb (13.0-17.0) d/dL Hct (39.6-50.0) % MCH (27.0-32.0) pg MCHC (32.0-37.0) d/dL RDW (11.5-14.5) % PT (9.0-12.0) sec INR (<1.2) Carbon Dioxide (21.6-31.8) mmol/L BUN (9.0-27.0) mg/dL Creatinine (0.6-1.5) mg/dL Est GFR (CKD-EPI) (>=60) POC Glucose (mg/dL) 138 H (70-110) mg/dL Assessment and Plan Plan: Cardiology and Neurology recommendations. INR subtherapeutic on admission and consider switching to eliquis. Orthostatics positive. 500 cc bolus today and hold chlorthalidone, continue with atenolol and losartan. Discharge anticipate next 24 hours
[2022-10-25 05:55] LABS: INR 2.7 (<1.2)
[2022-10-25] MEDS: LEVOTHYROXINE 75 MCG TAB PO SCH (06:04)
[2022-10-25] MEDS: INSULIN ASPART (NovoLOG) 100 UNIT/ML VIAL SQ SCH ×4 (06:04→21:26)
[2022-10-25] MEDS: PANTOPRAZOLE 40 MG TABLET PO SCH (06:04)
[2022-10-25 06:06] LABS: Glucose,Whole Blood 106 mg/dL (70-110)
[2022-10-25] MEDS: atenoloL 50 MG TAB PO SCH (08:34)
[2022-10-25] MEDS: ASPIRIN 81 MG PO SCH (08:34)
[2022-10-25] MEDS: DILTIAZEM CD 240 MG CAP.ER.24H PO SCH (08:34)
[2022-10-25] MEDS: REPAGLINIDE 1 MG TAB PO SCH (08:34)
[2022-10-25] MEDS: RANOLAZINE 500 MG TAB.ER.12H PO SCH ×2 (08:34→19:45)
[2022-10-25] MEDS: DAPAGLIFLOZIN PROPANEDIOL 10 MG TABLET PO SCH (08:35)
[2022-10-25] MEDS: LOSARTAN 25 MG TAB PO SCH (09:33)
[2022-10-25] MEDS ORDERED: OXYMETAZOLINE 0.05% NASL SPRAY 1 SPRAY BOTTLE NASAL STA (11:50)
--- NOTE | 2022-10-25 12:16 | P.PN ---
Subjective Progress Note Date: 10/25/22 Subjective: Patient is seen and examined at bedside the same. His orthostatic vital signs were positive today. He is otherwise hemodynamically stable. His labs shows a creatinine of 1.8 which is stable as compared to yesterday. Baseline is unknown but I presume it is his baseline. His TSH is 0.08. Unsure if it's a lab letter or iatrogenic hyperthyroidism he is on levothyroxine 75. Synopsis Patient was brought in for altered mental status He had slurred speech He may have collapsed consider of the bed while sitting at edge CT of the brain did not show any acute abnormalities Twelve-lead EKG shows atrial fibrillation with organized activity, controlled ventricular response Currently patient is on atenolol Intermittent pacing noted When he came in his INR was subtherapeutic. Patient is on Coumadin INR was 1.8 and then 1.7. Today it is 2.3 Home medications include warfarin, levothyroxine, isosorbide, for seizure, Plavix, aspirin, atorvastatin, diltiazem, Ranexa, atenolol chlorthalidone Roger examination heart sounds irregular with normal Lungs are clear Patient is able to give history today and remembers what happened in the last few days Blood pressure 107/59 99/53 Afebrile Pulse rate in the 60s and 70s No lower extremity edema Impression TIA-like symptoms Underlying permanent atrial fibrillation Permanent pacemaker with intermittent pacing Rates well controlled Blood pressure low normal CKD, creatinine 1.8, unknown baseline Hypothyroidism, TSH 0.08 Orthostatic hypotension Nosebleed in while on triple therapy Prior history of CVA Suggest: Discontinue aspirin and warfarin Start Eliquis 5 mg twice a day. Continue Plavix. Patient reports personal history of CVA. Discontinue atenolol. chlorthalidone was already discontinued. Start metoprolol succinate 25 mg daily Continue Imdur 60 mg, Ranexa 1000 mg twice a day, Cardizem 240 mg daily Obtain an echocardiogram If blood pressure is low orthostatic vitals in the positive tomorrow as well, we will cut down on his Imdur Objective - Vital Signs Vital signs: Vital Signs Temp 97.7 F 10/25/22 07:00 Pulse 76 10/25/22 07:00 Resp 16 10/25/22 07:00 BP 109/59 10/25/22 09:50 Pulse Ox 100 10/25/22 09:50 FiO2 Intake & Output 10/24/22 10/25/22 10/25/22 18:59 06:59 18:59 Intake Total 118 118 Output Total 250 600 Balance -132 -600 118 Intake: Oral 118 118 Output: Urine 250 600 Other: Voiding Method Urinal Urinal Urinal # Voids 1 - Labs CBC & Chem 7: 10/24/22 05:36 10/24/22 05:36 Labs: Abnormal Lab Results - Last 24 Hours (Table) 10/24/22 10/24/22 10/24/22 Range/Units 05:36 12:13 17:24 PT (9.0-12.0) sec INR (<1.2) POC Glucose (mg/dL) 161 H 137 H (70-110) mg/dL TSH 0.080 L (0.350-5.500) UIU/ML 10/24/22 10/25/22 Range/Units 20:12 05:03 PT 26.0 H (9.0-12.0) sec INR 2.7 H (<1.2) POC Glucose (mg/dL) 138 H (70-110) mg/dL TSH (0.350-5.500) UIU/ML
[2022-10-25 12:18] LABS: Glucose,Whole Blood 164 mg/dL (70-110)
[2022-10-25] MEDS: METOPROLOL SUCCINATE (ER) 25 MG TAB.ER.24H PO SCH (12:20)
--- NOTE | 2022-10-25 14:56 | P.PN ---
Subjective Progress Note Date: 10/25/22 This is a pleasant 76-year-old male who follows with Dr. lea. Patient is evaluated in the hospital for altered mental status has essentially improved at this time. Neurology is following patient underwent brain CT which was negative for acute findings, carotid Doppler was completed which shows moderate atherosclerotic plaque within both carotid arteries without hemodynamically significant stenosis of the bilateral ICAs. Cardiology is also following this patient. Today his orthostatic blood pressure remains positive, patient has been changed to metoprolol from atenolol. He has been anticoagulated with warfarin INR today 2.7 patient has nose bleed to the right nare which he has had intermittently and patient does see Dr. Moody outpatient and has an appt made for early October. Afran nasal spray given and the nose bleed has improved. Patient is being transitioned to eliquis and today is thursday so will send this script to [facility] for a glaser check today anticipating possible DC home tomorrow if orthostatic pressures improve. Review of Systems Constitutional: Denied any fatigue denied any fever. Cardio vascular: denied any chest pain, palpitations Gastrointestinal: denied any nausea, vomiting, diarrhea Pulmonary: Denied any shortness of breath cough Neurologic denied any new focal deficits All inpatient medications were reviewed and appropriate changes in these medications as dictated in the interval history and assessment and plan. PHYSICAL EXAMINATION: GENERAL: The patient is alert and oriented x3, not in any acute distress. Well developed, well nourished. HEENT: Pupils are round and equally reacting to light. EOMI. No scleral icterus. No conjunctival pallor. Normocephalic, atraumatic. No pharyngeal erythema. No thyromegaly. CARDIOVASCULAR: S1 and S2 present. No murmurs, rubs, or gallops. PULMONARY: Chest is clear to auscultation, no wheezing or crackles. ABDOMEN: Soft, nontender, nondistended, normoactive bowel sounds. No palpable organomegaly. MUSCULOSKELETAL: No joint swelling or deformity. EXTREMITIES: No cyanosis, clubbing, or pedal edema. NEUROLOGICAL: Gross neurological examination did not reveal any focal deficits. SKIN: No rashes. Assessment Altered mental status, acute metabolic encephalopathy from hypotension and acute kidney injury improved Hx hypertension currently low normal with positive orthostatic changes Acute epistaxis likely related to warfarin therapy CAD,history of NSTEMI, recent cardiac catheterization 09/21 with successful stenting of the LAD Acute renal failure prerenal due to dehydration and hypotension likely from nosebleed Chronic kidney disease stage IIIB Chronic persistent atrial fibrillation on Coumadin Hypertension Hyperlipidemia Diabetes Mellitus type 2 Hypothyroidism with low TSH, pending T4 Sick sinus syndrome status post pacemaker Hx of DVT GI prophylaxis DVT prophylaxis Plan Afrin nasal spray given for the nose bleed patient sees Dr. Moody outpatient in 2 weeks already has an appt made Mentation has improved continue hydration and monitor orthostatic blood pressure Qshift Cardiology adjusting medications Neurology following Check a T4 level Repeat BMP in AM The impression and plan of care has been dictated by Radha Valenzuela, Nurse Practitioner as directed. Dr. Ada MD I have performed a history and physical examination and medical decision making of this patient, discussed the same with the dictator, and agree with the dictators assessment and plan as written, documented as a scribe. Based on total visit time, I have performed more than 50% of this visit. Objective - Vital Signs Vital signs: Vital Signs Temp 97.7 F 10/25/22 07:00 Pulse 76 10/25/22 07:00 Resp 16 10/25/22 07:00 BP 109/59 10/25/22 09:50 Pulse Ox 100 10/25/22 09:50 FiO2 Intake & Output 10/24/22 10/25/22 10/25/22 18:59 06:59 18:59 Intake Total 118 118 Output Total 250 600 Balance -132 -600 118 Intake: Oral 118 118 Output: Urine 250 600 Other: Voiding Method Urinal Urinal Urinal # Voids 1 - Labs CBC & Chem 7: 10/24/22 05:36 10/24/22 05:36 Labs: Abnormal Lab Results - Last 24 Hours (Table) 10/24/22 10/24/22 10/24/22 Range/Units 05:36 17:24 20:12 PT (9.0-12.0) sec INR (<1.2) POC Glucose (mg/dL) 137 H 138 H (70-110) mg/dL TSH 0.080 L (0.350-5.500) UIU/ML 10/25/22 10/25/22 Range/Units 05:03 12:16 PT 26.0 H (9.0-12.0) sec INR 2.7 H (<1.2) POC Glucose (mg/dL) 164 H (70-110) mg/dL TSH (0.350-5.500) UIU/ML Assessment and Plan Time with Patient: Less than 30
[2022-10-25] MEDS ORDERED: SODIUM CHLORIDE 0.9% 1,000 ML IV SCH (15:00)
[2022-10-25 17:16] LABS: Glucose,Whole Blood 90 mg/dL (70-110)
[2022-10-25] MEDS: CLOPIDOGREL 75 MG TAB PO SCH (19:44)
[2022-10-25] MEDS: lamoTRIgine 25 MG TAB PO SCH (19:45)
[2022-10-25] MEDS: ATORVASTATIN 40 MG TAB PO SCH (19:45)
[2022-10-25 20:39] LABS: Glucose,Whole Blood 141 mg/dL (70-110)
[2022-10-25] MEDS ORDERED: WARFARIN 2 MG TAB PO SCH (21:00)
[2022-10-25] MEDS ORDERED: APIXABAN 5 MG TAB PO SCH (21:00)
[2022-10-26 06:10] LABS: Potassium 3.4 mmol/L (3.5-5.1)
[2022-10-26 06:11] LABS: African American GFR (CKD) 53 (>60 ml/min/1.73 sqM); Anion Gap 9 mmol/L; Blood Urea Nitrogen 33 mg/dL (9-20); Calcium 8.7 mg/dL (8.4-10.2); Carbon Dioxide 24 mmol/L (22-30); Chloride 103 mmol/L (98-107); Glucose 91 mg/dL (74-99); Non-African American GFR(CKD) 46 (>60 ml/min/1.73 sqM); Sodium 136 mmol/L (137-145)
[2022-10-26] MEDS: PANTOPRAZOLE 40 MG TABLET PO SCH (06:11)
[2022-10-26] MEDS: LEVOTHYROXINE 75 MCG TAB PO SCH (06:11)
[2022-10-26 06:16] LABS: Glucose,Whole Blood 103 mg/dL (70-110)
[2022-10-26] MEDS: INSULIN ASPART (NovoLOG) 100 UNIT/ML VIAL SQ SCH ×4 (06:17→21:04)
[2022-10-26 07:32] VITALS: RESP 16
[2022-10-26] MEDS ORDERED: POTASSIUM CHLORIDE ER 20 MEQ TAB.ER PO STA (08:04)
[2022-10-26] MEDS: ISOSORBIDE MONONITRATE ER 60 MG TAB.ER.24H PO SCH (08:37)
[2022-10-26] MEDS: REPAGLINIDE 1 MG TAB PO SCH (08:37)
[2022-10-26] MEDS: LOSARTAN 25 MG TAB PO SCH (08:37)
[2022-10-26] MEDS: DILTIAZEM CD 240 MG CAP.ER.24H PO SCH (08:37)
[2022-10-26] MEDS: DAPAGLIFLOZIN PROPANEDIOL 10 MG TABLET PO SCH (08:37)
[2022-10-26] MEDS: APIXABAN 5 MG TAB PO SCH ×2 (08:37→19:48)
[2022-10-26] MEDS: RANOLAZINE 500 MG TAB.ER.12H PO SCH ×2 (08:37→19:49)
[2022-10-26] MEDS: METOPROLOL SUCCINATE (ER) 25 MG TAB.ER.24H PO SCH (08:37)
--- NOTE | 2022-10-26 10:54 | P.PN ---
Subjective Progress Note Date: 10/26/22 Subjective: Patient is seen and examined at bedside the same. His orthostatic vital signs were positive today. For this I discontinued his atenolol and subsequently evaluated with metoprolol which would help with his atrial fibrillation. He is otherwise hemodynamically stable. His creatinine is 1.4 today which is at his baseline which is improved from his admission time. His TSH is 0.08. Unsure if it's a lab letter or iatrogenic hyperthyroidism he is on levothyroxine 75. Synopsis Patient was brought in for altered mental status He had slurred speech He may have collapsed consider of the bed while sitting at edge CT of the brain did not show any acute abnormalities Twelve-lead EKG shows atrial fibrillation with organized activity, controlled ventricular response Currently patient is on atenolol Intermittent pacing noted When he came in his INR was subtherapeutic. Patient is on Coumadin INR was 1.8 and then 1.7. Today it is 2.3 Home medications include warfarin, levothyroxine, isosorbide, for seizure, Plavix, aspirin, atorvastatin, diltiazem, Ranexa, atenolol chlorthalidone Roger examination heart sounds irregular with normal Lungs are clear Patient is able to give history today and remembers what happened in the last few days Blood pressure 107/59 99/53 Afebrile Pulse rate in the 60s and 70s No lower extremity edema Impression TIA-like symptoms Underlying permanent atrial fibrillation Permanent pacemaker with intermittent pacing Rates well controlled Blood pressure low normal CKD, creatinine 1.8, unknown baseline Hypothyroidism, TSH 0.08 Orthostatic hypotension Nosebleed in while on triple therapy Prior history of CVA Suggest: Discontinue aspirin and warfarin Start Eliquis 5 mg twice a day. No further nose bleeding and hemoglobin stable Continue Plavix. Patient reports personal history of CVA. Discontinue atenolol. chlorthalidone was already discontinued. Start metoprolol succinate 25 mg daily Continue Imdur 60 mg, Ranexa 1000 mg twice a day, Cardizem 240 mg daily Obtain an echocardiogram Obtain orthostatic vital signs today to see if he is tolerating metoprolol and Imdur. If he continues to have positive orthostatics, I will discontinue metop rolol succinate also, and he reduce his Imdur to 30 Objective - Vital Signs Vital signs: Vital Signs Temp 97.6 F 10/26/22 07:00 Pulse 71 10/26/22 07:00 Resp 16 10/26/22 07:00 BP 135/74 10/26/22 08:33 Pulse Ox 98 10/26/22 08:47 FiO2 21 10/26/22 08:47 Intake & Output 10/25/22 10/26/22 10/26/22 18:59 06:59 18:59 Intake Total 118 200 118 Output Total 600 Balance 118 -400 118 Intake: Oral 118 200 118 Output: Urine 600 Other: Voiding Method Urinal Urinal Urinal # Voids 2 - Labs CBC & Chem 7: 10/24/22 05:36 10/26/22 05:42 Labs: Abnormal Lab Results - Last 24 Hours (Table) 10/25/22 10/25/22 10/26/22 Range/Units 12:16 20:38 05:42 Sodium 136 L (137-145) mmol/L Potassium 3.4 L (3.5-5.1) mmol/L BUN 33 H (9-20) mg/dL Creatinine 1.47 H (0.66-1.25) mg/dL POC Glucose (mg/dL) 164 H 141 H (70-110) mg/dL
[2022-10-26 12:25] LABS: Glucose,Whole Blood 111 mg/dL (70-110)
--- NOTE | 2022-10-26 15:21 | P.PN ---
Subjective Progress Note Date: 10/26/22 This is a pleasant 76-year-old male who follows with Dr. lea. Patient is evaluated in the hospital for altered mental status has essentially improved at this time. Neurology is following patient underwent brain CT which was negative for acute findings, carotid Doppler was completed which shows moderate atherosclerotic plaque within both carotid arteries without hemodynamically significant stenosis of the bilateral ICAs. Cardiology is also following this patient. Today his orthostatic blood pressure remains positive, patient has been changed to metoprolol from atenolol. He has been anticoagulated with warfarin INR today 2.7 patient has nose bleed to the right nare which he has had intermittently and patient does see Dr. Moody outpatient and has an appt made for early October. Afran nasal spray given and the nose bleed has improved. Patient is being transitioned to eliquis and today is thursday so will send this script to [facility] for a glaser check today anticipating possible DC home tomorrow if orthostatic pressures improve. 10/26/2022 Patient is evaluated today sitting on the edge of the bed. He received IV hydration overnight with improvement of his creatinine level down to 1.47. His blood pressure has improved up into the 130s systolic however he does remain orthostatic with a blood pressure in the 90s while standing. Cardiology is following and making medication adjustments. He is being transitioned from warfarin to eliquis. Eliquis was sent down to the [facility] on Thursday for glaser check on however the pharmacy was not open on Thursday for verification. Patient's nosebleed has improved with the use of Afrin he does see his ENT outpatinet in early October. Patient not quite ready for Discharge today. Review of Systems Constitutional: Denied any fatigue denied any fever. Cardio vascular: denied any chest pain, palpitations Gastrointestinal: denied any nausea, vomiting, diarrhea Pulmonary: Denied any shortness of breath cough Neurologic denied any new focal deficits All inpatient medications were reviewed and appropriate changes in these medications as dictated in the interval history and assessment and plan. PHYSICAL EXAMINATION: GENERAL: The patient is alert and oriented x3, not in any acute distress. Well developed, well nourished. HEENT: Pupils are round and equally reacting to light. EOMI. No scleral icterus. No conjunctival pallor. Normocephalic, atraumatic. No pharyngeal erythema. No thyromegaly. CARDIOVASCULAR: S1 and S2 present. No murmurs, rubs, or gallops. PULMONARY: Chest is clear to auscultation, no wheezing or crackles. ABDOMEN: Soft, nontender, nondistended, normoactive bowel sounds. No palpable organomegaly. MUSCULOSKELETAL: No joint swelling or deformity. EXTREMITIES: No cyanosis, clubbing, or pedal edema. NEUROLOGICAL: Gross neurological examination did not reveal any focal deficits. SKIN: No rashes. Assessment Altered mental status, acute metabolic encephalopathy from hypotension and acute kidney injury improved Hx hypertension currently low normal with positive orthostatic changes Acute epistaxis likely related to warfarin therapy CAD,history of NSTEMI, recent cardiac catheterization 09/21 with successful stenting of the LAD Acute renal failure prerenal due to dehydration and hypotension likely from nosebleed Chronic kidney disease stage IIIB Chronic persistent atrial fibrillation on Coumadin Hypertension Hyperlipidemia Diabetes Mellitus type 2 Hypothyroidism with low TSH, pending T4 Sick sinus syndrome status post pacemaker Hx of DVT GI prophylaxis DVT prophylaxis Plan Afrin nasal spray given for the nose bleed patient sees Dr. Moody outpatient in 2 weeks already has an appt made Mentation has improved continue hydration and monitor orthostatic blood pressure Qshift Stop IV fluids Cardiology adjusting medications Neurology following Check a T4 level Repeat BMP in AM The impression and plan of care has been dictated by Radha Valenzuela Nurse Practitioner as directed. Dr. Ada MD I have performed a history and physical examination and medical decision making of this patient, discussed the same with the dictator, and agree with the dictators assessment and plan as written, documented as a scribe. Based on total visit time, I have performed more than 50% of this visit. Objective - Vital Signs Vital signs: Vital Signs Temp 97.6 F 10/26/22 07:00 Pulse 71 10/26/22 07:00 Resp 16 10/26/22 07:00 BP 135/74 10/26/22 08:33 Pulse Ox 98 10/26/22 08:47 FiO2 21 10/26/22 08:47 Intake & Output 10/25/22 10/26/22 10/26/22 18:59 06:59 18:59 Intake Total 118 200 236 Output Total 600 Balance 118 -400 236 Intake: Oral 118 200 236 Output: Urine 600 Other: Voiding Method Urinal Urinal Urinal # Voids 2 - Labs CBC & Chem 7: 10/24/22 05:36 10/26/22 05:42 Labs: Abnormal Lab Results - Last 24 Hours (Table) 10/25/22 10/26/22 10/26/22 Range/Units 20:38 05:42 12:23 Sodium 136 L (137-145) mmol/L Potassium 3.4 L (3.5-5.1) mmol/L BUN 33 H (9-20) mg/dL Creatinine 1.47 H (0.66-1.25) mg/dL POC Glucose (mg/dL) 141 H 111 H (70-110) mg/dL Assessment and Plan Time with Patient: Less than 30
[2022-10-26 17:29] LABS: Glucose,Whole Blood 150 mg/dL (70-110)
[2022-10-26] MEDS: CLOPIDOGREL 75 MG TAB PO SCH (19:49)
[2022-10-26] MEDS: ATORVASTATIN 40 MG TAB PO SCH (19:49)
[2022-10-26] MEDS: lamoTRIgine 25 MG TAB PO SCH (19:49)
[2022-10-26 21:01] LABS: Glucose,Whole Blood 172 mg/dL (70-110)
[2022-10-27 03:41] VITALS: TEMP 97.9
[2022-10-27] MEDS: LEVOTHYROXINE 75 MCG TAB PO SCH (05:50)
[2022-10-27] MEDS: PANTOPRAZOLE 40 MG TABLET PO SCH (05:50)
[2022-10-27 06:24] LABS: Glucose,Whole Blood 107 mg/dL (70-110)
[2022-10-27] MEDS: INSULIN ASPART (NovoLOG) 100 UNIT/ML VIAL SQ SCH ×2 (06:29→13:24)
[2022-10-27 07:39] VITALS: BP 125/66
--- NOTE | 2022-10-27 08:30 | P.DS ---
Providers Date of admission: 10/22/22 14:43 Expected date of discharge: 10/27/22 Attending physician: Bret Floyd MD Consults: 10/22/22 14:40 Consult Physician Urgent Consulting Provider: Demian Junior Consult Reason/Comments: Altered mental status Do you want consulting provider notified?: Yes 10/23/22 13:31 Consult Physician Routine Consulting Provider: Santos Grigsby Consult Reason/Comments: near syncope,LOC change, CAD, recent cath 09/21 Do you want consulting provider notified?: Yes Primary care physician: Alaina [facility] Course: This is a pleasant 76-year-old male who follows with Dr. lea. Patient is evaluated in the hospital for altered mental status has essentially improved at this time. Neurology is following patient underwent brain CT which was negative for acute findings, carotid Doppler was completed which shows moderate atherosclerotic plaque within both carotid arteries without hemodynamically significant stenosis of the bilateral ICAs. Cardiology is also following this patient. Today his orthostatic blood pressure remains positive, patient has been changed to metoprolol from atenolol. He has been anticoagulated with warfarin INR today 2.7 patient has nose bleed to the right nare which he has had intermittently and patient does see Dr. Moody outpatient and has an appt made for early October. Afran nasal spray given and the nose bleed has improved. Patient is being transitioned to eliquis and today is thursday so will send this script to [facility] for a glaser check today anticipating possible DC home tomorrow if orthostatic pressures improve. 10/26/2022 Patient is evaluated today sitting on the edge of the bed. He received IV hydration overnight with improvement of his creatinine level down to 1.47. His blood pressure has improved up into the 130s systolic however he does remain orthostatic with a blood pressure in the 90s while standing. Cardiology is following and making medication adjustments. He is being transitioned from warfarin to eliquis. Eliquis was sent down to the [facility] pharmacy on Thursday for glaser check on however the pharmacy was not open on Thursday for verification. Patient's nosebleed has improved with the use of Afrin he does see his ENT outpatinet in early October. Patient not quite ready for Discharge today. 10/27/22. Pt evaluated by Cardiology and recommending to switch warfarin to eliquis and discontinue chlorthalidone. Pt recommended to follow up with his PCP as an outpatient. Plan - Discharge Summary Discharge Rx Participant: No New Discharge Prescriptions: New Metoprolol Succinate [Metoprolol Succinate ER] 25 mg PO DAILY #30 tab Apixaban [Eliquis] 5 mg PO BID #60 tab Continue Omeprazole [PriLOSEC] 20 mg PO QAM Aspirin 81 mg PO DAILY #90 tab Albuterol Inhaler [Ventolin Hfa Inhaler] 1 - 2 puff INHALATION RT-Q6H PRN PRN Reason: Shortness Of Breath Dapagliflozin Propanediol [Farxiga] 10 mg PO QAM Repaglinide [Prandin] 1 mg PO QAM Linagliptin [Tradjenta] 5 mg PO DAILY Promethazine [Phenergan] 25 mg PO TID PRN PRN Reason: Nausea lamoTRIgine [LaMICtal] 25 mg PO HS Atorvastatin [Lipitor] 40 mg PO HS Levothyroxine Sodium [Synthroid] 75 mcg PO QAM Clopidogrel [Plavix] 75 mg PO HS Nitroglycerin Sl Tabs [Nitrostat] 0.4 mg SL Q5M PRN PRN Reason: Chest Pain Ranolazine [Ranexa] 1,000 mg PO BID #120 tab Isosorbide Mononitrate ER [Imdur] 60 mg PO QAM dilTIAZem HCL [dilTIAZem HCL 24Hr ER] 240 mg PO DAILY Losartan Potassium [Cozaar] 25 mg PO DAILY Discontinued Atenolol/Chlorthalidone [Atenolol/Chlorthalidone 50-25] 1 tab PO DAILY Warfarin Sodium 4 mg PO HS Discharge Medication List Omeprazole [PriLOSEC] 20 mg PO QAM 08/30/14 [History] Atorvastatin [Lipitor] 40 mg PO HS 08/17/20 [History] Levothyroxine Sodium [Synthroid] 75 mcg PO QAM 08/17/20 [History] lamoTRIgine [LaMICtal] 25 mg PO HS 08/17/20 [History] Clopidogrel [Plavix] 75 mg PO HS 02/02/21 [History] Aspirin 81 mg PO DAILY #90 tab 02/06/21 [Rx] Albuterol Inhaler [Ventolin Hfa Inhaler] 1 - 2 puff INHALATION RT-Q6H PRN 01/15/22 [History] Nitroglycerin Sl Tabs [Nitrostat] 0.4 mg SL Q5M PRN 01/31/22 [History] Dapagliflozin Propanediol [Farxiga] 10 mg PO QAM 04/22/22 [History] Ranolazine [Ranexa] 1,000 mg PO BID #120 tab 08/08/22 [Rx] Isosorbide Mononitrate ER [Imdur] 60 mg PO QAM 08/18/22 [History] Repaglinide [Prandin] 1 mg PO QAM 08/18/22 [History] Linagliptin [Tradjenta] 5 mg PO DAILY 10/22/22 [History] Losartan Potassium [Cozaar] 25 mg PO DAILY 10/22/22 [History] Promethazine [Phenergan] 25 mg PO TID PRN 10/22/22 [History] dilTIAZem HCL [dilTIAZem HCL 24Hr ER] 240 mg PO DAILY 10/22/22 [History] Apixaban [Eliquis] 5 mg PO BID #60 tab 10/25/22 [Rx] Metoprolol Succinate [Metoprolol Succinate ER] 25 mg PO DAILY #30 tab 10/27/22 [Rx] Follow up Appointment(s)/Referral(s): Alaina Floyd DO [Primary Care Provider] - 1-2 days Discharge Disposition: HOME SELF-CARE
[2022-10-27] MEDS: REPAGLINIDE 1 MG TAB PO SCH (08:44)
[2022-10-27] MEDS: RANOLAZINE 500 MG TAB.ER.12H PO SCH (08:44)
[2022-10-27] MEDS: METOPROLOL SUCCINATE (ER) 25 MG TAB.ER.24H PO SCH (08:45)
[2022-10-27] MEDS: APIXABAN 5 MG TAB PO SCH (08:45)
[2022-10-27] MEDS: DILTIAZEM CD 240 MG CAP.ER.24H PO SCH (08:45)
[2022-10-27] MEDS: DAPAGLIFLOZIN PROPANEDIOL 10 MG TABLET PO SCH (08:45)
[2022-10-27] MEDS: ISOSORBIDE MONONITRATE ER 60 MG TAB.ER.24H PO SCH (08:45)
[2022-10-27] MEDS ORDERED: LOSARTAN 25 MG TAB PO SCH (09:00)
[2022-10-27 09:57] VITALS: PULSE 76
--- NOTE | 2022-10-27 10:24 | P.PN ---
Subjective HISTORY OF PRESENT ILLNESS: Patient examined this morning at the bedside. Patient currently denies chest pain or pressure. He denies shortness of breath. Currently denies dizziness or lightheadedness. His orthostatic blood pressures remain positive. PHYSICAL EXAM: VITAL SIGNS: Reviewed. GENERAL: Well-developed in no acute distress. NECK: Supple. No JVD or thyromegaly LUNGS: Respirations even and unlabored. Lungs essentially clear to auscultation bilaterally. HEART: Irregular rate and rhythm. S1 and S2 heard. EXTREMITIES: Normal range of motion. No clubbing or cyanosis. Peripheral pulses intact. No lower extremity edema ASSESSMENT: TIA like symptoms Permanent atrial fibrillation with controlled ventricular rate History of permanent pacemaker implantation Coronary artery disease with previous stenting Orthostatic hypotension History of CVA Chronic kidney disease Hypothyroidism PLAN: Decrease losartan to 12.5 mg daily Continue additional cardiac medications Discontinue echocardiogram ordered for today Patient may be discharged home today from a cardiac standpoint Nurse practitioner note has been reviewed by physician. Signing provider agrees with the documented findings, assessment, and plan of care. Objective - Vital Signs Vital signs: Vital Signs Temp 97.9 F 10/27/22 06:40 Pulse 76 10/27/22 08:00 Resp 16 10/27/22 08:00 BP 125/66 10/27/22 06:40 Pulse Ox 96 10/27/22 08:02 FiO2 21 10/27/22 08:02 Intake & Output 10/26/22 10/27/22 10/27/22 18:59 06:59 18:59 Intake Total 236 500 118 Output Total 900 250 Balance 236 -400 -132 Intake: Oral 236 500 118 Output: Urine 900 250 Other: Voiding Method Urinal Urinal Urinal # Voids 2 - Labs CBC & Chem 7: 10/24/22 05:36 10/26/22 05:42 Labs: Abnormal Lab Results - Last 24 Hours (Table) 10/24/22 10/26/22 10/26/22 Range/Units 05:36 12:23 17:28 POC Glucose (mg/dL) 111 H 150 H (70-110) mg/dL Free T4 1.88 H (0.80-1.80) ng/dL 10/26/22 Range/Units 20:59 POC Glucose (mg/dL) 172 H (70-110) mg/dL Free T4 (0.80-1.80) ng/dL
[2022-10-27 11:56] LABS: Glucose,Whole Blood 167 mg/dL (70-110)
== END 2022-10-27 14:16 | disposition home or self-care (01) | DRG 682 ==
LOC: EC 08:10 → 6NMEDSUR 14:43 → OBSVTOIN 10-25 14:43
PROVIDERS: ADMIT Family Medicine; ATTEND Family Medicine
DX: N17.9 Acute kidney failure, unspecified (principal); G93.41 Metabolic encephalopathy; D68.32 Hemorrhagic disorder due to extrinsic circulating anticoagulants; I48.21 Permanent atrial fibrillation; F05 Delirium due to known physiological condition; I95.1 Orthostatic hypotension; E11.649 Type 2 diabetes mellitus with hypoglycemia without coma; E11.22 Type 2 diabetes mellitus with diabetic chronic kidney disease; E78.5 Hyperlipidemia, unspecified; E86.0 Dehydration; R04.0 Epistaxis; X58.XXXA Exposure to other specified factors, initial encounter; I12.9 Hypertensive chronic kidney disease with stage 1 through stage 4 chronic kidney disease, or unspecified chronic kidney disease; I25.10 Atherosclerotic heart disease of native coronary artery without angina pectoris; T45.515A Adverse effect of anticoagulants, initial encounter; F32.A Depression, unspecified; R47.81 Slurred speech; F41.9 Anxiety disorder, unspecified; H54.8 Legal blindness, as defined in USA; Z87.19 Personal history of other diseases of the digestive system; I49.5 Sick sinus syndrome; Z86.14 Personal history of Methicillin resistant Staphylococcus aureus infection; Z95.0 Presence of cardiac pacemaker; Z79.890 Hormone replacement therapy; I25.2 Old myocardial infarction; N18.32 Chronic kidney disease, stage 3b; Z79.01 Long term (current) use of anticoagulants; Z79.02 Long term (current) use of antithrombotics/antiplatelets; Z79.82 Long term (current) use of aspirin; Z79.84 Long term (current) use of oral hypoglycemic drugs; Z79.899 Other long term (current) drug therapy; Z86.718 Personal history of other venous thrombosis and embolism; Z86.73 Personal history of transient ischemic attack (TIA), and cerebral infarction without residual deficits; Z95.5 Presence of coronary angioplasty implant and graft; Z96.653 Presence of artificial knee joint, bilateral; Z98.42 Cataract extraction status, left eye; Z98.41 Cataract extraction status, right eye; Z95.828 Presence of other vascular implants and grafts
CPT/HCPCS: 36415; 70450; 71046; 80048; 80053; 81003; 82607; 82746; 83036; 84439; 84443; 84484; 85025; 85610; 85730; 93005; 93880; 94760; 99285

== ENCOUNTER 2022-11-02 12:43 | Observation (INO) | payer MEDICARE ==
[2022-11-02 13:28] LABS: Anisocytosis Slight; Basophils % (A) 0 %; Eosinophils # (A) 0.1 k/uL (0-0.7); Eosinophils % (A) 1 %; HCT 42.8 % (39.0-53.0); HGB 14.1 gm/dL (13.0-17.5); Lymphocytes # (A) 1.3 k/uL (1.0-4.8); Lymphocytes % (A) 17 %; MCH 26.4 pg (25.0-35.0); MCV 79.9 fL (80.0-100.0); Mean Platelet Volume 8.2; Microcytosis Slight; Monocytes # (A) 0.6 k/uL (0-1.0); Monocytes % (A) 8 %; Neutrophils # (A) 5.5 k/uL (1.3-7.7); Neutrophils % (A) 72 %; Platelet Count 197 k/uL (150-450); RBC 5.35 m/uL (4.30-5.90); RDW 16.8 % (11.5-15.5); WBC 7.6 k/uL (3.8-10.6)
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
[2022-11-02 13:36] LABS: INR 1.3 (<1.2); Partial Thromboplastin Time 27.4 sec (22.0-30.0); Prothrombin Time 12.8 sec (9.0-12.0)
[2022-11-02 13:38] LABS: ALT 19 U/L (4-49); AST 27 U/L (17-59); African American GFR (CKD) 55 (>60 ml/min/1.73 sqM); Albumin 3.4 g/dL (3.5-5.0); Alkaline Phosphatase 87 U/L (38-126); Anion Gap 13 mmol/L; Blood Urea Nitrogen 28 mg/dL (9-20); Calcium 8.6 mg/dL (8.4-10.2); Carbon Dioxide 18 mmol/L (22-30); Chloride 104 mmol/L (98-107); Glucose 157 mg/dL (74-99); Non-African American GFR(CKD) 47 (>60 ml/min/1.73 sqM); Sodium 135 mmol/L (137-145); Total Bilirubin 1.4 mg/dL (0.2-1.3); Total Protein 6.3 g/dL (6.3-8.2)
--- NOTE | 2022-11-02 13:41 | XR ---
EXAMINATION TYPE: XR chest 1V portable DATE OF EXAM: 11/02/2022 1:35 PM COMPARISON: Chest radiographs from 10/22/2022 TECHNIQUE: XR chest 1V portable Portable AP radiograph of the chest. CLINICAL INDICATION:Male, 76 years old with history of syncope; FINDINGS: Lungs/Pleura: There is no evidence of pleural effusion, focal consolidation, or pneumothorax. Elevat ion of the right hemidiaphragm. Pulmonary vascularity: Unremarkable. Heart/mediastinum: Cardiomediastinal silhouette is prominent in size. Atherosclerotic calcifications are seen in the aorta. Single-lead cardiac conduction device overlying the left hemithorax with lead projecting over the right ventricle. Musculoskeletal: No acute osseous pathology. Midline sternotomy wires are noted and stable. Other findings: None Lines/Tubes: Right PICC line with distal tip in the region of the right subclavian vein. IMPRESSION: 1. No acute cardiopulmonary disease/process. 2. Right PICC line in the region of the right subclavian vein. Clinical correlation is recommended.
[2022-11-02] MEDS ORDERED: SODIUM CHLORIDE 0.9% 1,000 ML IV STA (14:01)
[2022-11-02] MEDS ORDERED: ASPIRIN 81 MG PO STA (14:02)
[2022-11-02] MEDS ORDERED: NALOXONE 0.4 MG/ML 1 ML VIAL IV PRN (14:20)
[2022-11-02] MEDS ORDERED: SODIUM CHLORIDE 0.65% NASAL SPRAY 44 ML BTL NASAL SCH (14:30)
[2022-11-02] MEDS ORDERED: POTASSIUM CHLORIDE ER 20 MEQ TAB.ER PO STA (15:48)
[2022-11-02] MEDS ORDERED: POTASSIUM CHLORIDE 20 MEQ in WATER FOR INJECTION 1 100ML.BAG IVPB STA (15:48)
[2022-11-02] MEDS ORDERED: ALBUTEROL NEBULIZED 2.5 MG/3 ML INHALATION PRN (15:49)
[2022-11-02] MEDS ORDERED: POTASSIUM CHLORIDE 20 MEQ in WATER FOR INJECTION 1 100ML.BAG IVPB ONE (17:00)
[2022-11-02] MEDS: AMPICILLIN-SULBACTAM 3 GM in SODIUM CHLORIDE 0.9% 100 ML IVPB SCH ×2 (17:02→23:49)
[2022-11-02] MEDS: OXYMETAZOLINE 0.05% NASL SPRAY 1 SPRAY BOTTLE NASAL SCH ×2 (17:02→21:51)
[2022-11-02] MEDS: SODIUM CHLORIDE 0.9% 1,000 ML IV SCH (17:47)
[2022-11-02] MEDS: CLOPIDOGREL 75 MG TAB PO SCH (21:50)
[2022-11-02] MEDS: ATORVASTATIN 40 MG TAB PO SCH (21:50)
[2022-11-02] MEDS: lamoTRIgine 25 MG TAB PO SCH (21:50)
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
[2022-11-03] MEDS: LEVOTHYROXINE 75 MCG TAB PO SCH (06:48)
[2022-11-03] MEDS: PANTOPRAZOLE 40 MG TABLET PO SCH (08:22)
[2022-11-03] MEDS: METOPROLOL SUCCINATE (ER) 25 MG TAB.ER.24H PO SCH (08:22)
[2022-11-03] MEDS: OXYMETAZOLINE 0.05% NASL SPRAY 1 SPRAY BOTTLE NASAL SCH ×3 (08:22→23:00)
[2022-11-03] MEDS: AMPICILLIN-SULBACTAM 3 GM in SODIUM CHLORIDE 0.9% 100 ML IVPB SCH ×3 (08:23→23:01)
[2022-11-03 08:59] LABS: Basophils # (A) 0.07 X 10*3/uL (0.00-0.10); Eosinophils # (A) 0.13 X 10*3/uL (0.04-0.35); Eosinophils % (A) 1.8 %; HCT 41.7 % (39.6-50.0); HGB 13.3 d/dL (13.0-17.0); Lymphocytes # (A) 1.43 X 10*3/uL (0.90-5.00); Lymphocytes % (A) 20.1 %; MCH 26.2 pg (27.0-32.0); MCHC 31.9 d/dL (32.0-37.0); MCV 82.1 FL (80.0-97.0); Mean Platelet Volume 10.6 FL (9.5-12.2); Monocytes # (A) 0.75 X 10*3/uL (0.20-1.00); Monocytes % (A) 10.5 %; NRBC Per 100 WBC 0 X 10*3/uL (0.00-0.01); Neutrophils # (A) 4.72 X 10*3/uL (1.80-7.70); Neutrophils % (A) 66.2 %; Platelet Count 174 X 10*3/uL (140-440); RBC 5.08 X 10*6/uL (4.40-5.60); RDW 17.5 % (11.5-14.5); WBC 7.13 X 10*3/uL (4.50-10.00)
[2022-11-03] MEDS ORDERED: ASPIRIN 81 MG PO SCH (09:00)
[2022-11-03 09:05] LABS: BUN/Creat Ratio 18.64 Ratio (12.00-20.00); Blood Urea Nitrogen 26.1 mg/dL (9.0-27.0); Calcium 9.2 mg/dL (8.7-10.3); Carbon Dioxide 24.4 mmol/L (21.6-31.8); Chloride 105 mmol/L (96-109); Glucose 105 mg/dL (70-110); Potassium 4.2 mmol/L (3.5-5.5); Sodium 140 mmol/L (135-145)
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
--- NOTE | 2022-11-03 13:57 | CONS ---
CONSULTATION REASON FOR CONSULTATION: Epistaxis. HISTORY OF PRESENT ILLNESS: This patient is a very pleasant 76-year-old male who was recently readmitted to [facility] for evaluation of syncopal episodes and weakness. The patient has a long history of having issues with respect to heart disease, that is to say he has had coronary bypass surgery, stents, and repair of a traumatic injury to his heart. He states that he has had nosebleeds in the past, but he has been able to stop them simply by stuffing tissue paper into his nose. Over the past couple of weeks he has had intermittent nosebleeds and has been using tissue. On or Thursday of this last week, the patient states that he had a nosebleed which he simply was not able to stop. He became quite weak. He had previously been told by his family physician to place Afrin nasal spray in his nose. This seemed to help somewhat. In addition to this, the patient had been seen in the emergency room and nasal packing had been placed on the right side of his nose. He was supposed to have this removed in approximately 5 days. However, the patient states that he fell at home and the packing came out and the bleeding started once again. Therefore, he presented at [facility] Emergency Room and was subsequently admitted. His nose was not repacked. He has previously been seen by Dr. Arnol Moody and has an appointment with Dr. Moody on 11/05/2022. He has a history of atrial fibrillation, sick sinus syndrome. He is legally blind. PAST MEDICAL HISTORY: Review of systems, ALLERGIES: Include sulfa, codeine, haloperidol, lactate, Ketorolac, and tramadol. CURRENT MEDICATIONS: Include Lamictal, diltiazem, Prandin, Ranexa, Prilosec, Nitrostat, metoprolol, Cozaar, Tradjenta, Synthroid, Imdur, Farxiga, Plavix, Lipitor, baby aspirin daily, Eliquis, and Ventolin inhaler. REVIEW OF SYSTEMS: CARDIOVASCULAR: Positive for ASHD, hypertension, sick sinus and atrial fibrillation. RESPIRATORY: Positive for COPD. GASTROINTESTINAL: Positive for GERD (gastroesophageal reflux disorder). MUSCULOSKELETAL: Positive for osteoarthritis. METABOLIC/ENDOCRINE: Positive for type 2 diabetes mellitus. Remainder of the review of systems is essentially unremarkable. PHYSICAL EXAMINATION: GENERAL: This patient 76-year-old male who is alert and cooperative. HEENT: The patient is normocephalic. Tympanic membranes are normal. Middle ear spaces are free of any fluid or infection. Pupils equal, round, and reactive to light and accommodation. Extraocular movements within normal limits. Intranasal examination reveals moderately severe septal deviation with compensatory hypertrophy of the inferior turbinates. There is an area on the right side of the cartilage portion of the nasal septum anteriorly which is noted to have recently been bleeding. The area has a scab over it. It is not actively bleeding at this time. The left side is unremarkable. Examination of oropharynx reveals no evidence of any bleeding down the posterior pharynx. Remainder of the head and neck exam is within normal limits. CHEST/CARDIOVASCULAR: Lung flores are clear, but distant to percussion and auscultation. The patient is in regular sinus rhythm. S1 and S2 are present without any murmurs. Peripheral pulses are bilaterally symmetrical. ABDOMEN: No evidence any masses, megaly, or tenderness. The abdomen is soft. Remainder of physical exam is unremarkable. IMPRESSION: Right anterior posterior epistaxis. PLAN: I have elected not to repack his nose. Instead, we will try keeping the vasculature vasoconstricted by using Afrin nasal spray 2 puffs in each nostril 3 times daily while the patient is in the hospital. I have also advised the patient to continue this at home when he is discharged until such time as he sees Dr. Moody. He states that he thinks Dr. Moody may cauterize his nose in his office. In addition to this, I have advised the patient until further notice that he should not blow his nose. If he feels there is something in his nose, then he can simply sniff it back and spit it out. Furthermore, if he should have to sneeze, he should do so with his mouth open so that the force of the sneeze comes through his mouth. I have advised him against picking his nose, also he should not use any saline nasal spray in his nose as this can be quite drying. If he wishes to place a dab of Vaseline petroleum jelly in each nostril for dryness, then that is okay. The patient is currently on supplemental oxygen while in the hospital, and I have requested that the nurses add a humidifying bottle to his oxygen. It would be better if the patient had a facial tent which apparently Respiratory Therapy over the years has refused to order and supply the physicians with, rather than the nasal cannula or mask. Certainly, this facial tent would sit below the chin and is much better tolerated than a facial mask and there is less chance of any injury to the nasal mucosa such as might be caused by the prongs of the nasal cannula. My understanding is at the present time the patient's Eliquis has been stopped, but he has other anticoagulants on board. From an ENT standpoint unless there are further problems with severe bleeding, the patient certainly could be discharged home either on 11/03/2022 or 11/04/2022 with the above instructions with regard to blowing his nose, sneezing with his mouth open, avoiding using any type of saline sprays. Finally, I have advised the patient if he develops any bleeding at home that he may saturate a cotton ball with Afrin nasal spray and place it in his right nostril and leave it there for 5-10 minutes. He should avoid using tissue because tissue, toilet paper, paper towels, etc., are actually quite traumatic to the nasal mucosa and may cause areas of bleeding. I want to take this opportunity to thank you for allowing me to assist in the care of your patient. If I can be of any further assistance, please feel free to call my office. DEMETRIO / TREVOR: [id number] / MTDD
[2022-11-03] MEDS: SODIUM CHLORIDE 0.9% 1,000 ML IV SCH (15:51)
[2022-11-03] MEDS: RANOLAZINE 500 MG TAB.ER.12H PO SCH (20:29)
[2022-11-03] MEDS: APIXABAN 5 MG TAB PO SCH (20:29)
[2022-11-03] MEDS: CLOPIDOGREL 75 MG TAB PO SCH (20:29)
[2022-11-03] MEDS: ATORVASTATIN 40 MG TAB PO SCH (20:29)
[2022-11-03] MEDS: lamoTRIgine 25 MG TAB PO SCH (20:29)
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
[2022-11-04] MEDS: LEVOTHYROXINE 75 MCG TAB PO SCH (05:39)
[2022-11-04 08:28] VITALS: BP 113/70; PULSE 87; RESP 16; TEMP 97.8
[2022-11-04] MEDS: RANOLAZINE 500 MG TAB.ER.12H PO SCH (08:37)
[2022-11-04] MEDS: PANTOPRAZOLE 40 MG TABLET PO SCH (08:37)
[2022-11-04] MEDS: AMPICILLIN-SULBACTAM 3 GM in SODIUM CHLORIDE 0.9% 100 ML IVPB SCH (08:37)
[2022-11-04] MEDS: METOPROLOL SUCCINATE (ER) 25 MG TAB.ER.24H PO SCH (08:37)
[2022-11-04] MEDS: OXYMETAZOLINE 0.05% NASL SPRAY 1 SPRAY BOTTLE NASAL SCH (08:38)
[2022-11-04] MEDS: APIXABAN 5 MG TAB PO SCH (08:38)
[2022-11-04 08:41] LABS: Basophils # (A) 0.04 X 10*3/uL (0.00-0.10); Basophils % (A) 0.6 %; Eosinophils # (A) 0.15 X 10*3/uL (0.04-0.35); Eosinophils % (A) 2.3 %; HCT 39.6 % (39.6-50.0); HGB 12.4 d/dL (13.0-17.0); Lymphocytes # (A) 1.35 X 10*3/uL (0.90-5.00); Lymphocytes % (A) 21.1 %; MCH 25.3 pg (27.0-32.0); MCHC 31.3 d/dL (32.0-37.0); MCV 80.7 FL (80.0-97.0); Mean Platelet Volume 10.4 FL (9.5-12.2); Monocytes # (A) 0.65 X 10*3/uL (0.20-1.00); Monocytes % (A) 10.2 %; NRBC Per 100 WBC 0 X 10*3/uL (0.00-0.01); Neutrophils # (A) 4.18 X 10*3/uL (1.80-7.70); Neutrophils % (A) 65.5 %; Platelet Count 165 X 10*3/uL (140-440); RBC 4.91 X 10*6/uL (4.40-5.60); RDW 17.2 % (11.5-14.5); WBC 6.39 X 10*3/uL (4.50-10.00)
[2022-11-04 08:56] LABS: BUN/Creat Ratio 17.33 Ratio (12.00-20.00); Blood Urea Nitrogen 20.8 mg/dL (9.0-27.0); Calcium 8.7 mg/dL (8.7-10.3); Carbon Dioxide 21.5 mmol/L (21.6-31.8); Chloride 104 mmol/L (96-109); Glucose 131 mg/dL (70-110); Potassium 3.2 mmol/L (3.5-5.5); Sodium 139 mmol/L (135-145)
[2022-11-04] MEDS ORDERED: DAPAGLIFLOZIN PROPANEDIOL 10 MG TABLET PO SCH (09:00)
--- NOTE | 2022-11-04 11:13 | P.PN ---
Subjective Progress Note Date: 11/04/22 Subjective: Patient is doing well from cardiac arrest for standpoint. He is hemodynamics stable. He does not have any further nosebleeds. Patient's vitals and labs were reviewed and they are essentially within normal limits. #1 recurrent positional weakness, lightheadedness, dizziness and questionable syncope, likely secondary to orthostasis #2 CAD with recent stenting of the mid LAD #3 permanent pacemaker #4 chronic persistent atrial fibrillation #5 ischemic cardiomyopathy #6 valvular heart disease #7 hypertension, episodes of hypotension on current therapy #8 hyperlipidemia Plan: Patient's orthostatic vital signs are negative. I would agree with holding his losartan and examined isosorbide. I would agree with discontinuing his aspirin at the time of discharge. Continue his Plavix and Eliquis on discharge. Next Patient is okay to be discharged from cardiac vessel standpoint otherwise. Objective - Vital Signs Vital signs: Vital Signs Temp 97.8 F 11/04/22 07:00 Pulse 87 11/04/22 07:00 Resp 16 11/04/22 07:00 BP 113/70 11/04/22 07:00 Pulse Ox 100 11/04/22 07:00 FiO2 Intake & Output 11/03/22 11/04/22 11/04/22 18:59 06:59 18:59 Intake Total 118 Output Total 900 Balance -900 118 Intake: Oral 118 Output: Urine 900 Other: Voiding Method Urinal # Voids 1 3 - Labs CBC & Chem 7: 11/04/22 05:54 11/04/22 05:54 Labs: Abnormal Lab Results - Last 24 Hours (Table) 11/04/22 11/04/22 Range/Units 05:54 05:54 Hgb 12.4 L (13.0-17.0) d/dL MCH 25.3 L (27.0-32.0) pg MCHC 31.3 L (32.0-37.0) d/dL RDW 17.2 H (11.5-14.5) % Potassium 3.2 L (3.5-5.5) mmol/L Carbon Dioxide 21.5 L (21.6-31.8) mmol/L Anion Gap 13.50 H (4.00-12.00) mmol/L Glucose 131 H (70-110) mg/dL
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
== END 2022-11-04 14:08 | disposition home or self-care (01) ==
LOC: EC 12:43 → 6NMEDSUR 14:21
PROVIDERS: ADMIT Family Medicine; ATTEND Family Medicine
DX: R04.0 Epistaxis (principal); R55 Syncope and collapse; I25.10 Atherosclerotic heart disease of native coronary artery without angina pectoris; H54.8 Legal blindness, as defined in USA; F32.A Depression, unspecified; F41.9 Anxiety disorder, unspecified; I10 Essential (primary) hypertension; E78.5 Hyperlipidemia, unspecified; I48.21 Permanent atrial fibrillation; I25.5 Ischemic cardiomyopathy; R29.6 Repeated falls; I49.5 Sick sinus syndrome; L03.115 Cellulitis of right lower limb; L03.116 Cellulitis of left lower limb; E03.9 Hypothyroidism, unspecified; I25.2 Old myocardial infarction; Z86.718 Personal history of other venous thrombosis and embolism; Z87.820 Personal history of traumatic brain injury; Z95.0 Presence of cardiac pacemaker; Z95.5 Presence of coronary angioplasty implant and graft; Z79.890 Hormone replacement therapy; Z79.899 Other long term (current) drug therapy; Z79.02 Long term (current) use of antithrombotics/antiplatelets; Z79.84 Long term (current) use of oral hypoglycemic drugs; Z79.82 Long term (current) use of aspirin; Z79.01 Long term (current) use of anticoagulants; Z88.2 Allergy status to sulfonamides; Z88.5 Allergy status to narcotic agent; Z88.6 Allergy status to analgesic agent
CPT/HCPCS: 96361 ×2; 96365; 96366 ×3; 96368; 99285; 36415; 93005; 86900; 86901; 80053; 80048 ×2; 84484; 85025 ×3; 85610; 85730; 86850; 71045; G0378 ×3; J3480; J0295 ×3

== ENCOUNTER → 2022-11-12 | Outpatient (CLI) | payer MEDICARE ==
[2022-11-12 21:45] LABS: Basophils # (A) 0.06 X 10*3/uL (0.00-0.10); Basophils % (A) 0.6 %; Eosinophils # (A) 0.19 X 10*3/uL (0.04-0.35); Eosinophils % (A) 1.9 %; HCT 40.3 % (39.6-50.0); HGB 12.8 d/dL (13.0-17.0); Lymphocytes # (A) 1.94 X 10*3/uL (0.90-5.00); Lymphocytes % (A) 19.6 %; MCH 26.3 pg (27.0-32.0); MCHC 31.8 d/dL (32.0-37.0); MCV 82.9 FL (80.0-97.0); Mean Platelet Volume 10.5 FL (9.5-12.2); Monocytes # (A) 0.96 X 10*3/uL (0.20-1.00); Monocytes % (A) 9.7 %; NRBC Per 100 WBC 0 X 10*3/uL (0.00-0.01); Neutrophils # (A) 6.71 X 10*3/uL (1.80-7.70); Neutrophils % (A) 67.8 %; Platelet Count 222 X 10*3/uL (140-440); RBC 4.86 X 10*6/uL (4.40-5.60); RDW 18.6 % (11.5-14.5)
== END | disposition home or self-care (01) ==
LOC: LABWHC1 10:23
PROVIDERS: ATTEND Otolaryngology
DX: R04.0 Epistaxis (principal)
CPT/HCPCS: 36415; 85025

== ENCOUNTER 2024-05-01 05:48 | Emergency (ER) | payer MEDICARE ==
[2024-05-01 06:00] VITALS: RESP 18
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
[2024-05-01 06:34] LABS: Basophils % (A) 0 %; Eosinophils # (A) 0.1 k/uL (0-0.7); Eosinophils % (A) 2 %; HGB 15.3 gm/dL (13.0-17.5); Lymphocytes # (A) 0.9 k/uL (1.0-4.8); Lymphocytes % (A) 14 %; MCH 29.8 pg (25.0-35.0); MCHC 31.9 g/dL (31.0-37.0); MCV 93.4 fL (80.0-100.0); Mean Platelet Volume 7.3; Monocytes # (A) 0.5 k/uL (0-1.0); Monocytes % (A) 7 %; Neutrophils % (A) 75 %; Platelet Count 137 k/uL (150-450); RBC 5.14 m/uL (4.30-5.90); RDW 13.9 % (11.5-15.5); WBC 6.7 k/uL (3.8-10.6)
[2024-05-01 06:45] LABS: ALT 21 U/L (4-49); AST 23 U/L (17-59); African American GFR (CKD) 58 (>60 ml/min/1.73 sqM); Albumin 3.7 g/dL (3.5-5.0); Alkaline Phosphatase 76 U/L (38-126); Amylase 55 U/L (30-110); Anion Gap 9 mmol/L; Blood Urea Nitrogen 21 mg/dL (9-20); Calcium 9.2 mg/dL (8.4-10.2); Carbon Dioxide 24 mmol/L (22-30); Chloride 104 mmol/L (98-107); Glucose 113 mg/dL (74-99); Lipase 169 U/L (23-300); Non-African American GFR(CKD) 50 (>60 ml/min/1.73 sqM); Potassium 4.5 mmol/L (3.5-5.1); Sodium 137 mmol/L (137-145); Total Protein 6.4 g/dL (6.3-8.2)
[2024-05-01] MEDS: SODIUM CHLORIDE 0.9% 1,000 ML IV STA (06:57)
[2024-05-01] MEDS: FAMOTIDINE 20 MG/2 ML VIAL IV STA (06:58)
[2024-05-01] MEDS: ONDANSETRON 4 MG/2 ML VIAL IVP STA (06:58)
[2024-05-01 08:14] LABS: Influenza A Not Detected (Not Detectd); Influenza B Not Detected (Not Detectd); RSV Not Detected (Not Detectd)
[2024-05-01 08:51] LABS: Appearance,Urine Clear (Clear); Bilirubin,Urine Negative (Negative); Blood,Urine Negative (Negative); Color,Urine Yellow; Glucose,Urine (UA) 4+ (Negative); Ketones,Urine Negative (Negative); Leukocyte Esterase,Urine Negative (Negative); Nitrite,Urine Negative (Negative); PH, Urine 6.5 (5.0-8.0); Protein,Urine Negative (Negative); Specific Gravity,Urine 1.016 (1.001-1.035)
[2024-05-01 09:05] VITALS: BP 145/85; PULSE 90; TEMP 98
[2024-05-01] MEDS: ONDANSETRON 4 MG ODT STARTER PACK 2 TAB BTL PO STA (09:14)
== END 2024-05-01 09:25 | disposition home or self-care (01) ==
LOC: EC 05:48
DX: R11.2 Nausea with vomiting, unspecified (principal)
CPT/HCPCS: 36415; 93005; 80053; 82150; 83605; 83690; 85025; 81003; 87636; 99284; 96374; 96375; 96361; J2405; J3490; S0119

== ENCOUNTER → 2024-07-01 | Outpatient (CLI) | payer MEDICARE ==
[2024-07-01 15:11] LABS: Basophils # (A) 0.04 X 10*3/uL (0.00-0.10); Basophils % (A) 0.6 %; Eosinophils # (A) 0.06 X 10*3/uL (0.04-0.35); HCT 49.1 % (39.6-50.0); HGB 15.9 g/dL (13.0-17.0); Lymphocytes # (A) 1.21 X 10*3/uL (0.90-5.00); Lymphocytes % (A) 19.6 %; MCH 29.6 pg (27.0-32.0); MCHC 32.4 g/dL (32.0-37.0); MCV 91.3 FL (80.0-97.0); Mean Platelet Volume 10.3 FL (9.5-12.2); Monocytes # (A) 0.55 X 10*3/uL (0.20-1.00); Monocytes % (A) 8.9 %; NRBC Per 100 WBC 0 X 10*3/uL (0.00-0.01); Neutrophils % (A) 69.6 %; Platelet Count 182 X 10*3/uL (140-440); RBC 5.38 X 10*6/uL (4.40-5.60); RDW 14.1 % (11.5-14.5); WBC 6.18 X 10*3/uL (4.50-10.00)
[2024-07-01 15:38] LABS: BUN/Creat Ratio 12.29 Ratio (12.00-20.00); Blood Urea Nitrogen 20.9 mg/dL (9.0-27.0); Calcium 9.9 mg/dL (8.7-10.3); Carbon Dioxide 21.1 mmol/L (21.6-31.8); Chloride 100 mmol/L (96-109); Glucose 195 mg/dL (70-110); Magnesium 2.1 mg/dL (1.5-2.4); Phosphorus 3.7 mg/dL (2.4-5.1); Potassium 5.4 mmol/L (3.5-5.5); Sodium 136 mmol/L (135-145)
== END | disposition home or self-care (01) ==
LOC: LABWHC1 11:46
PROVIDERS: ATTEND Nurse Practitioner Acute Care
DX: N18.32 Chronic kidney disease, stage 3b (principal); D63.1 Anemia in chronic kidney disease
CPT/HCPCS: 36415; 80048; 83735; 84100; 85025